=== PATIENT | male | born 1940 | race Caucasian/White ===

== ENCOUNTER 2023-08-13 15:51 | Inpatient (IN) | payer MEDICARE, BC ==
--- NOTE | 2023-08-13 16:40 | ED ---
Abdominal Pain HPI - General Source: patient, family, RN notes reviewed Mode of arrival: wheelchair Limitations: no limitations <Agueda Carson - Last Filed: 08/13/23 16:39> - History of Present Illness MD Complaint: abdominal pain -: days(s) Location: diffuse, epigastric, suprapubic Radiation: epigastric, suprapubic Migration to: epigastric, suprapubic Severity: moderate Severity scale (1-10): 5 Quality: sharp Consistency: intermittent Improves With: nothing Worsens With: nothing Associated Symptoms: nausea, diarrhea, constipation Treatments Prior to Arrival: other (0) <Brandon Chavis - Last Filed: 08/21/23 00:39> - General Chief Complaint: Abdominal Pain Stated Complaint: ABD pain Time Seen by Provider: 08/13/23 16:10 - History of Present Illness Initial Comments: Tosin notethis is an 82-year-old male with a history of diverticulitis 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 Family states that patient has been more lethargic and weak over this time. complaints of constipation and bleching. Referred by Dr. Mendoza (Agueda Carson) This is a 82-year-old male to the ER for evaluation known history of diverticulitis coming in with severe abdominal pain today. Patient also had outpatient lab testing showing low hemoglobin and patient presents to the ER for evaluation of low hemoglobin and abdominal pain (Brandon Chavis) - Related Data Home Medications Medication Instructions Recorded Confirmed Acetaminophen [Tylenol Arthritis] 650 mg PO BID 08/13/23 08/13/23 Amoxicillin 2,000 mg PO ONETIME PRN 08/13/23 08/13/23 Aspirin EC [Ecotrin Low Dose] 81 mg PO DAILY 08/13/23 08/13/23 Atorvastatin [Lipitor] 40 mg PO HS 08/13/23 08/13/23 Clopidogrel [Plavix] 75 mg PO DAILY 08/13/23 08/13/23 Cyanocobalamin (Vitamin B-12) 1,000 mcg PO DAILY 08/13/23 08/13/23 [Vitamin B-12] EPINEPHrine (Auto Inject) [Epipen] 0.3 mg IM ONCE PRN 08/13/23 08/13/23 Ferrous Sulfate [Feosol] 325 mg PO DAILY 08/13/23 08/13/23 Finasteride [Proscar] 5 mg PO DAILY 08/13/23 08/13/23 Furosemide [Lasix] 20 mg PO BID@0900,1600 08/13/23 08/13/23 Gabapentin 600 mg PO TID 08/13/23 08/13/23 Metoprolol Succinate (ER) [Toprol 12.5 mg PO BID 08/13/23 08/13/23 Xl] Mv-Min/Folic/K1/Lycopen/Lutein 1 tab PO DAILY 08/13/23 08/13/23 [Centrum Silver Men Tablet] Omega3/Dha/Epa/Fish Oil/Vit D3 1 cap PO DAILY 08/13/23 08/13/23 [Edmond-3 + Vitamin D3 Softgel] Omeprazole 40 mg PO BID 08/13/23 08/13/23 Potassium Chloride ER [K-Dur 20] 20 meq PO DAILY 08/13/23 08/13/23 Tamsulosin HCl [Flomax] 0.4 mg PO DAILY 08/13/23 08/13/23 Previous Rx's Medication Instructions Recorded Apixaban [Eliquis] 5 mg PO BID #60 tab 08/20/23 Allergies Allergy/AdvReac Type Severity Reaction Status Date / Time bee venom protein (honey bee) AdvReac Anaphylaxis Verified 08/13/23 19:12 /Swelling/R lawson Review of Systems ROS Other: All systems not noted in ROS Statement are negative. <Agueda Carson - Last Filed: 08/13/23 16:39> ROS Other: All systems not noted in ROS Statement are negative. <Brandon Chavis - Last Filed: 08/21/23 00:39> ROS Statement: Those systems with pertinent positive or pertinent negative responses have been documented in the HPI. Past Medical History Past Medical History: Cancer, Hyperlipidemia, Hypertension Additional Past Medical History / Comment(s): melatoma, abnormal blood protein d isorder, neuropathy History of Any Multi-Drug Resistant Organisms: None Reported Past Surgical History: Heart Catheterization With Stent Past Psychological History: No Psychological Hx Reported Smoking Status: Former smoker Past Alcohol Use History: None Reported Past Drug Use History: None Reported <Agueda Carson - Last Filed: 08/13/23 16:39> General Exam Limitations: no limitations <Leesa Carsonoe - Last Filed: 08/13/23 16:39> General appearance: alert, in no apparent distress Head exam: Present: atraumatic, normocephalic, normal inspection Eye exam: Present: normal appearance, PERRL, EOMI. Absent: scleral icterus, conjunctival injection, periorbital swelling ENT exam: Present: normal exam, mucous membranes moist Neck exam: Present: normal inspection. Absent: tenderness, meningismus, lymphadenopathy Respiratory exam: Present: normal lung sounds bilaterally. Absent: respiratory distress, wheezes, rales, rhonchi, stridor Cardiovascular Exam: Present: regular rate, normal rhythm, normal heart sounds. Absent: systolic murmur, diastolic murmur, rubs, gallop, clicks GI/Abdominal exam: Present: soft, normal bowel sounds. Absent: distended, tenderness, guarding, rebound, rigid Extremities exam: Present: normal inspection, full ROM, normal capillary refill. Absent: tenderness, pedal edema, joint swelling, calf tenderness Back exam: Present: normal inspection Neurological exam: Present: alert, oriented X3, CN II-XII intact Psychiatric exam: Present: normal affect, normal mood Skin exam: Present: warm, dry, intact, normal color. Absent: rash <Brandon Chavis - Last Filed: 08/21/23 00:39> - General Exam Comments Initial Comments: Visual Physical Exam Vital signs reviewed General: Well-appearing, nontoxic, no acute distress. Head: Normocephalic, atraumatic Eyes: PERRLA, EOMI ENT: Airway patent Chest: Nonlabored breathing Skin: No visual rash, normal skin tone Neuro: Alert and oriented 3 Musculoskeletal: No gross abnormalities (Agueda Carson) Course <Brandon Chavis - Last Filed: 08/21/23 00:39> Vital Signs 08/13/23 08/13/23 08/13/23 16:12 18:27 19:42 Temperature 101.2 F H 100.4 F H Pulse Rate 60 70 75 Respiratory 18 16 16 Rate Blood Pressure 109/57 138/67 121/76 O2 Sat by Pulse 95 97 95 Oximetry 08/13/23 08/13/23 08/13/23 20:27 20:53 21:57 Temperature 99.4 F 98.8 F Pulse Rate 69 66 61 Respiratory 19 15 16 Rate Blood Pressure 125/68 112/53 120/75 O2 Sat by Pulse 97 98 96 Oximetry 08/13/23 22:26 Temperature 97.7 F Pulse Rate 61 Respiratory 19 Rate Blood Pressure 110/64 O2 Sat by Pulse 95 Oximetry - Reevaluation(s) Reevaluation #1: 08/13/23 21:25 Records reviewed (Brandon Chavis) Reevaluation #2: 08/13/23 21:25 Patient's symptoms are unchanged (Brandon Chavis) Reevaluation #3: 08/13/23 21:25 Patient informed of results and questions answered (Brandon Chavis) Reevaluation #4: Was pt. sent in by a medical professional or institution (NICOLE Burgos, CURRICULUM MANAGER, urgent care, hospital, or jail...) When possible be specific @ -no Did you speak to anyone other than the patient for history (EMS, parent, family, police, friend...)? What history was obtained from this source @ -no Did you review nursing and triage notes (agree or disagree)? Why? @ -agree Are old charts reviewed (outside hosp., previous admission, EMS record, old EKG, old radiological studies, urgent care reports/EKG's, jail records)? Report findings @ -yes Differential Diagnosis (chest pain, altered mental status, abdominal pain women, abdominal pain men, vaginal bleeding, weakness, fever, dyspnea, syncope, headache, dizziness, GI bleed, back pain, seizure, CVA, palpatations, mental health, musculoskeletal)? @ -prior EKG interpreted by me (3pts min.). @ -yes X-rays interpreted by me (1pt min.). @ -yes negative for acute disease CT interpreted by me (1pt min.). @ -Yes negative for acute disease U/S interpreted by me (1pt. min.). @ -no What testing was considered but not performed or refused? (CT, X-rays, U/S, labs)? Why? @ -none What meds were considered but not given or refused? Why? @ -none Did you discuss the management of the patient with other professionals (professionals i.e. NICOLE Burgos, CURRICULUM MANAGER, lab, RT, psych nurse, pediatric social worker, boiler attendant, teacher, fire management officer, rn case management)? Give summary @ -no Was smoking cessation discussed for >3mins.? @ -no Was critical care preformed (if so, how long)? @ -no Were there social determinants of health that impacted care today? How? (Homel essness, low income, unemployed, alcoholism, drug addiction, transportation, low edu. Level, literacy, decrease access to med. care, long term, rehab)? @ -none Was there de-escalation of care discussed even if they declined (Discuss DNR or withdrawal of care, Hospice)? DNR status @ -no What co-morbidities impacted this encounter? (DM, HTN, Smoking, COPD, CAD, Cancer, CVA, ARF, Chemo, Hep., AIDS, mental health diagnosis, sleep apnea, morbid obesity)? @ -none Was patient admitted / discharged? Hospital course, mention meds given and route, prescriptions, significant lab abnormalities, going to OR and other pertinent info. @ - 82 male will be admitted for evaluation of anemia, patient has no acute distress here in the ER will be transfusion admitted for also further evaluation of fever Admitted Undiagnosed new problem with uncertain prognosis? @ -no Drug Therapy requiring intensive monitoring for toxicity (Heparin, Nitro, Insulin, Cardizem)? @ -no Were any procedures done? @ -no Diagnosis/symptom? @ -Fever and anemia Acute, or Chronic, or Acute on Chronic? @ -Acute Uncomplicated (without systemic symptoms) or Complicated (systemic symptoms)? @ -Complicated Side effects of treatment? @ -no Exacerbation, Progression, or Severe Exacerbation? @ -exacerbation Poses a threat to life or bodily function? How? (Chest pain, USA, IA, pneumonia, PE, COPD, DKA, ARF, appy, cholecystitis, CVA, Diverticulitis, Homicidal, Suicidal, threat to staff... and all critical care pts) @ -yes with extremes of age (Brandon Chavis) Reevaluation #5: Differential Fever: Pneumonia, viral URI, endocarditis, myocarditis, pericarditis, otitis, sinusitis, peritonsillar Abscess, retropharyngeal Abscess, epiglottitis, peritonitis, appendicitis, Sara cystitis, diverticulitis, hepatitis, colitis, UTI, PID, TOA, pyelonephritis, prostatitis, epididymitis, meningitis, encephalitis, pulmonary embolism, CVA, thyroid storm, pancreatitis, adrenal crisis, cavernous sinus thrombosis, this is not meant to be an all-inclusive list. Differential GI Bleed: Esophageal varices, aortoenteric fistula, Sophie-Resendiz, gastritis, peptic ulcer disease, diverticulosis, inflammatory bowel disease, hemorrhoids, fissure, colitis, malignancy, Meckels diverticulum, this is not meant to be an all- inclusive list. (Brandon Chavis) - Consultations Consultation #1: Talk with Dr. Mcadams who agrees to admit this patient (Brandon Chavis) Medical Decision Making <Agueda Carson - Last Filed: 08/13/23 16:39> - Lab Data Result diagrams: 08/20/23 18:12 08/20/23 09:31 - Radiology Data Radiology results: report reviewed (CT abdomen pelvis is negative for acute disease), image reviewed <Brandon Chavis - Last Filed: 08/21/23 00:39> - Medical Decision Making I completed the quick note portion of this chart signed Agueda Carson PA-C (Agueda Carson) 82 male will be admitted for evaluation of anemia, patient has no acute distress here in the ER will be transfusion admitted for also further evaluation of fever (Brandon Chavis) - Lab Data Lab Results 08/13/23 08/13/23 08/13/23 Range/Units 16:22 17:20 17:20 WBC (3.8-10.6) k/uL RBC (4.30-5.90) m/uL Hgb (13.0-17.5) gm/dL Hct (39.0-53.0) % MCV (80.0-100.0) fL MCH (25.0-35.0) pg MCHC (31.0-37.0) g/dL RDW (11.5-15.5) % Plt Count (150-450) k/uL MPV Neutrophils % % Lymphocytes % % Monocytes % % Eosinophils % % Basophils % % Neutrophils # (1.3-7.7) k/uL Lymphocytes # (1.0-4.8) k/uL Monocytes # (0-1.0) k/uL Eosinophils # (0-0.7) k/uL Basophils # (0-0.2) k/uL Hypochromasia Retic Count 2.6 H (0.5-2.0) % PT (10.0-12.5) sec INR (<1.2) APTT (22.0-30.0) sec Sodium (137-145) mmol/L Potassium (3.5-5.1) mmol/L Chloride (98-107) mmol/L Carbon Dioxide (22-30) mmol/L Anion Gap mmol/L BUN (9-20) mg/dL Creatinine (0.66-1.25) mg/dL Est GFR (CKD-EPI)AfAm (>60 ml/min/1.73 sqM) Est GFR (CKD-EPI)NonAf (>60 ml/min/1.73 sqM) Glucose (74-99) mg/dL Plasma Lactic Acid Umesh (0.7-2.0) mmol/L Calcium (8.4-10.2) mg/dL Magnesium (1.6-2.3) mg/dL Iron 26 L (65-175) UG/DL TIBC 210 L (228-460) UG/DL % Saturation 12.38 L (15.00-50.00) Transferrin 150.0 L (204.0-354.0) mg/dL Ferritin 401.0 H (22.0-322.0) ng/mL Total Bilirubin (0.2-1.3) mg/dL AST (17-59) U/L ALT (4-49) U/L Alkaline Phosphatase (38-126) U/L Lactate Dehydrogenase 307 H (120-246) U/L Total Protein (6.3-8.2) g/dL Albumin (3.5-5.0) g/dL Vitamin B12 892.0 (200.0-944.0) pg/mL Urine Color Urine Appearance (Clear) Urine pH (5.0-8.0) Ur Specific Hurst (1.001-1.035) Urine Protein (Negative) Urine Glucose (UA) (Negative) Urine Ketones (Negative) Urine Blood (Negative) Urine Nitrite (Negative) Urine Bilirubin (Negative) Urine Urobilinogen (<2.0) mg/dL Ur Leukocyte Esterase (Negative) Influenza Type A (PCR) Not Detected (Not Detectd) Influenza Type B (PCR) Not Detected (Not Detectd) RSV (PCR) Not Detected (Not Detectd) SARS-CoV-2 (PCR) Not Detected (Not Detectd) Blood Type Blood Type Recheck Bld Type Recheck Status Antibody Screen Crossmatch Spec Expiration Date 08/13/23 08/13/23 08/13/23 Range/Units 17:32 17:32 17:32 WBC 8.8 (3.8-10.6) k/uL RBC 2.01 L (4.30-5.90) m/uL Hgb 6.2 L* (13.0-17.5) gm/dL Hct 19.1 L* (39.0-53.0) % MCV 94.9 (80.0-100.0) fL MCH 30.6 (25.0-35.0) pg MCHC 32.2 (31.0-37.0) g/dL RDW 14.9 (11.5-15.5) % Plt Count 270 (150-450) k/uL MPV 7.8 Neutrophils % 85 % Lymphocytes % 8 % Monocytes % 4 % Eosinophils % 0 % Basophils % 0 % Neutrophils # 7.4 (1.3-7.7) k/uL Lymphocytes # 0.7 L (1.0-4.8) k/uL Monocytes # 0.4 (0-1.0) k/uL Eosinophils # 0.0 (0-0.7) k/uL Basophils # 0.0 (0-0.2) k/uL Hypochromasia Slight Retic Count (0.5-2.0) % PT (10.0-12.5) sec INR (<1.2) APTT (22.0-30.0) sec Sodium 135 L (137-145) mmol/L Potassium 4.5 (3.5-5.1) mmol/L Chloride 101 (98-107) mmol/L Carbon Dioxide 22 (22-30) mmol/L Anion Gap 12 mmol/L BUN 19 (9-20) mg/dL Creatinine 1.11 (0.66-1.25) mg/dL Est GFR (CKD-EPI)AfAm 70 (>60 ml/min/1.73 sqM) Est GFR (CKD-EPI)NonAf 61 (>60 ml/min/1.73 sqM) Glucose 115 H (74-99) mg/dL Plasma Lactic Acid Umesh 1.7 (0.7-2.0) mmol/L Calcium 8.4 (8.4-10.2) mg/dL Magnesium 2.2 (1.6-2.3) mg/dL Iron (65-175) UG/DL TIBC (228-460) UG/DL % Saturation (15.00-50.00) Transferrin (204.0-354.0) mg/dL Ferritin (22.0-322.0) ng/mL Total Bilirubin 1.0 (0.2-1.3) mg/dL AST 45 (17-59) U/L ALT 28 (4-49) U/L Alkaline Phosphatase 130 H (38-126) U/L Lactate Dehydrogenase (120-246) U/L Total Protein 9.6 H (6.3-8.2) g/dL Albumin 3.6 (3.5-5.0) g/dL Vitamin B12 (200.0-944.0) pg/mL Urine Color Urine Appearance (Clear) Urine pH (5.0-8.0) Ur Specific Hurst (1.001-1.035) Urine Protein (Negative) Urine Glucose (UA) (Negative) Urine Ketones (Negative) Urine Blood (Negative) Urine Nitrite (Negative) Urine Bilirubin (Negative) Urine Urobilinogen (<2.0) mg/dL Ur Leukocyte Esterase (Negative) Influenza Type A (PCR) (Not Detectd) Influenza Type B (PCR) (Not Detectd) RSV (PCR) (Not Detectd) SARS-CoV-2 (PCR) (Not Detectd) Blood Type Blood Type Recheck Bld Type Recheck Status Antibody Screen Crossmatch Spec Expiration Date 08/13/23 08/13/23 08/13/23 Range/Units 18:10 18:47 21:10 WBC (3.8-10.6) k/uL RBC (4.30-5.90) m/uL Hgb (13.0-17.5) gm/dL Hct (39.0-53.0) % MCV (80.0-100.0) fL MCH (25.0-35.0) pg MCHC (31.0-37.0) g/dL RDW (11.5-15.5) % Plt Count (150-450) k/uL MPV Neutrophils % % Lymphocytes % % Monocytes % % Eosinophils % % Basophils % % Neutrophils # (1.3-7.7) k/uL Lymphocytes # (1.0-4.8) k/uL Monocytes # (0-1.0) k/uL Eosinophils # (0-0.7) k/uL Basophils # (0-0.2) k/uL Hypochromasia Retic Count (0.5-2.0) % PT 12.2 (10.0-12.5) sec INR 1.1 (<1.2) APTT 25.8 (22.0-30.0) sec Sodium (137-145) mmol/L Potassium (3.5-5.1) mmol/L Chloride (98-107) mmol/L Carbon Dioxide (22-30) mmol/L Anion Gap mmol/L BUN (9-20) mg/dL Creatinine (0.66-1.25) mg/dL Est GFR (CKD-EPI)AfAm (>60 ml/min/1.73 sqM) Est GFR (CKD-EPI)NonAf (>60 ml/min/1.73 sqM) Glucose (74-99) mg/dL Plasma Lactic Acid Umesh (0.7-2.0) mmol/L Calcium (8.4-10.2) mg/dL Magnesium (1.6-2.3) mg/dL Iron (65-175) UG/DL TIBC (228-460) UG/DL % Saturation (15.00-50.00) Transferrin (204.0-354.0) mg/dL Ferritin (22.0-322.0) ng/mL Total Bilirubin (0.2-1.3) mg/dL AST (17-59) U/L ALT (4-49) U/L Alkaline Phosphatase (38-126) U/L Lactate Dehydrogenase (120-246) U/L Total Protein (6.3-8.2) g/dL Albumin (3.5-5.0) g/dL Vitamin B12 (200.0-944.0) pg/mL Urine Color Light Yellow Urine Appearance Clear (Clear) Urine pH 6.0 (5.0-8.0) Ur Specific Hurst 1.015 (1.001-1.035) Urine Protein Trace H (Negative) Urine Glucose (UA) Negative (Negative) Urine Ketones Negative (Negative) Urine Blood Negative (Negative) Urine Nitrite Negative (Negative) Urine Bilirubin Negative (Negative) Urine Urobilinogen <2.0 (<2.0) mg/dL Ur Leukocyte Esterase Negative (Negative) Influenza Type A (PCR) (Not Detectd) Influenza Type B (PCR) (Not Detectd) RSV (PCR) (Not Detectd) SARS-CoV-2 (PCR) (Not Detectd) Blood Type A Negative Blood Type Recheck A Neg Bld Type Recheck Status No Antibody Screen NEGATIVE Crossmatch See Detail Spec Expiration Date 08/16/20232309 Disposition <Agueda Carson - Last Filed: 08/13/23 16:39> Is patient prescribed a controlled substance at d/c from ED?: No Time of Disposition: 21:20 <Brandon Chavis - Last Filed: 08/21/23 00:39> Clinical Impression: Abdominal pain, Enteritis, Anemia Disposition: ADMITTED IP TO THIS HOSP Condition: Fair
--- NOTE | 2023-08-13 17:17 | XR ---
EXAMINATION TYPE: XR KUB DATE OF EXAM: 08/13/2023 4:50 PM CLINICAL INDICATION:Male, 82 years old with history of abdominal pain; [facility] COMPARISON: None. TECHNIQUE: One radiographic view of the abdomen was obtained. FINDINGS: The bowel gas pattern is nonspecific without dilated loops of small or large bowel. There i s no evidence for organomegaly or pneumoperitoneum. The osseous structures are intact. No abnormal calcifications are present. Fecal material and gas are demonstrated throughout the colon and rectum. Right upper quadrant cholecystectomy clips. Multilevel degeneration changes spine with scoliosis ape x L2-L3. IMPRESSION: Nonspecific bowel gas pattern without radiographic evidence for acute process.
[2023-08-13 17:38] LABS: Basophils % (A) 0 %; Eosinophils % (A) 0 %; Hypochromasia Slight; Lymphocytes # (A) 0.7 k/uL (1.0-4.8); Lymphocytes % (A) 8 %; MCH 30.6 pg (25.0-35.0); MCHC 32.2 g/dL (31.0-37.0); MCV 94.9 fL (80.0-100.0); Mean Platelet Volume 7.8; Monocytes # (A) 0.4 k/uL (0-1.0); Monocytes % (A) 4 %; Neutrophils # (A) 7.4 k/uL (1.3-7.7); Neutrophils % (A) 85 %; Platelet Count 270 k/uL (150-450); RBC 2.01 m/uL (4.30-5.90); RDW 14.9 % (11.5-15.5); WBC 8.8 k/uL (3.8-10.6)
[2023-08-13 17:44] LABS: HGB 6.2 gm/dL (13.0-17.5)
[2023-08-13 17:45] LABS: HCT 19.1 % (39.0-53.0)
[2023-08-13 17:50] LABS: ALT 28 U/L (4-49); AST 45 U/L (17-59); African American GFR (CKD) 70 (>60 ml/min/1.73 sqM); Albumin 3.6 g/dL (3.5-5.0); Alkaline Phosphatase 130 U/L (38-126); Anion Gap 12 mmol/L; Blood Urea Nitrogen 19 mg/dL (9-20); Calcium 8.4 mg/dL (8.4-10.2); Carbon Dioxide 22 mmol/L (22-30); Chloride 101 mmol/L (98-107); Glucose 115 mg/dL (74-99); Magnesium 2.2 mg/dL (1.6-2.3); Non-African American GFR(CKD) 61 (>60 ml/min/1.73 sqM); Potassium 4.5 mmol/L (3.5-5.1); Sodium 135 mmol/L (137-145); Total Protein 9.6 g/dL (6.3-8.2)
[2023-08-13 18:44] LABS: Appearance,Urine Clear (Clear); Bilirubin,Urine Negative (Negative); Blood,Urine Negative (Negative); Color,Urine Light Yellow; Glucose,Urine (UA) Negative (Negative); Ketones,Urine Negative (Negative); Leukocyte Esterase,Urine Negative (Negative); Nitrite,Urine Negative (Negative); Protein,Urine Trace (Negative); Specific Gravity,Urine 1.015 (1.001-1.035); Urobilinogen,Urine <2.0 mg/dL (<2.0)
--- NOTE | 2023-08-13 19:08 | XR ---
EXAMINATION TYPE: XR chest 1V portable DATE OF EXAM: 08/13/2023 6:54 PM CLINICAL INDICATION:Male, 82 years old with history of weak; COMPARISON: None TECHNIQUE: XR chest 1V portable Frontal view of the chest. FINDINGS: Lungs/Pleura: Suspected right basilar atelectasis. There is no evidence of pleural effusion, focal co nsolidation, or pneumothorax. Pulmonary vascularity: Unremarkable. Heart/mediastinum: Cardiomediastinal silhouette is unremarkable. Post aortic valve repair changes. Musculoskeletal: Degenerative changes of the shoulder joints. Other findings: None IMPRESSION: No acute cardiopulmonary disease/process.
[2023-08-13 19:14] LABS: INR 1.1 (<1.2); Partial Thromboplastin Time 25.8 sec (22.0-30.0); Prothrombin Time 12.2 sec (10.0-12.5)
[2023-08-13] MEDS: ACETAMINOPHEN IV (For NPO) 1,000 MG in EMPTY BAG 1 BAG IVPB STA (19:39)
--- NOTE | 2023-08-13 19:52 | CT ---
EXAMINATION TYPE: CT abdomen pelvis w con CT DLP: 1265 mGycm, Automated exposure control for dose reduction was used. DATE OF EXAM: 08/13/2023 7:48 PM COMPARISON: None. CLINICAL INDICATION:Male, 82 years old with history of pain; abdominal pain TECHNIQUE: Axial CT abdomen pelvis w con;Sagittal and coronal reformats were created on a separate w orkstation. Contrast used:100ml mL of Isovue 300 with IV Contrast, (none if empty) Oral contrast used: without Oral Contrast (none if empty) FINDINGS: LOWER CHEST: The heart is mildly enlarged for size with aortic valve repair changes. ABDOMEN LIVER: Unremarkable GALLBLADDER AND BILE DUCTS: Gallbladder surgically absent. PANCREAS: Unremarkable. SPLEEN: Spleen is mildly enlarged measuring up to 14.3 cm. ADRENAL GLANDS: Unremarkable. KIDNEYS AND URETERS: No evidence of hydronephrosis or renal calculus. The ureters are unremarkable. Mild dilation of the right right renal collecting system on left. No obstructing calculus visualized. PELVIS BLADDER: Unremarkable REPRODUCTIVE: Unremarkable. ABDOMEN & PELVIS STOMACH AND BOWEL: No evidence of bowel obstruction. There is a moderate hiatal hernia. Few scattered colonic diverticula. PERITONEUM/RETROPERITONEUM: No evidence of pneumoperitoneum or free fluid. VASCULATURE: No evidence of aortic aneurysm. Left renal cortical cysts. Infrarenal abdominal aortic dilation measuring up to 26 mm. MUSCULOSKELETAL: Moderate to severe multilevel degeneration changes throughout the spine with disc sp rochelle narrowing, osteophyte formation, vacuum disc phenomena, facet joint arthropathy present. 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 LYMPH NODES: No gross evidence for lymphadenopathy. SOFT TISSUE/ABDOMINAL WALL: Unremarkable IMPRESSION: 1. No evidence for acute abdominal process. No evidence for hemorrhage/hematoma. 2. Moderate hiatal hernia. 3. 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 4. Colonic diverticulosis. 5. Mild splenomegaly. 6. Severe degeneration changes throughout the spine
[2023-08-13] MEDS ORDERED: ONDANSETRON 4 MG/2 ML VIAL IVP PRN (21:26)
[2023-08-13] MEDS ORDERED: NALOXONE 0.4 MG/ML 1 ML VIAL IV PRN (21:26)
[2023-08-13] MEDS: IBUPROFEN 800 MG TAB PO STA (22:20)
[2023-08-13] MEDS: ACETAMINOPHEN TAB 500 MG TAB PO STA (22:21)
[2023-08-14] MEDS: PANTOPRAZOLE 40 MG/10 ML VIAL IV SCH (08:20)
[2023-08-14 09:36] LABS: Basophils % (A) 0 %; Eosinophils % (A) 0 %; HCT 31.3 % (39.0-53.0); HGB 9.8 gm/dL (13.0-17.5); Hypochromasia Slight; Lymphocytes # (A) 0.4 k/uL (1.0-4.8); Lymphocytes % (A) 6 %; MCH 29.7 pg (25.0-35.0); MCHC 31.4 g/dL (31.0-37.0); MCV 94.5 fL (80.0-100.0); Mean Platelet Volume 8.1; Monocytes # (A) 0.5 k/uL (0-1.0); Monocytes % (A) 6 %; Neutrophils # (A) 6.8 k/uL (1.3-7.7); Neutrophils % (A) 85 %; Platelet Count 220 k/uL (150-450); Poikilocytosis Slight; RBC 3.31 m/uL (4.30-5.90)
[2023-08-14 09:45] LABS: ALT 26 U/L (4-49); AST 36 U/L (17-59); African American GFR (CKD) 82 (>60 ml/min/1.73 sqM); Albumin 3.1 g/dL (3.5-5.0); Alkaline Phosphatase 117 U/L (38-126); Anion Gap 9 mmol/L; Blood Urea Nitrogen 18 mg/dL (9-20); Calcium 8.7 mg/dL (8.4-10.2); Carbon Dioxide 25 mmol/L (22-30); Chloride 104 mmol/L (98-107); Glucose 114 mg/dL (74-99); Magnesium 2.4 mg/dL (1.6-2.3); Non-African American GFR(CKD) 71 (>60 ml/min/1.73 sqM); Phosphorus 4.5 mg/dL (2.5-4.5); Potassium 4.1 mmol/L (3.5-5.1); Sodium 138 mmol/L (137-145); Total Protein 8.4 g/dL (6.3-8.2)
[2023-08-14 13:07] VITALS: BMI 27.9
--- NOTE | 2023-08-14 13:20 | P.CONS ---
History of Present Illness - Reason for Consult Consult date: 08/14/23 Anemia Requesting physician: Brandon Chavis - Chief Complaint Weakness, right groin pain - History of Present Illness This is a pleasant 82-year-old male who presented to the emergency department yesterday afternoon with complaints of weakness and right groin and hip pain. 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 He follows with Dr. Lorenzo believes he was diagnosed about 13 years ago and had undergone treatment at that time. States he has not needed any recent treatment. He denies any abdominal pain, nausea or vomiting. Denies any diarrhea. States his last colonoscopy was about 4 years ago he believes possibly at [facility]. He denies any previous history of a GI bleed and no previous history that he recalls of anemia needing blood. He does take aspirin and Plavix no other NSAIDs or anticoagulation. He denies any blood in his stool or black stool. Admitting hemoglobin 6.2 he has transfused with 2 units of blood with a repeat hemoglobin today of 9.8. Labs are consistent with normocytic normochromic anemia. Patient was febrile on admission with a max temp of 101.7. Hematology following. Review of Systems REVIEW OF SYSTEMS: CARDIOPULMONARY: No chest pain or shortness of breath. Gastrointestinal: No abdominal pain. No nausea or vomiting. No hematemesis, coffee-ground emesis. No rectal bleeding, or melena. GENITOURINARY: No dysuria or hematuria. MUSCULOSKELETAL: Reports normal range of motion., Patient reports groin hip and flank pain. joint pain. SKIN: No rashes. No jaundice. ENDOCRINE: No chills, fevers. No excessive weight gain or loss. No polydipsia or polyuria. PSYCHIATRIC: Unremarkable. NEUROLOGY: No change in mental status. Denies dizziness, headache. ENT: Vision unremarkable. CONSTITUTIONAL: No recent weight loss. No fever, chills, night sweats. Past Medical History Past Medical History: Cancer, Hyperlipidemia, Hypertension Additional Past Medical History / Comment(s): melatoma, abnormal blood protein disorder, neuropathy History of Any Multi-Drug Resistant Organisms: None Reported Past Surgical History: Appendectomy, Cholecystectomy, Heart Catheterization Additional Past Surgical History / Comment(s): aortic valve placement Past Psychological History: No Psychological Hx Reported Smoking Status: Former smoker Past Alcohol Use History: None Reported Past Drug Use History: None Reported Medications and Allergies Home Medications Medication Instructions Recorded Confirmed Type Acetaminophen [Tylenol Arthritis] 650 mg PO BID 08/13/23 08/13/23 History Amoxicillin 2,000 mg PO ONETIME PRN 08/13/23 08/13/23 History Aspirin EC [Ecotrin Low Dose] 81 mg PO DAILY 08/13/23 08/13/23 History Atorvastatin [Lipitor] 40 mg PO HS 08/13/23 08/13/23 History Clopidogrel [Plavix] 75 mg PO DAILY 08/13/23 08/13/23 History Cyanocobalamin (Vitamin B-12) 1,000 mcg PO DAILY 08/13/23 08/13/23 History [Vitamin B-12] EPINEPHrine (Auto Inject) [Epipen] 0.3 mg IM ONCE PRN 08/13/23 08/13/23 History Ferrous Sulfate [Feosol] 325 mg PO DAILY 08/13/23 08/13/23 History Finasteride [Proscar] 5 mg PO DAILY 08/13/23 08/13/23 History Furosemide [Lasix] 20 mg PO BID@0900,1600 08/13/23 08/13/23 History Gabapentin 600 mg PO TID 08/13/23 08/13/23 History Metoprolol Succinate (ER) [Toprol 12.5 mg PO BID 08/13/23 08/13/23 History Xl] Mv-Min/Folic/K1/Lycopen/Lutein 1 tab PO DAILY 08/13/23 08/13/23 History [Centrum Silver Men Tablet] Omega3/Dha/Epa/Fish Oil/Vit D3 1 cap PO DAILY 08/13/23 08/13/23 History [[place]-3 + Vitamin D3 Softgel] Omeprazole 40 mg PO BID 08/13/23 08/13/23 History Potassium Chloride ER [K-Dur 20] 20 meq PO DAILY 08/13/23 08/13/23 History Tamsulosin HCl [Flomax] 0.4 mg PO DAILY 08/13/23 08/13/23 History Allergies Allergy/AdvReac Type Severity Reaction Status Date / Time bee venom protein (honey bee) AdvReac Anaphylaxis Verified 08/13/23 19:12 /Swelling/R lawson Physical Exam Vitals: Vital Signs Temp Pulse Pulse Resp BP BP Pulse Ox 08/14/23 11:40 97.5 F L 60 20 153/64 98 08/14/23 08:00 97.5 F L 58 L 20 138/72 98 08/14/23 05:47 96.2 F L 43 L 14 128/55 99 08/14/23 03:39 96.4 F L 44 L 16 121/55 97 08/14/23 03:19 96.5 F L 45 L 16 131/58 100 08/14/23 02:53 96.5 F L 47 L 14 134/61 100 08/13/23 23:51 97.7 F 50 L 14 117/55 91 L 08/13/23 23:31 98.2 F 53 L 16 115/62 97 08/13/23 23:16 97.9 F 54 L 16 127/64 97 08/13/23 22:51 97.9 F 57 L 16 126/59 97 08/13/23 22:26 97.7 F 61 19 110/64 95 08/13/23 21:57 61 16 120/75 96 08/13/23 20:53 98.8 F 66 15 112/53 98 08/13/23 20:27 99.4 F 69 19 125/68 97 08/13/23 19:42 75 16 121/76 95 08/13/23 18:27 100.4 F H 70 16 138/67 97 08/13/23 16:12 101.2 F H 60 18 109/57 95 Intake and Output 08/13/23 08/14/23 08/14/23 22:59 06:59 14:59 Intake Total 559 118 Output Total 450 350 Balance 109 -232 Intake: Oral 118 Blood Product 559 Rc Pheresis As-3 Unit 277 [id number] Rc Pheresis As-3 Unit 282 [id number] Output: Urine 450 350 Other: Voiding Method Toilet Weight 93.44 kg 93.44 kg General appearance: The patient is alert, oriented, appears in no acute distress. HET: Head is normocephalic and atraumatic. Conjunctiva pink. Sclera anicteric. Neck: Supple without lymphadenopathy. Trachea midline. Heart: Regular. Lungs: Equal expansion, normal respiratory effort. Abdomen: Soft, nontender, nondistended. Skin: No rashes. No jaundice. Extremities: Normal skin color and turgor. No pedal edema. Neurological: No focal deficits. Alert and oriented x3. Results CBC & Chem 7: 08/14/23 08:22 08/14/23 08:22 Labs: Abnormal Lab Results - Last 24 Hours (Table) 08/13/23 08/13/23 08/13/23 Range/Units 17:32 17:32 18:10 RBC 2.01 L (4.30-5.90) m/uL Hgb 6.2 L* (13.0-17.5) gm/dL Hct 19.1 L* (39.0-53.0) % Lymphocytes # 0.7 L (1.0-4.8) k/uL Sodium 135 L (137-145) mmol/L Glucose 115 H (74-99) mg/dL Magnesium (1.6-2.3) mg/dL Alkaline Phosphatase 130 H (38-126) U/L Total Protein 9.6 H (6.3-8.2) g/dL Albumin (3.5-5.0) g/dL Urine Protein Trace H (Negative) Crossmatch 08/13/23 08/14/23 08/14/23 Range/Units 21:10 08:22 08:22 RBC 3.31 L (4.30-5.90) m/uL Hgb 9.8 L D (13.0-17.5) gm/dL Hct 31.3 L (39.0-53.0) % Lymphocytes # 0.4 L (1.0-4.8) k/uL Sodium (137-145) mmol/L Glucose 114 H (74-99) mg/dL Magnesium 2.4 H (1.6-2.3) mg/dL Alkaline Phosphatase (38-126) U/L Total Protein 8.4 H (6.3-8.2) g/dL Albumin 3.1 L (3.5-5.0) g/dL Urine Protein (Negative) Crossmatch See Detail Comments: CT abdomen and pelvis with contrast reports no evidence for acute abdominal process. No evidence for hemorrhage/hematoma. Moderate hiatal hernia. 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 Colonic diverticulosis. Mild splenomegaly. Severe degenerative changes throughout the spine Chest x-ray reports no acute cardiopulmonary disease/process X-ray KUB reports nonspecific bowel gas pattern without radiographic evidence for acute process. Postsurgical changes of the heart with stent graft noted. Assessment and Plan (1) Normocytic normochromic anemia Narrative/Plan: 82-year-old male presenting for weakness and fever with complaints of right groin and hip pain was noted to be anemic with a hemoglobin of 6.2 on admission.'s labs are consistent with a normocytic normochromic anemia he has a history of blood protein disorder cancer and was diagnosed about 13 years ago and follows with Dr. Lorenzo from oncology. He has not had any recent treatment. He denies any blood in his stool or black stool. Last colonoscopy about 4 years ago. Patient was discussed with oncology nurse practitioner for which they are going to do a workup for his cancer and believe anemia is likely secondary to his blood cancer. No plans on endoscopic evaluation at this time. Hemoglobin stable after 2 units of blood with a repeat hemoglobin of 9.8 today. Iron studies ordered. Will defer anemia management at this time to hematology. Current Visit: Yes Status: Acute Code(s): D64.9 - ANEMIA, UNSPECIFIED SNOMED Code(s): 04388622 Plan: 1. Continue symptomatic and supportive care 2. Daily CBC, transfuse for hemoglobin less than 7 3. Iron studies ordered 4. Protonix 40 mg daily for GI prophylaxis 5. Hold Plavix for now 6. Diet as tolerated 7. No plans on endoscopic evaluation at this time 8. Continue with workup and recommendations from oncology Thank you for this consultation, we will continue to follow. Dr. Cayden Meehan I agree with the dictator's note, documented as a scribe by Elda So.
[2023-08-14 13:32] LABS: Reticulocyte % 2.6 % (0.5-2.0)
[2023-08-14] MEDS: ASPIRIN 81 MG PO SCH (13:39)
[2023-08-14] MEDS: FINASTERIDE 5 MG TAB PO SCH (13:39)
[2023-08-14 15:42] LABS: % Iron Saturation 12.38 (15.00-50.00)
[2023-08-14] MEDS: GABAPENTIN 300 MG CAP PO SCH (16:29)
[2023-08-14] MEDS: ACETAMINOPHEN TAB 325 MG TAB PO SCH (16:29)
[2023-08-14] MEDS: FUROSEMIDE 20 MG TAB PO SCH (16:30)
--- NOTE | 2023-08-14 18:28 | P.HPIM ---
History of Present Illness H&P Date: 08/14/23 Jonathon Mckay, is an 82-year-old male we'll presented to [facility] emergency room with a chief complaint of abdominal pain He was evaluated in the emergency room vital examination on presentation revealed a temperature of 101.2 pulse 60 respiration 18 blood pressure 109/57 pulse ox 95% on room air Laboratory data revealed a white blood count of 8.8 hemoglobin 6.2 platelet cou nt 270 sodium 135 potassium 4.5 chloride 101 CO2 22 BUN 19 creatinine 1.1 iron 26 Testing in the emergency room revealed computed tomography scan of the abdomen revealed no evidence for acute abdominal process moderate hiatal hernia infrarenal abdominal x-ray gentleman measuring 26 mm colonic diverticulosis mild splenomegaly and CVA degenerative changes throughout the spine. chest x-ray revealed no acute cardiopulmonary disease Patient was admitted to medical floor for further evaluation and treatment Past Medical History Past Medical History: Cancer, Hyperlipidemia, Hypertension Additional Past Medical History / Comment(s): melatoma, abnormal blood protein disorder, neuropathy History of Any Multi-Drug Resistant Organisms: None Reported Past Surgical History: Appendectomy, Cholecystectomy, Heart Catheterization Additional Past Surgical History / Comment(s): aortic valve placement Past Psychological History: No Psychological Hx Reported Smoking Status: Former smoker Past Alcohol Use History: None Reported Past Drug Use History: None Reported Medications and Allergies Home Medications Medication Instructions Recorded Confirmed Type Acetaminophen [Tylenol Arthritis] 650 mg PO BID 08/13/23 08/13/23 History Amoxicillin 2,000 mg PO ONETIME PRN 08/13/23 08/13/23 History Aspirin EC [Ecotrin Low Dose] 81 mg PO DAILY 08/13/23 08/13/23 History Atorvastatin [Lipitor] 40 mg PO HS 08/13/23 08/13/23 History Clopidogrel [Plavix] 75 mg PO DAILY 08/13/23 08/13/23 History Cyanocobalamin (Vitamin B-12) 1,000 mcg PO DAILY 08/13/23 08/13/23 History [Vitamin B-12] EPINEPHrine (Auto Inject) [Epipen] 0.3 mg IM ONCE PRN 08/13/23 08/13/23 History Ferrous Sulfate [Feosol] 325 mg PO DAILY 08/13/23 08/13/23 History Finasteride [Proscar] 5 mg PO DAILY 08/13/23 08/13/23 History Furosemide [Lasix] 20 mg PO BID@0900,1600 08/13/23 08/13/23 History Gabapentin 600 mg PO TID 08/13/23 08/13/23 History Metoprolol Succinate (ER) [Toprol 12.5 mg PO BID 08/13/23 08/13/23 History Xl] Mv-Min/Folic/K1/Lycopen/Lutein 1 tab PO DAILY 08/13/23 08/13/23 History [Centrum Silver Men Tablet] Omega3/Dha/Epa/Fish Oil/Vit D3 1 cap PO DAILY 08/13/23 08/13/23 History [[place]-3 + Vitamin D3 Softgel] Omeprazole 40 mg PO BID 08/13/23 08/13/23 History Potassium Chloride ER [K-Dur 20] 20 meq PO DAILY 08/13/23 08/13/23 History Tamsulosin HCl [Flomax] 0.4 mg PO DAILY 08/13/23 08/13/23 History Allergies Allergy/AdvReac Type Severity Reaction Status Date / Time bee venom protein (honey bee) AdvReac Anaphylaxis Verified 08/13/23 19:12 /Swelling/R lawson Physical Exam Vitals: Vital Signs Temp Pulse Pulse Resp BP BP Pulse Ox 08/14/23 16:24 97.9 F 69 20 157/72 97 08/14/23 11:40 97.5 F L 60 20 153/64 98 08/14/23 08:00 97.5 F L 58 L 20 138/72 98 08/14/23 05:47 96.2 F L 43 L 14 128/55 99 08/14/23 03:39 96.4 F L 44 L 16 121/55 97 08/14/23 03:19 96.5 F L 45 L 16 131/58 100 08/14/23 02:53 96.5 F L 47 L 14 134/61 100 08/13/23 23:51 97.7 F 50 L 14 117/55 91 L 08/13/23 23:31 98.2 F 53 L 16 115/62 97 08/13/23 23:16 97.9 F 54 L 16 127/64 97 08/13/23 22:51 97.9 F 57 L 16 126/59 97 08/13/23 22:26 97.7 F 61 19 110/64 95 08/13/23 21:57 61 16 120/75 96 08/13/23 20:53 98.8 F 66 15 112/53 98 08/13/23 20:27 99.4 F 69 19 125/68 97 08/13/23 19:42 75 16 121/76 95 08/13/23 18:27 100.4 F H 70 16 138/67 97 Intake and Output 08/14/23 08/14/23 08/14/23 06:59 14:59 22:59 Intake Total 559 236 180 Output Total 450 350 700 Balance 109 -114 -520 Intake: Oral 236 180 Blood Product 559 Rc Pheresis As-3 Unit 277 [id number] Rc Pheresis As-3 Unit 282 [id number] Output: Urine 450 350 700 Other: Voiding Method Toilet External Catheter # Voids 3 Weight 93.44 kg In general patient is alert and oriented x 3 in no distress HEENT head normocephalic and atraumatic Neck is supple no JVD no goiter no lymphadenopathy no carotid bruit Chest examination is clear to auscultation no crackles no wheezing Cardiac exam reveals regular heart sounds S1 and S2 no gallops no murmurs Abdomen is soft nontender no organomegaly with normal bowel sounds Extremity exam reveals no edema no cyanosis or clubbing Neurological examination reveals no gross focal deficits Results CBC & Chem 7: 08/14/23 08:22 08/14/23 08:22 Labs: Abnormal Lab Results - Last 24 Hours (Table) 08/13/23 08/13/23 08/13/23 Range/Units 17:20 17:20 18:10 RBC (4.30-5.90) m/uL Hgb (13.0-17.5) gm/dL Hct (39.0-53.0) % Lymphocytes # (1.0-4.8) k/uL Retic Count 2.6 H (0.5-2.0) % Glucose (74-99) mg/dL Magnesium (1.6-2.3) mg/dL Iron 26 L (65-175) UG/DL TIBC 210 L (228-460) UG/DL % Saturation 12.38 L (15.00-50.00) Transferrin 150.0 L (204.0-354.0) mg/dL Ferritin 401.0 H (22.0-322.0) ng/mL Lactate Dehydrogenase 307 H (120-246) U/L Total Protein (6.3-8.2) g/dL Albumin (3.5-5.0) g/dL Urine Protein Trace H (Negative) Crossmatch 08/13/23 08/14/23 08/14/23 Range/Units 21:10 08:22 08:22 RBC 3.31 L (4.30-5.90) m/uL Hgb 9.8 L D (13.0-17.5) gm/dL Hct 31.3 L (39.0-53.0) % Lymphocytes # 0.4 L (1.0-4.8) k/uL Retic Count (0.5-2.0) % Glucose 114 H (74-99) mg/dL Magnesium 2.4 H (1.6-2.3) mg/dL Iron (65-175) UG/DL TIBC (228-460) UG/DL % Saturation (15.00-50.00) Transferrin (204.0-354.0) mg/dL Ferritin (22.0-322.0) ng/mL Lactate Dehydrogenase (120-246) U/L Total Protein 8.4 H (6.3-8.2) g/dL Albumin 3.1 L (3.5-5.0) g/dL Urine Protein (Negative) Crossmatch See Detail Thrombosis Risk Factor Assmnt - Choose All That Apply Any of the Below Risk Factors Present?: Yes Each Factor Represents 1 point: Obesity (BMI >25) Other Risk Factors: Yes Each Risk Factor Represents 3 Points: Age 75 years or older Other congenital or acquired thrombophilia - If yes, enter type in comment: No Thrombosis Risk Factor Assessment Total Risk Factor Score: 4 Thrombosis Risk Factor Assessment Level: Moderate Risk Assessment and Plan Plan: febrile illness, cause of fever unclear, no evidence of urinary tract infection, no significant findings on chest x-ray and computed tomography scan of the abdomen, infectious disease consultation requested Severe anemia requiring red blood cell transfusion, GI consultation is requested underlying history of hyperlipidemia Underlying history of hypertension Underlying history of benign prostatic hypertrophy Underlying history of malignant melanoma Previous history of coronary artery disease, with history of angioplasty and stent placement maintained on Plavix At this time patient was seen and examined Home medications reviewed and reordered Plavix is was held Red blood cell transfusion ordered GI consultation and infectious disease consultation requested Will follow closely
[2023-08-14 19:58] LABS: Protein, Total 8.2 g/dL (6.2-8.2)
[2023-08-14] MEDS: METOPROLOL SUCCINATE (ER) 25 MG TAB.ER.24H PO SCH (20:11)
[2023-08-14] MEDS: ATORVASTATIN 40 MG TAB PO SCH (20:11)
[2023-08-14] MEDS: PANTOPRAZOLE 40 MG TABLET PO SCH (20:11)
--- NOTE | 2023-08-14 21:20 | P.CONS ---
History of Present Illness - Reason for Consult Consult date: 08/14/23 Fever Requesting physician: Saul Mcadams - Chief Complaint Weakness not feeling well x few days - History of Present Illness Patient is a 82-year-old male with a past medical history significant for hypertension hyperlipidemia peripheral neuropathy melanoma patient was evaluated the office yesterday complaining of abdominal pain decreased urine output not feeling well patient clinically did not look better did have significant abdominal distention and tenderness for the patient was sent to the ER patient on presentation to [facility] ER did have a temperature of 101.2 F patient was not tachycardic hypotensive or hypoxic and no need for supplemental oxygen did have a hemoglobin of 6.2 white count of 8.8 kidney function was normal electrolytes were normal liver enzymes normal urine has been negative patient did have a chest x-ray no acute cardiopulmonary disease process patient also have a CT of abdominal pelvis did not show any acute intra-a bdominal process moderate hiatal hernia abdominal aortic aneurysm colonic diverticulosis patient did not have any blood culture done despite the patient did have a fever and patient has been placed to the lower hemoglobin of 6 point 2 GI was consulted infectious disease was consulted this evening because of his fever, patient is on my evaluation has been complaining of mostly weakness some abdominal discomfort mild to moderate intensity without radiation denies any nausea no vomiting did have some constipation denies any blood or mucus in the stool no urinary symptoms and no URI symptoms Review of Systems Positive point and negatives has been mentioned in the HPI, complete review of systems was performed and all other systems are negative Past Medical History Past Medical History: Cancer, Hyperlipidemia, Hypertension Additional Past Medical History / Comment(s): melatoma, abnormal blood protein disorder, neuropathy History of Any Multi-Drug Resistant Organisms: None Reported Past Surgical History: Appendectomy, Cholecystectomy, Heart Catheterization Additional Past Surgical History / Comment(s): aortic valve placement Past Psychological History: No Psychological Hx Reported Smoking Status: Former smoker Past Alcohol Use History: None Reported Past Drug Use History: None Reported Medications and Allergies Home Medications Medication Instructions Recorded Confirmed Type Acetaminophen [Tylenol Arthritis] 650 mg PO BID 08/13/23 08/13/23 History Amoxicillin 2,000 mg PO ONETIME PRN 08/13/23 08/13/23 History Atorvastatin [Lipitor] 40 mg PO HS 08/13/23 08/13/23 History Cyanocobalamin (Vitamin B-12) 1,000 mcg PO DAILY 08/13/23 08/13/23 History [Vitamin B-12] EPINEPHrine (Auto Inject) [Epipen] 0.3 mg IM ONCE PRN 08/13/23 08/13/23 History Ferrous Sulfate [Iron (65 MG 325 mg PO DAILY 08/13/23 08/13/23 History Elemental)] Finasteride [Proscar] 5 mg PO DAILY 08/13/23 08/13/23 History Furosemide [Lasix] 20 mg PO BID@0900,1600 08/13/23 08/13/23 History Gabapentin 600 mg PO TID 08/13/23 08/13/23 History Mv-Min/Folic/K1/Lycopen/Lutein 1 tab PO DAILY 08/13/23 08/13/23 History [Centrum Silver Men Tablet] Omega3/Dha/Epa/Fish Oil/Vit D3 1 cap PO DAILY 08/13/23 08/13/23 History [[place]-3 Plus Vitamin D3 Softgl] Omeprazole 40 mg PO BID 08/13/23 08/13/23 History Potassium Chloride ER [K-Dur 20] 20 meq PO DAILY 08/13/23 08/13/23 History Tamsulosin HCl [Flomax] 0.4 mg PO DAILY 08/13/23 08/13/23 History Apixaban [Eliquis] 5 mg PO BID #60 tab 08/20/23 Rx Metoprolol Succinate (ER) [Toprol 12.5 mg PO DAILY 30 Days #30 tab 08/26/23 Rx XL] Allergies Allergy/AdvReac Type Severity Reaction Status Date / Time bee venom protein (honey bee) AdvReac Anaphylaxis Verified 08/13/23 19:12 /Swelling/R lawson Physical Exam Vitals: Vital Signs Temp Pulse Pulse Resp BP BP Pulse Ox 08/14/23 16:24 97.9 F 69 20 157/72 97 08/14/23 11:40 97.5 F L 60 20 153/64 98 08/14/23 08:00 97.5 F L 58 L 20 138/72 98 08/14/23 05:47 96.2 F L 43 L 14 128/55 99 08/14/23 03:39 96.4 F L 44 L 16 121/55 97 08/14/23 03:19 96.5 F L 45 L 16 131/58 100 08/14/23 02:53 96.5 F L 47 L 14 134/61 100 08/13/23 23:51 97.7 F 50 L 14 117/55 91 L 08/13/23 23:31 98.2 F 53 L 16 115/62 97 08/13/23 23:16 97.9 F 54 L 16 127/64 97 08/13/23 22:51 97.9 F 57 L 16 126/59 97 08/13/23 22:26 97.7 F 61 19 110/64 95 08/13/23 21:57 61 16 120/75 96 Intake and Output 08/14/23 08/14/23 08/14/23 06:59 14:59 22:59 Intake Total 559 236 180 Output Total 450 350 700 Balance 109 -114 -520 Intake: Oral 236 180 Blood Product 559 Rc Pheresis As-3 Unit 277 [id number] Rc Pheresis As-3 Unit 282 [id number] Output: Urine 450 350 700 Other: Voiding Method Toilet External Catheter # Voids 3 Weight 93.44 kg GENERAL DESCRIPTION: Elderly male lying in bed, no distress. No tachypnea or accessory muscle of respiration use. HEENT: Shows Pallor , no scleral icterus. Oral mucous membrane is dry. No pharyngeal erythema or thrush NECK: Trachea central, no thyromegaly. LUNGS: Unlabored breathing. Clear to auscultation anteriorly. No wheeze or crackle. HEART: S1, S2, regular rate and rhythm. ABDOMEN: Soft, no tenderness , guarding or rigidity, no organomegaly EXTREMITIES: No edema of feet. SKIN: No rash, no masses palpable. NEUROLOGICAL: The patient is awake, alert, oriented x3, mood and affect normal. Results CBC & Chem 7: 08/26/23 10:31 08/26/23 10:31 Labs: Abnormal Lab Results - Last 24 Hours (Table) 08/13/23 08/13/23 08/13/23 Range/Units 17:20 17:20 21:10 RBC (4.30-5.90) m/uL Hgb (13.0-17.5) gm/dL Hct (39.0-53.0) % Lymphocytes # (1.0-4.8) k/uL Retic Count 2.6 H (0.5-2.0) % Glucose (74-99) mg/dL Magnesium (1.6-2.3) mg/dL Iron 26 L (65-175) UG/DL TIBC 210 L (228-460) UG/DL % Saturation 12.38 L (15.00-50.00) Transferrin 150.0 L (204.0-354.0) mg/dL Ferritin 401.0 H (22.0-322.0) ng/mL Lactate Dehydrogenase 307 H (120-246) U/L Total Protein (6.3-8.2) g/dL Albumin (3.5-5.0) g/dL Crossmatch See Detail 08/14/23 08/14/23 Range/Units 08:22 08:22 RBC 3.31 L (4.30-5.90) m/uL Hgb 9.8 L D (13.0-17.5) gm/dL Hct 31.3 L (39.0-53.0) % Lymphocytes # 0.4 L (1.0-4.8) k/uL Retic Count (0.5-2.0) % Glucose 114 H (74-99) mg/dL Magnesium 2.4 H (1.6-2.3) mg/dL Iron (65-175) UG/DL TIBC (228-460) UG/DL % Saturation (15.00-50.00) Transferrin (204.0-354.0) mg/dL Ferritin (22.0-322.0) ng/mL Lactate Dehydrogenase (120-246) U/L Total Protein 8.4 H (6.3-8.2) g/dL Albumin 3.1 L (3.5-5.0) g/dL Crossmatch Assessment and Plan (1) Fever Current Visit: Yes Status: Acute Code(s): R50.9 - FEVER, UNSPECIFIED S NOMED Code(s): 102737481 Plan: 1patient with a fever in this patient admitted to hospital generalized weakness predominant abdominal symptoms with distention and constipation patient was noted to be anemic CT abdominal pelvis however did not show any acute abdominal process UA has been negative chest x-ray was reported negative white count has been normal with a question of possible viral process 2-we will check influenza RSV and COVID PCR 3-obtain blood cultures CRP and procalcitonin 4-empirically cover with Unasyn while waiting for the workup to be completed We will follow on clinical condition and cultures to further adjust medication if needed Thank you for this consultation we will follow the patient along with you Dictation was produced using [employer] dictation software. please excuse any grammatical, word or spelling errors. Time with Patient: Greater than 30
[2023-08-14] MEDS: AMPICILLIN-SULBACTAM 3 GM in SODIUM CHLORIDE 0.9% 100 ML IVPB SCH (21:31)
[2023-08-15 04:56] LABS: Appearance,Urine Clear (Clear); Bilirubin,Urine Negative (Negative); Blood,Urine Negative (Negative); Color,Urine Colorless; Glucose,Urine (UA) Negative (Negative); Ketones,Urine Negative (Negative); Leukocyte Esterase,Urine Negative (Negative); Nitrite,Urine Negative (Negative); PH, Urine 6.5 (5.0-8.0); Protein,Urine Negative (Negative); Specific Gravity,Urine 1.017 (1.001-1.035); Urobilinogen,Urine <2.0 mg/dL (<2.0)
[2023-08-15] MEDS: CYANOCOBALAMIN 500 MCG TAB PO SCH (08:02)
[2023-08-15] MEDS: TAMSULOSIN 0.4 MG CAP.ER.24H PO SCH (08:02)
[2023-08-15] MEDS: POTASSIUM CHLORIDE ER 20 MEQ TAB.ER PO SCH (08:03)
[2023-08-15] MEDS: FERROUS SULFATE 325 MG TAB PO SCH (08:03)
[2023-08-15] MEDS: MULTIVITAMINS, THERA 1 EACH TAB PO SCH (08:03)
[2023-08-15] MEDS ORDERED: EPA PO SCH (09:00)
[2023-08-15] MEDS ORDERED: OMEGA3 PO SCH (09:00)
[2023-08-15] MEDS ORDERED: VIT D3 PO SCH (09:00)
[2023-08-15] MEDS ORDERED: [UNRECOGNIZED DRUG - OTHER] PO SCH (09:00)
[2023-08-15] MEDS ORDERED: FISH OIL PO SCH (09:00)
[2023-08-15] MEDS ORDERED: DHA PO SCH (09:00)
[2023-08-15 09:08] LABS: Basophils % (A) 0 %; Eosinophils % (A) 0 %; HCT 29.1 % (39.0-53.0); HGB 9.4 gm/dL (13.0-17.5); Hypochromasia Slight; Lymphocytes # (A) 0.5 k/uL (1.0-4.8); Lymphocytes % (A) 8 %; MCHC 32.1 g/dL (31.0-37.0); MCV 93.3 fL (80.0-100.0); Mean Platelet Volume 8.2; Monocytes # (A) 0.9 k/uL (0-1.0); Monocytes % (A) 15 %; Neutrophils # (A) 4.4 k/uL (1.3-7.7); Neutrophils % (A) 75 %; Platelet Count 213 k/uL (150-450); RBC 3.12 m/uL (4.30-5.90); RDW 14.9 % (11.5-15.5); WBC 5.9 k/uL (3.8-10.6)
[2023-08-15 09:34] LABS: ALT 26 U/L (4-49); AST 34 U/L (17-59); African American GFR (CKD) 87 (>60 ml/min/1.73 sqM); Albumin 2.9 g/dL (3.5-5.0); Alkaline Phosphatase 115 U/L (38-126); Anion Gap 8 mmol/L; Blood Urea Nitrogen 17 mg/dL (9-20); Calcium 8.3 mg/dL (8.4-10.2); Carbon Dioxide 22 mmol/L (22-30); Chloride 104 mmol/L (98-107); Glucose 124 mg/dL (74-99); Non-African American GFR(CKD) 75 (>60 ml/min/1.73 sqM); Sodium 134 mmol/L (137-145)
--- NOTE | 2023-08-15 10:02 | P.CONS ---
History of Present Illness - Reason for Consult Consult date: 08/14/23 anemia Requesting physician: Brandon Chavis - Chief Complaint weakness, abd pain - History of Present Illness Mr Mckay is a 82 year old male with a significant history with a history of Waldenstrom's macroglobulinemia and TAVR (08/2022). He is a patient of Dr. Lorenzo. He was initially seen in 10/16. His M protein has slowly increased from around 2 gm/dl to 3, but has been stable at that level for about 2 + yrs. He had not required active Rx and was continued on observation till late 2011. His CBC on 04/02/[address] Mendoza had shown a marked drop in his counts. He thus had a bone marrow at [facility] on 05/07/12 revealing marked progression of his WM. He was started on CVP-Rituxan and had 4 cycles. He was changed to Treanda and Rituxan due to slow response and marked increase in neuropathy symptoms in his hands. He completed 6 cycles of the new regimen, completing that on 01/15/13. He was then started on maintainence Rituxan, completing 8 cycles in 01/26. He has cotinued in observation with stable disease. He had cardiac catheterization in 06/06, showing no significant obstruction, and maintained ejection fraction. TAVR was recommended. 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 The patient was therefore seen in follow-up for this concern in late 07/04. It is felt that given his very stable protein electrophoresis studies, and no evidence of compromise in ejection fraction, it would be reasonable to follow him with observation, assuming that he did have this condition. He underwent TAVR procedure on 08/27/22. He was noted to have a mild drop in his hemoglobin from his baseline, when seen in 10/04. Anemia workup was negative, it was therefore felt that the mild drop was likely due to early marrow hyperproliferation. Observation was continued given the small degree of deficit. Labs drawn in clinic on 05/21/23, showed stable disease, with K/L ratio 2.58, SPEP showing two M-spikes, 0.8 and 0.9, with hgb stable in the 11 range, which has been baseline for patient. Patient presented to the emergency room with complaints of generalized weakness and abdominal pain. He states he began having right-sided hip pain approximately 3 weeks ago and underwent physical therapy and then began to have right lower abdominal and side pain that radiated around to the right lower back, which he thought was related to physical therapy. Also reporting increasing weakness and fatigue during this time. Has had mild shortness of breath and bilateral lower extremity edema. Patient denies nausea vomiting diarrhea. Denies blood in stool and melena. He states his last scopes were done approximately 4 to [address] Meehan. On admission chest x-ray revealed no acute cardiopulmonary processes. Abdominal x-ray revealed nonspecific bowel gas pattern without evidence of acute processes. CT abdomen pelvis with contrast showed no evidence for acute abdominal process. No evidence for hemorrhage/hematoma. Moderate hiatal hernia. 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 Colonic diverticulosis. Mild splenomegaly. And severe degenerative changes throughout the spine. CBC revealed WBC 8.8, hemoglobin 6.2, MCV 94.9, platelets 270,000. 2 units PRBCs given. Repeat hgb today 9.8. Coags WNL. Bilirubin 1.0, ALP 130, AST 45, ALT 28. Creatinine 1.1, GFR 61. Patient was noted to have a fever of 101.2 on admission but has since resolved. Urinalysis not suspicious for UTI. Viral panel negative. Blood cultures pending. ID has been consulted Review of Systems 10 point ROS is negative except as stated in the HPI Past Medical History Past Medical History: Cancer, Hyperlipidemia, Hypertension Additional Past Medical History / Comment(s): melatoma, abnormal blood protein disorder, neuropathy History of Any Multi-Drug Resistant Organisms: None Reported Past Surgical History: Appendectomy, Cholecystectomy, Heart Catheterization Additional Past Surgical History / Comment(s): aortic valve placement Past Psychological History: No Psychological Hx Reported Smoking Status: Former smoker Past Alcohol Use History: None Reported Past Drug Use History: None Reported Medications and Allergies Home Medications Medication Instructions Recorded Confirmed Type Acetaminophen [Tylenol Arthritis] 650 mg PO BID 08/13/23 08/13/23 History Amoxicillin 2,000 mg PO ONETIME PRN 08/13/23 08/13/23 History Aspirin EC [Ecotrin Low Dose] 81 mg PO DAILY 08/13/23 08/13/23 History Atorvastatin [Lipitor] 40 mg PO HS 08/13/23 08/13/23 History Clopidogrel [Plavix] 75 mg PO DAILY 08/13/23 08/13/23 History Cyanocobalamin (Vitamin B-12) 1,000 mcg PO DAILY 08/13/23 08/13/23 History [Vitamin B-12] EPINEPHrine (Auto Inject) [Epipen] 0.3 mg IM ONCE PRN 08/13/23 08/13/23 History Ferrous Sulfate [Feosol] 325 mg PO DAILY 08/13/23 08/13/23 History Finasteride [Proscar] 5 mg PO DAILY 08/13/23 08/13/23 History Furosemide [Lasix] 20 mg PO BID@0900,1600 08/13/23 08/13/23 History Gabapentin 600 mg PO TID 08/13/23 08/13/23 History Metoprolol Succinate (ER) [Toprol 12.5 mg PO BID 08/13/23 08/13/23 History Xl] Mv-Min/Folic/K1/Lycopen/Lutein 1 tab PO DAILY 08/13/23 08/13/23 History [Centrum Silver Men Tablet] Omega3/Dha/Epa/Fish Oil/Vit D3 1 cap PO DAILY 08/13/23 08/13/23 History [Charlotte-3 + Vitamin D3 Softgel] Omeprazole 40 mg PO BID 08/13/23 08/13/23 History Potassium Chloride ER [K-Dur 20] 20 meq PO DAILY 08/13/23 08/13/23 History Tamsulosin HCl [Flomax] 0.4 mg PO DAILY 08/13/23 08/13/23 History Allergies Allergy/AdvReac Type Severity Reaction Status Date / Time bee venom protein (honey bee) AdvReac Anaphylaxis Verified 08/13/23 19:12 /Swelling/R lawson Physical Exam Vitals: Vital Signs Temp Pulse Pulse Resp BP BP Pulse Ox 08/14/23 05:47 96.2 F L 43 L 14 128/55 99 08/14/23 03:39 96.4 F L 44 L 16 121/55 97 08/14/23 03:19 96.5 F L 45 L 16 131/58 100 08/14/23 02:53 96.5 F L 47 L 14 134/61 100 08/13/23 23:51 97.7 F 50 L 14 117/55 91 L 08/13/23 23:31 98.2 F 53 L 16 115/62 97 08/13/23 23:16 97.9 F 54 L 16 127/64 97 08/13/23 22:51 97.9 F 57 L 16 126/59 97 08/13/23 22:26 97.7 F 61 19 110/64 95 08/13/23 21:57 61 16 120/75 96 08/13/23 20:53 98.8 F 66 15 112/53 98 08/13/23 20:27 99.4 F 69 19 125/68 97 08/13/23 19:42 75 16 121/76 95 08/13/23 18:27 100.4 F H 70 16 138/67 97 08/13/23 16:12 101.2 F H 60 18 109/57 95 Intake and Output 08/13/23 08/14/23 08/14/23 22:59 06:59 14:59 Intake Total 559 118 Output Total 450 350 Balance 109 -232 Intake: Oral 118 Blood Product 559 Rc Pheresis As-3 Unit 277 [id number] Rc Pheresis As-3 Unit 282 [id number] Output: Urine 450 350 Other: Voiding Method Toilet Weight 93.44 kg - Constitutional General appearance: average body habitus, no acute distress - EENT Eyes: anicteric sclerae, EOMI ENT: hearing grossly normal - Neck Neck: no lymphadenopathy - Respiratory Respiratory: bilateral: CTA - Cardiovascular Rhythm: regular Abnormal Heart Sounds: systolic murmur leg Peripheral Edema: bilateral: 1+ - Gastrointestinal General gastrointestinal: soft, no tenderness - Integumentary Integumentary: no cyanotic - Musculoskeletal Musculoskeletal: generalized weakness, strength equal bilaterally - Psychiatric Psychiatric: A&O x's 3 Results CBC & Chem 7: 08/15/23 07:58 08/15/23 07:58 Labs: Abnormal Lab Results - Last 24 Hours (Table) 08/13/23 08/13/23 08/13/23 Range/Units 17:32 17:32 18:10 RBC 2.01 L (4.30-5.90) m/uL Hgb 6.2 L* (13.0-17.5) gm/dL Hct 19.1 L* (39.0-53.0) % Lymphocytes # 0.7 L (1.0-4.8) k/uL Sodium 135 L (137-145) mmol/L Glucose 115 H (74-99) mg/dL Alkaline Phosphatase 130 H (38-126) U/L Total Protein 9.6 H (6.3-8.2) g/dL Urine Protein Trace H (Negative) Crossmatch 08/13/23 Range/Units 21:10 RBC (4.30-5.90) m/uL Hgb (13.0-17.5) gm/dL Hct (39.0-53.0) % Lymphocytes # (1.0-4.8) k/uL Sodium (137-145) mmol/L Glucose (74-99) mg/dL Alkaline Phosphatase (38-126) U/L Total Protein (6.3-8.2) g/dL Urine Protein (Negative) Crossmatch See Detail Chest x-ray: report reviewed Abdominal x-ray: report reviewed CT scan - abdomen: report reviewed CT scan - pelvis: report reviewed Assessment and Plan (1) Abdominal pain Current Visit: Yes Status: Acute Priority: High Code(s): R10.9 - UNSPECIFIED ABDOMINAL PAIN SNOMED Code(s): 47764237 (2) Anemia Current Visit: Yes Status: Acute Priority: High Code(s): D64.9 - ANEMIA, UNSPECIFIED SNOMED Code(s): 921858186 (3) Waldenstrom macroglobulinemia Current Visit: Yes Status: Acute Priority: High Code(s): C88.0 - WALDENSTROM MACROGLOBULINEMIA SNOMED Code(s): 920011613 Plan: Abdominal pain, fever, weakness: Presented with complaints of generalized weakness and abdominal pain that radiates to right lower back over the last 2-3 weeks. Patient denies nausea vomiting diarrhea. Denies blood in stool and melena. Patient was noted to have a fever of 101.2 on admission but has since resolved -Chest x-ray revealed no acute cardiopulmonary processes. Abdominal x-ray revealed nonspecific bowel gas pattern without evidence of acute processes. CT abdomen pelvis with contrast showed no evidence for acute abdominal process. No evidence for hemorrhage/hematoma. Moderate hiatal hernia. 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 Colonic diverticulosis. Mild splenomegaly. And severe degenerative changes throughout the spine. -CBC revealed WBC 8.8, hemoglobin 6.2, platelets 270,000. Bilirubin 1.0, ALP 1 30, AST 45, ALT 28. Creatinine 1.1, GFR 61. -Urinalysis not suspicious for UTI. Viral panel negative. Blood cultures pending. -ID and GI has been consulted Waldenstrom's macroglobulinemia, anemia: -Full history in [facility] -Has been in observation with stable disease. Hgb in clinic has been stable in 11 range -CBC revealed WBC 8.8, hemoglobin 6.2, MCV 94.9, platelets 270,000. S/p 2 units PRBCs. Repeat hgb today 9.8. -Bilirubin 1.0, ALP 130, AST 45, ALT 28. Creatinine 1.1, GFR 61, Coags WNL -Iron studies and hemolysis workup ordered. Will also repeat SPEP and K/L LCs -Will r/o other underlying causes for drop in hgb. If these are negative would recommend endoscopic evaluation to r/o GI bleed. Spoke with GI team regarding the same. They will hold on scopes at this time pending workup -Continue to monitor CBC. Please transfuse for hgb less than 7 or if symptomatic Doctor attests: I performed a history and physical examination of this patient, developed impression and plan of care. Discussed with dictator. I agree with dictators note, documented as a scribe.
--- NOTE | 2023-08-15 11:09 | P.PN ---
Subjective Progress Note Date: 08/15/23 Jonathon Mckay, is an 82-year-old male we'll presented to [facility] emergency room with a chief complaint of abdominal pain He was evaluated in the emergency room vital examination on presentation revealed a temperature of 101.2 pulse 60 respiration 18 blood pressure 109/57 pulse ox 95% on room air Laboratory data revealed a white blood count of 8.8 hemoglobin 6.2 platelet count 270 sodium 135 potassium 4.5 chloride 101 CO2 22 BUN 19 creatinine 1.1 iron 26 Testing in the emergency room revealed computed tomography scan of the abdomen revealed no evidence for acute abdominal process moderate hiatal hernia infrarenal abdominal x-ray gentleman measuring 26 mm colonic diverticulosis mild splenomegaly and CVA degenerative changes throughout the spine. chest x-ray revealed no acute cardiopulmonary disease Patient was admitted to medical floor for further evaluation and treatment on 08/15/2023 patient is alert and oriented 3 currently sitting up in chair. Patient was evaluated by GI services continue symptomatic and supportive care at this time no plans for endoscopic evaluation. hemoglobin 9.2. Patient remains on IV Unasyn.current vital signs temp 98.3, heart rate 67, respiratory rate 16, blood pressure 121/62 with pulse ox 95% on room air. Objective - Vital Signs Vital signs: Vital Signs Temp 98.3 F 08/15/23 07:53 Pulse 67 08/15/23 07:53 Resp 16 08/15/23 07:53 BP 121/62 08/15/23 07:53 Pulse Ox 95 08/15/23 07:53 FiO2 Intake & Output 08/14/23 08/15/23 08/15/23 18:59 06:59 18:59 Intake Total 416 540 236 Output Total 1050 1100 600 Balance -634 -560 -364 Weight 93.44 kg Intake: Oral 416 540 236 Output: Urine 1050 1100 600 Other: Voiding Method External Catheter External Catheter # Voids 3 - Exam In general patient is alert and oriented x 3 in no distress HEENT head normocephalic and atraumatic Neck is supple no JVD no goiter no lymphadenopathy no carotid bruit Chest examination is clear to auscultation no crackles no wheezing Cardiac exam reveals regular heart sounds S1 and S2 no gallops no murmurs Abdomen is soft nontender no organomegaly with normal bowel sounds Extremity exam reveals no edema no cyanosis or clubbing Neurological examination reveals no gross focal deficits - Labs CBC & Chem 7: 08/15/23 07:58 08/15/23 07:58 Labs: Abnormal Lab Results - Last 24 Hours (Table) 08/13/23 08/13/23 08/14/23 Range/Units 17:20 17:20 21:43 RBC (4.30-5.90) m/uL Hgb (13.0-17.5) gm/dL Hct (39.0-53.0) % Lymphocytes # (1.0-4.8) k/uL Retic Count 2.6 H (0.5-2.0) % Sodium (137-145) mmol/L Glucose (74-99) mg/dL Calcium (8.4-10.2) mg/dL Iron 26 L (65-175) UG/DL TIBC 210 L (228-460) UG/DL % Saturation 12.38 L (15.00-50.00) Transferrin 150.0 L (204.0-354.0) mg/dL Ferritin 401.0 H (22.0-322.0) ng/mL Lactate Dehydrogenase 307 H (120-246) U/L C-Reactive Protein 5.1 H (<1.0) mg/dL Albumin (3.5-5.0) g/dL Procalcitonin (0.02-0.09) ng/mL 08/14/23 08/15/23 08/15/23 Range/Units 21:43 07:58 07:58 RBC 3.12 L (4.30-5.90) m/uL Hgb 9.4 L (13.0-17.5) gm/dL Hct 29.1 L (39.0-53.0) % Lymphocytes # 0.5 L (1.0-4.8) k/uL Retic Count (0.5-2.0) % Sodium 134 L (137-145) mmol/L Glucose 124 H (74-99) mg/dL Calcium 8.3 L (8.4-10.2) mg/dL Iron (65-175) UG/DL TIBC (228-460) UG/DL % Saturation (15.00-50.00) Transferrin (204.0-354.0) mg/dL Ferritin (22.0-322.0) ng/mL Lactate Dehydrogenase (120-246) U/L C-Reactive Protein (<1.0) mg/dL Albumin 2.9 L (3.5-5.0) g/dL Procalcitonin 0.17 H (0.02-0.09) ng/mL Assessment and Plan Plan: febrile illness, cause of fever unclear, no evidence of urinary tract infection, no significant findings on chest x-ray and computed tomography scan of the abdomen, infectious disease consultation requested Severe anemia requiring red blood cell transfusion, GI consultation is requested underlying history of hyperlipidemia Underlying history of hypertension Underlying history of benign prostatic hypertrophy Underlying history of malignant melanoma Previous history of coronary artery disease, with history of angioplasty and stent placement maintained on Plavix At this time patient was seen and examined Home medications reviewed and reordered Plavix is was held Red blood cell transfusion ordered GI consultation and infectious disease consultation requested oncology service is consulted Will follow closely
--- NOTE | 2023-08-15 13:30 | P.PN ---
Subjective Progress Note Date: 08/15/23 Principal diagnosis: Anemia This is a pleasant 82-year-old male who presented to the emergency department yesterday afternoon with complaints of weakness and right groin and hip pain. 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 He follows with Dr. Lorenzo believes he was diagnosed about 13 years ago and had undergone treatment at that time. States he has not needed any recent treatment. He denies any abdominal pain, nausea or vomiting. Denies any diarrhea. States his last colonoscopy was about 4 years ago he believes possibly at [facility]. He denies any previous history of a GI bleed and no previous history that he recalls of anemia needing blood. He does take aspirin and Plavix no other NSAIDs or anticoagulation. He denies any blood in his stool or black stool. Admitting hemoglobin 6.2 he has transfused with 2 units of blood with a repeat hemoglobin today of 9.8. Labs are consistent with normocytic normochromic anemia. Patient was febrile on admission with a max temp of 101.7. Hematology following. 08/15/2023 Patient seen and examined today as a follow-up. He is sitting up in his bed eating his breakfast. He was without any complaints. He denies any abdominal pain nausea or vomiting. He denies any blood in his stool or black stool. Hematology is following for Waldenstrm's macroglobinemia and ordered iron studies and hemolysis workup. Today's repeat hemoglobin 9.4. Iron 26 ferritin was 401. Vitamin B12 892 folate 13.9 Objective - Vital Signs Vital signs: Vital Signs Temp 98.3 F 08/15/23 07:53 Pulse 54 L 08/15/23 11:27 Resp 16 08/15/23 11:27 BP 119/64 08/15/23 11:27 Pulse Ox 98 08/15/23 11:27 FiO2 Intake & Output 08/14/23 08/15/23 08/15/23 18:59 06:59 18:59 Intake Total 416 540 354 Output Total 1050 1100 600 Balance -634 -560 -246 Weight 93.44 kg Intake: Oral 416 540 354 Output: Urine 1050 1100 600 Other: Voiding Method External Catheter External Catheter External Catheter # Voids 3 - Exam General appearance: The patient is alert, oriented, appears in no acute distress. HET: Head is normocephalic and atraumatic. Conjunctiva pink. Sclera anicteric. Neck: Supple without lymphadenopathy. Abdomen: Soft, nontender, nondistended with bowel sounds. No guarding or rigi dity. Extremities: Normal skin color and turgor. No pedal edema Skin: No rashes, no jaundice Neurological: No focal deficits. Alert and oriented. - Labs CBC & Chem 7: 08/15/23 07:58 08/15/23 07:58 Labs: Abnormal Lab Results - Last 24 Hours (Table) 08/13/23 08/13/23 08/14/23 Range/Units 17:20 17:20 21:43 RBC (4.30-5.90) m/uL Hgb (13.0-17.5) gm/dL Hct (39.0-53.0) % Lymphocytes # (1.0-4.8) k/uL Retic Count 2.6 H (0.5-2.0) % Sodium (137-145) mmol/L Glucose (74-99) mg/dL Calcium (8.4-10.2) mg/dL Iron 26 L (65-175) UG/DL TIBC 210 L (228-460) UG/DL % Saturation 12.38 L (15.00-50.00) Transferrin 150.0 L (204.0-354.0) mg/dL Ferritin 401.0 H (22.0-322.0) ng/mL C-Reactive Protein 5.1 H (<1.0) mg/dL Albumin (3.5-5.0) g/dL Procalcitonin (0.02-0.09) ng/mL 08/14/23 08/15/23 08/15/23 Range/Units 21:43 07:58 07:58 RBC 3.12 L (4.30-5.90) m/uL Hgb 9.4 L (13.0-17.5) gm/dL Hct 29.1 L (39.0-53.0) % Lymphocytes # 0.5 L (1.0-4.8) k/uL Retic Count (0.5-2.0) % Sodium 134 L (137-145) mmol/L Glucose 124 H (74-99) mg/dL Calcium 8.3 L (8.4-10.2) mg/dL Iron (65-175) UG/DL TIBC (228-460) UG/DL % Saturation (15.00-50.00) Transferrin (204.0-354.0) mg/dL Ferritin (22.0-322.0) ng/mL C-Reactive Protein (<1.0) mg/dL Albumin 2.9 L (3.5-5.0) g/dL Procalcitonin 0.17 H (0.02-0.09) ng/mL Assessment and Plan (1) Normocytic normochromic anemia Narrative/Plan: 82-year-old male presenting for weakness and fever with complaints of right groin and hip pain was noted to be anemic with a hemoglobin of 6.2 on admission.'s labs are consistent with a normocytic normochromic anemia he has a history of blood protein disorder cancer and was diagnosed about 13 years ago and follows with Dr. Lorenzo from oncology. He has not had any recent treatment. He denies any blood in his stool or black stool. Last colonoscopy about 4 years ago. Patient was discussed with oncology nurse practitioner for which they are going to do a workup for his cancer and believe anemia is likely secondary to his blood cancer. No plans on endoscopic evaluation at this time. Hemoglobin stable after 2 units of blood with a repeat hemoglobin of 9.8 today. Iron studies ordered. Will defer anemia management at this time to hematology. Current Visit: Yes Status: Acute Code(s): D64.9 - ANEMIA, UNSPECIFIED SNOMED Code(s): 28795192 (2) Waldenstrom macroglobulinemia Current Visit: Yes Status: Acute Priority: High Code(s): C88.0 - WALDENSTROM MACROGLOBULINEMIA SNOMED Code(s): 956999193 Plan: 1. Continue symptomatic and supportive care 2. Daily CBC, transfuse for hemoglobin less than 7 3. Iron studies ordered 4. Protonix 40 mg daily for GI prophylaxis 5. May resume Plavix 6. Diet as tolerated 7. No plans on endoscopic evaluation at this time 8. Continue with workup and recommendations from oncology Thank you for this consultation, we will sign off at this time. Dr. Cayden Meehan I agree with the dictator's note, documented as a scribe by Elda So.
[2023-08-15 15:57] LABS: Free Kappa Lt Chain Qnt, Serum 11.46 mg/dL (0.33-1.94); Free Lambda Lt Chain Qnt, Seru 4.53 mg/dL (0.57-2.63)
--- NOTE | 2023-08-15 20:27 | P.PN ---
Subjective Progress Note Date: 08/15/23 No acute events. Patient reporting he is feeling improved today. No reported episodes of acute bleeding. Hemoglobin stable at 9.4. No nutritional deficiencies noted on anemia workup. Hemolysis workup negative. SPEP and kappa lambda light chains still pending. Objective - Vital Signs Vital signs: Vital Signs Temp 97.8 F 08/15/23 15:20 Pulse 60 08/15/23 15:20 Resp 16 08/15/23 15:20 BP 132/60 08/15/23 15:20 Pulse Ox 93 L 08/15/23 15:20 FiO2 Intake & Output 08/14/23 08/15/23 08/15/23 18:59 06:59 18:59 Intake Total 416 540 354 Output Total 1050 1100 600 Balance -634 -560 -246 Weight 93.44 kg Intake: Oral 416 540 354 Output: Urine 1050 1100 600 Other: Voiding Method External Catheter External Catheter External Catheter # Voids 3 - Constitutional General appearance: Present: average body habitus, no acute distress - EENT Eyes: Present: anicteric sclerae, EOMI ENT: Present: hearing grossly normal - Respiratory Details: breathing is even and unlabored - Cardiovascular Details: skin warm and dry - Gastrointestinal General gastrointestinal: Present: soft. Absent: tenderness - Integumentary Integumentary: Absent: cyanotic - Neurologic Neurologic Comment(s): no focal deficits - Musculoskeletal Musculoskeletal: Present: strength equal bilaterally - Psychiatric Psychiatric: Present: A&O x's 3 - Labs CBC & Chem 7: 08/15/23 07:58 08/15/23 07:58 Labs: Abnormal Lab Results - Last 24 Hours (Table) 08/14/23 08/14/23 08/14/23 Range/Units 13:08 21:43 21:43 RBC (4.30-5.90) m/uL Hgb (13.0-17.5) gm/dL Hct (39.0-53.0) % Lymphocytes # (1.0-4.8) k/uL Sodium (137-145) mmol/L Glucose (74-99) mg/dL Calcium (8.4-10.2) mg/dL C-Reactive Protein 5.1 H (<1.0) mg/dL Albumin (3.5-5.0) g/dL Procalcitonin 0.17 H (0.02-0.09) ng/mL Free [place] LC, Quant 11.46 H (0.33-1.94) mg/dL Free [place] LC, Quant 4.53 H (0.57-2.63) mg/dL 08/15/23 08/15/23 Range/Units 07:58 07:58 RBC 3.12 L (4.30-5.90) m/uL Hgb 9.4 L (13.0-17.5) gm/dL Hct 29.1 L (39.0-53.0) % Lymphocytes # 0.5 L (1.0-4.8) k/uL Sodium 134 L (137-145) mmol/L Glucose 124 H (74-99) mg/dL Calcium 8.3 L (8.4-10.2) mg/dL C-Reactive Protein (<1.0) mg/dL Albumin 2.9 L (3.5-5.0) g/dL Procalcitonin (0.02-0.09) ng/mL Free [place] LC, Quant (0.33-1.94) mg/dL Free [place] LC, Quant (0.57-2.63) mg/dL Assessment and Plan (1) Abdominal pain Current Visit: Yes Status: Acute Priority: High Code(s): R10.9 - UNSPECIFIED ABDOMINAL PAIN SNOMED Code(s): 29397621 (2) Anemia Current Visit: Yes Status: Acute Priority: High Code(s): D64.9 - ANEMIA, UNSPECIFIED SNOMED Code(s): 946558822 (3) Waldenstrom macroglobulinemia Current Visit: Yes Status: Acute Priority: High Code(s): C88.0 - WALDENSTROM MACROGLOBULINEMIA SNOMED Code(s): 868477699 Plan: Abdominal pain, fever, weakness: Presented with complaints of generalized weakness and abdominal pain that radiates to right lower back over the last 2-3 weeks. Patient denies nausea vomiting diarrhea. Denies blood in stool and melena. Patient was noted to have a fever of 101.2 on admission but has since resolved -Chest x-ray revealed no acute cardiopulmonary processes. Abdominal x-ray revealed nonspecific bowel gas pattern without evidence of acute processes. CT abdomen pelvis with contrast showed no evidence for acute abdominal process. No evidence for hemorrhage/hematoma. Moderate hiatal hernia. 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 Colonic diverticulosis. Mild splenomegaly. And severe degenerative changes throughout the spine. -CBC revealed WBC 8.8, hemoglobin 6.2, platelets 270,000. Bilirubin 1.0, ALP 130, AST 45, ALT 28. Creatinine 1.1, GFR 61. -Urinalysis not suspicious for UTI. Viral panel negative. Blood cultures pending. -ID and GI has been consulted. Empiric Unasyn started Waldenstrom's macroglobulinemia, anemia: -Full history in [facility] -Has been in observation with stable disease. Hgb in clinic has been stable in 11 range -On admission CBC revealed WBC 8.8, hemoglobin 6.2, MCV 94.9, platelets 270,000 -Bilirubin 1.0, ALP 130, AST 45, ALT 28. Creatinine 1.1, GFR 61, Coags WNL -S/p 2 units PRBCs. Repeat hgb today stable at 9.4 -Hemolysis workup negative. No nutritional deficiencies noted, iron studies consistent with anemia of inflammation -SPEP and K/L LCs pending -Will r/o other underlying causes for drop in hgb. As stated above hemolysis workup is negative and iron studies are not consistent with PATTI. S/p 2 units PRBCs, hgb has been stable in 9 range, so it does not appear this is r/t GI bleed. Still awaiting remaining workup to see if acute hgb drop is r/t to known Waldenstrom's macroglobulinemia, however, drops in counts are typically more gradual, so this seems less likely the cause. At this time, it appears that anemia is possibly reactive r/t to acute infectious process -Continue to monitor CBC. Please transfuse for hgb less than 7 or if symptomatic Doctor attests: I performed a history and physical examination of this patient, developed impression and plan of care. Discussed with dictator. I agree with dictators note, documented as a scribe.
[2023-08-15 20:41] LABS: Albumin 2.37 g/dL (3.80-4.90); Gamma Globulin 2.29 g/dL (0.70-1.50)
[2023-08-16 07:48] LABS: Basophils % (A) 0 %; Eosinophils % (A) 0 %; HCT 30.6 % (39.0-53.0); HGB 9.8 gm/dL (13.0-17.5); Hypochromasia Slight; Lymphocytes # (A) 0.7 k/uL (1.0-4.8); Lymphocytes % (A) 10 %; MCH 29.8 pg (25.0-35.0); MCHC 32.1 g/dL (31.0-37.0); MCV 92.9 fL (80.0-100.0); Mean Platelet Volume 8.1; Monocytes # (A) 0.4 k/uL (0-1.0); Monocytes % (A) 7 %; Neutrophils % (A) 80 %; Platelet Count 217 k/uL (150-450); RDW 14.8 % (11.5-15.5); WBC 6.3 k/uL (3.8-10.6)
--- NOTE | 2023-08-16 07:50 | P.PN ---
Subjective Progress Note Date: 08/15/23 Principal diagnosis: Reason for follow-up is fever Patient is a 82-year-old male with a past medical history significant for hypertension hyperlipidemia peripheral neuropathy melanoma presented to the hospital for abdominal pain not feeling well decreased urine output patient was noticed to be febrile on presentation to the hospital CT abdominal pelvis did not show any acute abnormality. On today's evaluation that is 08/15/2023, patient did have resolution of his f ever has been afebrile this morning, patient is breathing comfortably and is currently on room air, patient denies having any significant cough no chest pain shortness of breath, patient denies nausea vomiting or diarrhea and no abdominal pain. Patient white count is 5.8, creatinine 0.93 Objective - Vital Signs Vital signs: Vital Signs Temp 98.3 F 08/15/23 07:53 Pulse 54 L 08/15/23 11:27 Resp 16 08/15/23 11:27 BP 119/64 08/15/23 11:27 Pulse Ox 98 08/15/23 11:27 FiO2 Intake & Output 08/14/23 08/15/23 08/15/23 18:59 06:59 18:59 Intake Total 416 540 354 Output Total 1050 1100 600 Balance -634 -560 -246 Weight 93.44 kg Intake: Oral 416 540 354 Output: Urine 1050 1100 600 Other: Voiding Method External Catheter External Catheter External Catheter # Voids 3 - Exam GENERAL DESCRIPTION: An elderly male up in the chair in no distress RESPIRATORY SYSTEM: Unlabored breathing , decreased breath sounds at bases HEART: S1 S2 regular rate and rhythm , ABDOMEN: Soft , no tenderness EXTREMITIES: No edema feet - Labs CBC & Chem 7: 08/16/23 06:56 08/15/23 07:58 Labs: Abnormal Lab Results - Last 24 Hours (Table) 08/13/23 08/13/23 08/14/23 Range/Units 17:20 17:20 21:43 RBC (4.30-5.90) m/uL Hgb (13.0-17.5) gm/dL Hct (39.0-53.0) % Lymphocytes # (1.0-4.8) k/uL Retic Count 2.6 H (0.5-2.0) % Sodium (137-145) mmol/L Glucose (74-99) mg/dL Calcium (8.4-10.2) mg/dL Iron 26 L (65-175) UG/DL TIBC 210 L (228-460) UG/DL % Saturation 12.38 L (15.00-50.00) Transferrin 150.0 L (204.0-354.0) mg/dL Ferritin 401.0 H (22.0-322.0) ng/mL C-Reactive Protein 5.1 H (<1.0) mg/dL Albumin (3.5-5.0) g/dL Procalcitonin (0.02-0.09) ng/mL 08/14/23 08/15/23 08/15/23 Range/Units 21:43 07:58 07:58 RBC 3.12 L (4.30-5.90) m/uL Hgb 9.4 L (13.0-17.5) gm/dL Hct 29.1 L (39.0-53.0) % Lymphocytes # 0.5 L (1.0-4.8) k/uL Retic Count (0.5-2.0) % Sodium 134 L (137-145) mmol/L Glucose 124 H (74-99) mg/dL Calcium 8.3 L (8.4-10.2) mg/dL Iron (65-175) UG/DL TIBC (228-460) UG/DL % Saturation (15.00-50.00) Transferrin (204.0-354.0) mg/dL Ferritin (22.0-322.0) ng/mL C-Reactive Protein (<1.0) mg/dL Albumin 2.9 L (3.5-5.0) g/dL Procalcitonin 0.17 H (0.02-0.09) ng/mL Assessment and Plan (1) Fever Current Visit: Yes Status: Acute Code(s): R50.9 - FEVER, UNSPECIFIED SNOMED Code(s): 817280240 Plan: 1patient with a fever in this patient admitted to hospital generalized weakness predominant abdominal symptoms with distention and constipation patient was noted to be anemic CT abdominal pelvis however did not show any acute abdominal process UA has been negative chest x-ray was reported negative, the patient did have a negative influenza RSV and COVID PCR 2-currently waiting for the blood cultures and inflammatory markers to finalize 3-patient will continue with Unasyn while waiting for the workup to be completed Dictation was produced using [employer] dictation software. please excuse any grammatical, word or spelling errors. Time with Patient: Less than 30
[2023-08-16 08:00] LABS: ALT 32 U/L (4-49); AST 39 U/L (17-59); African American GFR (CKD) 78 (>60 ml/min/1.73 sqM); Alkaline Phosphatase 120 U/L (38-126); Anion Gap 7 mmol/L; Blood Urea Nitrogen 19 mg/dL (9-20); Calcium 8.5 mg/dL (8.4-10.2); Carbon Dioxide 27 mmol/L (22-30); Chloride 102 mmol/L (98-107); Glucose 96 mg/dL (74-99); Non-African American GFR(CKD) 67 (>60 ml/min/1.73 sqM); Potassium 4.1 mmol/L (3.5-5.1); Sodium 136 mmol/L (137-145); Total Bilirubin 0.9 mg/dL (0.2-1.3); Total Protein 8.3 g/dL (6.3-8.2)
--- NOTE | 2023-08-16 11:29 | P.PN ---
Subjective Progress Note Date: 08/16/23 Jonathon Mckay, is an 82-year-old male we'll presented to [facility] emergency room with a chief complaint of abdominal pain He was evaluated in the emergency room vital examination on presentation revealed a temperature of 101.2 pulse 60 respiration 18 blood pressure 109/57 pulse ox 95% on room air Laboratory data revealed a white blood count of 8.8 hemoglobin 6.2 platelet count 270 sodium 135 potassium 4.5 chloride 101 CO2 22 BUN 19 creatinine 1.1 iron 26 Testing in the emergency room revealed computed tomography scan of the abdomen revealed no evidence for acute abdominal process moderate hiatal hernia infrarenal abdominal x-ray gentleman measuring 26 mm colonic diverticulosis mild splenomegaly and CVA degenerative changes throughout the spine. chest x-ray revealed no acute cardiopulmonary disease Patient was admitted to medical floor for further evaluation and treatment on 08/15/2023 patient is alert and oriented 3 currently sitting up in chair. Patient was evaluated by GI services continue symptomatic and supportive care at this time no plans for endoscopic evaluation. hemoglobin 9.2. Patient remains on IV Unasyn.current vital signs temp 98.3, heart rate 67, respiratory rate 16, blood pressure 121/62 with pulse ox 95% on room air. On 08/16/2023 patient was seen and examined on the medical floor he is alert and oriented 3 in no apparent distress he denies any complaints at this time there is no fever or chills no headache or dizziness no chest pain no shortness of breath no cough no nausea or vomiting no abdominal pain no diarrhea and no urinary symptoms. Vital examination reveals a temperature of 98.9 pulse 79 respiration 16 blood pressure 153/65 pulse ox 96% on room air. His white blood count is 6.3 hemoglobin 9.8 platelet count 217 Blood culture are positive for Streptococcus viridans, Patient is maintained on IV Unasyn hematology and infec tious disease are following. Objective - Vital Signs Vital signs: Vital Signs Temp 98.7 F 08/15/23 20:00 Pulse 68 08/16/23 04:00 Resp 16 08/16/23 04:00 BP 159/71 08/16/23 04:00 Pulse Ox 94 L 08/16/23 04:00 FiO2 Intake & Output 08/15/23 08/16/23 08/16/23 18:59 06:59 18:59 Intake Total 472 540 Output Total 1200 1225 400 Balance -621 -307 -556 Intake: Oral 472 540 Output: Urine 1200 1225 400 Other: Voiding Method External Catheter External Catheter - Exam In general patient is alert and oriented x 3 in no distress HEENT head normocephalic and atraumatic Neck is supple no JVD no goiter no lymphadenopathy no carotid bruit Chest examination is clear to auscultation no crackles no wheezing Cardiac exam reveals regular heart sounds S1 and S2 no gallops no murmurs Abdomen is soft nontender no organomegaly with normal bowel sounds Extremity exam reveals no edema no cyanosis or clubbing Neurological examination reveals no gross focal deficits - Labs CBC & Chem 7: 08/16/23 06:56 08/16/23 06:56 Labs: Abnormal Lab Results - Last 24 Hours (Table) 08/14/23 08/15/23 08/15/23 Range/Units 13:08 07:58 07:58 RBC 3.12 L (4.30-5.90) m/uL Hgb 9.4 L (13.0-17.5) gm/dL Hct 29.1 L (39.0-53.0) % Lymphocytes # 0.5 L (1.0-4.8) k/uL Sodium 134 L (137-145) mmol/L Glucose 124 H (74-99) mg/dL Calcium 8.3 L (8.4-10.2) mg/dL Total Protein (6.3-8.2) g/dL Albumin 2.9 L (3.5-5.0) g/dL Albumin (PEP) 2.37 L (3.80-4.90) g/dL [id number]-8-[id number] 0.48 H (0.10-0.40) g/dL Beta Globulins 2.16 H (0.60-1.30) g/dL Gamma Globulins 2.29 H (0.70-1.50) g/dL Free [place] LC, Quant 11.46 H (0.33-1.94) mg/dL Free [place] LC, Quant 4.53 H (0.57-2.63) mg/dL 08/16/23 08/16/23 Range/Units 06:56 06:56 RBC 3.30 L (4.30-5.90) m/uL Hgb 9.8 L (13.0-17.5) gm/dL Hct 30.6 L (39.0-53.0) % Lymphocytes # 0.7 L (1.0-4.8) k/uL Sodium 136 L (137-145) mmol/L Glucose (74-99) mg/dL Calcium (8.4-10.2) mg/dL Total Protein 8.3 H (6.3-8.2) g/dL Albumin 3.0 L (3.5-5.0) g/dL Albumin (PEP) (3.80-4.90) g/dL Xmqxq-7-Szgigmhbf (0.10-0.40) g/dL Beta Globulins (0.60-1.30) g/dL Gamma Globulins (0.70-1.50) g/dL Free [place] LC, Quant (0.33-1.94) mg/dL Free [place] LC, Quant (0.57-2.63) mg/dL Microbiology - Last 24 Hours (Table) 08/14/23 21:43 Blood Culture Gram Stain - Preliminary Blood Blood Culture - Preliminary Molecular ID Assessment and Plan Plan: febrile illness, cause of fever unclear, no evidence of urinary tract infection, no significant findings on chest x-ray and computed tomography scan of the abdo men, infectious disease consultation requested Severe anemia requiring red blood cell transfusion, GI consultation is requested underlying history of hyperlipidemia Underlying history of hypertension Underlying history of benign prostatic hypertrophy Underlying history of malignant melanoma Previous history of coronary artery disease, with history of angioplasty and stent placement maintained on Plavix At this time patient was seen and examined Home medications reviewed and reordered Plavix is was held Red blood cell transfusion ordered GI consultation and infectious disease consultation requested oncology service is consulted Will follow closely
[2023-08-17 07:36] LABS: Basophils % (A) 0 %; Eosinophils % (A) 0 %; HCT 29.3 % (39.0-53.0); HGB 9.3 gm/dL (13.0-17.5); Lymphocytes # (A) 0.6 k/uL (1.0-4.8); Lymphocytes % (A) 9 %; MCHC 31.6 g/dL (31.0-37.0); Mean Platelet Volume 8.9; Monocytes # (A) 0.5 k/uL (0-1.0); Monocytes % (A) 9 %; Neutrophils # (A) 5.1 k/uL (1.3-7.7); Neutrophils % (A) 79 %; Platelet Count 210 k/uL (150-450); RBC 3.18 m/uL (4.30-5.90); RDW 14.9 % (11.5-15.5); WBC 6.4 k/uL (3.8-10.6)
[2023-08-17 07:55] LABS: ALT 51 U/L (4-49); AST 56 U/L (17-59); African American GFR (CKD) 81 (>60 ml/min/1.73 sqM); Albumin 2.8 g/dL (3.5-5.0); Alkaline Phosphatase 128 U/L (38-126); Anion Gap 6 mmol/L; Blood Urea Nitrogen 20 mg/dL (9-20); Calcium 8.5 mg/dL (8.4-10.2); Carbon Dioxide 26 mmol/L (22-30); Chloride 102 mmol/L (98-107); Glucose 103 mg/dL (74-99); Non-African American GFR(CKD) 70 (>60 ml/min/1.73 sqM); Sodium 134 mmol/L (137-145); Total Bilirubin 0.8 mg/dL (0.2-1.3); Total Protein 7.9 g/dL (6.3-8.2)
--- NOTE | 2023-08-17 11:23 | P.PN ---
Subjective Progress Note Date: 08/17/23 Jonathon Mckay, is an 82-year-old male we'll presented to [facility] emergency room with a chief complaint of abdominal pain He was evaluated in the emergency room vital examination on presentation revealed a temperature of 101.2 pulse 60 respiration 18 blood pressure 109/57 pulse ox 95% on room air Laboratory data revealed a white blood count of 8.8 hemoglobin 6.2 platelet count 270 sodium 135 potassium 4.5 chloride 101 CO2 22 BUN 19 creatinine 1.1 iron 26 Testing in the emergency room revealed computed tomography scan of the abdomen revealed no evidence for acute abdominal process moderate hiatal hernia infrarenal abdominal x-ray gentleman measuring 26 mm colonic diverticulosis mild splenomegaly and CVA degenerative changes throughout the spine. chest x-ray revealed no acute cardiopulmonary disease Patient was admitted to medical floor for further evaluation and treatment on 08/15/2023 patient is alert and oriented 3 currently sitting up in chair. Patient was evaluated by GI services continue symptomatic and supportive care at this time no plans for endoscopic evaluation. hemoglobin 9.2. Patient remains on IV Unasyn.current vital signs temp 98.3, heart rate 67, respiratory rate 16, blood pressure 121/62 with pulse ox 95% on room air. On 08/16/2023 patient was seen and examined on the medical floor he is alert and oriented 3 in no apparent distress he denies any complaints at this time there is no fever or chills no headache or dizziness no chest pain no shortness of breath no cough no nausea or vomiting no abdominal pain no diarrhea and no urinary symptoms. Vital examination reveals a temperature of 98.9 pulse 79 respiration 16 blood pressure 153/65 pulse ox 96% on room air. His white blood count is 6.3 hemoglobin 9.8 platelet count 217 Blood culture are positive for Streptococcus viridans, Patient is maintained on IV Unasyn hematology and infec tious disease are following. On 08/17/2023 patient was seen and examined on the medical floor he is alert and oriented and feeling well he denies any complaints at this time there is no fever or chills no headache or dizziness no chest pain no shortness of breath no cough no nausea or vomiting no abdominal pain no diarrhea no urinary symptoms. Patient had positive blood cultures and is maintained on IV Unasyn, infectious disease follow-up Objective - Vital Signs Vital signs: Vital Signs Temp 96.4 F L 08/17/23 07:50 Pulse 70 08/17/23 07:50 Resp 16 08/17/23 07:50 BP 147/67 08/17/23 07:50 Pulse Ox 96 08/17/23 07:50 FiO2 Intake & Output 08/16/23 08/17/23 08/17/23 18:59 06:59 18:59 Intake Total 358 Output Total 1050 1050 450 Balance -1050 -1050 -92 Intake: Oral 358 Output: Urine 1050 1050 450 Other: Voiding Method External Catheter External Catheter External Catheter # Bowel Movements 1 1 - Exam In general patient is alert and oriented x 3 in no distress HEENT head normocephalic and atraumatic Neck is supple no JVD no goiter no lymphadenopathy no carotid bruit Chest examination is clear to auscultation no crackles no wheezing Cardiac exam reveals regular heart sounds S1 and S2 no gallops no murmurs Abdomen is soft nontender no organomegaly with normal bowel sounds Extremity exam reveals no edema no cyanosis or clubbing Neurological examination reveals no gross focal deficits - Labs CBC & Chem 7: 08/17/23 07:14 08/17/23 07:14 Labs: Abnormal Lab Results - Last 24 Hours (Table) 08/17/23 08/17/23 Range/Units 07:14 07:14 RBC 3.18 L (4.30-5.90) m/uL Hgb 9.3 L (13.0-17.5) gm/dL Hct 29.3 L (39.0-53.0) % Lymphocytes # 0.6 L (1.0-4.8) k/uL Sodium 134 L (137-145) mmol/L Glucose 103 H (74-99) mg/dL ALT 51 H (4-49) U/L Alkaline Phosphatase 128 H (38-126) U/L Albumin 2.8 L (3.5-5.0) g/dL Microbiology - Last 24 Hours (Table) 08/14/23 21:43 Blood Culture Gram Stain - Preliminary Blood Blood Culture - Preliminary Streptococcus viridans group Molecular ID Assessment and Plan Plan: febrile illness, cause of fever unclear, no evidence of urinary tract infection, no significant findings on chest x-ray and computed tomography scan of the abdomen, infectious disease consultation requested Severe anemia requiring red blood cell transfusion, GI consultation is requested underlying history of hyperlipidemia Underlying history of hypertension Underlying history of benign prostatic hypertrophy Underlying history of malignant melanoma Previous history of coronary artery disease, with history of angioplasty and stent placement maintained on Plavix At this time patient was seen and examined Home medications reviewed and reordered Plavix is was held Red blood cell transfusion ordered GI consultation and infectious disease consultation requested oncology service is consulted Will follow closely
--- NOTE | 2023-08-17 17:39 | P.PN ---
Subjective Progress Note Date: 08/16/23 Principal diagnosis: Reason for follow-up is fever Patient is a 82-year-old male with a past medical history significant for hypertension hyperlipidemia peripheral neuropathy melanoma presented to the hospital for abdominal pain not feeling well decreased urine output patient was noticed to be febrile on presentation to the hospital CT abdominal pelvis did not show any acute abnormality. On today's evaluation that is 08/16/2023,the patient denies any fever or any c hills, patient is breathing comfortably on room air, the patient denies chest pain shortness of breath and no significant cough, patient denies abdominal pain, no nausea vomiting or diarrhea. Feeling better no new symptoms. The patient white count is 6.3, creatinine is 1.02 Objective - Vital Signs Vital signs: Vital Signs Temp 98.9 F 08/16/23 09:07 Pulse 66 08/16/23 11:21 Resp 16 08/16/23 11:21 BP 103/49 08/16/23 11:21 Pulse Ox 96 08/16/23 11:21 FiO2 Intake & Output 08/15/23 08/16/23 08/16/23 18:59 06:59 18:59 Intake Total 472 540 Output Total 1200 1225 400 Balance -728 -685 -400 Intake: Oral 472 540 Output: Urine 1200 1225 400 Other: Voiding Method External Catheter External Catheter External Catheter - Exam GENERAL DESCRIPTION: An elderly male up in the chair in no distress RESPIRATORY SYSTEM: Unlabored breathing , decreased breath sounds at bases HEART: S1 S2 regular rate and rhythm , ABDOMEN: Soft , no tenderness EXTREMITIES: No edema feet - Labs CBC & Chem 7: 08/17/23 07:14 08/17/23 07:14 Labs: Abnormal Lab Results - Last 24 Hours (Table) 08/14/23 08/16/23 08/16/23 Range/Units 13:08 06:56 06:56 RBC 3.30 L (4.30-5.90) m/uL Hgb 9.8 L (13.0-17.5) gm/dL Hct 30.6 L (39.0-53.0) % Lymphocytes # 0.7 L (1.0-4.8) k/uL Sodium 136 L (137-145) mmol/L Total Protein 8.3 H (6.3-8.2) g/dL Albumin 3.0 L (3.5-5.0) g/dL Albumin (PEP) 2.37 L (3.80-4.90) g/dL Ahjif-5-Jiiwgetgh 0.48 H (0.10-0.40) g/dL Beta Globulins 2.16 H (0.60-1.30) g/dL Gamma Globulins 2.29 H (0.70-1.50) g/dL Free [place] LC, Quant 11.46 H (0.33-1.94) mg/dL Free [place] LC, Quant 4.53 H (0.57-2.63) mg/dL Microbiology - Last 24 Hours (Table) 08/14/23 21:43 Blood Culture Gram Stain - Preliminary Blood Blood Culture - Preliminary Streptococcus viridans group Molecular ID Assessment and Plan (1) Fever Current Visit: Yes Status: Acute Code(s): R50.9 - FEVER, UNSPECIFIED SNOMED Code(s): 099163032 Plan: 1patient with a fever in this patient admitted to hospital generalized weakness predominant abdominal symptoms with distention and constipation patient was noted to be anemic CT abdominal pelvis however did not show any acute abdominal process UA has been negative chest x-ray was reported negative, the patient did have a negative influenza RSV and COVID PCR 2-patient did have a procalcitonin 0.17, CRP is 5.1 ID and sensitivity on the blood cultures pending 3-patient will continue with Unasyn while waiting for the workup to be completed Dictation was produced using [employer] dictation software. please excuse any grammatical, word or spelling errors. Time with Patient: Less than 30
--- NOTE | 2023-08-17 17:40 | P.PN ---
Subjective Progress Note Date: 08/17/23 Principal diagnosis: Reason for follow-up is fever Patient is a 82-year-old male with a past medical history significant for hypertension hyperlipidemia peripheral neuropathy melanoma presented to the hospital for abdominal pain not feeling well decreased urine output patient was noticed to be febrile on presentation to the hospital CT abdominal pelvis did not show any acute abnormality. On today's evaluation that is 08/17/2023,the patient remains to be afebrile, p atient is on room air not requiring supplemental oxygen and denies any shortness of breath no chest pain or cough.Patient denies having any nausea or vomiting, no abdominal pain and manage did have good bowel movement Blood culture #1 pathogen is strep viridans intermediate sensitive to ampicillin ID sensitivity on the second pathogen pending blood culture repeat has been negative so far, patient white count 6.4, creatinine 0.99 Objective - Vital Signs Vital signs: Vital Signs Temp 98.5 F 08/17/23 15:48 Pulse 66 08/17/23 15:48 Resp 16 08/17/23 15:48 BP 130/56 08/17/23 15:48 Pulse Ox 97 08/17/23 15:48 FiO2 Intake & Output 08/16/23 08/17/23 08/17/23 18:59 06:59 18:59 Intake Total 716 Output Total 1050 1050 450 Balance -1050 -1050 266 Intake: Oral 716 Output: Urine 1050 1050 450 Other: Voiding Method External Catheter External Catheter External Catheter # Bowel Movements 1 1 - Exam GENERAL DESCRIPTION: An elderly male up in the chair in no distress RESPIRATORY SYSTEM: Unlabored breathing , decreased breath sounds at bases HEART: S1 S2 regular rate and rhythm , ABDOMEN: Soft , no tenderness EXTREMITIES: No edema feet - Labs CBC & Chem 7: 08/17/23 07:14 08/17/23 07:14 Labs: Abnormal Lab Results - Last 24 Hours (Table) 08/17/23 08/17/23 Range/Units 07:14 07:14 RBC 3.18 L (4.30-5.90) m/uL Hgb 9.3 L (13.0-17.5) gm/dL Hct 29.3 L (39.0-53.0) % Lymphocytes # 0.6 L (1.0-4.8) k/uL Sodium 134 L (137-145) mmol/L Glucose 103 H (74-99) mg/dL ALT 51 H (4-49) U/L Alkaline Phosphatase 128 H (38-126) U/L Albumin 2.8 L (3.5-5.0) g/dL Microbiology - Last 24 Hours (Table) 08/16/23 08:55 Blood Culture - Preliminary Blood 08/14/23 21:43 Blood Culture Gram Stain - Final Blood Blood Culture - Final Streptococcus viridans group Molecular ID Assessment and Plan (1) Fever Current Visit: Yes Status: Acute Code(s): R50.9 - FEVER, UNSPECIFIED SNOMED Code(s): 406080567 (2) Positive blood culture Current Visit: Yes Status: Acute Code(s): R78.81 - BACTEREMIA SNOMED Code(s): 345377684 Plan: 1patient with a fever in this patient admitted to hospital generalized weakness predominant abdominal symptoms with distention and constipation patient was noted to be anemic CT abdominal pelvis however did not show any acute abdominal process UA has been negative chest x-ray was reported negative, the patient did have a negative influenza RSV and COVID PCR 2-patient did have a procalcitonin 0.17, CRP is 5.1 blood culture with 2 different pathogen question of contamination repeat blood cultures currently pending 3-we will discontinue the Unasyn and start the patient Rocephin hopefully transition to oral Ceftin on discharge Dictation was produced using [employer] dictation software. please excuse any grammatical, word or spelling errors. Time with Patient: Less than 30
--- NOTE | 2023-08-18 14:40 | P.PN ---
Subjective Progress Note Date: 08/18/23 No acute events. Patient reporting he is feeling improved. Repeat blood cultures negative Temp 101.5 last night. Continues on IV abx. Hemoglobin stable at 9.3. WBC 6.4, plts 210,000 Objective - Vital Signs Vital signs: Vital Signs Temp 99.9 F H 08/18/23 08:45 Pulse 63 08/18/23 11:35 Resp 18 08/18/23 11:35 BP 105/58 08/18/23 11:35 Pulse Ox 98 08/18/23 11:35 FiO2 Intake & Output 08/17/23 08/18/23 08/18/23 18:59 06:59 18:59 Intake Total 952 540 658 Output Total 1000 400 500 Balance -48 140 158 Intake: Oral 952 540 658 Output: Urine 1000 400 500 Other: Voiding Method External Catheter External Catheter External Catheter # Voids 1 # Bowel Movements 1 - Constitutional General appearance: Present: no acute distress - EENT Eyes: Present: anicteric sclerae, EOMI ENT: Present: hearing grossly normal - Respiratory Details: breathing is even and unlabored - Cardiovascular Details: skin warm and dry - Gastrointestinal General gastrointestinal: Present: soft. Absent: tenderness - Integumentary Integumentary: Absent: cyanotic - Musculoskeletal Musculoskeletal: Present: strength equal bilaterally - Psychiatric Psychiatric: Present: A&O x's 3 - Labs CBC & Chem 7: 08/17/23 07:14 08/17/23 07:14 Labs: Microbiology - Last 24 Hours (Table) 08/16/23 08:55 Blood Culture - Preliminary Blood 08/14/23 21:43 Blood Culture Gram Stain - Final Blood Blood Culture - Final Streptococcus viridans group Molecular ID Assessment and Plan (1) Abdominal pain Current Visit: Yes Status: Acute Priority: High Code(s): R10.9 - UNSPECIFIED ABDOMINAL PAIN SNOMED Code(s): 78280431 (2) Anemia Current Visit: Yes Status: Acute Priority: High Code(s): D64.9 - ANEMIA, UNSPECIFIED SNOMED Code(s): 701837845 (3) Waldenstrom macroglobulinemia Current Visit: Yes Status: Acute Priority: High Code(s): C88.0 - WALDENSTROM MACROGLOBULINEMIA SNOMED Code(s): 697328927 Plan: Abdominal pain, fever, weakness: Presented with complaints of generalized weakness and abdominal pain that radiates to right lower back over the last 2-3 weeks. Patient denies nausea vomiting diarrhea. Denies blood in stool and melena. Patient was noted to have a fever of 101.2 -Chest x-ray revealed no acute cardiopulmonary processes. Abdominal x-ray revealed nonspecific bowel gas pattern without evidence of acute processes. CT abdomen pelvis with contrast showed no evidence for acute abdominal process. No evidence for hemorrhage/hematoma. Moderate hiatal hernia. 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 Colonic diverticulosis. Mild splenomegaly. And severe degenerative changes throughout the spine. -CBC revealed WBC 8.8, hemoglobin 6.2, platelets 270,000. Bilirubin 1.0, ALP 130, AST 45, ALT 28. Creatinine 1.1, GFR 61. -Urinalysis not suspicious for UTI. Viral panel negative -Blood cultures positive for S. viridans. Repeat blood culture negative thus far -ID following. Continues on IV abx. Fever 101.5 noted last night Waldenstrom's macroglobulinemia, anemia: -Full history in consult HPI -Has been following in observation with stable disease. Hgb in clinic has been stable in 11 range -On admission CBC revealed WBC 8.8, hemoglobin 6.2, MCV 94.9, platelets 270,000 -Bilirubin 1.0, ALP 130, AST 45, ALT 28. Creatinine 1.1, GFR 61, Coags WNL -S/p 2 units PRBCs. Hgb stable at 9.3 -Hemolysis workup negative. 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 SPEP showing increase in m-spikes, 1.73, and 1.85, previously at 0.8 and 0.9 -As stated above hemolysis workup is negative and iron studies are not consis tent with PATTI. S/p 2 units PRBCs, hgb has been stable in 9 range, so it does not appear this is r/t GI bleed. K/L ratio stable, unclear if increase in M-spike is r/t to progression in disease vs reactive to bacteremia, although the latter seems to be more likely given clinical picture and workup. Will plan to repeat paraproteinemia workup in outpt setting in the next cpl weeks once pt has acutely recovered. Discussed findings and POC with pt and family and they were agreeable -Continue to monitor CBC. Please transfuse for hgb less than 7 or if symptomatic
--- NOTE | 2023-08-18 17:47 | P.PN ---
Subjective Progress Note Date: 08/18/23 Jonathon Mckay, is an 82-year-old male we'll presented to [facility] emergency room with a chief complaint of abdominal pain He was evaluated in the emergency room vital examination on presentation revealed a temperature of 101.2 pulse 60 respiration 18 blood pressure 109/57 pulse ox 95% on room air Laboratory data revealed a white blood count of 8.8 hemoglobin 6.2 platelet count 270 sodium 135 potassium 4.5 chloride 101 CO2 22 BUN 19 creatinine 1.1 iron 26 Testing in the emergency room revealed computed tomography scan of the abdomen revealed no evidence for acute abdominal process moderate hiatal hernia infrarenal abdominal x-ray gentleman measuring 26 mm colonic diverticulosis mild splenomegaly and CVA degenerative changes throughout the spine. chest x-ray revealed no acute cardiopulmonary disease Patient was admitted to medical floor for further evaluation and treatment on 08/15/2023 patient is alert and oriented 3 currently sitting up in chair. Patient was evaluated by GI services continue symptomatic and supportive care at this time no plans for endoscopic evaluation. hemoglobin 9.2. Patient remains on IV Unasyn.current vital signs temp 98.3, heart rate 67, respiratory rate 16, blood pressure 121/62 with pulse ox 95% on room air. On 08/16/2023 patient was seen and examined on the medical floor he is alert and oriented 3 in no apparent distress he denies any complaints at this time there is no fever or chills no headache or dizziness no chest pain no shortness of breath no cough no nausea or vomiting no abdominal pain no diarrhea and no urinary symptoms. Vital examination reveals a temperature of 98.9 pulse 79 respiration 16 blood pressure 153/65 pulse ox 96% on room air. His white blood count is 6.3 hemoglobin 9.8 platelet count 217 Blood culture are positive for Streptococcus viridans, Patient is maintained on IV Unasyn hematology and infec tious disease are following. On 08/17/2023 patient was seen and examined on the medical floor he is alert and oriented and feeling well he denies any complaints at this time there is no fever or chills no headache or dizziness no chest pain no shortness of breath no cough no nausea or vomiting no abdominal pain no diarrhea no urinary symptoms. Patient had positive blood cultures and is maintained on IV Unasyn, infectious disease follow-up On 08/18/2023 patient was seen and examined on the medical floor he is alert and oriented 3 in no apparent distress, he is still having episodes of low-grade fever, he is complaining of low back pain, otherwise he denies any complaints there is no headache or dizziness no chest pain no shortness of breath no cough no nausea or vomiting no abdominal pain no diarrhea and no urinary symptoms. MRI of the lumbar spine was ordered by infectious disease, will continue to follow closely. Objective - Vital Signs Vital signs: Vital Signs Temp 98.2 F 08/18/23 15:15 Pulse 66 08/18/23 15:15 Resp 17 08/18/23 15:15 BP 125/64 08/18/23 15:15 Pulse Ox 95 08/18/23 15:15 FiO2 Intake & Output 08/17/23 08/18/23 08/18/23 18:59 06:59 18:59 Intake Total 952 540 658 Output Total 1000 400 500 Balance -48 140 158 Intake: Oral 952 540 658 Output: Urine 1000 400 500 Other: Voiding Method External Catheter External Catheter Diaper # Voids 1 # Bowel Movements 1 - Exam In general patient is alert and oriented x 3 in no distress HEENT head normocephalic and atraumatic Neck is supple no JVD no goiter no lymphadenopathy no carotid bruit Chest examination is clear to auscultation no crackles no wheezing Cardiac exam reveals regular heart sounds S1 and S2 no gallops no murmurs Abdomen is soft nontender no organomegaly with normal bowel sounds Extremity exam reveals no edema no cyanosis or clubbing Neurological examination reveals no gross focal deficits - Labs CBC & Chem 7: 08/17/23 07:14 08/17/23 07:14 Labs: Abnormal Lab Results - Last 24 Hours (Table) 08/18/23 08/18/23 Range/Units 13:04 13:04 ESR 37 H (0-20) mm/Hr C-Reactive Protein 4.2 H (<1.0) mg/dL Microbiology - Last 24 Hours (Table) 08/16/23 08:55 Blood Culture - Preliminary Blood Assessment and Plan Plan: febrile illness, cause of fever unclear, no evidence of urinary tract infection, no significant findings on chest x-ray and computed tomography scan of the abdomen, infectious disease consultation requested Severe anemia requiring red blood cell transfusion, GI consultation is requested underlying history of hyperlipidemia Underlying history of hypertension Underlying history of benign prostatic hypertrophy Underlying history of malignant melanoma Previous history of coronary artery disease, with history of angioplasty and stent placement maintained on Plavix At this time patient was seen and examined Home medications reviewed and reordered Plavix is was held Red blood cell transfusion ordered GI consultation and infectious disease consultation requested oncology service is consulted Will follow closely
--- NOTE | 2023-08-18 19:45 | P.PN ---
Subjective Progress Note Date: 08/18/23 Principal diagnosis: Reason for follow-up is fever Patient is a 82-year-old male with a past medical history significant for hypertension hyperlipidemia peripheral neuropathy melanoma presented to the hospital for abdominal pain not feeling well decreased urine output patient was noticed to be febrile on presentation to the hospital CT abdominal pelvis did not show any acute abnormality. On today's evaluation that is 08/18/2023, the patient spiked a fever last even ing of 101.5 F and the patient did have low-grade fever of 99.9 this morning the patient is breathing comfortably on room air denies any chest pain shortness of breath or cough no nausea no vomiting no abdominal pain has been complaining of some pain in the lower back area that seem to have gotten worse since the patient has been in the hospital. No new labs has been obtained today blood culture with Streptococcus viridans intermediate sensitivity to ampicillin Objective - Vital Signs Vital signs: Vital Signs Temp 99.9 F H 08/18/23 08:45 Pulse 80 08/18/23 08:45 Resp 17 08/18/23 08:45 BP 151/57 08/18/23 08:45 Pulse Ox 97 08/18/23 08:45 FiO2 Intake & Output 08/17/23 08/18/23 08/18/23 18:59 06:59 18:59 Intake Total 952 540 540 Output Total 1000 400 Balance -48 140 540 Intake: Oral 952 540 540 Output: Urine 1000 400 Other: Voiding Method External Catheter External Catheter External Catheter # Bowel Movements 1 - Exam GENERAL DESCRIPTION: An elderly male up in the chair in no distress RESPIRATORY SYSTEM: Unlabored breathing , decreased breath sounds at bases HEART: S1 S2 regular rate and rhythm , ABDOMEN: Soft , no tenderness EXTREMITIES: No edema feet - Labs CBC & Chem 7: 08/17/23 07:14 08/17/23 07:14 Labs: Microbiology - Last 24 Hours (Table) 08/16/23 08:55 Blood Culture - Preliminary Blood 08/14/23 21:43 Blood Culture Gram Stain - Final Blood Blood Culture - Final Streptococcus viridans group Molecular ID Assessment and Plan (1) Fever Current Visit: Yes Status: Acute Code(s): R50.9 - FEVER, UNSPECIFIED SNOMED Code(s): 476164857 (2) Positive blood culture Current Visit: Yes Status: Acute Code(s): R78.81 - BACTEREMIA SNOMED Code(s): 235534672 Plan: 1patient with a fever in this patient admitted to hospital generalized weakness predominant abdominal symptoms with distention and constipation patient was noted to be anemic CT abdominal pelvis however did not show any acute abdominal process UA has been negative chest x-ray was reported negative, the patient did have a negative influenza RSV and COVID PCR 2-patient did have a procalcitonin 0.17, CRP is 5.1 blood culture with 2 different pathogen question of contamination repeat blood cultures currently pending 3-patient did have a new fever last night also complaining of more lower back pain with a question of possible discitis/osteomyelitis will obtain MRI of the lumbosacral spine with contrast Case discussed with admitting physician also carole livingston the daughter at the bedside continue with Rocephin Dictation was produced using [employer] dictation software. please excuse any grammatical, word or spelling errors. Time with Patient: Less than 30
[2023-08-19 07:19] LABS: Basophils % (A) 0 %; Eosinophils % (A) 1 %; HCT 31.9 % (39.0-53.0); HGB 10.2 gm/dL (13.0-17.5); Hypochromasia Slight; Lymphocytes # (A) 0.9 k/uL (1.0-4.8); Lymphocytes % (A) 11 %; MCH 29.8 pg (25.0-35.0); MCHC 32.1 g/dL (31.0-37.0); Mean Platelet Volume 8.9; Monocytes # (A) 1.2 k/uL (0-1.0); Monocytes % (A) 15 %; Neutrophils # (A) 5.8 k/uL (1.3-7.7); Neutrophils % (A) 70 %; Platelet Count 217 k/uL (150-450); RBC 3.43 m/uL (4.30-5.90); RDW 14.9 % (11.5-15.5); WBC 8.3 k/uL (3.8-10.6)
[2023-08-19 07:31] LABS: ALT 55 U/L (4-49); AST 49 U/L (17-59); African American GFR (CKD) 72 (>60 ml/min/1.73 sqM); Alkaline Phosphatase 136 U/L (38-126); Anion Gap 4 mmol/L; Blood Urea Nitrogen 24 mg/dL (9-20); Calcium 8.5 mg/dL (8.4-10.2); Carbon Dioxide 28 mmol/L (22-30); Chloride 104 mmol/L (98-107); Glucose 111 mg/dL (74-99); Non-African American GFR(CKD) 62 (>60 ml/min/1.73 sqM); Sodium 136 mmol/L (137-145); Total Bilirubin 0.6 mg/dL (0.2-1.3); Total Protein 8.5 g/dL (6.3-8.2)
--- NOTE | 2023-08-19 09:05 | P.PN ---
Subjective Progress Note Date: 08/19/23 Jonathon Mckay, is an 82-year-old male we'll presented to [facility] emergency room with a chief complaint of abdominal pain He was evaluated in the emergency room vital examination on presentation revealed a temperature of 101.2 pulse 60 respiration 18 blood pressure 109/57 pulse ox 95% on room air Laboratory data revealed a white blood count of 8.8 hemoglobin 6.2 platelet count 270 sodium 135 potassium 4.5 chloride 101 CO2 22 BUN 19 creatinine 1.1 iron 26 Testing in the emergency room revealed computed tomography scan of the abdomen revealed no evidence for acute abdominal process moderate hiatal hernia infrarenal abdominal x-ray gentleman measuring 26 mm colonic diverticulosis mild splenomegaly and CVA degenerative changes throughout the spine. chest x-ray revealed no acute cardiopulmonary disease Patient was admitted to medical floor for further evaluation and treatment on 08/15/2023 patient is alert and oriented 3 currently sitting up in chair. Patient was evaluated by GI services continue symptomatic and supportive care at this time no plans for endoscopic evaluation. hemoglobin 9.2. Patient remains on IV Unasyn.current vital signs temp 98.3, heart rate 67, respiratory rate 16, blood pressure 121/62 with pulse ox 95% on room air. On 08/16/2023 patient was seen and examined on the medical floor he is alert and oriented 3 in no apparent distress he denies any complaints at this time there is no fever or chills no headache or dizziness no chest pain no shortness of breath no cough no nausea or vomiting no abdominal pain no diarrhea and no urinary symptoms. Vital examination reveals a temperature of 98.9 pulse 79 respiration 16 blood pressure 153/65 pulse ox 96% on room air. His white blood count is 6.3 hemoglobin 9.8 platelet count 217 Blood culture are positive for Streptococcus viridans, Patient is maintained on IV Unasyn hematology and infec tious disease are following. On 08/17/2023 patient was seen and examined on the medical floor he is alert and oriented and feeling well he denies any complaints at this time there is no fever or chills no headache or dizziness no chest pain no shortness of breath no cough no nausea or vomiting no abdominal pain no diarrhea no urinary symptoms. Patient had positive blood cultures and is maintained on IV Unasyn, infectious disease follow-up On 08/18/2023 patient was seen and examined on the medical floor he is alert and oriented 3 in no apparent distress, he is still having episodes of low-grade fever, he is complaining of low back pain, otherwise he denies any complaints there is no headache or dizziness no chest pain no shortness of breath no cough no nausea or vomiting no abdominal pain no diarrhea and no urinary symptoms. MRI of the lumbar spine was ordered by infectious disease, will continue to follow closely. on 08/19/2023 patient is alert and oriented 3.patient getting MRI of the spine today. Patient has low-grade temp 100.2 last night. Current vital signs temp 98.6, heart 61, respiratory rate 18, blood pressure 139/72 with pulse ox 96% on room air. Patient denies chest pain or shortness of breath. Patient denies nausea vomiting or diarrhea. Patient denies any urinary burning or frequency.white blood cell 8.3 hemoglobin 10.2.patient's liver enzymes slightly elevated we'll hold scheduled Tylenol. Patient denies chest pain or shortness breath. Patient denies nausea vomiting or diarrhea. Patient denies any urinary burning or frequency Objective - Vital Signs Vital signs: Vital Signs Temp 98.6 F 08/19/23 03:39 Pulse 61 08/19/23 03:39 Resp 18 08/19/23 03:39 BP 139/72 08/19/23 03:39 Pulse Ox 96 08/19/23 03:39 FiO2 Intake & Output 08/18/23 08/19/23 08/19/23 18:59 06:59 18:59 Intake Total 776 416 Output Total 500 Balance 276 416 Intake: Oral 776 416 Output: Urine 500 Other: Voiding Method Diaper Toilet # Voids 1 2 # Bowel Movements 1 - Exam In general patient is alert and oriented x 3 in no distress HEENT head normocephalic and atraumatic Neck is supple no JVD no goiter no lymphadenopathy no carotid bruit Chest examination is clear to auscultation no crackles no wheezing Cardiac exam reveals regular heart sounds S1 and S2 no gallops no murmurs Abdomen is soft nontender no organomegaly with normal bowel sounds Extremity exam reveals no edema no cyanosis or clubbing Neurological examination reveals no gross focal deficits - Labs CBC & Chem 7: 08/19/23 06:57 08/19/23 06:57 Labs: Abnormal Lab Results - Last 24 Hours (Table) 08/18/23 08/18/23 08/19/23 Range/Units 13:04 13:04 06:57 RBC 3.43 L (4.30-5.90) m/uL Hgb 10.2 L (13.0-17.5) gm/dL Hct 31.9 L (39.0-53.0) % Lymphocytes # 0.9 L (1.0-4.8) k/uL Monocytes # 1.2 H (0-1.0) k/uL ESR 37 H (0-20) mm/Hr Sodium (137-145) mmol/L BUN (9-20) mg/dL Glucose (74-99) mg/dL ALT (4-49) U/L Alkaline Phosphatase (38-126) U/L C-Reactive Protein 4.2 H (<1.0) mg/dL Total Protein (6.3-8.2) g/dL Albumin (3.5-5.0) g/dL 08/19/23 Range/Units 06:57 RBC (4.30-5.90) m/uL Hgb (13.0-17.5) gm/dL Hct (39.0-53.0) % Lymphocytes # (1.0-4.8) k/uL Monocytes # (0-1.0) k/uL ESR (0-20) mm/Hr Sodium 136 L (137-145) mmol/L BUN 24 H (9-20) mg/dL Glucose 111 H (74-99) mg/dL ALT 55 H (4-49) U/L Alkaline Phosphatase 136 H (38-126) U/L C-Reactive Protein (<1.0) mg/dL Total Protein 8.5 H (6.3-8.2) g/dL Albumin 3.0 L (3.5-5.0) g/dL Microbiology - Last 24 Hours (Table) 08/16/23 08:55 Blood Culture - Preliminary Blood Assessment and Plan Plan: febrile illness, cause of fever unclear, no evidence of urinary tract infection, no significant findings on chest x-ray and computed tomography scan of the abdomen, infectious disease consultation requested Severe anemia requiring red blood cell transfusion, GI consultation is requested. No further workup inpatient underlying history of hyperlipidemia Underlying history of hypertension Underlying history of benign prostatic hypertrophy Underlying history of malignant melanoma Previous history of coronary artery disease, with history of angioplasty and stent placement maintained on Plavix elevated liver enzymes. Tylenol on hold At this time patient was seen and examined Home medications reviewed and reordered Plavix is was held Red blood cell transfusion ordered MRI of the spine ordered per infectious disease GI consultation and infectious disease consultation requested oncology service is consulted Will follow closely
--- NOTE | 2023-08-19 16:29 | MR ---
EXAMINATION TYPE: MR lumbar spine wo/w con DATE OF EXAM: 08/19/2023 4:09 PM CLINICAL INDICATION:Male, 82 years old with history of back pain and bacteremia ?discitis; PHH, Back pain and bacteremia, evaluate for discitis COMPARISON: 08/13/2023 TECHNIQUE: Multi planar, multi sequence imaging was performed utilizing: T1-weighted, T2-weighted, a nd turbo inversion recovery imaging of the lumbar spine. IV Contrast: 9.5 cc Gadavist. (None if empty) FINDINGS: Alignment: The lumbar vertebral bodies have preserved heights and alignment. Cord: The conus medullaris and the distal spinal cord appear unremarkable with regards to their signa l intensity and morphology. Bones/Discs: Multilevel disc degeneration changes with osteophyte formation, disc space narrowing, Sc hmorl's nodes, and facet joint arthropathy. No abnormal inversion recovery signal to suggest bony taran ma. Reactive bony edema seen at multiple levels. Pseudarthrosis of the spinous processes. Reactive ab normal enhancement around these/processes and facet joints of L3-L4 and L4-L5. T12-L1: No evidence of significant spinal canal stenosis or neural foraminal stenosis. L1-L2: No evidence of significant spinal canal stenosis. Facet joint arthropathy mild bilateral neura l foraminal stenosis. L2-L3: No significant disc pathology with facet joint arthropathy result in mild spinal canal and mod erate mild left neural foraminal stenosis. L3-L4: Disc bulge and facet joint arthropathy result in mild to moderate spinal canal and severe righ t and moderate left bilateral neural foraminal stenosis. L4-L5: Disc bulge and facet joint arthropathy result in mild spinal canal and severe left and moderat e neural foraminal stenosis. L5-S1: No central disc protrusion without significant spinal canal stenosis. This displaces the left forming nerve series 601 image 4. Moderate to severe bilateral neural foraminal stenosis. No significant spinal canal or neural foraminal stenosis in the remainder of the visualized levels. Other findings: None. IMPRESSION: 1. No evidence for osteomyelitis discitis. 2. 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 3. Mild reactive edema at L3-L4 and L4-L5 posterior months including the spinous processes and facet joints. 4. Moderate severe degeneration changes throughout the spine with biconcave deformities throughout t he vertebral bodies. 5. Diffuse red marrow reconversion. 6. L5-S1 disc protrusion which closely approximates the left forming nerve and thecal sac. 7. L4-L5 severe left neural foraminal stenosis. 8. L3-L4 severe right neural foraminal stenosis. 9. No evidence for spinal fracture.
--- NOTE | 2023-08-19 22:09 | P.PN ---
Subjective Progress Note Date: 08/19/23 Principal diagnosis: Reason for follow-up is fever Patient is a 82-year-old male with a past medical history significant for hypertension hyperlipidemia peripheral neuropathy melanoma presented to the hospital for abdominal pain not feeling well decreased urine output patient was noticed to be febrile on presentation to the hospital CT abdominal pelvis did not show any acute abnormality. On today's evaluation that is 08/19/2023, Patient is afebrile today, patient is currently on room air and denies having any shortness of breath, the patient denies any chest pain or cough, the patient denies any nausea vomiting did not have any abdominal pain and did have a formed bowel movement still complaining of pain to the lower back area but no worsening Patient did have a white count of 8.3 creatinine 1.09 ESR is 37 CRP is 4.2 blood cultures with Streptococcus viridans repeat blood culture has been negative Objective - Vital Signs Vital signs: Vital Signs Temp 97.6 F 08/19/23 11:15 Pulse 68 08/19/23 11:15 Resp 17 08/19/23 11:15 BP 92/53 08/19/23 11:15 Pulse Ox 92 L 08/19/23 11:15 FiO2 Intake & Output 08/18/23 08/19/23 08/19/23 18:59 06:59 18:59 Intake Total 776 534 Output Total 500 400 Balance 276 134 Weight 93.44 kg Intake: Oral 776 534 Output: Urine 500 400 Other: Voiding Method Diaper Toilet Toilet Urinal # Voids 1 2 1 # Bowel Movements 1 - Exam GENERAL DESCRIPTION: An elderly male up in the chair in no distress RESPIRATORY SYSTEM: Unlabored breathing , decreased breath sounds at bases HEART: S1 S2 regular rate and rhythm , ABDOMEN: Soft , no tenderness EXTREMITIES: No edema feet - Labs CBC & Chem 7: 08/19/23 06:57 08/19/23 06:57 Labs: Abnormal Lab Results - Last 24 Hours (Table) 08/18/23 08/19/23 08/19/23 Range/Units 13:04 06:57 06:57 RBC 3.43 L (4.30-5.90) m/uL Hgb 10.2 L (13.0-17.5) gm/dL Hct 31.9 L (39.0-53.0) % Lymphocytes # 0.9 L (1.0-4.8) k/uL Monocytes # 1.2 H (0-1.0) k/uL ESR 37 H (0-20) mm/Hr Sodium 136 L (137-145) mmol/L BUN 24 H (9-20) mg/dL Glucose 111 H (74-99) mg/dL ALT 55 H (4-49) U/L Alkaline Phosphatase 136 H (38-126) U/L Total Protein 8.5 H (6.3-8.2) g/dL Albumin 3.0 L (3.5-5.0) g/dL Microbiology - Last 24 Hours (Table) 08/16/23 08:55 Blood Culture - Preliminary Blood Assessment and Plan (1) Fever Current Visit: Yes Status: Acute Code(s): R50.9 - FEVER, UNSPECIFIED SNOMED Code(s): 592642223 (2) Positive blood culture Current Visit: Yes Status: Acute Code(s): R78.81 - BACTEREMIA SNOMED Code(s): 388825373 Plan: 1patient with a fever in this patient admitted to hospital generalized weakness predominant abdominal symptoms with distention and constipation patient was noted to be anemic CT abdominal pelvis however did not show any acute abdominal process UA has been negative chest x-ray was reported negative, the patient did have a negative influenza RSV and COVID PCR 2-patient did have a procalcitonin 0.17, CRP is 5.1 blood culture with 2 different pathogen question of contamination repeat blood cultures currently pending 3-patient did have a fever with initial workup has been negative so far blood culture positive for Streptococcus viridans keeping in mind his back pain MRI has been ordered which is currently pending if MRI is negative we will be ordering a echocardiogram to rule out endovascular source although the patient continued on Rocephin 2 g daily Dictation was produced using [email or web address] dictation software. please excuse any grammatical, word or spelling errors. Time with Patient: Less than 30
[2023-08-20] MEDS ORDERED: HEPARIN SODIUM 1,000 UN/ML (10ML VL) IV PRN (00:35)
[2023-08-20 01:09] LABS: Basophils % (A) 0 %; Eosinophils % (A) 0 %; HCT 30.1 % (39.0-53.0); HGB 9.6 gm/dL (13.0-17.5); Lymphocytes # (A) 0.8 k/uL (1.0-4.8); Lymphocytes % (A) 13 %; MCH 29.6 pg (25.0-35.0); MCHC 31.7 g/dL (31.0-37.0); MCV 93.2 fL (80.0-100.0); Mean Platelet Volume 8.8; Monocytes # (A) 0.5 k/uL (0-1.0); Monocytes % (A) 9 %; Neutrophils # (A) 4.7 k/uL (1.3-7.7); Neutrophils % (A) 75 %; Platelet Count 215 k/uL (150-450); RBC 3.23 m/uL (4.30-5.90); RDW 14.7 % (11.5-15.5); WBC 6.2 k/uL (3.8-10.6)
[2023-08-20] MEDS: HEPARIN SODIUM 1,000 UN/ML (10ML VL) IV ONE (01:23)
[2023-08-20] MEDS: HEPARIN SOD,PORK IN 0.45% NACL 25,000 UNIT in 0.45% NACL 1 250ML.BAG IV SCH (01:33)
[2023-08-20 02:32] LABS: INR 1.2 (<1.2); Partial Thromboplastin Time 27.9 sec (22.0-30.0); Prothrombin Time 12.7 sec (10.0-12.5)
[2023-08-20] MEDS: IBUPROFEN 600 MG TAB PO PRN ×2 (04:41→21:28)
--- NOTE | 2023-08-20 06:33 | P.PN ---
Subjective Progress Note Date: 08/18/23 Jonathon Mckay, is an 82-year-old male we'll presented to [facility] emergency room with a chief complaint of abdominal pain He was evaluated in the emergency room vital examination on presentation revealed a temperature of 101.2 pulse 60 respiration 18 blood pressure 109/57 pulse ox 95% on room air Laboratory data revealed a white blood count of 8.8 hemoglobin 6.2 platelet count 270 sodium 135 potassium 4.5 chloride 101 CO2 22 BUN 19 creatinine 1.1 iron 26 Testing in the emergency room revealed computed tomography scan of the abdomen revealed no evidence for acute abdominal process moderate hiatal hernia infrarenal abdominal x-ray gentleman measuring 26 mm colonic diverticulosis mild splenomegaly and CVA degenerative changes throughout the spine. chest x-ray revealed no acute cardiopulmonary disease Patient was admitted to medical floor for further evaluation and treatment on 08/15/2023 patient is alert and oriented 3 currently sitting up in chair. Patient was evaluated by GI services continue symptomatic and supportive care at this time no plans for endoscopic evaluation. hemoglobin 9.2. Patient remains on IV Unasyn.current vital signs temp 98.3, heart rate 67, respiratory rate 16, blood pressure 121/62 with pulse ox 95% on room air. On 08/16/2023 patient was seen and examined on the medical floor he is alert and oriented 3 in no apparent distress he denies any complaints at this time there is no fever or chills no headache or dizziness no chest pain no shortness of breath no cough no nausea or vomiting no abdominal pain no diarrhea and no urinary symptoms. Vital examination reveals a temperature of 98.9 pulse 79 respiration 16 blood pressure 153/65 pulse ox 96% on room air. His white blood count is 6.3 hemoglobin 9.8 platelet count 217 Blood culture are positive for Streptococcus viridans, Patient is maintained on IV Unasyn hematology and infec tious disease are following. On 08/17/2023 patient was seen and examined on the medical floor he is alert and oriented and feeling well he denies any complaints at this time there is no fever or chills no headache or dizziness no chest pain no shortness of breath no cough no nausea or vomiting no abdominal pain no diarrhea no urinary symptoms. Patient had positive blood cultures and is maintained on IV Unasyn, infectious disease follow-up On 08/18/2023 patient was seen and examined on the medical floor he is alert and oriented 3 in no apparent distress he denies any complaints at this time there is no fever or chills no headache or dizziness no chest pain no shortness of breath no cough no nausea or vomiting no abdominal pain no diarrhea and no urinary symptoms. Blood culture are positive for Streptococcus viridans, Patient is maintained on IV Unasyn hematology and infectious disease are following. Objective - Vital Signs Vital signs: Vital Signs Temp 98.9 F 08/18/23 03:40 Pulse 64 08/18/23 03:40 Resp 16 08/18/23 03:40 BP 144/71 08/18/23 03:40 Pulse Ox 90 L 08/18/23 03:40 FiO2 Intake & Output 08/17/23 08/18/23 08/18/23 18:59 06:59 18:59 Intake Total 952 540 540 Output Total 1000 400 Balance -48 140 540 Intake: Oral 952 540 540 Output: Urine 1000 400 Other: Voiding Method External Catheter External Catheter # Bowel Movements 1 - Exam In general patient is alert and oriented x 3 in no distress HEENT head normocephalic and atraumatic Neck is supple no JVD no goiter no lymphadenopathy no carotid bruit Chest examination is clear to auscultation no crackles no wheezing Cardiac exam reveals regular heart sounds S1 and S2 no gallops no murmurs Abdomen is soft nontender no organomegaly with normal bowel sounds Extremity exam reveals no edema no cyanosis or clubbing Neurological examination reveals no gross focal deficits - Labs CBC & Chem 7: 08/20/23 00:40 08/19/23 06:57 Labs: Microbiology - Last 24 Hours (Table) 08/16/23 08:55 Blood Culture - Preliminary Blood 08/14/23 21:43 Blood Culture Gram Stain - Final Blood Blood Culture - Final Streptococcus viridans group Molecular ID Assessment and Plan Plan: febrile illness, cause of fever unclear, no evidence of urinary tract infection, no significant findings on chest x-ray and computed tomography scan of the abdomen, infectious disease consultation requested Severe anemia requiring red blood cell transfusion, GI consultation is requested underlying history of hyperlipidemia Underlying history of hypertension Underlying history of benign prostatic hypertrophy Underlying history of malignant melanoma Previous history of coronary artery disease, with history of angioplasty and stent placement maintained on Plavix At this time patient was seen and examined Home medications reviewed and reordered Plavix is was held Red blood cell transfusion ordered GI consultation and infectious disease consultation requested oncology service is consulted Will follow closely
[2023-08-20 11:18] LABS: Basophils % (A) 0 %; Eosinophils % (A) 0 %; HCT 31.6 % (39.0-53.0); HGB 9.5 gm/dL (13.0-17.5); Hypochromasia Moderate; Lymphocytes # (A) 0.8 k/uL (1.0-4.8); Lymphocytes % (A) 10 %; MCH 28.7 pg (25.0-35.0); MCHC 30.2 g/dL (31.0-37.0); MCV 95.2 fL (80.0-100.0); Mean Platelet Volume 8.3; Monocytes # (A) 0.3 k/uL (0-1.0); Monocytes % (A) 4 %; Neutrophils # (A) 6.1 k/uL (1.3-7.7); Neutrophils % (A) 83 %; Platelet Count 224 k/uL (150-450); RBC 3.32 m/uL (4.30-5.90); RDW 14.7 % (11.5-15.5); WBC 7.4 k/uL (3.8-10.6)
--- NOTE | 2023-08-20 11:20 | P.PN ---
Subjective Progress Note Date: 08/20/23 Jonathon Mckay, is an 82-year-old male we'll presented to [facility] emergency room with a chief complaint of abdominal pain He was evaluated in the emergency room vital examination on presentation revealed a temperature of 101.2 pulse 60 respiration 18 blood pressure 109/57 pulse ox 95% on room air Laboratory data revealed a white blood count of 8.8 hemoglobin 6.2 platelet count 270 sodium 135 potassium 4.5 chloride 101 CO2 22 BUN 19 creatinine 1.1 iron 26 Testing in the emergency room revealed computed tomography scan of the abdomen revealed no evidence for acute abdominal process moderate hiatal hernia infrarenal abdominal x-ray gentleman measuring 26 mm colonic diverticulosis mild splenomegaly and CVA degenerative changes throughout the spine. chest x-ray revealed no acute cardiopulmonary disease Patient was admitted to medical floor for further evaluation and treatment on 08/15/2023 patient is alert and oriented 3 currently sitting up in chair. Patient was evaluated by GI services continue symptomatic and supportive care at this time no plans for endoscopic evaluation. hemoglobin 9.2. Patient remains on IV Unasyn.current vital signs temp 98.3, heart rate 67, respiratory rate 16, blood pressure 121/62 with pulse ox 95% on room air. On 08/16/2023 patient was seen and examined on the medical floor he is alert and oriented 3 in no apparent distress he denies any complaints at this time there is no fever or chills no headache or dizziness no chest pain no shortness of breath no cough no nausea or vomiting no abdominal pain no diarrhea and no urinary symptoms. Vital examination reveals a temperature of 98.9 pulse 79 respiration 16 blood pressure 153/65 pulse ox 96% on room air. His white blood count is 6.3 hemoglobin 9.8 platelet count 217 Blood culture are positive for Streptococcus viridans, Patient is maintained on IV Unasyn hematology and infec tious disease are following. On 08/17/2023 patient was seen and examined on the medical floor he is alert and oriented and feeling well he denies any complaints at this time there is no fever or chills no headache or dizziness no chest pain no shortness of breath no cough no nausea or vomiting no abdominal pain no diarrhea no urinary symptoms. Patient had positive blood cultures and is maintained on IV Unasyn, infectious disease follow-up On 08/18/2023 patient was seen and examined on the medical floor he is alert and oriented 3 in no apparent distress he denies any complaints at this time there is no fever or chills no headache or dizziness no chest pain no shortness of breath no cough no nausea or vomiting no abdominal pain no diarrhea and no urinary symptoms. Blood culture are positive for Streptococcus viridans, Patient is maintained on IV Unasyn hematology and infectious disease are following. on 08/19/2023 patient is alert and oriented 3.patient getting MRI of the spine today. Patient has low-grade temp 100.2 last night. Current vital signs temp 98.6, heart 61, respiratory rate 18, blood pressure 139/72 with pulse ox 96% on room air. Patient denies chest pain or shortness of breath. Patient denies nausea vomiting or diarrhea. Patient denies any urinary burning or frequency.white blood cell 8.3 hemoglobin 10.2.patient's liver enzymes slightly elevated we'll hold scheduled Tylenol. Patient denies chest pain or shortness breath. Patient denies nausea vomiting or diarrhea. Patient denies any urinary burning or frequency On 08/19/2022 for patient's alert and oriented 3. Patient went into A. fib last night. Patient was started on heparin drip and cardiology services have been consulted. 2-D echo has also been ordered. Patient began having elevated temp at night. Denies any acute complaints.Mildly elevated liver enzymes will order liver ultrasound. Infectious disease cardiology and hematology services are following. Current vital signs temp 97.5, heart rate 82, respiratory rate 16, blood pressure 113/50 Objective - Vital Signs Vital signs: Vital Signs Temp 98.6 F 08/20/23 06:08 Pulse 75 08/20/23 04:00 Resp 17 08/20/23 04:00 BP 116/59 08/20/23 04:00 Pulse Ox 96 08/20/23 04:00 FiO2 Intake & Output 08/19/23 08/19/23 08/20/23 06:59 18:59 06:59 Intake Total 894 Output Total 400 300 Balance 494 -300 Weight 93.44 kg Intake: Oral 894 Output: Urine 400 300 Other: Voiding Method Toilet Toilet Urinal # Voids 2 1 1 # Bowel Movements 1 - Exam In general patient is alert and oriented x 3 in no distress HEENT head normocephalic and atraumatic Neck is supple no JVD no goiter no lymphadenopathy no carotid bruit Chest examination is clear to auscultation no crackles no wheezing Cardiac exam reveals regular heart sounds S1 and S2 no gallops no murmurs Abdomen is soft nontender no organomegaly with normal bowel sounds Extremity exam reveals no edema no cyanosis or clubbing Neurological examination reveals no gross focal deficits - Labs CBC & Chem 7: 08/20/23 00:40 08/19/23 06:57 Labs: Abnormal Lab Results - Last 24 Hours (Table) 08/19/23 08/19/23 08/20/23 Range/Units 06:57 06:57 00:40 RBC 3.43 L 3.23 L (4.30-5.90) m/uL Hgb 10.2 L 9.6 L (13.0-17.5) gm/dL Hct 31.9 L 30.1 L (39.0-53.0) % Lymphocytes # 0.9 L 0.8 L (1.0-4.8) k/uL Monocytes # 1.2 H (0-1.0) k/uL PT (10.0-12.5) sec INR (<1.2) Sodium 136 L (137-145) mmol/L BUN 24 H (9-20) mg/dL Glucose 111 H (74-99) mg/dL ALT 55 H (4-49) U/L Alkaline Phosphatase 136 H (38-126) U/L Total Protein 8.5 H (6.3-8.2) g/dL Albumin 3.0 L (3.5-5.0) g/dL 08/20/23 Range/Units 00:40 RBC (4.30-5.90) m/uL Hgb (13.0-17.5) gm/dL Hct (39.0-53.0) % Lymphocytes # (1.0-4.8) k/uL Monocytes # (0-1.0) k/uL PT 12.7 H (10.0-12.5) sec INR 1.2 H (<1.2) Sodium (137-145) mmol/L BUN (9-20) mg/dL Glucose (74-99) mg/dL ALT (4-49) U/L Alkaline Phosphatase (38-126) U/L Total Protein (6.3-8.2) g/dL Albumin (3.5-5.0) g/dL Microbiology - Last 24 Hours (Table) 08/18/23 13:04 Blood Culture - Preliminary Blood 08/16/23 08:55 Blood Culture - Preliminary Blood Assessment and Plan Plan: febrile illness, cause of fever unclear, no evidence of urinary tract infection, no significant findings on chest x-ray and computed tomography scan of the abdomen, infectious disease consultation requested Severe anemia requiring red blood cell transfusion, GI consultation is requested underlying history of hyperlipidemia Underlying history of hypertension Underlying history of benign prostatic hypertrophy Underlying history of malignant melanoma Previous history of coronary artery disease, with history of angioplasty and stent placement maintained on Plavix 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 Patient started on heparin drip cardiology service is consulted elevated liver enzymes Positive blood culture. Infectious disease is following. Patient remains on Rocephin At this time patient was seen and examined Infectious disease, hematology and cardiology services consulted 2-D echo ordered Liver ultrasound ordered Will follow closely
[2023-08-20 12:03] LABS: Blood Urea Nitrogen 25 mg/dL (9-20)
[2023-08-20 12:10] LABS: ALT 53 U/L (4-49); AST 48 U/L (17-59); African American GFR (CKD) 70 (>60 ml/min/1.73 sqM); Albumin 2.9 g/dL (3.5-5.0); Alkaline Phosphatase 133 U/L (38-126); Anion Gap 7 mmol/L; Calcium 8.2 mg/dL (8.4-10.2); Carbon Dioxide 25 mmol/L (22-30); Chloride 104 mmol/L (98-107); Glucose 160 mg/dL (74-99); Non-African American GFR(CKD) 60 (>60 ml/min/1.73 sqM); Potassium 3.6 mmol/L (3.5-5.1); Sodium 136 mmol/L (137-145); Total Bilirubin 0.6 mg/dL (0.2-1.3); Total Protein 8.4 g/dL (6.3-8.2)
--- NOTE | 2023-08-20 14:10 | P.CRDCN ---
History of Present Illness Consult date: 08/20/23 Consult reason: atrial flutter (New onset) History of present illness: History of present illness: This is an 82-year-old male patient of Dr. 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 Patient presented to the emergency center on 08/12 for weakness, right groin and right hip pain. We have been asked to evaluate the patient for new onset of atrial flutter. Patient has been seen by multiple consultants including oncology, GI, infectious disease. Blood culture was positive for Streptococcus viridans and workup in process for source. Patient also treated for severe anemia requiring blood transfusion of 2 units of P RBCs. No endoscopy was done on this hospitalization but patient was seen by GI. Plavix has been on hold. This morning, consult was placed for new onset of atrial flutter and patient was started on a heparin drip. Heart rates have been controlled in the 70s and 80s, blood pressure 114/69. EKG atrial fibrillation WBC 7.4, hemoglobin 9.5. Sodium 136, potassium 3.6, BUN 25 creatinine 1.12. ALT 53, alkaline phosphatase 133. Home cardiac medications: Aspirin 81 mg daily, Lipitor 40 mg at bedtime, Plavix 75 mg daily, ferrous sulfate 325 mg daily, Lasix 20 mg twice daily, Toprol-XL 12.5 mg twice daily, potassium chloride 20 mill equivalents daily. Echocardiogram performed at Dr. Baca's office on 06/23/2023 reveals EF of 65%, mild to moderate MR, moderate AR, normal functioning aortic valve. Review Of Systems: At the time of my exam: CONSTITUTIONAL: Denies fever or chills. Generalized weakness HEENT: Denies blurred vision, vision changes, or eye pain. Denies hemoptysis CARDIOVASCULAR: Denies chest pain. Denies orthopnea. Denies PND. Denies palpitations RESPIRATORY: Denies shortness of breath. GASTROINTESTINAL: Denies abdominal pain. Denies nausea or vomiting. HEMATOLOGIC: Denies bleeding disorders. GENITOURINARY: Denies any blood in urine. SKIN: Denies pruitis. Denies rash. Physical examination: Gen: This is an 82-year-old male in no acute distress VS: reviewed HEENT: Head is atraumatic, normocephalic. Pupils equal, round. Sclerae is anicteric. NECK: Supple. No JVD. LUNGS: Clear to auscultation. No wheezes or rhonchi. No intercostal retracti ons. HEART: Irregular rate and rhythm. No murmur. ABDOMEN: Soft No tenderness. EXTREMITIES: No pedal edema. No calf tenderness. NEUROLOGICAL: Patient is awake, alert and oriented x3. Assessment: New onset paroxysmal atrial fibrillation, rate controlled Strep bacteremia Acute anemia Waldenstrm's macroglobulinemia under the care of oncology Hyperlipidemia Hypertension Status post TAVR Plan: Continue current cardiac medications Patient is currently on heparin drip which will be stopped Discontinue aspirin and Plavix permanently and start patient on Eliquis Obtain 2-D echocardiogram and Doppler study to assess cardiac structure and function, report is pending Further recommendations to follow based upon clinical course Thank you kindly for this consultation. Nurse practitioner note has been reviewed, I agree with documented findings and plan of care. Patient was seen and examined. Past Medical History Past Medical History: Cancer, Hyperlipidemia, Hypertension Additional Past Medical History / Comment(s): melatoma, abnormal blood protein disorder, neuropathy History of Any Multi-Drug Resistant Organisms: None Reported Past Surgical History: Appendectomy, Cholecystectomy, Heart Catheterization Additional Past Surgical History / Comment(s): aortic valve placement Past Psychological History: No Psychological Hx Reported Smoking Status: Former smoker Past Alcohol Use History: None Reported Past Drug Use History: None Reported Medications and Allergies Home Medications Medication Instructions Recorded Confirmed Type Acetaminophen [Tylenol Arthritis] 650 mg PO BID 08/13/23 08/13/23 History Amoxicillin 2,000 mg PO ONETIME PRN 08/13/23 08/13/23 History Aspirin EC [Ecotrin Low Dose] 81 mg PO DAILY 08/13/23 08/13/23 History Atorvastatin [Lipitor] 40 mg PO HS 08/13/23 08/13/23 History Clopidogrel [Plavix] 75 mg PO DAILY 08/13/23 08/13/23 History Cyanocobalamin (Vitamin B-12) 1,000 mcg PO DAILY 08/13/23 08/13/23 History [Vitamin B-12] EPINEPHrine (Auto Inject) [Epipen] 0.3 mg IM ONCE PRN 08/13/23 08/13/23 History Ferrous Sulfate [Feosol] 325 mg PO DAILY 08/13/23 08/13/23 History Finasteride [Proscar] 5 mg PO DAILY 08/13/23 08/13/23 History Furosemide [Lasix] 20 mg PO BID@0900,1600 08/13/23 08/13/23 History Gabapentin 600 mg PO TID 08/13/23 08/13/23 History Metoprolol Succinate (ER) [Toprol 12.5 mg PO BID 08/13/23 08/13/23 History Xl] Mv-Min/Folic/K1/Lycopen/Lutein 1 tab PO DAILY 08/13/23 08/13/23 History [Centrum Silver Men Tablet] Omega3/Dha/Epa/Fish Oil/Vit D3 1 cap PO DAILY 08/13/23 08/13/23 History [[place]-3 + Vitamin D3 Softgel] Omeprazole 40 mg PO BID 08/13/23 08/13/23 History Potassium Chloride ER [K-Dur 20] 20 meq PO DAILY 08/13/23 08/13/23 History Tamsulosin HCl [Flomax] 0.4 mg PO DAILY 08/13/23 08/13/23 History Allergies Allergy/AdvReac Type Severity Reaction Status Date / Time bee venom protein (honey bee) AdvReac Anaphylaxis Verified 08/13/23 19:12 /Swelling/R lawson Physical Exam Vitals: Vital Signs Temp Pulse Resp BP Pulse Ox 08/20/23 11:45 79 16 114/69 97 08/20/23 08:40 82 16 08/20/23 08:38 97.5 F L 82 16 113/50 98 08/20/23 06:08 98.6 F 08/20/23 04:00 102 F H 75 17 116/59 96 08/20/23 00:00 100.1 F H 97 17 127/58 94 L 08/19/23 20:00 101.3 F H 83 18 135/61 95 08/19/23 16:00 98.3 F 72 17 142/67 95 08/19/23 14:00 68 17 Intake and Output 08/19/23 08/20/23 08/20/23 22:59 06:59 14:59 Intake Total 360 240 Output Total 300 450 Balance 60 -210 Intake: Oral 360 240 Output: Urine 300 450 Other: Voiding Method Toilet Urinal # Voids 1 Results 08/20/23 09:31 08/20/23 09:31 Cardiac Enzymes 08/20/23 Range/Units 09:31 AST 48 (17-59) U/L Coagulation 08/20/23 08/20/23 Range/Units 00:40 09:31 PT 12.7 H (10.0-12.5) sec APTT 27.9 43.7 H (22.0-30.0) sec CBC 08/20/23 08/20/23 Range/Units 00:40 09:31 WBC 6.2 7.4 (3.8-10.6) k/uL RBC 3.23 L 3.32 L (4.30-5.90) m/uL Hgb 9.6 L 9.5 L (13.0-17.5) gm/dL Hct 30.1 L 31.6 L (39.0-53.0) % Plt Count 215 224 (150-450) k/uL Comprehensive Metabolic Panel 08/20/23 Range/Units 09:31 Sodium 136 L (137-145) mmol/L Potassium 3.6 (3.5-5.1) mmol/L Chloride 104 (98-107) mmol/L Carbon Dioxide 25 (22-30) mmol/L BUN 25 H (9-20) mg/dL Creatinine 1.12 (0.66-1.25) mg/dL Glucose 160 H (74-99) mg/dL Calcium 8.2 L (8.4-10.2) mg/dL AST 48 (17-59) U/L ALT 53 H (4-49) U/L Alkaline Phosphatase 133 H (38-126) U/L Total Protein 8.4 H (6.3-8.2) g/dL Albumin 2.9 L (3.5-5.0) g/dL Current Medications Generic Name Dose Route Start Last Admin Trade Name Freq PRN Reason Stop Dose Admin Aspirin 81 mg 08/14/23 13:15 08/20/23 09:00 Aspirin 81 Mg PO 81 mg DAILY KELLEY Administration Atorvastatin Calcium 40 mg 08/14/23 21:00 08/19/23 20:07 Atorvastatin 40 Mg Tab PO 40 mg HS KELLEY Administration Cyanocobalamin 1,000 mcg 08/15/23 09:00 08/20/23 09:01 Cyanocobalamin 500 Mcg Tab PO 1,000 mcg DAILY KELLEY Administration Ferrous Sulfate 325 mg 08/15/23 09:00 08/20/23 09:01 Ferrous Sulfate 325 Mg Tab PO 325 mg DAILY KELLEY Administration Finasteride 5 mg 08/14/23 13:15 08/20/23 09:01 Finasteride 5 Mg Tab PO 5 mg DAILY KELLEY Administration Furosemide 20 mg 08/14/23 16:00 08/20/23 09:01 Furosemide 20 Mg Tab PO 20 mg BID@0900,1600 KELLEY Administration Gabapentin 600 mg 08/14/23 16:00 08/20/23 09:01 Gabapentin 300 Mg Cap PO 600 mg TID KELLEY Administration Heparin Sodium (Porcine) 0 unit 08/20/23 00:35 Heparin Sodium 1,000 Un/Ml (10ml Vl) IV PER PROTOCOL PRN Low PTT Protocol Ceftriaxone Sodium 2 gm/ 50 mls @ 100 mls/hr 08/17/23 18:00 08/19/23 17:59 Sodium Chloride IVPB 100 mls/hr Q24H KELLEY Administration Protocol Heparin Sodium/Sodium Chloride 250 mls @ 11.213 mls/hr 08/20/23 00:45 05/12/05 01:33 25,000 unit/ Sodium Chloride IV 12 units/kg/hr .[id number] KELLEY 11.213 mls/hr Administration Protocol 12 UNITS/KG/HR Ibuprofen 600 mg 08/20/23 04:31 08/20/23 04:41 Ibuprofen 600 Mg Tab PO 600 mg Q6HR PRN Administration Pain Metoprolol Succinate 12.5 mg 08/14/23 21:00 08/20/23 09:01 Metoprolol Succinate (Er) 25 Mg Tab.Er.24h PO 12.5 mg BID KELLEY Administration Multivitamins 1 each 08/15/23 09:00 08/20/23 09:01 Multivitamins, Thera 1 Each Tab PO 1 each DAILY KELLEY Administration Naloxone HCl 0.2 mg 08/13/23 21:26 Naloxone 0.4 Mg/Ml 1 Ml Vial IV Q2M PRN Opioid Reversal Ondansetron HCl 4 mg 08/13/23 21:26 Ondansetron 4 Mg/2 Ml Vial IVP Q8HR PRN Nausea And Vomiting Pantoprazole Sodium 40 mg 08/14/23 21:00 08/20/23 09:01 Pantoprazole 40 Mg Tablet PO 40 mg BID KELLEY Administration Potassium Chloride 20 meq 08/15/23 09:00 08/20/23 09:01 Potassium Chloride Er 20 Meq Tab.Er PO 20 meq DAILY KELLEY Administration Tamsulosin HCl 0.4 mg 08/15/23 09:00 08/20/23 09:01 Tamsulosin 0.4 Mg Cap.Er.24h PO 0.4 mg DAILY KELLEY Administration Intake and Output 08/19/23 08/20/23 08/20/23 22:59 06:59 14:59 Intake Total 360 240 Output Total 300 450 Balance 60 -210 Intake: Oral 360 240 Output: Urine 300 450 Other: Voiding Method Toilet Urinal # Voids 1 08/20/23 09:31 08/20/23 09:31
--- NOTE | 2023-08-20 16:10 | US ---
EXAMINATION TYPE: US abdomen limited DATE OF EXAM: 08/20/2023 COMPARISON: 08/13/2023. CLINICAL INDICATION: Male, 82 years old with history of elevated liver enzymes; abn labs, no symptoms , cholecystectomy TECHNIQUE: Multiple sonographic images of the right upper quadrant are obtained. FINDINGS: EXAM MEASUREMENTS: Liver Length: 17.4 cm Gallbladder Wall: Surgically absent cm CBD: 0.6 cm Right Kidney: 12.6 x 5.6 x 5.6 cm METER READER NOTES: bowel gas severely limits exam Pancreas: portions seen appear wnl Liver: subcostal view gassed out, difficult to get intercostal images, limited assessment Gallbladder: Surgically absent Evidence for sonographic Knapp's sign: No CBD: wnl Right Kidney: wnl IMPRESSION: No evidence for acute process.
[2023-08-20 18:52] LABS: Basophils % (A) 0 %; Eosinophils % (A) 0 %; HCT 32.8 % (39.0-53.0); HGB 10.1 gm/dL (13.0-17.5); Hypochromasia Slight; Lymphocytes # (A) 0.8 k/uL (1.0-4.8); Lymphocytes % (A) 7 %; MCH 28.9 pg (25.0-35.0); MCHC 30.7 g/dL (31.0-37.0); MCV 94.1 fL (80.0-100.0); Mean Platelet Volume 8.2; Monocytes # (A) 0.6 k/uL (0-1.0); Monocytes % (A) 5 %; Neutrophils # (A) 9.7 k/uL (1.3-7.7); Neutrophils % (A) 85 %; Platelet Count 219 k/uL (150-450); RBC 3.48 m/uL (4.30-5.90); RDW 14.6 % (11.5-15.5); WBC 11.4 k/uL (3.8-10.6)
--- NOTE | 2023-08-20 19:31 | CA ---
Transthoracic Echo Report Name: Jonathon Mckay Age: 82 Gender: M : 1940 Exam Date: 08/20/2023 10:54 Exam Location: [facility] Ht (in): 72 Wt (lb): 206 Ordering Physician: Germán Mendoza MD Attending/Referring Phys: Truck Loader And Unloader Sri Dean RDCS Procedure CPT: Indications: Fever, bacteremia Cardiac Hx: 1 year post TAVR. 29mm Med[employer] Evolut Technical Quality: Good Contrast 1: Total Dose (mL): Contrast 2: Total Dose (mL): MEASUREMENTS (Male / Female) Normal Values 2D ECHO LV Diastolic Diameter PLAX 3.9 cm 4.2 - 5.9 / 3.9 - 5.3 cm LV Systolic Diameter PLAX 3.1 cm IVS Diastolic Thickness 1.7 cm 0.6 - 1.0 / 0.6 - 0.9 cm LVPW Diastolic Thickness 1.7 cm 0.6 - 1.0 / 0.6 - 0.9 cm LV Relative Wall Thickness 0.9 RV Internal Dim ED PLAX 2.5 cm LVOT Diameter 1.9 cm LA Systolic Diameter LX 4.2 cm 3.0 - 4.0 / 2.7 - 3.8 cm LV Diastolic Volume MOD BP 80.5 cm??? 67 - 155 / 56 - 104 cm??? LV Systolic Volume MOD BP 31.0 cm??? 22 - 58 / 19 - 49 cm??? LV Ejection Fraction MOD BP 61.5 % >= 55 % LV Cardiac Index MOD BP 1465.6 cm???/min???m??? LV Diastolic Volume MOD 4C 78.7 cm??? LV Systolic Volume MOD 4C 27.2 cm??? LV Ejection Fraction MOD 4C 65.4 % LV Cardiac Index MOD 4C 1523.8 cm???/min???m??? LV Diastolic Length 4C 9.0 cm LV Systolic Length 4C 8.0 cm LV Diastolic Volume MOD 2C 74.1 cm??? LV Systolic Volume MOD 2C 29.9 cm??? LV Ejection Fraction MOD 2C 59.6 % LV Cardiac Index MOD 2C 1308.2 cm???/min???m??? LV Diastolic Length 2C 7.9 cm LV Systolic Length 2C 6.5 cm M-MODE Aortic Root Diameter MM 3.1 cm LA Systolic Diameter MM 4.9 cm LA Ao Ratio MM 1.6 DOPPLER AI Peak Velocity 396.4 cm/s AI Peak Gradient 62.8 mmHg AI Pressure Half Time 616.7 ms LVOT Peak Velocity 135.1 cm/s LVOT Peak Gradient 7.3 mmHg LVOT Velocity Time Integral 35.2 cm LVOT Stroke Volume 102.0 cm??? LVOT Stroke Volume Index 47.3 ml/m??? LVOT Cardiac Index 3020.1 cm???/min???m??? MV E' Velocity 7.2 cm/s TR Peak Velocity 249.7 cm/s TR Peak Gradient 24.9 mmHg FINDINGS Left Ventricle Left ventricular ejection fraction is estimated at 65-70%. Moderately increased septal wall thickness. Normal left ventricular wall motion. Normal left ventricular wall motion. Right Ventricle Normal right ventricular size and function.right ventricular systolic pressure within normal limits. Right Atrium Mild right atrial dilatation. Left Atrium Mildly increased left atrial diameter. Mild left atrial dilatation. Mitral Valve Structurally normal mitral valve. [id number] mitral regurgitation. Aortic Valve 29mm TAVR. Bioprosthetic aortic valve with peak gradient 27mmHg, mean gradient 17mmHg. Moderate-Severe prosthetic aortic valve regurgitation. Periprosthetic regurgitation of the aortic valve. Tricuspid Valve Structurally normal tricuspid valve. Mild tricuspid regurgitation. Pulmonic Valve Structurally normal pulmonic valve. Trace pulmonic regurgitation. No pulmonic stenosis. Pericardium No pericardial or pleural effusion. Aorta Normal size aortic root and proximal ascending aorta. CONCLUSIONS Normal LV systolic function Transcatheter aortic valve with a mean gradient of 17 mmHg and moderate to severe regurgitation Previewed by: Dr. Des Miller MD (Electronically Signed) Final Date: 20 Aug 2023 19:30
[2023-08-20] MEDS: APIXABAN 5 MG TAB PO SCH (20:24)
[2023-08-21 10:34] LABS: Basophils % (A) 0 %; Eosinophils % (A) 0 %; HCT 32.4 % (39.0-53.0); HGB 9.8 gm/dL (13.0-17.5); Hypochromasia Marked; Lymphocytes # (A) 0.8 k/uL (1.0-4.8); Lymphocytes % (A) 9 %; MCH 28.9 pg (25.0-35.0); MCHC 30.3 g/dL (31.0-37.0); MCV 95.6 fL (80.0-100.0); Monocytes # (A) 0.5 k/uL (0-1.0); Monocytes % (A) 6 %; Neutrophils # (A) 7.4 k/uL (1.3-7.7); Neutrophils % (A) 83 %; Platelet Count 229 k/uL (150-450); RBC 3.39 m/uL (4.30-5.90); RDW 14.8 % (11.5-15.5); WBC 8.9 k/uL (3.8-10.6)
[2023-08-21 10:53] LABS: ALT 55 U/L (4-49); AST 47 U/L (17-59); African American GFR (CKD) 74 (>60 ml/min/1.73 sqM); Alkaline Phosphatase 128 U/L (38-126); Anion Gap 7 mmol/L; Blood Urea Nitrogen 30 mg/dL (9-20); Calcium 8.4 mg/dL (8.4-10.2); Carbon Dioxide 25 mmol/L (22-30); Chloride 104 mmol/L (98-107); Glucose 124 mg/dL (74-99); Non-African American GFR(CKD) 64 (>60 ml/min/1.73 sqM); Potassium 3.5 mmol/L (3.5-5.1); Sodium 136 mmol/L (137-145); Total Bilirubin 0.6 mg/dL (0.2-1.3); Total Protein 8.4 g/dL (6.3-8.2)
[2023-08-21] MEDS ORDERED: VANCOMYCIN IV PER PHARMACY 1 EACH MISC MISCELLANE PRN (13:03)
--- NOTE | 2023-08-21 13:32 | P.PN ---
Subjective Progress Note Date: 08/21/23 Consult reason: atrial flutter (New onset) History of present illness: This is an 82-year-old male patient of Dr. 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 Patient presented to the emergency center on 08/12 for weakness, right groin and right hip pain. We have been asked to evaluate the patient for new onset of atrial flutter. Patient has been seen by multiple consultants including oncology, GI, infectious disease. Blood culture was positive for Streptococcus viridans and workup in process for source. Patient also treated for severe anemia requiring blood transfusion of 2 units of P RBCs. No endoscopy was done on this hospitalization but patient was seen by GI. Plavix has been on hold. This morning, consult was placed for new onset of atrial flutter and patient was started on a heparin drip. Heart rates have been controlled in the 70s and 80s, blood pressure 114/69. EKG atrial fibrillation WBC 7.4, hemoglobin 9.5. Sodium 136, potassium 3.6, BUN 25 creatinine 1.12. ALT 53, alkaline phosphatase 133. Home cardiac medications: Aspirin 81 mg daily, Lipitor 40 mg at bedtime, Plavix 75 mg daily, ferrous sulfate 325 mg daily, Lasix 20 mg twice daily, Toprol-XL 12.5 mg twice daily, potassium chloride 20 mill equivalents daily. Echocardiogram performed at Dr. Baca's office on 06/23/2023 reveals EF of 65%, mild to moderate MR, moderate AR, normal functioning aortic valve. 08/20 Patient is seen today in follow-up. 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 Normal LV systolic function. Transcatheter aortic valve with mean gradient of 17 mmHg and moderate to severe regurgitation. Patient continues to spike fevers up to 103. Blood pressure 128/47, heart rate is 80, pulse ox 93% on room air. Pulse ox 93% on room air. Repeat blood work reveals WBC 8.9, hemoglobin 9.8. Creatinine 1.07. Discussed case with Dr. Mendoza and he will check for DVTs, and if this is negative, patient will require SONG. Physical examination: Gen: This is an 82-year-old male in no acute distress VS: reviewed HEENT: Head is atraumatic, normocephalic. Pupils equal, round. Sclerae is anicteric. LUNGS: Clear to auscultation. No wheezes or rhonchi. No intercostal retractions. HEART: Irregular rate and rhythm. No murmur. EXTREMITIES: No pedal edema. No calf tenderness. NEUROLOGICAL: Patient is awake, alert and oriented x3. Assessment: New onset paroxysmal atrial fibrillation, rate controlled Strep bacteremia, unknown source Acute anemia Waldenstrm's macroglobulinemia under the care of oncology Hyperlipidemia Hypertension Status post TAVR Plan: Continue current cardiac medications Continue patient on Eliquis If Dr. Swartzed request SONG, the patient will be scheduled for Friday Further recommendations to follow based upon clinical course Nurse practitioner note has been reviewed, I agree with documented findings and plan of care. Patient was seen and examined. Objective - Vital Signs Vital signs: Vital Signs Temp 97.4 F L 08/21/23 07:56 Pulse 79 08/21/23 08:00 Resp 16 08/21/23 08:00 BP 120/64 08/21/23 07:56 Pulse Ox 96 08/21/23 07:56 FiO2 Intake & Output 08/20/23 08/21/23 08/21/23 18:59 06:59 18:59 Intake Total 601.1 0 360 Output Total 450 800 Balance 151.1 -800 360 Intake: Intake, IV Titration 121.1 Amount Heparin Sod,Pork in 0.45% 121.1 NaCl 25,000 unit In 0.45 % NaCl 1 250ml.bag @ 12 UNITS/KG/HR 11.213 mls/hr IV .[id number] [facility] Rx#: [id number] Oral 480 0 360 Output: Urine 450 800 Other: Voiding Method Toilet Toilet Urinal Urinal # Voids 2 1 # Bowel Movements 0 - Labs CBC & Chem 7: 08/21/23 07:59 08/21/23 07:59 Labs: Abnormal Lab Results - Last 24 Hours (Table) 08/20/23 08/20/23 08/20/23 Range/Units 09:31 09:31 18:12 WBC 11.4 H (3.8-10.6) k/uL RBC 3.48 L (4.30-5.90) m/uL Hgb 10.1 L (13.0-17.5) gm/dL Hct 32.8 L (39.0-53.0) % MCHC 30.7 L (31.0-37.0) g/dL Neutrophils # 9.7 H (1.3-7.7) k/uL Lymphocytes # 0.8 L (1.0-4.8) k/uL APTT 43.7 H (22.0-30.0) sec Sodium 136 L (137-145) mmol/L BUN 25 H (9-20) mg/dL Glucose 160 H (74-99) mg/dL Calcium 8.2 L (8.4-10.2) mg/dL ALT 53 H (4-49) U/L Alkaline Phosphatase 133 H (38-126) U/L Total Protein 8.4 H (6.3-8.2) g/dL Albumin 2.9 L (3.5-5.0) g/dL 08/21/23 08/21/23 Range/Units 07:59 07:59 WBC (3.8-10.6) k/uL RBC 3.39 L (4.30-5.90) m/uL Hgb 9.8 L (13.0-17.5) gm/dL Hct 32.4 L (39.0-53.0) % MCHC 30.3 L (31.0-37.0) g/dL Neutrophils # (1.3-7.7) k/uL Lymphocytes # 0.8 L (1.0-4.8) k/uL APTT (22.0-30.0) sec Sodium 136 L (137-145) mmol/L BUN 30 H (9-20) mg/dL Glucose 124 H (74-99) mg/dL Calcium (8.4-10.2) mg/dL ALT 55 H (4-49) U/L Alkaline Phosphatase 128 H (38-126) U/L Total Protein 8.4 H (6.3-8.2) g/dL Albumin 3.0 L (3.5-5.0) g/dL Microbiology - Last 24 Hours (Table) 08/18/23 13:04 Blood Culture - Preliminary Blood
--- NOTE | 2023-08-21 15:12 | CDI ---
Documentation Clarification Form Date: 08/21/2023 02:59:09 PM From: Kaylen Hong RN CCDS Phone: [phone] Admit Date: 08/13/2023 09:28:00 PM Patient Name: Jonathon Mckay Visit Number: [id number] Discharge Date: ATTENTION: The Clinical Documentation Specialists (CDI) and [facility] Coding Staff appreciate your assistance in clarifying documentation. Please respond to the clarification below the line at the bottom and electronically sign. The CDI & [facility] Coding staff will review the response and follow-up if needed. Please note: Queries are made part of the Legal Health Record. If you have any questions, please contact the author of this message via ITS. Dr. Saul Mcadams A Right Buttock stage 2 pressure ulcer is documented by Nursing 08/13 in pressure injury. Based on this information and the findings below, is there an additional diagnosis that is clinically appropriate for this patient? History/Risk Factors: 82 year old male presents to the Ed with abdominal pain with a temperature of 101.2. Medical History: HLD, HTN, BPH, Malignant melanoma and CAD. 08/13 H&P Clinical Indicators: Location: Right Buttock Wound description: Serous drainage scant Treatment: Foam with border, Absorbant Underpad, Check under pad hourly and Reposition Q2H Is there an additional diagnosis that is clinically appropriate for this patient? [ xxxxx ] Right Buttock Pressure Ulcer Stage 2 [ ] Other condition, please specify [ ] Unable to determine Clinical Definitions: Stage 1 Pressure Ulcer: intact skin, non-blanching redness of local area Stage 2 Pressure Ulcer: Partial thickness, loss of dermis, pink wound bed Stage 3 Pressure Ulcer: Full thickness tissue loss Stage 4 Pressure Ulcer: Full thickness tissue loss with exposed bone, tendon, or muscle. Unstageable pressure ulcer: Full thickness tissue loss in which the base of the ulcer is covered by slough (yellow, chong, harvey, green or brown) and/or eschar (chong, brown or black) in the wound bed. (Template Last Revised: June 2020) MTDD
[2023-08-21] MEDS: VANCOMYCIN 1,500 MG in SODIUM CHLORIDE 0.9% 500 ML 500 ML IVPB SCH (15:19)
--- NOTE | 2023-08-21 15:27 | P.PN ---
Subjective Progress Note Date: 08/20/23 Principal diagnosis: Reason for follow-up is fever Patient is a 82-year-old male with a past medical history significant for hypertension hyperlipidemia peripheral neuropathy melanoma presented to the hospital for abdominal pain not feeling well decreased urine output patient was noticed to be febrile on presentation to the hospital CT abdominal pelvis did not show any acute abnormality. On today's evaluation that is 08/20/2023, patient did spike a fever of 102 F at 4 AM is afebrile since then patient is breathing comfortably on room air denies any chest pain shortness of breath or cough denies any worsening back pain no nausea no vomiting and did have bowel movement no urinary symptoms Patient white count is slightly up to 11.4 creatinine is 1.12 Objective - Vital Signs Vital signs: Vital Signs Temp 97.5 F L 08/20/23 08:38 Pulse 79 08/20/23 11:45 Resp 16 08/20/23 11:45 BP 114/69 08/20/23 11:45 Pulse Ox 97 08/20/23 11:45 FiO2 Intake & Output 08/19/23 08/20/23 08/20/23 18:59 06:59 18:59 Intake Total 894 361.1 Output Total 400 300 450 Balance 494 -300 -88.9 Weight 93.44 kg Intake: Intake, IV Titration 121.1 Amount Heparin Sod,Pork in 0.45% 121.1 NaCl 25,000 unit In 0.45 % NaCl 1 250ml.bag @ 12 UNITS/KG/HR 11.213 mls/hr IV .[id number] [facility] Rx#: [id number] Oral 894 240 Output: Urine 400 300 450 Other: Voiding Method Toilet Toilet Urinal Urinal # Voids 1 1 # Bowel Movements 1 - Exam GENERAL DESCRIPTION: An elderly male up in the chair in no distress RESPIRATORY SYSTEM: Unlabored breathing , decreased breath sounds at bases HEART: S1 S2 regular rate and rhythm , ABDOMEN: Soft , no tenderness EXTREMITIES: No edema feet - Labs CBC & Chem 7: 08/21/23 07:59 08/21/23 07:59 Labs: Abnormal Lab Results - Last 24 Hours (Table) 08/20/23 08/20/23 08/20/23 Range/Units 00:40 00:40 09:31 RBC 3.23 L (4.30-5.90) m/uL Hgb 9.6 L (13.0-17.5) gm/dL Hct 30.1 L (39.0-53.0) % MCHC (31.0-37.0) g/dL Lymphocytes # 0.8 L (1.0-4.8) k/uL PT 12.7 H (10.0-12.5) sec INR 1.2 H (<1.2) APTT (22.0-30.0) sec Sodium 136 L (137-145) mmol/L BUN 25 H (9-20) mg/dL Glucose 160 H (74-99) mg/dL Calcium 8.2 L (8.4-10.2) mg/dL ALT 53 H (4-49) U/L Alkaline Phosphatase 133 H (38-126) U/L Total Protein 8.4 H (6.3-8.2) g/dL Albumin 2.9 L (3.5-5.0) g/dL 08/20/23 08/20/23 Range/Units 09:31 09:31 RBC 3.32 L (4.30-5.90) m/uL Hgb 9.5 L (13.0-17.5) gm/dL Hct 31.6 L (39.0-53.0) % MCHC 30.2 L (31.0-37.0) g/dL Lymphocytes # 0.8 L (1.0-4.8) k/uL PT (10.0-12.5) sec INR (<1.2) APTT 43.7 H (22.0-30.0) sec Sodium (137-145) mmol/L BUN (9-20) mg/dL Glucose (74-99) mg/dL Calcium (8.4-10.2) mg/dL ALT (4-49) U/L Alkaline Phosphatase (38-126) U/L Total Protein (6.3-8.2) g/dL Albumin (3.5-5.0) g/dL Microbiology - Last 24 Hours (Table) 08/18/23 13:04 Blood Culture - Preliminary Blood 08/16/23 08:55 Blood Culture - Preliminary Blood Assessment and Plan (1) Fever Current Visit: Yes Status: Acute Code(s): R50.9 - FEVER, UNSPECIFIED SNOMED Code(s): 962333251 (2) Positive blood culture Current Visit: Yes Status: Acute Code(s): R78.81 - BACTEREMIA SNOMED Code(s): 255781504 Plan: 1patient with a fever in this patient admitted to hospital generalized weakness predominant abdominal symptoms with distention and constipation patient was noted to be anemic CT abdominal pelvis however did not show any acute abdominal process UA has been negative chest x-ray was reported negative, the patient did have a negative influenza RSV and COVID PCR 2-patient did have a procalcitonin 0.17, CRP is 5.1 blood culture with 2 different pathogen question of contamination repeat blood cultures currently pending 3-patient did have a fever with initial workup has been negative so far blood culture positive for Streptococcus viridans patient MRI of the back did not show any suspicious for discitis or osteomyelitis echocardiogram has been ordered report pending cardiology is consulted because of A-fib, I will continue patient on Rocephin , daughter at the bedside multiple questions were answered Dictation was produced using [email or web address] dictation software. please excuse any grammatical, word or spelling errors.
--- NOTE | 2023-08-21 15:28 | P.PN ---
Subjective Progress Note Date: 08/21/23 Principal diagnosis: Reason for follow-up is fever Patient is a 82-year-old male with a past medical history significant for hypertension hyperlipidemia peripheral neuropathy melanoma presented to the hospital for abdominal pain not feeling well decreased urine output patient was noticed to be febrile on presentation to the hospital CT abdominal pelvis did not show any acute abnormality. On today's evaluation that is 08/21/2023,the patient did have a fever of 103 F last evening however the patient is afebrile since then patient is breathing comfortably on room air denies any headache no chest pain shortness of breath or cough no nausea vomiting no abdominal pain did have a small bowel movement no urinary symptoms patient white count is down to 8.9,Creatinine 1.07 Objective - Vital Signs Vital signs: Vital Signs Temp 97.4 F L 08/21/23 07:56 Pulse 79 08/21/23 08:00 Resp 16 08/21/23 08:00 BP 120/64 08/21/23 07:56 Pulse Ox 96 08/21/23 07:56 FiO2 Intake & Output 08/20/23 08/21/23 08/21/23 18:59 06:59 18:59 Intake Total 601.1 0 360 Output Total 450 800 Balance 151.1 -800 360 Intake: Intake, IV Titration 121.1 Amount Heparin Sod,Pork in 0.45% 121.1 NaCl 25,000 unit In 0.45 % NaCl 1 250ml.bag @ 12 UNITS/KG/HR 11.213 mls/hr IV .[id number] [facility] Rx#: [id number] Oral 480 0 360 Output: Urine 450 800 Other: Voiding Method Toilet Toilet Urinal Urinal # Voids 2 1 # Bowel Movements 0 - Exam GENERAL DESCRIPTION: An elderly male up in the chair in no distress RESPIRATORY SYSTEM: Unlabored breathing , decreased breath sounds at bases HEART: S1 S2 regular rate and rhythm , ABDOMEN: Soft , no tenderness EXTREMITIES: No edema feet - Labs CBC & Chem 7: 08/21/23 07:59 08/21/23 07:59 Labs: Abnormal Lab Results - Last 24 Hours (Table) 08/20/23 08/21/23 08/21/23 Range/Units 18:12 07:59 07:59 WBC 11.4 H (3.8-10.6) k/uL RBC 3.48 L 3.39 L (4.30-5.90) m/uL Hgb 10.1 L 9.8 L (13.0-17.5) gm/dL Hct 32.8 L 32.4 L (39.0-53.0) % MCHC 30.7 L 30.3 L (31.0-37.0) g/dL Neutrophils # 9.7 H (1.3-7.7) k/uL Lymphocytes # 0.8 L 0.8 L (1.0-4.8) k/uL Sodium 136 L (137-145) mmol/L BUN 30 H (9-20) mg/dL Glucose 124 H (74-99) mg/dL ALT 55 H (4-49) U/L Alkaline Phosphatase 128 H (38-126) U/L Total Protein 8.4 H (6.3-8.2) g/dL Albumin 3.0 L (3.5-5.0) g/dL Microbiology - Last 24 Hours (Table) 08/18/23 13:04 Blood Culture - Preliminary Blood Assessment and Plan (1) Fever Current Visit: Yes Status: Acute Code(s): R50.9 - FEVER, UNSPECIFIED SNOMED Code(s): 833847400 (2) Positive blood culture Current Visit: Yes Status: Acute Code(s): R78.81 - BACTEREMIA SNOMED Code(s): 322252987 Plan: 1patient with a fever in this patient admitted to hospital generalized weakness predominant abdominal symptoms with distention and constipation patient was noted to be anemic CT abdominal pelvis however did not show any acute abdominal process UA has been negative chest x-ray was reported negative, the patient did have a negative influenza RSV and COVID PCR 2-patient did have a procalcitonin 0.17, CRP is 5.1 blood culture with 2 different pathogen question of contamination repeat blood cultures currently pending 3-patient did have a fever with initial workup has been negative so far blood culture positive for Streptococcus viridans patient MRI of the back did not show any suspicious for discitis or osteomyelitis echocardiogram with evidence of any vegetation lower extremity Doppler has been ordered negative he will need a SONG continue with Rocephin discussed with the cardiology W[employer] TECHNICIAN as well as microsoft windows engineer on the floor Dictation was produced using [employer] dictation software. please excuse any grammatical, word or spelling errors. Time with Patient: Less than 30
--- NOTE | 2023-08-21 16:05 | US ---
EXAMINATION TYPE: US venous doppler duplex LE BI DATE OF EXAM: 08/21/2023 2:17 PM COMPARISON: NONE CLINICAL INDICATION: Male, 82 years old with history of swelling; No redness. Patient states having chronic leg swelling. Was on IV heparin. SIDE PERFORMED: Bilateral TECHNIQUE: The lower extremity deep venous system is examined utilizing real time linear array sonog mark with graded compression, doppler sonography and color-flow sonography. VESSELS IMAGED: Common Femoral Vein Deep Femoral Vein Greater Saphenous Vein * Femoral Vein Popliteal Vein Small Saphenous Vein * Proximal Calf Veins (* superficial vessels) Right Leg: Negative for DVT Left Leg: Negative for DVT IMPRESSION: No evidence for DVT within the bilateral lower extremities imaged from the groin to the upper calves.
--- NOTE | 2023-08-21 17:26 | P.PN ---
Subjective Progress Note Date: 08/21/23 Jonathon Mckay, is an 82-year-old male we'll presented to [facility] emergency room with a chief complaint of abdominal pain He was evaluated in the emergency room vital examination on presentation revealed a temperature of 101.2 pulse 60 respiration 18 blood pressure 109/57 pulse ox 95% on room air Laboratory data revealed a white blood count of 8.8 hemoglobin 6.2 platelet count 270 sodium 135 potassium 4.5 chloride 101 CO2 22 BUN 19 creatinine 1.1 iron 26 Testing in the emergency room revealed computed tomography scan of the abdomen revealed no evidence for acute abdominal process moderate hiatal hernia infrarenal abdominal x-ray gentleman measuring 26 mm colonic diverticulosis mild splenomegaly and CVA degenerative changes throughout the spine. chest x-ray revealed no acute cardiopulmonary disease Patient was admitted to medical floor for further evaluation and treatment on 08/15/2023 patient is alert and oriented 3 currently sitting up in chair. Patient was evaluated by GI services continue symptomatic and supportive care at this time no plans for endoscopic evaluation. hemoglobin 9.2. Patient remains on IV Unasyn.current vital signs temp 98.3, heart rate 67, respiratory rate 16, blood pressure 121/62 with pulse ox 95% on room air. On 08/16/2023 patient was seen and examined on the medical floor he is alert and oriented 3 in no apparent distress he denies any complaints at this time there is no fever or chills no headache or dizziness no chest pain no shortness of breath no cough no nausea or vomiting no abdominal pain no diarrhea and no urinary symptoms. Vital examination reveals a temperature of 98.9 pulse 79 respiration 16 blood pressure 153/65 pulse ox 96% on room air. His white blood count is 6.3 hemoglobin 9.8 platelet count 217 Blood culture are positive for Streptococcus viridans, Patient is maintained on IV Unasyn hematology and infec tious disease are following. On 08/17/2023 patient was seen and examined on the medical floor he is alert and oriented and feeling well he denies any complaints at this time there is no fever or chills no headache or dizziness no chest pain no shortness of breath no cough no nausea or vomiting no abdominal pain no diarrhea no urinary symptoms. Patient had positive blood cultures and is maintained on IV Unasyn, infectious disease follow-up On 08/18/2023 patient was seen and examined on the medical floor he is alert and oriented 3 in no apparent distress he denies any complaints at this time there is no fever or chills no headache or dizziness no chest pain no shortness of breath no cough no nausea or vomiting no abdominal pain no diarrhea and no urinary symptoms. Blood culture are positive for Streptococcus viridans, Patient is maintained on IV Unasyn hematology and infectious disease are following. on 08/19/2023 patient is alert and oriented 3.patient getting MRI of the spine today. Patient has low-grade temp 100.2 last night. Current vital signs temp 98.6, heart 61, respiratory rate 18, blood pressure 139/72 with pulse ox 96% on room air. Patient denies chest pain or shortness of breath. Patient denies nausea vomiting or diarrhea. Patient denies any urinary burning or frequency.white blood cell 8.3 hemoglobin 10.2.patient's liver enzymes slightly elevated we'll hold scheduled Tylenol. Patient denies chest pain or shortness breath. Patient denies nausea vomiting or diarrhea. Patient denies any urinary burning or frequency On 08/19/2022 for patient's alert and oriented 3. Patient went into A. fib last night. Patient was started on heparin drip and cardiology services have been consulted. 2-D echo has also been ordered. Patient began having elevated temp at night. Denies any acute complaints.Mildly elevated liver enzymes will order liver ultrasound. Infectious disease cardiology and hematology services are following. Current vital signs temp 97.5, heart rate 82, respiratory rate 16, blood pressure 113/50 on 08/21/2023 patient was seen and examined on the medical he is alert and oriented 3 in no apparent distress, temperature is well-controlled today with the use of ibuprofen, T-max yesterday was 103 there is no headache or dizziness no chest pain no shortness of breath no cough no nausea or vomiting no abdominal pain no diarrhea and no urinary symptoms, cause of patient's recurrent episodes of fever is not clear, he remains on IV Rocephin, case was discussed in details with Dr. Mendoza infectious disease, plan is to request SONG at this time. Objective - Vital Signs Vital signs: Vital Signs Temp 97.4 F L 08/21/23 04:00 Pulse 72 08/21/23 04:00 Resp 16 08/21/23 04:00 BP 117/71 08/21/23 04:00 Pulse Ox 94 L 08/21/23 04:00 FiO2 Intake & Output 08/20/23 08/20/23 08/21/23 06:59 18:59 06:59 Intake Total 601.1 0 Output Total 300 450 800 Balance -300 151.1 -800 Intake: Intake, IV Titration 121.1 Amount Heparin Sod,Pork in 0.45% 121.1 NaCl 25,000 unit In 0.45 % NaCl 1 250ml.bag @ 12 UNITS/KG/HR 11.213 mls/hr IV .[id number] [facility] Rx#: [id number] Oral 480 0 Output: Urine 300 450 800 Other: Voiding Method Toilet Urinal # Voids 1 2 - Exam In general patient is alert and oriented x 3 in no distress HEENT head normocephalic and atraumatic Neck is supple no JVD no goiter no lymphadenopathy no carotid bruit Chest examination is clear to auscultation no crackles no wheezing Cardiac exam reveals regular heart sounds S1 and S2 no gallops no murmurs Abdomen is soft nontender no organomegaly with normal bowel sounds Extremity exam reveals no edema no cyanosis or clubbing Neurological examination reveals no gross focal deficits - Labs CBC & Chem 7: 08/21/23 07:59 08/21/23 07:59 Labs: Abnormal Lab Results - Last 24 Hours (Table) 08/20/23 08/20/23 08/20/23 Range/Units 09:31 09:31 09:31 WBC (3.8-10.6) k/uL RBC 3.32 L (4.30-5.90) m/uL Hgb 9.5 L (13.0-17.5) gm/dL Hct 31.6 L (39.0-53.0) % MCHC 30.2 L (31.0-37.0) g/dL Neutrophils # (1.3-7.7) k/uL Lymphocytes # 0.8 L (1.0-4.8) k/uL APTT 43.7 H (22.0-30.0) sec Sodium 136 L (137-145) mmol/L BUN 25 H (9-20) mg/dL Glucose 160 H (74-99) mg/dL Calcium 8.2 L (8.4-10.2) mg/dL ALT 53 H (4-49) U/L Alkaline Phosphatase 133 H (38-126) U/L Total Protein 8.4 H (6.3-8.2) g/dL Albumin 2.9 L (3.5-5.0) g/dL 08/20/23 Range/Units 18:12 WBC 11.4 H (3.8-10.6) k/uL RBC 3.48 L (4.30-5.90) m/uL Hgb 10.1 L (13.0-17.5) gm/dL Hct 32.8 L (39.0-53.0) % MCHC 30.7 L (31.0-37.0) g/dL Neutrophils # 9.7 H (1.3-7.7) k/uL Lymphocytes # 0.8 L (1.0-4.8) k/uL APTT (22.0-30.0) sec Sodium (137-145) mmol/L BUN (9-20) mg/dL Glucose (74-99) mg/dL Calcium (8.4-10.2) mg/dL ALT (4-49) U/L Alkaline Phosphatase (38-126) U/L Total Protein (6.3-8.2) g/dL Albumin (3.5-5.0) g/dL Microbiology - Last 24 Hours (Table) 08/18/23 13:04 Blood Culture - Preliminary Blood Assessment and Plan Plan: febrile illness, cause of fever unclear, no evidence of urinary tract infection, no significant findings on chest x-ray and computed tomography scan of the abdomen, infectious disease consultation requested Severe anemia requiring red blood cell transfusion, GI consultation is requested underlying history of hyperlipidemia Underlying history of hypertension Underlying history of benign prostatic hypertrophy Underlying history of malignant melanoma Previous history of coronary artery disease, with history of angioplasty and stent placement maintained on Plavix 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 Patient started on heparin drip cardiology service is consulted elevated liver enzymes Positive blood culture. Infectious disease is following. Patient remains on Rocephin At this time patient was seen and examined Infectious disease, hematology and cardiology services consulted 2-D echo ordered Liver ultrasound ordered Will follow closely
[2023-08-22 10:31] LABS: African American GFR (CKD) 82 (>60 ml/min/1.73 sqM); Anion Gap 4 mmol/L; Blood Urea Nitrogen 24 mg/dL (9-20); Calcium 8.4 mg/dL (8.4-10.2); Carbon Dioxide 28 mmol/L (22-30); Chloride 108 mmol/L (98-107); Glucose 103 mg/dL (74-99); Non-African American GFR(CKD) 71 (>60 ml/min/1.73 sqM); Potassium 3.8 mmol/L (3.5-5.1); Sodium 140 mmol/L (137-145)
--- NOTE | 2023-08-22 10:31 | P.PN ---
Subjective Progress Note Date: 08/22/23 Jonathon Mckay, is an 82-year-old male we'll presented to [facility] emergency room with a chief complaint of abdominal pain He was evaluated in the emergency room vital examination on presentation revealed a temperature of 101.2 pulse 60 respiration 18 blood pressure 109/57 pulse ox 95% on room air Laboratory data revealed a white blood count of 8.8 hemoglobin 6.2 platelet count 270 sodium 135 potassium 4.5 chloride 101 CO2 22 BUN 19 creatinine 1.1 iron 26 Testing in the emergency room revealed computed tomography scan of the abdomen revealed no evidence for acute abdominal process moderate hiatal hernia infrarenal abdominal x-ray gentleman measuring 26 mm colonic diverticulosis mild splenomegaly and CVA degenerative changes throughout the spine. chest x-ray revealed no acute cardiopulmonary disease Patient was admitted to medical floor for further evaluation and treatment on 08/15/2023 patient is alert and oriented 3 currently sitting up in chair. Patient was evaluated by GI services continue symptomatic and supportive care at this time no plans for endoscopic evaluation. hemoglobin 9.2. Patient remains on IV Unasyn.current vital signs temp 98.3, heart rate 67, respiratory rate 16, blood pressure 121/62 with pulse ox 95% on room air. On 08/16/2023 patient was seen and examined on the medical floor he is alert and oriented 3 in no apparent distress he denies any complaints at this time there is no fever or chills no headache or dizziness no chest pain no shortness of breath no cough no nausea or vomiting no abdominal pain no diarrhea and no urinary symptoms. Vital examination reveals a temperature of 98.9 pulse 79 respiration 16 blood pressure 153/65 pulse ox 96% on room air. His white blood count is 6.3 hemoglobin 9.8 platelet count 217 Blood culture are positive for Streptococcus viridans, Patient is maintained on IV Unasyn hematology and infec tious disease are following. On 08/17/2023 patient was seen and examined on the medical floor he is alert and oriented and feeling well he denies any complaints at this time there is no fever or chills no headache or dizziness no chest pain no shortness of breath no cough no nausea or vomiting no abdominal pain no diarrhea no urinary symptoms. Patient had positive blood cultures and is maintained on IV Unasyn, infectious disease follow-up On 08/18/2023 patient was seen and examined on the medical floor he is alert and oriented 3 in no apparent distress he denies any complaints at this time there is no fever or chills no headache or dizziness no chest pain no shortness of breath no cough no nausea or vomiting no abdominal pain no diarrhea and no urinary symptoms. Blood culture are positive for Streptococcus viridans, Patient is maintained on IV Unasyn hematology and infectious disease are following. on 08/19/2023 patient is alert and oriented 3.patient getting MRI of the spine today. Patient has low-grade temp 100.2 last night. Current vital signs temp 98.6, heart 61, respiratory rate 18, blood pressure 139/72 with pulse ox 96% on room air. Patient denies chest pain or shortness of breath. Patient denies nausea vomiting or diarrhea. Patient denies any urinary burning or frequency.white blood cell 8.3 hemoglobin 10.2.patient's liver enzymes slightly elevated we'll hold scheduled Tylenol. Patient denies chest pain or shortness breath. Patient denies nausea vomiting or diarrhea. Patient denies any urinary burning or frequency On 08/19/2022 for patient's alert and oriented 3. Patient went into A. fib last night. Patient was started on heparin drip and cardiology services have been consulted. 2-D echo has also been ordered. Patient began having elevated temp at night. Denies any acute complaints.Mildly elevated liver enzymes will order liver ultrasound. Infectious disease cardiology and hematology services are following. Current vital signs temp 97.5, heart rate 82, respiratory rate 16, blood pressure 113/50 on 08/21/2023 patient was seen and examined on the medical he is alert and oriented 3 in no apparent distress, temperature is well-controlled today with the use of ibuprofen, T-max yesterday was 103 there is no headache or dizziness no chest pain no shortness of breath no cough no nausea or vomiting no abdominal pain no diarrhea and no urinary symptoms, cause of patient's recurrent episodes of fever is not clear, he remains on IV Rocephin, case was discussed in details with Dr. Mendoza infectious disease, plan is to request SONG at this time. on 08/22/2023 patient's alert and oriented 3. plans for SONG today.patient had temperature of 100.4 at 8:00 last night remains on IV antibiotics. Patient denies any chest pain or shortness of breath. Patient denies nausea vomiting or diarrhea. Patient denies any urinary burning or frequency Objective - Vital Signs Vital signs: Vital Signs Temp 98.1 F 08/22/23 00:00 Pulse 56 L 08/22/23 04:00 Resp 16 08/22/23 04:00 BP 131/71 08/22/23 04:00 Pulse Ox 90 L 08/22/23 04:00 FiO2 Intake & Output 08/21/23 08/22/23 08/22/23 18:59 06:59 18:59 Intake Total 580 540 Output Total 400 700 Balance 180 -160 Intake: Oral 580 540 Output: Urine 400 700 Other: Voiding Method Toilet Toilet Urinal Urinal # Voids 1 # Bowel Movements 0 - Exam In general patient is alert and oriented x 3 in no distress HEENT head normocephalic and atraumatic Neck is supple no JVD no goiter no lymphadenopathy no carotid bruit Chest examination is clear to auscultation no crackles no wheezing Cardiac exam reveals regular heart sounds S1 and S2 no gallops no murmurs Abdomen is soft nontender no organomegaly with normal bowel sounds Extremity exam reveals no edema no cyanosis or clubbing Neurological examination reveals no gross focal deficits - Labs CBC & Chem 7: 08/21/23 07:59 08/21/23 07:59 Labs: Abnormal Lab Results - Last 24 Hours (Table) 08/21/23 08/21/23 Range/Units 07:59 07:59 RBC 3.39 L (4.30-5.90) m/uL Hgb 9.8 L (13.0-17.5) gm/dL Hct 32.4 L (39.0-53.0) % MCHC 30.3 L (31.0-37.0) g/dL Lymphocytes # 0.8 L (1.0-4.8) k/uL Sodium 136 L (137-145) mmol/L BUN 30 H (9-20) mg/dL Glucose 124 H (74-99) mg/dL ALT 55 H (4-49) U/L Alkaline Phosphatase 128 H (38-126) U/L Total Protein 8.4 H (6.3-8.2) g/dL Albumin 3.0 L (3.5-5.0) g/dL Microbiology - Last 24 Hours (Table) 08/18/23 13:04 Blood Culture - Preliminary Blood 08/16/23 08:55 Blood Culture - Final Blood Assessment and Plan Plan: febrile illness, cause of fever unclear, no evidence of urinary tract infection, no significant findings on chest x-ray and computed tomography scan of the abdomen, infectious disease consultation requested Severe anemia requiring red blood cell transfusion, GI consultation is requested underlying history of hyperlipidemia Underlying history of hypertension Underlying history of benign prostatic hypertrophy Underlying history of malignant melanoma Previous history of coronary artery disease, with history of angioplasty and stent placement maintained on Plavix 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 Patient started on heparin drip cardiology service is consulted elevated liver enzymes Positive blood culture. Infectious disease is following. Patient remains on Rocephin At this time patient was seen and examined Infectious disease, hematology and cardiology services consulted 2-D echo ordered Liver ultrasound ordered SONG has been ordered per cardiology and infectious disease Will follow closely
--- NOTE | 2023-08-22 12:46 | P.PN ---
Subjective Progress Note Date: 08/22/23 Consult reason: atrial flutter (New onset) History of present illness: This is an 82-year-old male patient of Dr. 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 Patient presented to the emergency center on 08/12 for weakness, right groin and right hip pain. We have been asked to evaluate the patient for new onset of atrial flutter. Patient has been seen by multiple consultants including oncology, GI, infectious disease. Blood culture was positive for Streptococcus viridans and workup in process for source. Patient also treated for severe anemia requiring blood transfusion of 2 units of P RBCs. No endoscopy was done on this hospitalization but patient was seen by GI. Plavix has been on hold. This morning, consult was placed for new onset of atrial flutter and patient was started on a heparin drip. Heart rates have been controlled in the 70s and 80s, blood pressure 114/69. EKG atrial fibrillation WBC 7.4, hemoglobin 9.5. Sodium 136, potassium 3.6, BUN 25 creatinine 1.12. ALT 53, alkaline phosphatase 133. Home cardiac medications: Aspirin 81 mg daily, Lipitor 40 mg at bedtime, Plavix 75 mg daily, ferrous sulfate 325 mg daily, Lasix 20 mg twice daily, Toprol-XL 12.5 mg twice daily, potassium chloride 20 mill equivalents daily. Echocardiogram performed at Dr. Baca's office on 06/23/2023 reveals EF of 65%, mild to moderate MR, moderate AR, normal functioning aortic valve. 08/20 Patient is seen today in follow-up. Echocardiogram is much same as previously done at his [employer] office. Normal LV systolic function. Transcatheter aortic valve with mean gradient of 17 mmHg and moderate to severe regurgitation. Patient continues to spike fevers up to 103. Blood pressure 128/47, heart rate is 80, pulse ox 93% on room air. Pulse ox 93% on room air. Repeat blood work reveals WBC 8.9, hemoglobin 9.8. Creatinine 1.07. Discussed case with Dr. Mendoza and he will check for DVTs, and if this is negative, patient will require SONG. 08/21 Patient is seen today in follow-up. Dr. Mendoza had recommended an ultrasound duplex of the lower extremity which was negative for DVT. We will schedule patient for SONG later today with Dr. Hahn. Patient has been kept NPO. Blood pressure 111/53, heart rate 83, pulse ox 97% on room air. Repeat blood work reveals BUN 24 creatinine 0.98. Patient remains in atrial fibrillation rate controlled. Physical examination: Gen: This is an 82-year-old male in no acute distress VS: reviewed HEENT: Head is atraumatic, normocephalic. Pupils equal, round. Sclerae is anicteric. LUNGS: Clear to auscultation. No wheezes or rhonchi. No intercostal retractions. HEART: Irregular rate and rhythm. No murmur. EXTREMITIES: No pedal edema. No calf tenderness. NEUROLOGICAL: Patient is awake, alert and oriented x3. Assessment: New onset paroxysmal atrial fibrillation, rate controlled Strep bacteremia, unknown source Acute anemia Waldenstrm's macroglobulinemia under the care of oncology Hyperlipidemia Hypertension Status post TAVR Plan: Continue current cardiac medications Continue patient on Eliquis Patient will be scheduled for SONG today with Dr. Hahn Further recommendations to follow based upon clinical course Nurse practitioner note has been reviewed, I agree with documented findings and plan of care. Patient was seen and examined. Objective - Vital Signs Vital signs: Vital Signs Temp 98.1 F 08/22/23 00:00 Pulse 56 L 08/22/23 04:00 Resp 16 08/22/23 04:00 BP 131/71 08/22/23 04:00 Pulse Ox 90 L 08/22/23 04:00 FiO2 Intake & Output 08/21/23 08/22/23 08/22/23 18:59 06:59 18:59 Intake Total 580 540 Output Total 400 700 Balance 180 -160 Intake: Oral 580 540 Output: Urine 400 700 Other: Voiding Method Toilet Toilet Urinal Urinal # Voids 1 1 # Bowel Movements 0 1 - Labs CBC & Chem 7: 08/21/23 07:59 08/22/23 09:40 Labs: Abnormal Lab Results - Last 24 Hours (Table) 08/22/23 Range/Units 09:40 Chloride 108 H (98-107) mmol/L BUN 24 H (9-20) mg/dL Glucose 103 H (74-99) mg/dL Microbiology - Last 24 Hours (Table) 08/18/23 13:04 Blood Culture - Preliminary Blood 08/16/23 08:55 Blood Culture - Final Blood
[2023-08-22] MEDS: MIDAZOLAM 2 MG/2 ML VIAL IVP ONE (13:13)
[2023-08-22] MEDS: fentaNYL (PF) 50 MCG/ML 2 ML AMP IVP ONE (13:13)
[2023-08-22] MEDS: BENZOCAINE SPRAY 1 CAN TOPICAL ONE (13:13)
[2023-08-22] MEDS: SODIUM CHLORIDE 0.9% 1,000 ML IV ONE (13:20)
[2023-08-22] MEDS: fentaNYL (PF) 50 MCG/ML 2 ML AMP ONE (14:04)
--- NOTE | 2023-08-22 16:10 | P.PN ---
Subjective Progress Note Date: 08/22/23 Principal diagnosis: Reason for follow-up is fever Patient is a 82-year-old male with a past medical history significant for hypertension hyperlipidemia peripheral neuropathy melanoma presented to the hospital for abdominal pain not feeling well decreased urine output patient was noticed to be febrile on presentation to the hospital CT abdominal pelvis did not show any acute abnormality. On today's evaluation that is 08/22/2023,the patient did have improvement in his fever pattern and did have a low-grade fever 100.4 last night the patient is afebrile this morning patient is breathing comfortably on room air and denies having any chest pain shortness of breath or cough no abdominal pain no vomiting or diarrhea patient is currently waiting for SONG. Patient did have a creatinine 0.98 blood culture repeat has been negative Objective - Vital Signs Vital signs: Vital Signs Temp 97.1 F L 08/22/23 08:00 Pulse 83 08/22/23 08:00 Resp 16 08/22/23 08:00 BP 111/53 08/22/23 08:00 Pulse Ox 97 08/22/23 08:00 FiO2 Intake & Output 08/21/23 08/22/23 08/22/23 18:59 06:59 18:59 Intake Total 580 540 500 Output Total 400 700 450 Balance 180 -160 50 Intake: Intake, IV Titration 500 Amount Vancomycin 1,500 mg In 500 Sodium Chloride 0.9% 500 ml 500 ml @ 167 mls/hr IVPB Q16H [facility] Rx#: [id number] Oral 580 540 Output: Urine 400 700 450 Other: Voiding Method Toilet Toilet Toilet Urinal Urinal Urinal # Voids 1 1 # Bowel Movements 0 1 - Exam GENERAL DESCRIPTION: An elderly male up in the chair in no distress RESPIRATORY SYSTEM: Unlabored breathing , decreased breath sounds at bases HEART: S1 S2 regular rate and rhythm , ABDOMEN: Soft , no tenderness EXTREMITIES: No edema feet - Labs CBC & Chem 7: 08/21/23 07:59 08/22/23 09:40 Labs: Abnormal Lab Results - Last 24 Hours (Table) 08/22/23 Range/Units 09:40 Chloride 108 H (98-107) mmol/L BUN 24 H (9-20) mg/dL Glucose 103 H (74-99) mg/dL Microbiology - Last 24 Hours (Table) 08/18/23 13:04 Blood Culture - Preliminary Blood 08/16/23 08:55 Blood Culture - Final Blood Assessment and Plan (1) Fever Current Visit: Yes Status: Acute Code(s): R50.9 - FEVER, UNSPECIFIED SNOMED Code(s): 198302991 (2) Positive blood culture Current Visit: Yes Status: Acute Code(s): R78.81 - BACTEREMIA SNOMED Code(s): 471954051 Plan: 1patient with a fever in this patient admitted to hospital generalized weakness predominant abdominal symptoms with distention and constipation patient was noted to be anemic CT abdominal pelvis however did not show any acute abdominal process UA has been negative chest x-ray was reported negative, the patient did have a negative influenza RSV and COVID PCR 2-patient did have a procalcitonin 0.17, CRP is 5.1 blood culture with 2 differe nt pathogen question of contamination repeat blood cultures currently pending 3-patient did have a fever with initial workup has been negative so far blood culture positive for Streptococcus viridans patient MRI of the back did not show any suspicious for discitis or osteomyelitis echocardiogram with evidence of any vegetation bilateral leg Doppler has been negative as well, discussed with cardiology SONG has been scheduled await completion 4-continue with vancomycin and Rocephin Dictation was produced using [employer] dictation software. please excuse any grammatical, word or spelling errors. Time with Patient: Less than 30
--- NOTE | 2023-08-22 21:53 | P.TEE ---
Description of Procedure(s): Procedure performed: Transesophageal Echocardiogram with color flow doppler, pulsed wave doppler and continuous wave doppler, moderate conscious sedation Moderate conscious sedation: Moderate conscious sedation was supplied with direct supervision of myself using Versed and Fentanyl. Complications: none Indications: Bacteremia PROCEDURE: After the risks, benefits and alternatives of the above mentioned procedure was explained in detail with the patient, informed consent was obtained. Patient was brought to the lab in a fasting state. Patient was given IV Versed and Fentanyl for sedation. The throat was sprayed with Hurricane to anesthetize the throat. A lubricated Omni probe was then introduced into the esophagus and stomach and multiple views were obtained. 2D echo with color flow doppler, pulsed wave doppler and continuous wave doppler was utilized. Agitated saline bubbles were injected to assess for any intra-atrial shunt. The probe was then removed. Patient tolerated the procedure well. Patient was transferred to the post procedure area in stable and satisfactory condition. FINDINGS: 1. There is a bioprosthetic Medtronic Evolute valve with normal positioning. There is moderate to severe paravalvular aortic regurgitation at the 12-4 O'clock position. There is a 0.6 x 0.4cm echodenisty along the ventricular side of the right coronary cusp bioprosthetic leaflet consistent with a vegetation. There is no significant valvular regurgitation. 2. The mitral valve appears be normal with [id number] mitral regurgitation. 3. Tricuspid valve is normal with mild tricuspid regurgitation. 4. The interatrial septum is intact. No evidence of PFO. 5. Left atrial appendage is free of clot. Patient noted to be in atrial fibrillation throughout 6. Left ventricular Ejection fraction 55-60%
[2023-08-23 07:30] LABS: Basophils % (A) 0 %; Eosinophils % (A) 0 %; HCT 29.7 % (39.0-53.0); HGB 9.1 gm/dL (13.0-17.5); Hypochromasia Moderate; Lymphocytes # (A) 0.9 k/uL (1.0-4.8); Lymphocytes % (A) 9 %; MCH 29.2 pg (25.0-35.0); MCHC 30.6 g/dL (31.0-37.0); MCV 95.6 fL (80.0-100.0); Mean Platelet Volume 8.4; Monocytes # (A) 0.9 k/uL (0-1.0); Monocytes % (A) 10 %; Neutrophils % (A) 78 %; Platelet Count 230 k/uL (150-450); RBC 3.11 m/uL (4.30-5.90); RDW 14.9 % (11.5-15.5)
[2023-08-23 07:44] LABS: ALT 59 U/L (4-49); AST 52 U/L (17-59); African American GFR (CKD) 84 (>60 ml/min/1.73 sqM); Albumin 2.8 g/dL (3.5-5.0); Alkaline Phosphatase 130 U/L (38-126); Anion Gap 4 mmol/L; Blood Urea Nitrogen 24 mg/dL (9-20); Calcium 8.4 mg/dL (8.4-10.2); Carbon Dioxide 27 mmol/L (22-30); Chloride 107 mmol/L (98-107); Glucose 106 mg/dL (74-99); Non-African American GFR(CKD) 73 (>60 ml/min/1.73 sqM); Potassium 3.5 mmol/L (3.5-5.1); Sodium 138 mmol/L (137-145); Total Bilirubin 0.5 mg/dL (0.2-1.3); Total Protein 7.8 g/dL (6.3-8.2)
--- NOTE | 2023-08-23 11:17 | P.PN ---
Subjective Progress Note Date: 08/22/23 Patient reporting he is feeling improved. Repeat blood cultures negative. Intermittent fever persisting. Continues on IV abx. Scheduled for SONG today. Hemoglobin stable at 9.8. WBC 8.9, plts 229,000 Objective - Vital Signs Vital signs: Vital Signs Temp 98.8 F 08/22/23 12:00 Pulse 76 08/22/23 13:30 Resp 16 08/22/23 13:30 BP 100/54 08/22/23 13:30 Pulse Ox 97 08/22/23 13:30 FiO2 Intake & Output 08/21/23 08/22/23 08/22/23 18:59 06:59 18:59 Intake Total 580 540 700 Output Total 400 700 700 Balance 180 -160 0 Intake: IV 200 Intake, IV Titration 500 Amount Vancomycin 1,500 mg In 500 Sodium Chloride 0.9% 500 ml 500 ml @ 167 mls/hr IVPB Q16H [facility] Rx#: [id number] Oral 580 540 Output: Urine 400 700 700 Other: Voiding Method Toilet Toilet Toilet Urinal Urinal Urinal # Voids 1 1 # Bowel Movements 0 1 - Constitutional General appearance: Present: average body habitus, no acute distress - EENT Eyes: Present: anicteric sclerae, EOMI ENT: Present: hearing grossly normal - Respiratory Respiratory: bilateral: CTA - Cardiovascular Rhythm: irregularly irregular - Gastrointestinal General gastrointestinal: Present: soft. Absent: tenderness - Integumentary Integumentary: Absent: cyanotic - Musculoskeletal Musculoskeletal: Present: strength equal bilaterally - Psychiatric Psychiatric: Present: A&O x's 3 - Labs CBC & Chem 7: 08/23/23 07:08 08/23/23 07:08 Labs: Abnormal Lab Results - Last 24 Hours (Table) 08/22/23 Range/Units 09:40 Chloride 108 H (98-107) mmol/L BUN 24 H (9-20) mg/dL Glucose 103 H (74-99) mg/dL Microbiology - Last 24 Hours (Table) 08/18/23 13:04 Blood Culture - Preliminary Blood 08/16/23 08:55 Blood Culture - Final Blood Assessment and Plan (1) Abdominal pain Current Visit: Yes Status: Acute Priority: High Code(s): R10.9 - UNSPECIFIED ABDOMINAL PAIN SNOMED Code(s): 11781452 (2) Anemia Current Visit: Yes Status: Acute Priority: High Code(s): D64.9 - ANEMIA, UNSPECIFIED SNOMED Code(s): 799781929 (3) Waldenstrom macroglobulinemia Current Visit: Yes Status: Acute Priority: High Code(s): C88.0 - WALDENSTROM MACROGLOBULINEMIA SNOMED Code(s): 719220860 Plan: Abdominal pain, fever, weakness: Presented with complaints of generalized weakness and abdominal pain that radiates to right lower back over the last 2-3 weeks. Patient denies nausea vomiting diarrhea. Denies blood in stool and melena. Patient was noted to have a fever of 101.2 -Chest x-ray revealed no acute cardiopulmonary processes. Abdominal x-ray revealed nonspecific bowel gas pattern without evidence of acute processes. CT abdomen pelvis with contrast showed no evidence for acute abdominal process. No evidence for hemorrhage/hematoma. Moderate hiatal hernia. 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 Colonic diverticulosis. Mild splenomegaly. And severe degenerative changes throughout the spine. -CBC revealed WBC 8.8, hemoglobin 6.2, platelets 270,000. Bilirubin 1.0, ALP 130, AST 45, ALT 28. Creatinine 1.1, GFR 61. -Urinalysis not suspicious for UTI. Viral panel negative -Blood cultures positive for S. viridans. Repeat blood culture negative thus far -ID following. Continues on IV abx. Intermittent fever persisting -SONG scheduled today to r/o vegetation Waldenstrom's macroglobulinemia, anemia: -Full history in consult HPI -Has been following in observation with stable disease. Hgb in clinic has been stable in 11 range -On admission CBC revealed WBC 8.8, hemoglobin 6.2, MCV 94.9, platelets 270,000 -Bilirubin 1.0, ALP 130, AST 45, ALT 28. Creatinine 1.1, GFR 61, Coags WNL -S/p 2 units PRBCs since admit. Hgb stable, 9.8 today -Hemolysis workup negative. 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 SPEP showing increase in m- spikes, 1.73, and 1.85, previously at 0.8 and 0.9 -As stated above hemolysis workup is negative and iron studies are not consistent with PATTI. S/p 2 units PRBCs, hgb has been stable in 9 range, so it does not appear this is r/t GI bleed. K/L ratio stable, unclear if increase in M-spike is r/t to progression in disease vs reactive to bacteremia, although the latter seems to be more likely given clinical picture and workup. Will plan to repeat paraproteinemia workup in outpt setting once pt has acutely recovered. -Immunoglobulins ordered. If IgG low, will add IVIG -Continue to monitor CBC. Please transfuse for hgb less than 7 or if symptomatic Doctor attests: I performed a history and physical examination of this patient, developed impression and plan of care. Discussed with dictator. I agree with dictators note, documented as a scribe.
--- NOTE | 2023-08-23 13:43 | P.PN ---
Subjective Progress Note Date: 08/23/23 Principal diagnosis: Reason for follow-up is fever Patient is a 82-year-old male with a past medical history significant for hypertension hyperlipidemia peripheral neuropathy melanoma presented to the hospital for abdominal pain not feeling well decreased urine output patient was noticed to be febrile on presentation to the hospital CT abdominal pelvis did not show any acute abnormality. Patient did have a SONG with evidence of small vegetation on the bioprosthetic valve no mention of any abscess On today's evaluation that is 08/23/2023, the patient did spike a fever last night of 101.7 F the patient is afebrile this morning patient is breathing comfortably on room air denies any chest pain shortness of breath or cough has been complaining of mostly lower back pain because of the uncomfortable bed did have a bowel movement no urinary symptoms. Patient did have a white count of 9.0 creatinine 0.96 blood culture repeat has been negative Objective - Vital Signs Vital signs: Vital Signs Temp 97.4 F L 08/23/23 09:11 Pulse 79 08/23/23 09:11 Resp 16 08/23/23 09:11 BP 142/63 08/23/23 09:11 Pulse Ox 98 08/23/23 09:11 FiO2 Intake & Output 08/22/23 08/23/23 08/23/23 18:59 06:59 18:59 Intake Total 810 40 480 Output Total 700 Balance 110 40 480 Intake: IV 200 Intake, IV Titration 500 Amount Vancomycin 1,500 mg In 500 Sodium Chloride 0.9% 500 ml 500 ml @ 167 mls/hr IVPB Q16H [facility] Rx#: [id number] Oral 110 40 480 Output: Urine 700 Other: Voiding Method Toilet Toilet Toilet Urinal Urinal Urinal # Voids 1 1 # Bowel Movements 1 - Exam GENERAL DESCRIPTION: An elderly male up in the chair in no distress RESPIRATORY SYSTEM: Unlabored breathing , decreased breath sounds at bases HEART: S1 S2 regular rate and rhythm , ABDOMEN: Soft , no tenderness EXTREMITIES: No edema feet - Labs CBC & Chem 7: 08/23/23 07:08 08/23/23 07:08 Labs: Abnormal Lab Results - Last 24 Hours (Table) 08/22/23 08/22/23 08/23/23 Range/Units 09:40 09:40 07:08 RBC 3.11 L (4.30-5.90) m/uL Hgb 9.1 L (13.0-17.5) gm/dL Hct 29.7 L (39.0-53.0) % MCHC 30.6 L (31.0-37.0) g/dL Lymphocytes # 0.9 L (1.0-4.8) k/uL Chloride 108 H (98-107) mmol/L BUN 24 H (9-20) mg/dL Glucose 103 H (74-99) mg/dL ALT (4-49) U/L Alkaline Phosphatase (38-126) U/L Albumin (3.5-5.0) g/dL IgG 1895.0 H (700.0-1600.0) mg/dL IgM 3418.0 H (40.0-280.0) mg/dL 08/23/23 Range/Units 07:08 RBC (4.30-5.90) m/uL Hgb (13.0-17.5) gm/dL Hct (39.0-53.0) % MCHC (31.0-37.0) g/dL Lymphocytes # (1.0-4.8) k/uL Chloride (98-107) mmol/L BUN 24 H (9-20) mg/dL Glucose 106 H (74-99) mg/dL ALT 59 H (4-49) U/L Alkaline Phosphatase 130 H (38-126) U/L Albumin 2.8 L (3.5-5.0) g/dL IgG (700.0-1600.0) mg/dL IgM (40.0-280.0) mg/dL Assessment and Plan (1) Fever Current Visit: Yes Status: Acute Code(s): R50.9 - FEVER, UNSPECIFIED SNOMED Code(s): 313675278 (2) Positive blood culture Current Visit: Yes Status: Acute Code(s): R78.81 - BACTEREMIA SNOMED Code(s): 340539452 (3) Endocarditis Current Visit: Yes Status: Acute Code(s): I38 - ENDOCARDITIS, VALVE UNSPECIFIED SNOMED Code(s): 66880410 Plan: 1patient with a fever in this patient admitted to hospital generalized weakness predominant abdominal symptoms with distention and constipation patient was noted to be anemic CT abdominal pelvis however did not show any acute abdominal process UA has been negative chest x-ray was reported negative, the patient did have a negative influenza RSV and COVID PCR 2-patient did have a procalcitonin 0.17, CRP is 5.1 blood culture with 2 different pathogen question of contamination repeat blood cultures currently pending 3-patient did have a fever with initial workup has been negative so far blood culture positive for Streptococcus viridans patient MRI of the back did not show any suspicious for discitis or osteomyelitis echocardiogram with evidence of any vegetation bilateral leg Doppler has been negative as well, patient did have a SONG completed with evidence of vegetation on the bioprosthetic valve no mention of any abscess 4-I will adjust his antibiotic therapy to Rocephin 2 g daily and gentamicin pharmacy to dose daily discussions with the micro lab to get the sensitivity and asked them to fax it to the floor Dictation was produced using [employer] dictation software. please excuse any grammatical, word or spelling errors. Time with Patient: Greater than 30
--- NOTE | 2023-08-23 14:20 | P.PN ---
Subjective Progress Note Date: 08/23/23 Jonathon Mckay, is an 82-year-old male we'll presented to [facility] emergency room with a chief complaint of abdominal pain He was evaluated in the emergency room vital examination on presentation revealed a temperature of 101.2 pulse 60 respiration 18 blood pressure 109/57 pulse ox 95% on room air Laboratory data revealed a white blood count of 8.8 hemoglobin 6.2 platelet count 270 sodium 135 potassium 4.5 chloride 101 CO2 22 BUN 19 creatinine 1.1 iron 26 Testing in the emergency room revealed computed tomography scan of the abdomen revealed no evidence for acute abdominal process moderate hiatal hernia infrarenal abdominal x-ray gentleman measuring 26 mm colonic diverticulosis mild splenomegaly and CVA degenerative changes throughout the spine. chest x-ray revealed no acute cardiopulmonary disease Patient was admitted to medical floor for further evaluation and treatment on 08/15/2023 patient is alert and oriented 3 currently sitting up in chair. Patient was evaluated by GI services continue symptomatic and supportive care at this time no plans for endoscopic evaluation. hemoglobin 9.2. Patient remains on IV Unasyn.current vital signs temp 98.3, heart rate 67, respiratory rate 16, blood pressure 121/62 with pulse ox 95% on room air. On 08/16/2023 patient was seen and examined on the medical floor he is alert and oriented 3 in no apparent distress he denies any complaints at this time there is no fever or chills no headache or dizziness no chest pain no shortness of breath no cough no nausea or vomiting no abdominal pain no diarrhea and no urinary symptoms. Vital examination reveals a temperature of 98.9 pulse 79 respiration 16 blood pressure 153/65 pulse ox 96% on room air. His white blood count is 6.3 hemoglobin 9.8 platelet count 217 Blood culture are positive for Streptococcus viridans, Patient is maintained on IV Unasyn hematology and infec tious disease are following. On 08/17/2023 patient was seen and examined on the medical floor he is alert and oriented and feeling well he denies any complaints at this time there is no fever or chills no headache or dizziness no chest pain no shortness of breath no cough no nausea or vomiting no abdominal pain no diarrhea no urinary symptoms. Patient had positive blood cultures and is maintained on IV Unasyn, infectious disease follow-up On 08/18/2023 patient was seen and examined on the medical floor he is alert and oriented 3 in no apparent distress he denies any complaints at this time there is no fever or chills no headache or dizziness no chest pain no shortness of breath no cough no nausea or vomiting no abdominal pain no diarrhea and no urinary symptoms. Blood culture are positive for Streptococcus viridans, Patient is maintained on IV Unasyn hematology and infectious disease are following. on 08/19/2023 patient is alert and oriented 3.patient getting MRI of the spine today. Patient has low-grade temp 100.2 last night. Current vital signs temp 98.6, heart 61, respiratory rate 18, blood pressure 139/72 with pulse ox 96% on room air. Patient denies chest pain or shortness of breath. Patient denies nausea vomiting or diarrhea. Patient denies any urinary burning or frequency.white blood cell 8.3 hemoglobin 10.2.patient's liver enzymes slightly elevated we'll hold scheduled Tylenol. Patient denies chest pain or shortness breath. Patient denies nausea vomiting or diarrhea. Patient denies any urinary burning or frequency On 08/19/2022 for patient's alert and oriented 3. Patient went into A. fib last night. Patient was started on heparin drip and cardiology services have been consulted. 2-D echo has also been ordered. Patient began having elevated temp at night. Denies any acute complaints.Mildly elevated liver enzymes will order liver ultrasound. Infectious disease cardiology and hematology services are following. Current vital signs temp 97.5, heart rate 82, respiratory rate 16, blood pressure 113/50 on 08/21/2023 patient was seen and examined on the medical he is alert and oriented 3 in no apparent distress, temperature is well-controlled today with the use of ibuprofen, T-max yesterday was 103 there is no headache or dizziness no chest pain no shortness of breath no cough no nausea or vomiting no abdominal pain no diarrhea and no urinary symptoms, cause of patient's recurrent episodes of fever is not clear, he remains on IV Rocephin, case was discussed in details with Dr. Mendoza infectious disease, plan is to request SONG at this time. on 08/22/2023 patient's alert and oriented 3. plans for SONG today.patient had temperature of 100.4 at 8:00 last night remains on IV antibiotics. Patient denies any chest pain or shortness of breath. Patient denies nausea vomiting or diarrhea. Patient denies any urinary burning or frequency on 08/23/2023 patient was seen and examined on the medical he is alert and oriented 3 in no apparent distress, temperature is well-controlled today with the use of ibuprofen, T-max yesterday was 101.7 there is no headache or dizziness no chest pain no shortness of breath no cough no nausea or vomiting no abdominal pain no diarrhea and no urinary symptoms, cause of patient's recurrent episodes of fever is not clear, he remains on IV Rocephin, case was discussed in details with Dr. Mendoza infectious disease, SONG was done yesterday revealed evidence of aortic valve vegetation, at this time we are waiting for PICC line placement, and recommendation from infectious disease for antibiotic at the time of discharge. Objective - Vital Signs Vital signs: Vital Signs Temp 97.4 F L 08/23/23 09:11 Pulse 79 08/23/23 09:11 Resp 16 08/23/23 09:11 BP 142/63 08/23/23 09:11 Pulse Ox 98 08/23/23 09:11 FiO2 Intake & Output 08/22/23 08/23/23 08/23/23 18:59 06:59 18:59 Intake Total 810 40 480 Output Total 700 Balance 110 40 480 Intake: IV 200 Intake, IV Titration 500 Amount Vancomycin 1,500 mg In 500 Sodium Chloride 0.9% 500 ml 500 ml @ 167 mls/hr IVPB Q16H [facility] Rx#: [id number] Oral 110 40 480 Output: Urine 700 Other: Voiding Method Toilet Toilet Toilet Urinal Urinal Urinal # Voids 1 1 # Bowel Movements 1 - Exam In general patient is alert and oriented x 3 in no distress HEENT head normocephalic and atraumatic Neck is supple no JVD no goiter no lymphadenopathy no carotid bruit Chest examination is clear to auscultation no crackles no wheezing Cardiac exam reveals regular heart sounds S1 and S2 no gallops no murmurs Abdomen is soft nontender no organomegaly with normal bowel sounds Extremity exam reveals no edema no cyanosis or clubbing Neurological examination reveals no gross focal deficits - Labs CBC & Chem 7: 08/23/23 07:08 08/23/23 07:08 Labs: Abnormal Lab Results - Last 24 Hours (Table) 08/22/23 08/22/23 08/23/23 Range/Units 09:40 09:40 07:08 RBC 3.11 L (4.30-5.90) m/uL Hgb 9.1 L (13.0-17.5) gm/dL Hct 29.7 L (39.0-53.0) % MCHC 30.6 L (31.0-37.0) g/dL Lymphocytes # 0.9 L (1.0-4.8) k/uL Chloride 108 H (98-107) mmol/L BUN 24 H (9-20) mg/dL Glucose 103 H (74-99) mg/dL ALT (4-49) U/L Alkaline Phosphatase (38-126) U/L Albumin (3.5-5.0) g/dL IgG 1895.0 H (700.0-1600.0) mg/dL IgM 3418.0 H (40.0-280.0) mg/dL 08/23/23 Range/Units 07:08 RBC (4.30-5.90) m/uL Hgb (13.0-17.5) gm/dL Hct (39.0-53.0) % MCHC (31.0-37.0) g/dL Lymphocytes # (1.0-4.8) k/uL Chloride (98-107) mmol/L BUN 24 H (9-20) mg/dL Glucose 106 H (74-99) mg/dL ALT 59 H (4-49) U/L Alkaline Phosphatase 130 H (38-126) U/L Albumin 2.8 L (3.5-5.0) g/dL IgG (700.0-1600.0) mg/dL IgM (40.0-280.0) mg/dL Assessment and Plan Plan: febrile illness, cause of fever unclear, no evidence of urinary tract infection, no significant findings on chest x-ray and computed tomography scan of the a bdomen, infectious disease consultation requested Severe anemia requiring red blood cell transfusion, GI consultation is requested underlying history of hyperlipidemia Underlying history of hypertension Underlying history of benign prostatic hypertrophy Underlying history of malignant melanoma Previous history of coronary artery disease, with history of angioplasty and stent placement maintained on Plavix 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 Patient started on heparin drip cardiology service is consulted elevated liver enzymes Positive blood culture. Infectious disease is following. Patient remains on Rocephin At this time patient was seen and examined Infectious disease, hematology and cardiology services consulted 2-D echo ordered Liver ultrasound ordered SONG has been ordered per cardiology and infectious disease Will follow closely
--- NOTE | 2023-08-23 14:30 | P.PN ---
Subjective Progress Note Date: 08/23/23 Consult reason: atrial flutter (New onset) History of present illness: This is an 82-year-old male patient of Dr. 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 Patient presented to the emergency center on 08/12 for weakness, right groin and right hip pain. We have been asked to evaluate the patient for new onset of atrial flutter. Patient has been seen by multiple consultants including oncology, GI, infectious disease. Blood culture was positive for Streptococcus viridans and workup in process for source. Patient also treated for severe anemia requiring blood transfusion of 2 units of P RBCs. No endoscopy was done on this hospitalization but patient was seen by GI. Plavix has been on hold. This morning, consult was placed for new onset of atrial flutter and patient was started on a heparin drip. Heart rates have been controlled in the 70s and 80s, blood pressure 114/69. EKG atrial fibrillation WBC 7.4, hemoglobin 9.5. Sodium 136, potassium 3.6, BUN 25 creatinine 1.12. ALT 53, alkaline phosphatase 133. Home cardiac medications: Aspirin 81 mg daily, Lipitor 40 mg at bedtime, Plavix 75 mg daily, ferrous sulfate 325 mg daily, Lasix 20 mg twice daily, Toprol-XL 12.5 mg twice daily, potassium chloride 20 mill equivalents daily. Echocardiogram performed at Dr. Baca's office on 06/23/2023 reveals EF of 65%, mild to moderate MR, moderate AR, normal functioning aortic valve. 08/20 Patient is seen today in follow-up. 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 Normal LV systolic function. Transcatheter aortic valve with mean gradient of 17 mmHg and moderate to severe regurgitation. Patient continues to spike fevers up to 103. Blood pressure 128/47, heart rate is 80, pulse ox 93% on room air. Pulse ox 93% on room air. Repeat blood work reveals WBC 8.9, hemoglobin 9.8. Creatinine 1.07. Discussed case with Dr. Mendoza and he will check for DVTs, and if this is negative, patient will require SONG. 08/21 Patient is seen today in follow-up. Dr. Mendoza had recommended an ultrasound duplex of the lower extremity which was negative for DVT. We will schedule patient for SONG later today with Dr. Hahn. Patient has been kept NPO. Blood pressure 111/53, heart rate 83, pulse ox 97% on room air. Repeat blood work reveals BUN 24 creatinine 0.98. Patient remains in atrial fibrillation rate controlled. 08/22 Yesterday, patient underwent SONG which revealed a bioprosthetic Medtronic Evolate valve with normal positioning. 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 0.6 x 0.4 cm echodensity along the ventricular side of the right coronary cusp by prosthetic leaflet consistent with vegetation. No significant valvular regurgitation. Mitral valve appears to be normal with mild to moderate mitral regurgitation. Tricuspid valve is normal with mild tricuspid regurgitation. No PFO. Left appendage is free of clot. Patient was in atrial fibrillation throughout procedure. EF 55 to 60%. Results were discussed with Dr. Mendoza. Patient has been continued on treatment for bacteremia of unclear source. Patient denies having any chest pain or chest pressure. There was concern from nursing staff the patient had a complete heart block around 4 AM but patient went into atrial flutter with slow ventricular response with a 3-1 conduction with heart rate 49 bpm by EKG. Blood pressure 114/48, heart rate 68, pulse ox 99% on room air. Hemoglobin 9.1. WBC 9. Sodium 138, potassium 3.5, BUN 24 creatinine 0.96. ALT 59, alkaline phosphatase 130. Physical examination: Gen: This is an 82-year-old male in no acute distress VS: reviewed HEENT: Head is atraumatic, normocephalic. Pupils equal, round. Sclerae is anicteric. LUNGS: Clear to auscultation. No wheezes or rhonchi. No intercostal retractions. HEART: Irregular rate and rhythm. No murmur. EXTREMITIES: No pedal edema. No calf tenderness. NEUROLOGICAL: Patient is awake, alert and oriented x3. Assessment: New onset paroxysmal atrial fibrillation, rate controlled Strep bacteremia, unknown source Acute anemia Waldenstrm's macroglobulinemia under the care of oncology Hyperlipidemia Hypertension Status post TAVR Upon review of telemetry no complete heart block noted, atrial flutter with slow ventricular rates Plan: Continue current cardiac medications Continue patient on Eliquis Further recommendations to follow based upon clinical course Nurse practitioner note has been reviewed, I agree with documented findings and plan of care. Patient was seen and examined. Objective - Vital Signs Vital signs: Vital Signs Temp 97.4 F L 08/23/23 09:11 Pulse 79 08/23/23 09:11 Resp 16 08/23/23 09:11 BP 142/63 08/23/23 09:11 Pulse Ox 98 08/23/23 09:11 FiO2 Intake & Output 08/22/23 08/23/23 08/23/23 18:59 06:59 18:59 Intake Total 810 40 480 Output Total 700 Balance 110 40 480 Intake: IV 200 Intake, IV Titration 500 Amount Vancomycin 1,500 mg In 500 Sodium Chloride 0.9% 500 ml 500 ml @ 167 mls/hr IVPB Q16H [facility] Rx#: [id number] Oral 110 40 480 Output: Urine 700 Other: Voiding Method Toilet Toilet Toilet Urinal Urinal Urinal # Voids 1 1 # Bowel Movements 1 - Labs CBC & Chem 7: 08/23/23 07:08 08/23/23 07:08 Labs: Abnormal Lab Results - Last 24 Hours (Table) 08/22/23 08/22/23 08/23/23 Range/Units 09:40 09:40 07:08 RBC 3.11 L (4.30-5.90) m/uL Hgb 9.1 L (13.0-17.5) gm/dL Hct 29.7 L (39.0-53.0) % MCHC 30.6 L (31.0-37.0) g/dL Lymphocytes # 0.9 L (1.0-4.8) k/uL Chloride 108 H (98-107) mmol/L BUN 24 H (9-20) mg/dL Glucose 103 H (74-99) mg/dL ALT (4-49) U/L Alkaline Phosphatase (38-126) U/L Albumin (3.5-5.0) g/dL IgG 1895.0 H (700.0-1600.0) mg/dL IgM 3418.0 H (40.0-280.0) mg/dL 08/23/23 Range/Units 07:08 RBC (4.30-5.90) m/uL Hgb (13.0-17.5) gm/dL Hct (39.0-53.0) % MCHC (31.0-37.0) g/dL Lymphocytes # (1.0-4.8) k/uL Chloride (98-107) mmol/L BUN 24 H (9-20) mg/dL Glucose 106 H (74-99) mg/dL ALT 59 H (4-49) U/L Alkaline Phosphatase 130 H (38-126) U/L Albumin 2.8 L (3.5-5.0) g/dL IgG (700.0-1600.0) mg/dL IgM (40.0-280.0) mg/dL
[2023-08-23] MEDS: GENTAMICIN PER PHARMACY MISCELLANE SCH (16:19)
[2023-08-23] MEDS: GENTAMICIN 100 MG in SODIUM CHLORIDE 0.9% 100 ML IVPB SCH (17:18)
[2023-08-24] MEDS ORDERED: VANCOMYCIN TROUGH DUE 1 EACH MISC MISCELLANE ONE (05:00)
[2023-08-24] MEDS: GENTAMICIN 80 MG in SODIUM CHLORIDE 0.9% 100 ML IVPB SCH (06:09)
--- NOTE | 2023-08-24 09:20 | P.PN ---
Subjective Progress Note Date: 08/24/23 Jonathon Mckay, is an 82-year-old male we'll presented to [facility] emergency room with a chief complaint of abdominal pain He was evaluated in the emergency room vital examination on presentation revealed a temperature of 101.2 pulse 60 respiration 18 blood pressure 109/57 pulse ox 95% on room air Laboratory data revealed a white blood count of 8.8 hemoglobin 6.2 platelet count 270 sodium 135 potassium 4.5 chloride 101 CO2 22 BUN 19 creatinine 1.1 iron 26 Testing in the emergency room revealed computed tomography scan of the abdomen revealed no evidence for acute abdominal process moderate hiatal hernia infrarenal abdominal x-ray gentleman measuring 26 mm colonic diverticulosis mild splenomegaly and CVA degenerative changes throughout the spine. chest x-ray revealed no acute cardiopulmonary disease Patient was admitted to medical floor for further evaluation and treatment on 08/15/2023 patient is alert and oriented 3 currently sitting up in chair. Patient was evaluated by GI services continue symptomatic and supportive care at this time no plans for endoscopic evaluation. hemoglobin 9.2. Patient remains on IV Unasyn.current vital signs temp 98.3, heart rate 67, respiratory rate 16, blood pressure 121/62 with pulse ox 95% on room air. On 08/16/2023 patient was seen and examined on the medical floor he is alert and oriented 3 in no apparent distress he denies any complaints at this time there is no fever or chills no headache or dizziness no chest pain no shortness of breath no cough no nausea or vomiting no abdominal pain no diarrhea and no urinary symptoms. Vital examination reveals a temperature of 98.9 pulse 79 respiration 16 blood pressure 153/65 pulse ox 96% on room air. His white blood count is 6.3 hemoglobin 9.8 platelet count 217 Blood culture are positive for Streptococcus viridans, Patient is maintained on IV Unasyn hematology and infec tious disease are following. On 08/17/2023 patient was seen and examined on the medical floor he is alert and oriented and feeling well he denies any complaints at this time there is no fever or chills no headache or dizziness no chest pain no shortness of breath no cough no nausea or vomiting no abdominal pain no diarrhea no urinary symptoms. Patient had positive blood cultures and is maintained on IV Unasyn, infectious disease follow-up On 08/18/2023 patient was seen and examined on the medical floor he is alert and oriented 3 in no apparent distress he denies any complaints at this time there is no fever or chills no headache or dizziness no chest pain no shortness of breath no cough no nausea or vomiting no abdominal pain no diarrhea and no urinary symptoms. Blood culture are positive for Streptococcus viridans, Patient is maintained on IV Unasyn hematology and infectious disease are following. on 08/19/2023 patient is alert and oriented 3.patient getting MRI of the spine today. Patient has low-grade temp 100.2 last night. Current vital signs temp 98.6, heart 61, respiratory rate 18, blood pressure 139/72 with pulse ox 96% on room air. Patient denies chest pain or shortness of breath. Patient denies nausea vomiting or diarrhea. Patient denies any urinary burning or frequency.white blood cell 8.3 hemoglobin 10.2.patient's liver enzymes slightly elevated we'll hold scheduled Tylenol. Patient denies chest pain or shortness breath. Patient denies nausea vomiting or diarrhea. Patient denies any urinary burning or frequency On 08/19/2022 for patient's alert and oriented 3. Patient went into A. fib last night. Patient was started on heparin drip and cardiology services have been consulted. 2-D echo has also been ordered. Patient began having elevated temp at night. Denies any acute complaints.Mildly elevated liver enzymes will order liver ultrasound. Infectious disease cardiology and hematology services are following. Current vital signs temp 97.5, heart rate 82, respiratory rate 16, blood pressure 113/50 on 08/21/2023 patient was seen and examined on the medical he is alert and oriented 3 in no apparent distress, temperature is well-controlled today with the use of ibuprofen, T-max yesterday was 103 there is no headache or dizziness no chest pain no shortness of breath no cough no nausea or vomiting no abdominal pain no diarrhea and no urinary symptoms, cause of patient's recurrent episodes of fever is not clear, he remains on IV Rocephin, case was discussed in details with Dr. Mendoza infectious disease, plan is to request SONG at this time. on 08/22/2023 patient's alert and oriented 3. plans for SONG today.patient had temperature of 100.4 at 8:00 last night remains on IV antibiotics. Patient denies any chest pain or shortness of breath. Patient denies nausea vomiting or diarrhea. Patient denies any urinary burning or frequency on 08/23/2023 patient was seen and examined on the medical he is alert and oriented 3 in no apparent distress, temperature is well-controlled today with the use of ibuprofen, T-max yesterday was 101.7 there is no headache or dizziness no chest pain no shortness of breath no cough no nausea or vomiting no abdominal pain no diarrhea and no urinary symptoms, cause of patient's recurrent episodes of fever is not clear, he remains on IV Rocephin, case was discussed in details with Dr. Mendoza infectious disease, SONG was done yesterday revealed evidence of aortic valve vegetation, at this time we are waiting for PICC line placement, and recommendation from infectious disease for antibiotic at the time of discharge. On 08/24/2023 patient is alert and oriented x 3. Patient has been started on gentamicin per ID patient had no further episodes of fever last night. Awaiting further recommendations from infectious disease. Patient denies chest pain or shortness of breath. Patient denies nausea vomiting or diarrhea. Patient denies any urinary burning or frequency. Patient has been transitioned to p.o. Eliquis per cardiology Objective - Vital Signs Vital signs: Vital Signs Temp 98 F 08/24/23 03:44 Pulse 70 08/24/23 03:44 Resp 16 08/24/23 03:44 BP 113/55 08/24/23 03:44 Pulse Ox 96 08/24/23 03:44 FiO2 Intake & Output 08/23/23 08/24/23 08/24/23 18:59 06:59 18:59 Intake Total 1200 0 Output Total 600 300 Balance 600 -300 Intake: IV 240 .9@10 240 Intake, IV Titration 200 Amount Gentamicin 100 mg In 100 Sodium Chloride 0.9% 100 ml @ 102.5 mls/hr IVPB Q12H [facility] Rx#:[id number] ceFAZolin 2 gm In Sodium 50 Chloride 0.9% 50 ml @ 100 mls/hr IVPB Q8HR [facility] Rx# :[id number] cefTRIAXone 2 gm In 50 Sodium Chloride 0.9% 50 ml @ 100 mls/hr IVPB Q24HR [facility] Rx#:[id number] Oral 760 0 Output: Urine 600 300 Other: Voiding Method Toilet Toilet Urinal Urinal # Voids 2 # Bowel Movements 0 - Exam In general patient is alert and oriented x 3 in no distress HEENT head normocephalic and atraumatic Neck is supple no JVD no goiter no lymphadenopathy no carotid bruit Chest examination is clear to auscultation no crackles no wheezing Cardiac exam reveals regular heart sounds S1 and S2 no gallops no murmurs Abdomen is soft nontender no organomegaly with normal bowel sounds Extremity exam reveals no edema no cyanosis or clubbing Neurological examination reveals no gross focal deficits - Labs CBC & Chem 7: 08/23/23 07:08 08/23/23 07:08 Labs: Microbiology - Last 24 Hours (Table) 08/23/23 00:20 Blood Culture - Preliminary Blood 08/18/23 13:04 Blood Culture - Final Blood 08/14/23 21:43 Blood Culture Gram Stain - Final Blood Blood Culture - Final Streptococcus viridans group Molecular ID Assessment and Plan Plan: febrile illness, cause of fever unclear, no evidence of urinary tract infection, no significant findings on chest x-ray and computed tomography scan of the abdomen, infectious disease consultation requested Severe anemia requiring red blood cell transfusion, GI consultation is requested underlying history of hyperlipidemia Underlying history of hypertension Underlying history of benign prostatic hypertrophy Underlying history of malignant melanoma Previous history of coronary artery disease, with history of angioplasty and stent placement maintained on Plavix 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 Patient started on heparin drip cardiology service is consulted elevated liver enzymes Positive blood culture. Infectious disease is following. Patient remains on Rocephin At this time patient was seen and examined Infectious disease, hematology and cardiology services consulted SONG has been ordered per cardiology and infectious disease Will follow closely
[2023-08-24 09:35] LABS: ALT 62 U/L (4-49); AST 61 U/L (17-59); African American GFR (CKD) 86 (>60 ml/min/1.73 sqM); Albumin 2.6 g/dL (3.5-5.0); Alkaline Phosphatase 133 U/L (38-126); Anion Gap 4 mmol/L; Blood Urea Nitrogen 21 mg/dL (9-20); Calcium 8.1 mg/dL (8.4-10.2); Carbon Dioxide 26 mmol/L (22-30); Chloride 108 mmol/L (98-107); Glucose 119 mg/dL (74-99); Non-African American GFR(CKD) 75 (>60 ml/min/1.73 sqM); Potassium 3.4 mmol/L (3.5-5.1); Sodium 138 mmol/L (137-145); Total Bilirubin 0.4 mg/dL (0.2-1.3); Total Protein 7.4 g/dL (6.3-8.2)
[2023-08-24 09:43] LABS: Basophils % (A) 0 %; Eosinophils # (A) 0.1 k/uL (0-0.7); Eosinophils % (A) 1 %; HCT 26.7 % (39.0-53.0); HGB 8.3 gm/dL (13.0-17.5); Hypochromasia Moderate; Lymphocytes # (A) 0.5 k/uL (1.0-4.8); Lymphocytes % (A) 7 %; MCH 29.4 pg (25.0-35.0); MCHC 31.2 g/dL (31.0-37.0); MCV 94.3 fL (80.0-100.0); Mean Platelet Volume 8.7; Monocytes # (A) 0.8 k/uL (0-1.0); Monocytes % (A) 10 %; Neutrophils # (A) 5.8 k/uL (1.3-7.7); Neutrophils % (A) 80 %; Platelet Count 197 k/uL (150-450); RBC 2.83 m/uL (4.30-5.90); WBC 7.3 k/uL (3.8-10.6)
--- NOTE | 2023-08-24 10:39 | P.PN ---
Subjective Progress Note Date: 08/24/23 Consult reason: atrial flutter (New onset) History of present illness: This is an 82-year-old male patient of Dr. 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 Patient presented to the emergency center on 08/12 for weakness, right groin and right hip pain. We have been asked to evaluate the patient for new onset of atrial flutter. Patient has been seen by multiple consultants including oncology, GI, infectious disease. Blood culture was positive for Streptococcus viridans and workup in process for source. Patient also treated for severe anemia requiring blood transfusion of 2 units of P RBCs. No endoscopy was done on this hospitalization but patient was seen by GI. Plavix has been on hold. This morning, consult was placed for new onset of atrial flutter and patient was started on a heparin drip. Heart rates have been controlled in the 70s and 80s, blood pressure 114/69. EKG atrial fibrillation WBC 7.4, hemoglobin 9.5. Sodium 136, potassium 3.6, BUN 25 creatinine 1.12. ALT 53, alkaline phosphatase 133. Home cardiac medications: Aspirin 81 mg daily, Lipitor 40 mg at bedtime, Plavix 75 mg daily, ferrous sulfate 325 mg daily, Lasix 20 mg twice daily, Toprol-XL 12.5 mg twice daily, potassium chloride 20 mill equivalents daily. Echocardiogram performed at Dr. Baca's office on 06/23/2023 reveals EF of 65%, mild to moderate MR, moderate AR, normal functioning aortic valve. 08/20 Patient is seen today in follow-up. 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 Normal LV systolic function. Transcatheter aortic valve with mean gradient of 17 mmHg and moderate to severe regurgitation. Patient continues to spike fevers up to 103. Blood pressure 128/47, heart rate is 80, pulse ox 93% on room air. Pulse ox 93% on room air. Repeat blood work reveals WBC 8.9, hemoglobin 9.8. Creatinine 1.07. Discussed case with Dr. Mendoza and he will check for DVTs, and if this is negative, patient will require SONG. 08/21 Patient is seen today in follow-up. Dr. Mendoza had recommended an ultrasound duplex of the lower extremity which was negative for DVT. We will schedule patient for SONG later today with Dr. Hahn. Patient has been kept NPO. Blood pressure 111/53, heart rate 83, pulse ox 97% on room air. Repeat blood work reveals BUN 24 creatinine 0.98. Patient remains in atrial fibrillation rate controlled. 08/22 Yesterday, patient underwent SONG which revealed a bioprosthetic Medtronic Evolate valve with normal positioning. 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 0.6 x 0.4 cm echodensity along the ventricular side of the right coronary cusp by prosthetic leaflet consistent with vegetation. No significant valvular regurgitation. Mitral valve appears to be normal with mild to moderate mitral regurgitation. Tricuspid valve is normal with mild tricuspid regurgitation. No PFO. Left appendage is free of clot. Patient was in atrial fibrillation throughout procedure. EF 55 to 60%. Results were discussed with Dr. Mendoza. Patient has been continued on treatment for bacteremia of unclear source. Patient denies having any chest pain or chest pressure. There was concern from nursing staff the patient had a complete heart block around 4 AM but it seems to be more of a sinoatrial block running in the 40s and 50s. Blood pressure 114/48, heart rate 68, pulse ox 99% on room air. Hemoglobin 9.1. WBC 9. Sodium 138, potassium 3.5, BUN 24 creatinine 0.96. ALT 59, alkaline phosphatase 130. 5/12 Patient denies any new concerns today. Heart rate has been running in the 60s and 70s, blood pressure 125/60. Pulse ox 97% on room air. Repeat blood work reveals hemoglobin of 8.3. Potassium 3.4, BUN 21 creatinine 0.94. Patient is continued on Rocephin, gentamicin per Dr. Mendoza. Physical examination: Gen: This is an 82-year-old male in no acute distress VS: reviewed HEENT: Head is atraumatic, normocephalic. Pupils equal, round. Sclerae is anicteric. LUNGS: Clear to auscultation. No wheezes or rhonchi. No intercostal retractions. HEART: Irregular rate and rhythm. No murmur. EXTREMITIES: No pedal edema. No calf tenderness. NEUROLOGICAL: Patient is awake, alert and oriented x3. 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 Mendoza Patient will need follow-up with Dr. Baca as an outpatient. Further recommendations to follow based upon clinical course Nurse practitioner note has been reviewed, I agree with documented findings and plan of care. Patient was seen and examined. Objective - Vital Signs Vital signs: Vital Signs Temp 98 F 08/24/23 03:44 Pulse 70 08/24/23 03:44 Resp 16 08/24/23 03:44 BP 113/55 08/24/23 03:44 Pulse Ox 96 08/24/23 03:44 FiO2 Intake & Output 08/23/23 08/24/23 08/24/23 18:59 06:59 18:59 Intake Total 1200 0 Output Total 600 300 Balance 600 -300 Intake: IV 240 .9@10 240 Intake, IV Titration 200 Amount Gentamicin 100 mg In 100 Sodium Chloride 0.9% 100 ml @ 102.5 mls/hr IVPB Q12H [facility] Rx#:[id number] ceFAZolin 2 gm In Sodium 50 Chloride 0.9% 50 ml @ 100 mls/hr IVPB Q8HR [facility] Rx# :[id number] cefTRIAXone 2 gm In 50 Sodium Chloride 0.9% 50 ml @ 100 mls/hr IVPB Q24HR [facility] Rx#:[id number] Oral 760 0 Output: Urine 600 300 Other: Voiding Method Toilet Toilet Urinal Urinal # Voids 2 # Bowel Movements 0 - Labs CBC & Chem 7: 08/24/23 08:36 08/24/23 08:36 Labs: Microbiology - Last 24 Hours (Table) 08/23/23 00:20 Blood Culture - Preliminary Blood 08/18/23 13:04 Blood Culture - Final Blood 08/14/23 21:43 Blood Culture Gram Stain - Final Blood Blood Culture - Final Streptococcus viridans group Molecular ID
[2023-08-24] MEDS: POTASSIUM CHLORIDE ER 20 MEQ TAB.ER PO STA (10:44)
[2023-08-25] MEDS: GENTAMICIN TROUGH DUE 1 EACH MISC MISCELLANE ONE ×2 (06:08→17:44)
[2023-08-25 08:42] LABS: Basophils % (A) 0 %; Eosinophils % (A) 0 %; HCT 29.3 % (39.0-53.0); HGB 8.9 gm/dL (13.0-17.5); Hypochromasia Slight; Lymphocytes # (A) 0.6 k/uL (1.0-4.8); Lymphocytes % (A) 9 %; MCH 28.7 pg (25.0-35.0); MCHC 30.5 g/dL (31.0-37.0); Mean Platelet Volume 8.1; Monocytes # (A) 0.4 k/uL (0-1.0); Monocytes % (A) 6 %; Neutrophils # (A) 5.9 k/uL (1.3-7.7); Neutrophils % (A) 83 %; Platelet Count 225 k/uL (150-450); RBC 3.11 m/uL (4.30-5.90); WBC 7.1 k/uL (3.8-10.6)
[2023-08-25 09:14] LABS: ALT 65 U/L (4-49); AST 58 U/L (17-59); African American GFR (CKD) 88 (>60 ml/min/1.73 sqM); Albumin 2.9 g/dL (3.5-5.0); Alkaline Phosphatase 149 U/L (38-126); Anion Gap 4 mmol/L; Blood Urea Nitrogen 19 mg/dL (9-20); Calcium 8.5 mg/dL (8.4-10.2); Carbon Dioxide 26 mmol/L (22-30); Chloride 106 mmol/L (98-107); Glucose 130 mg/dL (74-99); Non-African American GFR(CKD) 76 (>60 ml/min/1.73 sqM); Sodium 136 mmol/L (137-145); Total Bilirubin 0.6 mg/dL (0.2-1.3); Total Protein 8.3 g/dL (6.3-8.2)
[2023-08-25] MEDS: GENTAMICIN PEAK DUE 1 EACH MISC MISCELLANE ONE ×2 (11:32→20:38)
[2023-08-25] MEDS: METOPROLOL SUCCINATE (ER) 25 MG TAB.ER.24H PO SCH (11:36)
--- NOTE | 2023-08-25 12:44 | P.PN ---
Subjective HISTORY OF PRESENT ILLNESS: This is an 82-year-old male patient of Dr. 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 Patient presented to the emergency center on 08/12 for weakness, right groin and right hip pain. We have been asked to evaluate the patient for new onset of atrial flutter. Patient has been seen by multiple consultants including oncology, GI, infectious disease. Blood culture was positive for Streptococcus viridans and workup in process for source. Patient also treated for severe anemia requiring blood transfusion of 2 units of P RBCs. No endoscopy was done on this hospitalization but patient was seen by GI. Plavix has been on hold. This morning, consult was placed for new onset of atrial flutter and patient was started on a heparin drip. Heart rates have been controlled in the 70s and 80s, blood pressure 114/69. EKG atrial fibrillation WBC 7.4, hemoglobin 9.5. Sodium 136, potassium 3.6, BUN 25 creatinine 1.12. ALT 53, alkaline phosphatase 133. Home cardiac medications: Aspirin 81 mg daily, Lipitor 40 mg at bedtime, Plavix 75 mg daily, ferrous sulfate 325 mg daily, Lasix 20 mg twice daily, Toprol-XL 12.5 mg twice daily, potassium chloride 20 mill equivalents daily. Echocardiogram performed at Dr. Baca's office on 06/23/2023 reveals EF of 65%, mild to moderate MR, moderate AR, normal functioning aortic valve. 08/20 Patient is seen today in follow-up. 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 Normal LV systolic function. Transcatheter aortic valve with mean gradient of 17 mmHg and moderate to severe regurgitation. Patient continues to spike fevers up to 103. Blood pressure 128/47, heart rate is 80, pulse ox 93% on room air. Pulse ox 93% on room air. Repeat blood work reveals WBC 8.9, hemoglobin 9.8. Creatinine 1.07. Discussed case with Dr. Mendoza and he will check for DVTs, and if this is negative, patient will require SONG. 08/21 Patient is seen today in follow-up. Dr. Mendoza had recommended an ultrasound duplex of the lower extremity which was negative for DVT. We will schedule pa aziza for SONG later today with Dr. Hahn. Patient has been kept NPO. Blood pressure 111/53, heart rate 83, pulse ox 97% on room air. Repeat blood work reveals BUN 24 creatinine 0.98. Patient remains in atrial fibrillation rate controlled. 08/22 Yesterday, patient underwent SONG which revealed a bioprosthetic Medtronic Evolate valve with normal positioning. 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 0.6 x 0.4 cm echodensity along the ventricular side of the right coronary cusp by prosthetic leaflet consistent with vegetation. No significant valvular regurgitation. Mitral valve appears to be normal with mild to moderate mitral regurgitation. Tricuspid valve is normal with mild tricuspid regurgitation. No PFO. Left appendage is free of clot. Patient was in atrial fibrillation throughout procedure. EF 55 to 60%. Results were discussed with Dr. Mendoza. Patient has been continued on treatment for bacteremia of unclear source. Patient denies having any chest pain or chest pressure. There was concern from nursing staff the patient had a complete heart block around 4 AM but it seems to be more of a sinoatrial block running in the 40s and 50s. Blood pressure 114/48, heart rate 68, pulse ox 99% on room air. Hemoglobin 9.1. WBC 9. Sodium 138, potassium 3.5, BUN 24 creatinine 0.96. ALT 59, alkaline phosphatase 130. 5/12 Patient denies any new concerns today. Heart rate has been running in the 60s and 70s, blood pressure 125/60. Pulse ox 97% on room air. Repeat blood work reveals hemoglobin of 8.3. Potassium 3.4, BUN 21 creatinine 0.94. Patient is continued on Rocephin, gentamicin per Dr. Mendoza. 08/25/2023 Patient examined this morning at the bedside. Patient denies chest pain or pressure. He denies shortness of breath. Patient states he is supposed to have a PICC line placed for outpatient antibiotics. Telemetry reveals sinus mechanism with heart rate in the 70s80s. No significant bradycardia has been noted. PHYSICAL EXAM: VITAL SIGNS: Reviewed. GENERAL: Well-developed in no acute distress. NECK: Supple. No JVD or thyromegaly LUNGS: Respirations even and unlabored. Lungs essentially clear to auscultation bilaterally. HEART: Regular rate and rhythm. S1 and S2 heard. Systolic murmur noted EXTREMITIES: Normal range of motion. No clubbing or cyanosis. Peripheral pulses intact. 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 Baca Nurse practitioner note has been reviewed by physician. Signing provider agrees with the documented findings, assessment, and plan of care documented by PROCESS ENG as a scribe. Objective - Vital Signs Vital signs: Vital Signs Temp 97.5 F L 08/25/23 08:00 Pulse 74 08/25/23 11:56 Resp 16 08/25/23 11:56 BP 117/60 08/25/23 11:56 Pulse Ox 96 08/25/23 11:56 FiO2 Intake & Output 08/24/23 08/25/23 08/25/23 18:59 06:59 18:59 Intake Total 1110 240 594 Output Total 1025 350 300 Balance 85 -110 294 Intake: IV 120 .9@10 120 Intake, IV Titration 150 Amount Gentamicin 80 mg In 100 Sodium Chloride 0.9% 100 ml @ 102 mls/hr IVPB Q12H [facility] Rx#:[id number] cefTRIAXone 2 gm In 50 Sodium Chloride 0.9% 50 ml @ 100 mls/hr IVPB Q24HR [facility] Rx#:[id number] Oral 840 240 594 Output: Urine 1025 350 300 Other: Voiding Method Toilet Toilet Toilet Urinal Urinal Urinal # Voids 1 1 # Bowel Movements 1 1 - Labs CBC & Chem 7: 08/25/23 07:58 08/25/23 07:58 Labs: Abnormal Lab Results - Last 24 Hours (Table) 08/25/23 08/25/23 Range/Units 07:58 07:58 RBC 3.11 L (4.30-5.90) m/uL Hgb 8.9 L (13.0-17.5) gm/dL Hct 29.3 L (39.0-53.0) % MCHC 30.5 L (31.0-37.0) g/dL Lymphocytes # 0.6 L (1.0-4.8) k/uL Sodium 136 L (137-145) mmol/L Glucose 130 H (74-99) mg/dL ALT 65 H (4-49) U/L Alkaline Phosphatase 149 H (38-126) U/L Total Protein 8.3 H (6.3-8.2) g/dL Albumin 2.9 L (3.5-5.0) g/dL Microbiology - Last 24 Hours (Table) 08/23/23 00:20 Blood Culture - Preliminary Blood
--- NOTE | 2023-08-25 12:59 | P.PN ---
Subjective Progress Note Date: 08/24/23 Principal diagnosis: Reason for follow-up is fever Patient is a 82-year-old male with a past medical history significant for hypertension hyperlipidemia peripheral neuropathy melanoma presented to the hospital for abdominal pain not feeling well decreased urine output patient was noticed to be febrile on presentation to the hospital CT abdominal pelvis did not show any acute abnormality. Patient did have a SONG with evidence of small vegetation on the bioprosthetic valve no mention of any abscess On today's evaluation that is 08/24/2023, Patient did have resolution of his fever and is afebrile this morning no fever was recorded last night patient is currently on room air and denies having any shortness of breath, the patient denies any chest pain or cough, the patient denies any nausea vomiting did not have any abdominal pain and no diarrhea still complaining of some lower back pain Patient did have white count 7.3, creatinine 0.94 Objective - Vital Signs Vital signs: Vital Signs Temp 98.1 F L 08/24/23 10:16 Pulse 77 08/24/23 10:16 Resp 16 08/24/23 10:16 BP 125/60 08/24/23 10:16 Pulse Ox 97 08/24/23 10:16 FiO2 - Exam GENERAL DESCRIPTION: An elderly male up in the chair in no distress RESPIRATORY SYSTEM: Unlabored breathing , decreased breath sounds at bases HEART: S1 S2 regular rate and rhythm , ABDOMEN: Soft , no tenderness EXTREMITIES: No edema feet Exam completed with the help of [employer] - Labs CBC & Chem 7: 08/25/23 07:58 08/25/23 07:58 Labs: Abnormal Lab Results - Last 24 Hours (Table) 08/25/23 08/25/23 Range/Units 07:58 07:58 RBC 3.11 L (4.30-5.90) m/uL Hgb 8.9 L (13.0-17.5) gm/dL Hct 29.3 L (39.0-53.0) % MCHC 30.5 L (31.0-37.0) g/dL Lymphocytes # 0.6 L (1.0-4.8) k/uL Sodium 136 L (137-145) mmol/L Glucose 130 H (74-99) mg/dL ALT 65 H (4-49) U/L Alkaline Phosphatase 149 H (38-126) U/L Total Protein 8.3 H (6.3-8.2) g/dL Albumin 2.9 L (3.5-5.0) g/dL Microbiology - Last 24 Hours (Table) 08/23/23 00:20 Blood Culture - Preliminary Blood Assessment and Plan (1) Fever Current Visit: Yes Status: Acute Code(s): R50.9 - FEVER, UNSPECIFIED SNOMED Code(s): 100719701 (2) Positive blood culture Current Visit: Yes Status: Acute Code(s): R78.81 - BACTEREMIA SNOMED Code(s): 783521166 (3) Endocarditis Current Visit: Yes Status: Acute Code(s): I38 - ENDOCARDITIS, VALVE UN SPECIFIED SNOMED Code(s): 21985734 Plan: 1patient with a fever in this patient admitted to hospital generalized weakness predominant abdominal symptoms with distention and constipation patient was noted to be anemic CT abdominal pelvis however did not show any acute abdominal process UA has been negative chest x-ray was reported negative, the patient did have a negative influenza RSV and COVID PCR 2-patient did have a procalcitonin 0.17, CRP is 5.1 blood culture with 2 different pathogen question of contamination repeat blood cultures currently pending 3-patient did have a fever with initial workup has been negative so far blood culture positive for Streptococcus viridans patient MRI of the back did not show any suspicious for discitis or osteomyelitis, 2D echocardiogram with no evidence of any vegetation bilateral leg Doppler has been negative as well, patient did have a SONG completed with evidence of vegetation on the bioprosthetic valve no mention of any abscess 4-patient did have resolution of his fever and we will continue patient on Rocephin 2 g daily and gentamicin pharmacy to dose PICC line has been ordered for tomorrow morning for outpatient IV antibiotics Dictation was produced using [email or web address] dictation software. please excuse any grammatical, word or spelling errors. Time with Patient: Less than 30
--- NOTE | 2023-08-25 13:00 | P.PN ---
Subjective Progress Note Date: 08/25/23 Principal diagnosis: Reason for follow-up is fever Patient is a 82-year-old male with a past medical history significant for hypertension hyperlipidemia peripheral neuropathy melanoma presented to the hospital for abdominal pain not feeling well decreased urine output patient was noticed to be febrile on presentation to the hospital CT abdominal pelvis did not show any acute abnormality. Patient did have a SONG with evidence of small vegetation on the bioprosthetic valve no mention of any abscess On today's evaluation that is 08/25/2023, patient has been afebrile, patient is breathing comfortably and is currently on room air, patient denies having any significant cough no chest pain shortness of breath, patient denies nausea vomiting or diarrhea and no abdominal pain mostly complaining of uncomfortable right and back pain and wants to get out of here his PICC line was canceled by vascular surgery today Patient did have white count of 7.1, creatinine 0.92 gentamicin peak and trough was 1.0 Objective - Vital Signs Vital signs: Vital Signs Temp 97.5 F L 08/25/23 08:00 Pulse 80 08/25/23 08:00 Resp 18 08/25/23 08:00 BP 129/68 08/25/23 08:00 Pulse Ox 97 08/25/23 08:00 FiO2 Intake & Output 08/24/23 08/25/23 08/25/23 18:59 06:59 18:59 Intake Total 1110 240 594 Output Total 1025 350 300 Balance 85 -110 294 Intake: IV 120 .9@10 120 Intake, IV Titration 150 Amount Gentamicin 80 mg In 100 Sodium Chloride 0.9% 100 ml @ 102 mls/hr IVPB Q12H [facility] Rx#:[id number] cefTRIAXone 2 gm In 50 Sodium Chloride 0.9% 50 ml @ 100 mls/hr IVPB Q24HR [facility] Rx#:[id number] Oral 840 240 594 Output: Urine 1025 350 300 Other: Voiding Method Toilet Toilet Toilet Urinal Urinal Urinal # Voids 1 1 # Bowel Movements 1 1 - Exam GENERAL DESCRIPTION: An elderly male up in the chair in no distress RESPIRATORY SYSTEM: Unlabored breathing , decreased breath sounds at bases HEART: S1 S2 regular rate and rhythm , ABDOMEN: Soft , no tenderness EXTREMITIES: No edema feet - Labs CBC & Chem 7: 08/25/23 07:58 08/25/23 07:58 Labs: Abnormal Lab Results - Last 24 Hours (Table) 08/25/23 08/25/23 Range/Units 07:58 07:58 RBC 3.11 L (4.30-5.90) m/uL Hgb 8.9 L (13.0-17.5) gm/dL Hct 29.3 L (39.0-53.0) % MCHC 30.5 L (31.0-37.0) g/dL Lymphocytes # 0.6 L (1.0-4.8) k/uL Sodium 136 L (137-145) mmol/L Glucose 130 H (74-99) mg/dL ALT 65 H (4-49) U/L Alkaline Phosphatase 149 H (38-126) U/L Total Protein 8.3 H (6.3-8.2) g/dL Albumin 2.9 L (3.5-5.0) g/dL Microbiology - Last 24 Hours (Table) 08/23/23 00:20 Blood Culture - Preliminary Blood Assessment and Plan (1) Fever Current Visit: Yes Status: Acute Code(s): R50.9 - FEVER, UNSPECIFIED SNOMED Code(s): 013332279 (2) Positive blood culture Current Visit: Yes Status: Acute Code(s): R78.81 - BACTEREMIA SNOMED Code(s): 921409184 (3) Endocarditis Current Visit: Yes Status: Acute Code(s): I38 - ENDOCARDITIS, VALVE UNSPECIFIED SNOMED Code(s): 63759399 Plan: 1patient with a fever in this patient admitted to hospital generalized weakness predominant abdominal symptoms with distention and constipation patient was noted to be anemic CT abdominal pelvis however did not show any acute abdominal process UA has been negative chest x-ray was reported negative, the patient did have a negative influenza RSV and COVID PCR 2-patient did have a procalcitonin 0.17, CRP is 5.1 blood culture with 2 different pathogen question of contamination repeat blood cultures currently pending 3-patient did have a fever with initial workup has been negative so far blood culture positive for Streptococcus viridans patient MRI of the back did not show any suspicious for discitis or osteomyelitis, 2D echocardiogram with no evidence of any vegetation bilateral leg Doppler has been negative as well, patient did have a SONG completed with evidence of vegetation on the bioprosthetic valve no m ention of any abscess 4-patient did have resolution of his fever and blood culture repeat has been n egative 5-we will continue patient on Rocephin 2 g daily and gentamicin pharmacy to dose prescription has been provided to the case hardener is currently waiting for PICC line which has been rescheduled for tomorrow morning per vascular surgery Dictation was produced using [employer] dictation software. please excuse any grammatical, word or spelling errors. Time with Patient: Less than 30
--- NOTE | 2023-08-25 13:37 | CDI ---
Documentation Clarification Form Date: 08/25/2023 01:02:01 PM From: Kaylen Hong RN CCDS Phone: [phone] Admit Date: 08/13/2023 09:28:00 PM Patient Name: Jonathon Mckay Visit Number: [id number] Discharge Date: ATTENTION: The Clinical Documentation Specialists (CDI) and [facility] Coding Staff appreciate your assistance in clarifying documentation. Please respond to the clarification below the line at the bottom and electronically sign. The CDI & [facility] Coding staff will review the response and follow-up if needed. Please note: Queries are made part of the Legal Health Record. If you have any questions, please contact the author of this message via ITS. Dr. Saul Mcadams The patients principal diagnosis the diagnosis that was chiefly responsible for the admission - has not been clearly identified and clarification is requested. The patient presented with Strep Bacteremia. History/Risk factors: 82-year old male presents to the ED with abdominal pain with a temperature of 101.2 Medical History: HLD, HTN, BPH, Malignant, Melanoma and CAD. 08/13, H&P. Clinical Indicators: VSS, 08/12: B/P 109/57; HR 60; Temp 101.2 F oral; RR 18; SpO2 95%ra BMI 27.9kg Lab finding 08/12: Wbc 8.8; Hgb 6.2; Blood culture: Streptococcus [facility] Molecular ID SONG, 08/21: There is a bioprosthetic [employer] Evolute valve with normal positioning. There is moderate to severe paravalvular aortic regurgitation at the 12-4 O'clock position.There is a 0.6 x 0.4cm echodenisty along the ventricular side of the right coronary cusp bioprosthetic leaflet consistent with a vegetation. ID note, 08/23: -patient did have a fever with initial workup has been negative so far blood culture positive for Streptococcus viridans patient MRI of the back did not show any suspicious for discitis or osteomyelitis, 2D echocardiogram with no evidence of any vegetation bilateral leg Doppler has been negative as well, patient did have a SONG completed with evidence of vegetation on the bioprosthetic valve no mention of any abscess Treatment:08/22 Ceftriaxone 2gm IVPB Q24H; 08/23 Gentamicin Sulfate 80mg ivpb Q12H; 08/13 08/16 Ampicillin 3gm IVPB Q6H; 08/22 Cefazolin 2gm IVPB x 1; 08/16 08/21 Ceftriaxone 2gm IVPB Q24H. In your professional opinion, can you please clarify which diagnosis, after study, was the reason chiefly responsible for the admission? 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
--- NOTE | 2023-08-25 15:27 | P.PN ---
Subjective Progress Note Date: 08/25/23 Jonathon Mckay, is an 82-year-old male we'll presented to [facility] emergency room with a chief complaint of abdominal pain He was evaluated in the emergency room vital examination on presentation revealed a temperature of 101.2 pulse 60 respiration 18 blood pressure 109/57 pulse ox 95% on room air Laboratory data revealed a white blood count of 8.8 hemoglobin 6.2 platelet count 270 sodium 135 potassium 4.5 chloride 101 CO2 22 BUN 19 creatinine 1.1 iron 26 Testing in the emergency room revealed computed tomography scan of the abdomen revealed no evidence for acute abdominal process moderate hiatal hernia infrarenal abdominal x-ray gentleman measuring 26 mm colonic diverticulosis mild splenomegaly and CVA degenerative changes throughout the spine. chest x-ray revealed no acute cardiopulmonary disease Patient was admitted to medical floor for further evaluation and treatment on 08/15/2023 patient is alert and oriented 3 currently sitting up in chair. Patient was evaluated by GI services continue symptomatic and supportive care at this time no plans for endoscopic evaluation. hemoglobin 9.2. Patient remains on IV Unasyn.current vital signs temp 98.3, heart rate 67, respiratory rate 16, blood pressure 121/62 with pulse ox 95% on room air. On 08/16/2023 patient was seen and examined on the medical floor he is alert and oriented 3 in no apparent distress he denies any complaints at this time there is no fever or chills no headache or dizziness no chest pain no shortness of breath no cough no nausea or vomiting no abdominal pain no diarrhea and no urinary symptoms. Vital examination reveals a temperature of 98.9 pulse 79 respiration 16 blood pressure 153/65 pulse ox 96% on room air. His white blood count is 6.3 hemoglobin 9.8 platelet count 217 Blood culture are positive for Streptococcus viridans, Patient is maintained on IV Unasyn hematology and infec tious disease are following. On 08/17/2023 patient was seen and examined on the medical floor he is alert and oriented and feeling well he denies any complaints at this time there is no fever or chills no headache or dizziness no chest pain no shortness of breath no cough no nausea or vomiting no abdominal pain no diarrhea no urinary symptoms. Patient had positive blood cultures and is maintained on IV Unasyn, infectious disease follow-up On 08/18/2023 patient was seen and examined on the medical floor he is alert and oriented 3 in no apparent distress he denies any complaints at this time there is no fever or chills no headache or dizziness no chest pain no shortness of breath no cough no nausea or vomiting no abdominal pain no diarrhea and no urinary symptoms. Blood culture are positive for Streptococcus viridans, Patient is maintained on IV Unasyn hematology and infectious disease are following. on 08/19/2023 patient is alert and oriented 3.patient getting MRI of the spine today. Patient has low-grade temp 100.2 last night. Current vital signs temp 98.6, heart 61, respiratory rate 18, blood pressure 139/72 with pulse ox 96% on room air. Patient denies chest pain or shortness of breath. Patient denies nausea vomiting or diarrhea. Patient denies any urinary burning or frequency.white blood cell 8.3 hemoglobin 10.2.patient's liver enzymes slightly elevated we'll hold scheduled Tylenol. Patient denies chest pain or shortness breath. Patient denies nausea vomiting or diarrhea. Patient denies any urinary burning or frequency On 08/19/2022 for patient's alert and oriented 3. Patient went into A. fib last night. Patient was started on heparin drip and cardiology services have been consulted. 2-D echo has also been ordered. Patient began having elevated temp at night. Denies any acute complaints.Mildly elevated liver enzymes will order liver ultrasound. Infectious disease cardiology and hematology services are following. Current vital signs temp 97.5, heart rate 82, respiratory rate 16, blood pressure 113/50 on 08/21/2023 patient was seen and examined on the medical he is alert and oriented 3 in no apparent distress, temperature is well-controlled today with the use of ibuprofen, T-max yesterday was 103 there is no headache or dizziness no chest pain no shortness of breath no cough no nausea or vomiting no abdominal pain no diarrhea and no urinary symptoms, cause of patient's recurrent episodes of fever is not clear, he remains on IV Rocephin, case was discussed in details with Dr. Mendoza infectious disease, plan is to request SONG at this time. on 08/22/2023 patient's alert and oriented 3. plans for SONG today.patient had temperature of 100.4 at 8:00 last night remains on IV antibiotics. Patient denies any chest pain or shortness of breath. Patient denies nausea vomiting or diarrhea. Patient denies any urinary burning or frequency on 08/23/2023 patient was seen and examined on the medical he is alert and oriented 3 in no apparent distress, temperature is well-controlled today with the use of ibuprofen, T-max yesterday was 101.7 there is no headache or dizziness no chest pain no shortness of breath no cough no nausea or vomiting no abdominal pain no diarrhea and no urinary symptoms, cause of patient's recurrent episodes of fever is not clear, he remains on IV Rocephin, case was discussed in details with Dr. Mendoza infectious disease, SONG was done yesterday revealed evidence of aortic valve vegetation, at this time we are waiting for PICC line placement, and recommendation from infectious disease for antibiotic at the time of discharge. On 08/24/2023 patient is alert and oriented x 3. Patient has been started on gentamicin per ID patient had no further episodes of fever last night. Awaiting further recommendations from infectious disease. Patient denies chest pain or shortness of breath. Patient denies nausea vomiting or diarrhea. Patient denies any urinary burning or frequency. Patient has been transitioned to p.o. Eliquis per cardiology on 08/25/2023, patient was seen and examined on the medical floor, he is alert and oriented 3 in no apparent distress, he denies any complaints at this time, there is no fever or chills no headache or dizziness no chest pain, no shortness of breath no cough no nausea or vomiting no abdominal pain no diarrhea and no urinary symptoms, at this time we are awaiting PICC line placement, and infectious disease recommendation for antibiotic at the time of discharge, possible discharge later today. Objective - Vital Signs Vital signs: Vital Signs Temp 98.1 F 08/25/23 04:00 Pulse 70 08/25/23 04:00 Resp 18 08/25/23 04:00 BP 134/76 08/25/23 04:00 Pulse Ox 95 08/25/23 04:00 FiO2 Intake & Output 08/24/23 08/25/23 08/25/23 18:59 06:59 18:59 Intake Total 1110 240 354 Output Total 1025 350 300 Balance 85 -110 54 Intake: IV 120 .9@10 120 Intake, IV Titration 150 Amount Gentamicin 80 mg In 100 Sodium Chloride 0.9% 100 ml @ 102 mls/hr IVPB Q12H [facility] Rx#:[id number] cefTRIAXone 2 gm In 50 Sodium Chloride 0.9% 50 ml @ 100 mls/hr IVPB Q24HR [facility] Rx#:[id number] Oral 840 240 354 Output: Urine 1025 350 300 Other: Voiding Method Toilet Toilet Urinal Urinal # Voids 1 # Bowel Movements 1 - Exam In general patient is alert and oriented x 3 in no distress HEENT head normocephalic and atraumatic Neck is supple no JVD no goiter no lymphadenopathy no carotid bruit Chest examination is clear to auscultation no crackles no wheezing Cardiac exam reveals regular heart sounds S1 and S2 no gallops no murmurs Abdomen is soft nontender no organomegaly with normal bowel sounds Extremity exam reveals no edema no cyanosis or clubbing Neurological examination reveals no gross focal deficits - Labs CBC & Chem 7: 08/25/23 07:58 08/24/23 08:36 Labs: Abnormal Lab Results - Last 24 Hours (Table) 08/24/23 08/24/23 Range/Units 08:36 08:36 RBC 2.83 L (4.30-5.90) m/uL Hgb 8.3 L (13.0-17.5) gm/dL Hct 26.7 L (39.0-53.0) % Lymphocytes # 0.5 L (1.0-4.8) k/uL Potassium 3.4 L (3.5-5.1) mmol/L Chloride 108 H (98-107) mmol/L BUN 21 H (9-20) mg/dL Glucose 119 H (74-99) mg/dL Calcium 8.1 L (8.4-10.2) mg/dL AST 61 H (17-59) U/L ALT 62 H (4-49) U/L Alkaline Phosphatase 133 H (38-126) U/L Albumin 2.6 L (3.5-5.0) g/dL Microbiology - Last 24 Hours (Table) 08/23/23 00:20 Blood Culture - Preliminary Blood Assessment and Plan Plan: febrile illness, cause of fever unclear, no evidence of urinary tract infection, no significant findings on chest x-ray and computed tomography scan of the abdomen, infectious disease consultation requested Severe anemia requiring red blood cell transfusion, GI consultation is requested underlying history of hyperlipidemia Underlying history of hypertension Underlying history of benign prostatic hypertrophy Underlying history of malignant melanoma Previous history of coronary artery disease, with history of angioplasty and stent placement maintained on Plavix 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 Patient started on heparin drip cardiology service is consulted elevated liver enzymes Positive blood culture. Infectious disease is following. Patient remains on Rocephin At this time patient was seen and examined Infectious disease, hematology and cardiology services consulted SONG has been ordered per cardiology and infectious disease Will follow closely
--- NOTE | 2023-08-26 09:17 | P.DS ---
Providers Date of admission: 08/13/23 21:28 Expected date of discharge: 08/26/23 Attending physician: Saul Mcadams Consults: 08/13/23 21:26 Consult Physician Routine Consulting Provider: Merlyn Duque Consult Reason/Comments: anemia Do you want consulting provider notified?: Yes 08/14/23 18:28 Consult Physician Routine Consulting Provider: Germán Mendoza Consult Reason/Comments: febrile illness Do you want consulting provider notified?: Yes 08/20/23 00:33 Consult Physician Routine Consulting Provider: Parish Hahn Consult Reason/Comments: new onset a flutter Do you want consulting provider notified?: Already Contacted 08/24/23 11:19 Consult Physician Routine Consulting Provider: Elzbieta Selby Consult Reason/Comments: PICC line insertion 08/25/2023-FRIDAY Do you want consulting provider notified?: Yes Primary care physician: Germán Mendoza Hospital Course: discharge diagnosis febrile illness, endocarditis Severe anemia requiring red blood cell transfusion, GI consultation is requested underlying history of hyperlipidemia Underlying history of hypertension Underlying history of benign prostatic hypertrophy Underlying history of malignant melanoma Previous history of coronary artery disease, with history of angioplasty and stent placement maintained on Plavix 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 Hospital course Jonathon Mckay, is an 82-year-old male we'll presented to [facility] emergency room with a chief complaint of abdominal pain He was evaluated in the emergency room vital examination on presentation revea led a temperature of 101.2 pulse 60 respiration 18 blood pressure 109/57 pulse ox 95% on room air Laboratory data revealed a white blood count of 8.8 hemoglobin 6.2 platelet count 270 sodium 135 potassium 4.5 chloride 101 CO2 22 BUN 19 creatinine 1.1 iron 26 Testing in the emergency room revealed computed tomography scan of the abdomen revealed no evidence for acute abdominal process moderate hiatal hernia infrarenal abdominal x-ray gentleman measuring 26 mm colonic diverticulosis mild splenomegaly and CVA degenerative changes throughout the spine. chest x-ray revealed no acute cardiopulmonary disease Patient was admitted to medical floor for further evaluation and treatment on 08/15/2023 patient is alert and oriented 3 currently sitting up in chair. Patient was evaluated by GI services continue symptomatic and supportive care at this time no plans for endoscopic evaluation. hemoglobin 9.2. Patient remains on IV Unasyn.current vital signs temp 98.3, heart rate 67, respiratory rate 16, blood pressure 121/62 with pulse ox 95% on room air. On 08/16/2023 patient was seen and examined on the medical floor he is alert and oriented 3 in no apparent distress he denies any complaints at this time there is no fever or chills no headache or dizziness no chest pain no shortness of breath no cough no nausea or vomiting no abdominal pain no diarrhea and no urinary symptoms. Vital examination reveals a temperature of 98.9 pulse 79 respiration 16 blood pressure 153/65 pulse ox 96% on room air. His white blood count is 6.3 hemoglobin 9.8 platelet count 217 Blood culture are positive for Streptococcus viridans, Patient is maintained on IV Unasyn hematology and infectious disease are following. On 08/17/2023 patient was seen and examined on the medical floor he is alert and oriented and feeling well he denies any complaints at this time there is no fever or chills no headache or dizziness no chest pain no shortness of breath no cough no nausea or vomiting no abdominal pain no diarrhea no urinary symptoms. Patient had positive blood cultures and is maintained on IV Unasyn, infectious disease follow-up On 08/18/2023 patient was seen and examined on the medical floor he is alert and oriented 3 in no apparent distress he denies any complaints at this time there is no fever or chills no headache or dizziness no chest pain no shortness of breath no cough no nausea or vomiting no abdominal pain no diarrhea and no urinary symptoms. Blood culture are positive for Streptococcus viridans, Patient is maintained on IV Unasyn hematology and infectious disease are following. on 08/19/2023 patient is alert and oriented 3.patient getting MRI of the spine today. Patient has low-grade temp 100.2 last night. Current vital signs temp 98.6, heart 61, respiratory rate 18, blood pressure 139/72 with pulse ox 96% on room air. Patient denies chest pain or shortness of breath. Patient denies nausea vomiting or diarrhea. Patient denies any urinary burning or frequency.white blood cell 8.3 hemoglobin 10.2.patient's liver enzymes slightly elevated we'll hold scheduled Tylenol. Patient denies chest pain or shortness breath. Patient denies nausea vomiting or diarrhea. Patient denies any urinary burning or frequency On 08/19/2022 for patient's alert and oriented 3. Patient went into A. fib last night. Patient was started on heparin drip and cardiology services have been consulted. 2-D echo has also been ordered. Patient began having elevated temp at night. Denies any acute complaints.Mildly elevated liver enzymes will order liver ultrasound. Infectious disease cardiology and hematology services are following. Current vital signs temp 97.5, heart rate 82, respiratory rate 16, blood pressure 113/50 on 08/21/2023 patient was seen and examined on the medical he is alert and oriented 3 in no apparent distress, temperature is well-controlled today with the use of ibuprofen, T-max yesterday was 103 there is no headache or dizziness no chest pain no shortness of breath no cough no nausea or vomiting no abdominal pain no diarrhea and no urinary symptoms, cause of patient's recurrent episodes of fever is not clear, he remains on IV Rocephin, case was discussed in details with Dr. Mendoza infectious disease, plan is to request SONG at this time. on 08/22/2023 patient's alert and oriented 3. plans for SONG today.patient had temperature of 100.4 at 8:00 last night remains on IV antibiotics. Patient denies any chest pain or shortness of breath. Patient denies nausea vomiting or diarrhea. Patient denies any urinary burning or frequency on 08/23/2023 patient was seen and examined on the medical he is alert and oriented 3 in no apparent distress, temperature is well-controlled today with the use of ibuprofen, T-max yesterday was 101.7 there is no headache or dizziness no chest pain no shortness of breath no cough no nausea or vomiting no abdominal pain no diarrhea and no urinary symptoms, cause of patient's recurrent episodes of fever is not clear, he remains on IV Rocephin, case was discussed in details with Dr. Mendoza infectious marisa, SONG was done yesterday revealed evidence of aortic valve vegetation, at this time we are waiting for PICC line placement, and recommendation from infectious disease for antibiotic at the time of discharge. On 08/24/2023 patient is alert and oriented x 3. Patient has been started on gentamicin per ID patient had no further episodes of fever last night. Awaiting further recommendations from infectious disease. Patient denies chest pain or shortness of breath. Patient denies nausea vomiting or diarrhea. Patient denies any urinary burning or frequency. Patient has been transitioned to p.o. Eliquis per cardiology on 08/25/2023, patient was seen and examined on the medical floor, he is alert and oriented 3 in no apparent distress, he denies any complaints at this time, there is no fever or chills no headache or dizziness no chest pain, no shortness of breath no cough no nausea or vomiting no abdominal pain no diarrhea and no urinary symptoms, at this time we are awaiting PICC line placement, and infectious disease recommendation for antibiotic at the time of discharge, possible discharge later today. on 08/26/2023 patient is alert and oriented 3 according to records case management has arranged all home antibiotic prescription sent per infectious disease patient will be DC'd on gentamicin patient to receive PICC line today prior to discharge. Patient denies chest pain or shortness of breath. Patient denies nausea vomiting or diarrhea. Patient denies any urinary burning or frequency. Patient has had no further episodes of fever Patient Condition at Discharge: Stable Plan - Discharge Summary New Discharge Prescriptions: New Apixaban [Eliquis] 5 mg PO BID #60 tab Metoprolol Succinate (ER) [Toprol XL] 12.5 mg PO DAILY 30 Days #30 tab Continue EPINEPHrine (Auto Inject) [Epipen] 0.3 mg IM ONCE PRN PRN Reason: Anaphylaxis Omega3/Dha/Epa/Fish Oil/Vit D3 [[place]-3 Plus Vitamin D3 Softgl] 1 cap PO DAILY Acetaminophen [Tylenol Arthritis] 650 mg PO BID Potassium Chloride ER [K-Dur 20] 20 meq PO DAILY Ferrous Sulfate [Iron (65 MG Elemental)] 325 mg PO DAILY Cyanocobalamin (Vitamin B-12) [Vitamin B-12] 1,000 mcg PO DAILY Tamsulosin HCl [Flomax] 0.4 mg PO DAILY Gabapentin 600 mg PO TID Mv-Min/Folic/K1/Lycopen/Lutein [Centrum Silver Men Tablet] 1 tab PO DAILY Furosemide [Lasix] 20 mg PO BID@0900,1600 Finasteride [Proscar] 5 mg PO DAILY Atorvastatin [Lipitor] 40 mg PO HS Omeprazole 40 mg PO BID Discontinued Metoprolol Succinate (ER) [Toprol Xl] 12.5 mg PO BID Clopidogrel [Plavix] 75 mg PO DAILY Aspirin EC [Ecotrin Low Dose] 81 mg PO DAILY No Action Amoxicillin 2,000 mg PO ONETIME PRN PRN Reason: prior to dental appointment Discharge Medication List Acetaminophen [Tylenol Arthritis] 650 mg PO BID 08/13/23 [History] Amoxicillin 2,000 mg PO ONETIME PRN 08/13/23 [History] Atorvastatin [Lipitor] 40 mg PO HS 08/13/23 [History] Cyanocobalamin (Vitamin B-12) [Vitamin B-12] 1,000 mcg PO DAILY 08/13/23 [History] EPINEPHrine (Auto Inject) [Epipen] 0.3 mg IM ONCE PRN 08/13/23 [History] Ferrous Sulfate [Iron (65 MG Elemental)] 325 mg PO DAILY 08/13/23 [History] Finasteride [Proscar] 5 mg PO DAILY 08/13/23 [History] Furosemide [Lasix] 20 mg PO BID@0900,1600 08/13/23 [History] Gabapentin 600 mg PO TID 08/13/23 [History] Mv-Min/Folic/K1/Lycopen/Lutein [Centrum Silver Men Tablet] 1 tab PO DAILY 08/13/23 [History] Omega3/Dha/Epa/Fish Oil/Vit D3 [[place]-3 Plus Vitamin D3 Softgl] 1 cap PO DAILY 08/13/23 [History] Omeprazole 40 mg PO BID 08/13/23 [History] Potassium Chloride ER [K-Dur 20] 20 meq PO DAILY 08/13/23 [History] Tamsulosin HCl [Flomax] 0.4 mg PO DAILY 08/13/23 [History] Apixaban [Eliquis] 5 mg PO BID #60 tab 08/20/23 [Rx] Metoprolol Succinate (ER) [Toprol XL] 12.5 mg PO DAILY 30 Days #30 tab 08/26/23 [Rx] Follow up Appointment(s)/Referral(s): Pravin Martins, [REFERRING] - Germán Mendoza MD [Primary Care Provider] - 1-2 days [facility] Visiting Nurse, [NON-STAFF] - 1 Week Patient Instructions/Handouts: Abdominal Pain (ED)
[2023-08-26] MEDS: LIDOCAINE 1% INJ 10MG/ML (20 ML MDV) SQ ONE (09:51)
--- NOTE | 2023-08-26 10:00 | P.OP ---
Date of Procedure: 08/26/23 Description of Procedure: Preoperative Diagnosis: Need for long-term IV antibiotic access. Postoperative Diagnosis: Same. Procedure(s) Performed: Ultrasound-guided cannulation left basilic vein. Insertion of peripherally inserted central catheter under fluoroscopic guidance. Anesthesia: local 1% lidocaine eve Surgeon: Bal Estimated Blood Loss (ml): 5 IV fluids (ml): 0 Urine output (ml): 0 Pathology: none sent Condition: stable Disposition: no change Indications for Procedure: Patient requires long-term IV antibiotics as an outpatient patient is offered a PICC line to allow for intravenous administration of antibiotics. Description of Procedure: Patient was brought to the special procedure suite. The left upper extremity sterilely prepped and draped in usual manner. Ultrasound was utilized to identify the basilic vein which was normally compressible free of visible thrombus. Permenant image was stored. 1% Xylocaine was utilized for local anesthesia tissues overlying the vein. Through this anesthetized area and with the aid of ultrasound a micropuncture needle was utilized to cannulate the vein. Once cannulated, Softip guidewire was advanced into the vein. The needle was withdrawn and a micropuncture sheath and dilator advanced over the guidewire. The guidewire was withdrawn and exchanged for the PICC guidewire and measured 45 cm to the cavoatrial junction. The catheter was cut to size and advanced into the cavoatrial junction without resistance. The sheath was peeled away. Blood was easily withdrawn through the catheter and the catheter was then flushed with heparinized saline solution and secured to the skin. Patient tolerated procedure well and was returned to their room in satisfactory and stable condition.
[2023-08-26 11:09] LABS: Basophils % (A) 0 %; Eosinophils % (A) 0 %; HCT 30.9 % (39.0-53.0); HGB 9.1 gm/dL (13.0-17.5); Hypochromasia Marked; Lymphocytes # (A) 0.6 k/uL (1.0-4.8); Lymphocytes % (A) 10 %; MCH 28.7 pg (25.0-35.0); MCHC 29.6 g/dL (31.0-37.0); MCV 97.1 fL (80.0-100.0); Mean Platelet Volume 7.9; Monocytes # (A) 0.4 k/uL (0-1.0); Monocytes % (A) 7 %; Neutrophils % (A) 80 %; Platelet Count 232 k/uL (150-450); RBC 3.18 m/uL (4.30-5.90); WBC 6.2 k/uL (3.8-10.6)
[2023-08-26 11:38] LABS: ALT 72 U/L (4-49); AST 56 U/L (17-59); African American GFR (CKD) 85 (>60 ml/min/1.73 sqM); Alkaline Phosphatase 148 U/L (38-126); Anion Gap 4 mmol/L; Blood Urea Nitrogen 21 mg/dL (9-20); Calcium 8.6 mg/dL (8.4-10.2); Carbon Dioxide 29 mmol/L (22-30); Chloride 103 mmol/L (98-107); Glucose 99 mg/dL (74-99); Non-African American GFR(CKD) 74 (>60 ml/min/1.73 sqM); Potassium 4.1 mmol/L (3.5-5.1); Sodium 136 mmol/L (137-145); Total Bilirubin 0.4 mg/dL (0.2-1.3); Total Protein 8.5 g/dL (6.3-8.2)
--- NOTE | 2023-08-26 11:52 | P.PN ---
Subjective HISTORY OF PRESENT ILLNESS: This is an 82-year-old male patient of Dr. 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 Patient presented to the emergency center on 08/12 for weakness, right groin and right hip pain. We have been asked to evaluate the patient for new onset of atrial flutter. Patient has been seen by multiple consultants including oncology, GI, infectious disease. Blood culture was positive for Streptococcus viridans and workup in process for source. Patient also treated for severe anemia requiring blood transfusion of 2 units of P RBCs. No endoscopy was done on this hospitalization but patient was seen by GI. Plavix has been on hold. This morning, consult was placed for new onset of atrial flutter and patient was started on a heparin drip. Heart rates have been controlled in the 70s and 80s, blood pressure 114/69. EKG atrial fibrillation WBC 7.4, hemoglobin 9.5. Sodium 136, potassium 3.6, BUN 25 creatinine 1.12. ALT 53, alkaline phosphatase 133. Home cardiac medications: Aspirin 81 mg daily, Lipitor 40 mg at bedtime, Plavix 75 mg daily, ferrous sulfate 325 mg daily, Lasix 20 mg twice daily, Toprol-XL 12.5 mg twice daily, potassium chloride 20 mill equivalents daily. Echocardiogram performed at Dr. Baca's office on 06/23/2023 reveals EF of 65%, mild to moderate MR, moderate AR, normal functioning aortic valve. 08/20 Patient is seen today in follow-up. Echocardiogram is much same as previously done at his ruby rails developer office. Normal LV systolic function. Transcatheter aortic valve with mean gradient of 17 mmHg and moderate to severe regurgitation. Patient continues to spike fevers up to 103. Blood pressure 128/47, heart rate is 80, pulse ox 93% on room air. Pulse ox 93% on room air. Repeat blood work reveals WBC 8.9, hemoglobin 9.8. Creatinine 1.07. Discussed case with Dr. Mendoza and he will check for DVTs, and if this is negative, patient will require SONG. 08/21 Patient is seen today in follow-up. Dr. Mendoza had recommended an ultrasound duplex of the lower extremity which was negative for DVT. We will schedule pa aziza for SONG later today with Dr. Hahn. Patient has been kept NPO. Blood pressure 111/53, heart rate 83, pulse ox 97% on room air. Repeat blood work reveals BUN 24 creatinine 0.98. Patient remains in atrial fibrillation rate controlled. 08/22 Yesterday, patient underwent SONG which revealed a bioprosthetic Medtronic Evolate valve with normal positioning. 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 0.6 x 0.4 cm echodensity along the ventricular side of the right coronary cusp by prosthetic leaflet consistent with vegetation. No significant valvular regurgitation. Mitral valve appears to be normal with mild to moderate mitral regurgitation. Tricuspid valve is normal with mild tricuspid regurgitation. No PFO. Left appendage is free of clot. Patient was in atrial fibrillation throughout procedure. EF 55 to 60%. Results were discussed with Dr. Mendoza. Patient has been continued on treatment for bacteremia of unclear source. Patient denies having any chest pain or chest pressure. There was concern from nursing staff the patient had a complete heart block around 4 AM but it seems to be more of a sinoatrial block running in the 40s and 50s. Blood pressure 114/48, heart rate 68, pulse ox 99% on room air. Hemoglobin 9.1. WBC 9. Sodium 138, potassium 3.5, BUN 24 creatinine 0.96. ALT 59, alkaline phosphatase 130. 5/12 Patient denies any new concerns today. Heart rate has been running in the 60s and 70s, blood pressure 125/60. Pulse ox 97% on room air. Repeat blood work reveals hemoglobin of 8.3. Potassium 3.4, BUN 21 creatinine 0.94. Patient is continued on Rocephin, gentamicin per Dr. Mendoza. 08/25/2023 Patient examined this morning at the bedside. Patient denies chest pain or pressure. He denies shortness of breath. Patient states he is supposed to have a PICC line placed for outpatient antibiotics. Telemetry reveals sinus mechanism with heart rate in the 70s80s. No significant bradycardia has been noted. 08/26/2023 Patient examined this morning at the bedside. Patient denies chest pain or pressure. He denies shortness of breath. Vital signs are stable. Patient received his PICC line and he is planning for discharge home this afternoon. PHYSICAL EXAM: VITAL SIGNS: Reviewed. GENERAL: Well-developed in no acute distress. NECK: Supple. No JVD or thyromegaly LUNGS: Respirations even and unlabored. Lungs essentially clear to auscultation bilaterally. HEART: Regular rate and rhythm. S1 and S2 heard. Systolic murmur noted EXTREMITIES: Normal range of motion. No clubbing or cyanosis. Peripheral pulses intact. 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 Baca Nurse practitioner note has been reviewed by physician. Signing provider agrees with the documented findings, assessment, and plan of care documented by [employer] as a scribe. Objective - Vital Signs Vital signs: Vital Signs Temp 97.5 F L 08/26/23 08:00 Pulse 66 08/26/23 08:00 Resp 18 08/26/23 08:00 BP 140/66 08/26/23 08:00 Pulse Ox 96 08/26/23 08:00 FiO2 Intake & Output 08/25/23 08/26/23 08/26/23 18:59 06:59 18:59 Intake Total 834 640 420 Output Total 600 550 400 Balance 234 90 20 Intake: Intake, IV Titration 100 Amount Gentamicin 80 mg In 100 Sodium Chloride 0.9% 100 ml @ 102 mls/hr IVPB Q12H [facility] Rx#:[id number] Oral [id number] Output: Urine 600 550 400 Other: Voiding Method Toilet Toilet Toilet Urinal Urinal Urinal # Voids 1 1 # Bowel Movements 1 - Labs CBC & Chem 7: 08/26/23 10:31 08/26/23 10:31 Labs: Abnormal Lab Results - Last 24 Hours (Table) 08/26/23 08/26/23 Range/Units 10:31 10:31 RBC 3.18 L (4.30-5.90) m/uL Hgb 9.1 L (13.0-17.5) gm/dL Hct 30.9 L (39.0-53.0) % MCHC 29.6 L (31.0-37.0) g/dL Lymphocytes # 0.6 L (1.0-4.8) k/uL Sodium 136 L (137-145) mmol/L BUN 21 H (9-20) mg/dL ALT 72 H (4-49) U/L Alkaline Phosphatase 148 H (38-126) U/L Total Protein 8.5 H (6.3-8.2) g/dL Albumin 3.0 L (3.5-5.0) g/dL Microbiology - Last 24 Hours (Table) 08/23/23 00:20 Blood Culture - Preliminary Blood
[2023-08-26 12:11] VITALS: RESP 16
--- NOTE | 2023-08-26 15:04 | P.PN ---
Subjective Progress Note Date: 08/26/23 Principal diagnosis: Reason for follow-up is fever Patient is a 82-year-old male with a past medical history significant for hypertension hyperlipidemia peripheral neuropathy melanoma presented to the hospital for abdominal pain not feeling well decreased urine output patient was noticed to be febrile on presentation to the hospital CT abdominal pelvis did not show any acute abnormality. Patient did have a SONG with evidence of small vegetation on the bioprosthetic valve no mention of any abscess On today's evaluation that is 08/26/2023,the patient denies any fever or any chills, patient is breathing comfortably on room air, the patient denies chest pain shortness of breath and no significant cough, patient denies abdominal pain, no nausea vomiting or diarrhea. Patient did get a PICC line this morning. The patient white count is 6.2 creatinine 0.95 blood culture repeat has been negative Objective - Vital Signs Vital signs: Vital Signs Temp 97.5 F L 08/26/23 08:00 Pulse 68 08/26/23 12:00 Resp 16 08/26/23 12:00 BP 127/73 08/26/23 12:00 Pulse Ox 96 08/26/23 12:00 FiO2 Intake & Output 08/25/23 08/26/23 08/26/23 18:59 06:59 18:59 Intake Total 834 640 420 Output Total 600 550 700 Balance 234 90 -280 Intake: Intake, IV Titration 100 Amount Gentamicin 80 mg In 100 Sodium Chloride 0.9% 100 ml @ 102 mls/hr IVPB Q12H [facility] Rx#:[id number] Oral 834 540 420 Output: Urine 600 550 700 Other: Voiding Method Toilet Toilet Toilet Urinal Urinal Urinal # Voids 1 1 1 # Bowel Movements 1 - Exam GENERAL DESCRIPTION: An elderly male up in the chair in no distress RESPIRATORY SYSTEM: Unlabored breathing , decreased breath sounds at bases HEART: S1 S2 regular rate and rhythm , ABDOMEN: Soft , no tenderness EXTREMITIES: No edema feet - Labs CBC & Chem 7: 08/26/23 10:31 08/26/23 10:31 Labs: Abnormal Lab Results - Last 24 Hours (Table) 08/26/23 08/26/23 Range/Units 10:31 10:31 RBC 3.18 L (4.30-5.90) m/uL Hgb 9.1 L (13.0-17.5) gm/dL Hct 30.9 L (39.0-53.0) % MCHC 29.6 L (31.0-37.0) g/dL Lymphocytes # 0.6 L (1.0-4.8) k/uL Sodium 136 L (137-145) mmol/L BUN 21 H (9-20) mg/dL ALT 72 H (4-49) U/L Alkaline Phosphatase 148 H (38-126) U/L Total Protein 8.5 H (6.3-8.2) g/dL Albumin 3.0 L (3.5-5.0) g/dL Microbiology - Last 24 Hours (Table) 08/23/23 00:20 Blood Culture - Preliminary Blood Assessment and Plan (1) Fever Current Visit: Yes Status: Acute Code(s): R50.9 - FEVER, UNSPECIFIED SNOMED Code(s): 067521451 (2) Positive blood culture Current Visit: Yes Status: Acute Code(s): R78.81 - BACTEREMIA SNOMED Code(s): 589271453 (3) Endocarditis Current Visit: Yes Status: Acute Code(s): I38 - ENDOCARDITIS, VALVE UNSPECIFIED SNOMED Code(s): 32701122 Plan: 1patient with a fever in this patient admitted to hospital generalized weakness predominant abdominal symptoms with distention and constipation patient was noted to be anemic CT abdominal pelvis however did not show any acute abdominal process UA has been negative chest x-ray was reported negative, the patient did have a negative influenza RSV and COVID PCR 2-patient did have a procalcitonin 0.17, CRP is 5.1 blood culture with 2 different pathogen question of contamination repeat blood cultures currently pending 3-patient did have a fever with initial workup has been negative so far blood culture positive for Streptococcus viridans patient MRI of the back did not show any suspicious for discitis or osteomyelitis, 2D echocardiogram with no evidence of any vegetation bilateral leg Doppler has been negative as well, patient did have a SONG completed with evidence of vegetation on the bioprosthetic valve no mention of any abscess 4-patient did have resolution of his fever and blood culture repeat has been negative, the patient did get a PICC line completed on 08/26/2023 5-plan is for Rocephin 2 g daily x 6-week and gentamicin pharmacy to dose x 2 weeks on discharge and close outpatient follow-up Dictation was produced using c-crowd dictation software. please excuse any grammatical, word or spelling errors. Time with Patient: Less than 30
--- NOTE | 2023-08-26 15:31 | IR ---
EXAMINATION TYPE: IR cvc insert >=5 years Intraoperative/procedural fluoroscopic services were provid ed. CLINICAL INDICATION:Male, 82 years old with history of SINGLE LUMEN PICC FOR ABX; fluoro time 1.1 / D AP 2.8312; , [facility] Fluoro time 1.1 min, 2.831 DAP Please see the operative/procedural note for further details.
[2023-08-26 16:40] VITALS: BP 132/73; PULSE 81; TEMP 97.9
== END 2023-08-26 17:45 | disposition home health service (06) | DRG 289 ==
LOC: EC 15:51 → 3SCARD 21:28 → 3NCARDOBS 08-19 03:47 → 3SCARD 08-19 03:51
PROVIDERS: ADMIT Internal Medicine; ATTEND Internal Medicine
PROC: 30233N1 Transfusion of Nonautologous Red Blood Cells into Peripheral Vein, Percutaneous Approach (ICD-10-PCS; 2023-08-13)
PROC: B246ZZ4 Ultrasonography of Right and Left Heart, Transesophageal (ICD-10-PCS; principal; 2023-08-22 14:30)
PROC: 02HV33Z Insertion of Infusion Device into Superior Vena Cava, Percutaneous Approach (ICD-10-PCS; 2023-08-26)
DX: I33.0 Acute and subacute infective endocarditis (principal); E85.4 Organ-limited amyloidosis; I43 Cardiomyopathy in diseases classified elsewhere; I48.92 Unspecified atrial flutter; I44.2 Atrioventricular block, complete; C88.0 Waldenstrom macroglobulinemia; I48.0 Paroxysmal atrial fibrillation; G62.9 Polyneuropathy, unspecified; B95.4 Other streptococcus as the cause of diseases classified elsewhere; I77.811 Abdominal aortic ectasia; D64.9 Anemia, unspecified; I10 Essential (primary) hypertension; Z95.2 Presence of prosthetic heart valve; I08.0 Rheumatic disorders of both mitral and aortic valves; K59.00 Constipation, unspecified; E78.5 Hyperlipidemia, unspecified; I25.10 Atherosclerotic heart disease of native coronary artery without angina pectoris; K44.9 Diaphragmatic hernia without obstruction or gangrene; K57.30 Diverticulosis of large intestine without perforation or abscess without bleeding; N40.0 Benign prostatic hyperplasia without lower urinary tract symptoms; M25.551 Pain in right hip; M54.50 Low back pain, unspecified; R16.1 Splenomegaly, not elsewhere classified; Z79.82 Long term (current) use of aspirin; Z79.02 Long term (current) use of antithrombotics/antiplatelets; Z79.899 Other long term (current) drug therapy; Z95.5 Presence of coronary angioplasty implant and graft; Z87.891 Personal history of nicotine dependence; Z85.820 Personal history of malignant melanoma of skin
CPT/HCPCS: 36415; 36573; 71045; 72158; 74018; 74177; 76705; 80048; 80053; 80170; 81003; 82607; 82728; 82746; 82784; 83010; 83540; 83550; 83605; 83615; 83735; 83883; 84100; 84145; 84165; 85025; 85045; 85610; 85652; 85730; 86140; 86850; 86900; 86901; 86920; 87040; 87077; 87186; 87636; 93306; 93312; 93320; 93325; 93970; 96365; 99285

== ENCOUNTER 2023-09-16 16:51 | Inpatient (IN) | payer MEDICARE, BC ==
--- NOTE | 2023-09-16 17:42 | ED ---
General Adult HPI - General Source: patient, family, RN notes reviewed Mode of arrival: wheelchair Limitations: no limitations <Agueda Carson - Last Filed: 09/16/23 17:40> <Jose Roberts - Last Filed: 09/17/23 00:46> - General Chief complaint: Recheck/Abnormal Lab/Rx Stated complaint: Abd Labs-sent by Dr Mendoza Time Seen by Provider: 09/16/23 17:11 - History of Present Illness Initial comments: Tosin bynum is an 83-year-old male presents emergency department chief complaint of abnormal labs. States that patient follows with Dr. Mendoza where his kidney function is tested weekly and family was informed that he has an increase in his serum creatinine and BUN as compared to last week. Patient currently has a PICC line in place and is receiving Rocephin due to a infection found of a TAVR valve placed in 2022. Currently patient is endorsing mild abdominal pain. (Agueda Carson) 83-year-old male with past medical history significant for TAVR presenting to the ED with complaint of abnormal labs. Patient recently discharged from this facility on 08/25 on treatment after finding vegetation of the aortic valve. Discharged home on gentamicin and Rocephin. Gentamicin was completed on 09/02. His still receiving 2 g of Rocephin through his PICC line. Had outpatient labs drawn today which showed abnormal kidney function and was advised to present to the ED for further evaluation. At this time patient has no current complaints. Denies chest pain. Denies fever or chills. No other complaints at this time. (Jose Roberts) - Related Data Home Medications Medication Instructions Recorded Confirmed Acetaminophen [Tylenol Arthritis] 650 mg PO BID 08/13/23 08/13/23 Amoxicillin 2,000 mg PO ONETIME PRN 08/13/23 08/13/23 Atorvastatin [Lipitor] 40 mg PO HS 08/13/23 08/13/23 Cyanocobalamin (Vitamin B-12) 1,000 mcg PO DAILY 08/13/23 08/13/23 [Vitamin B-12] EPINEPHrine (Auto Inject) [Epipen] 0.3 mg IM ONCE PRN 08/13/23 08/13/23 Ferrous Sulfate [Iron (65 MG 325 mg PO DAILY 08/13/23 08/13/23 Elemental)] Finasteride [Proscar] 5 mg PO DAILY 08/13/23 08/13/23 Furosemide [Lasix] 20 mg PO BID@0900,1600 08/13/23 08/13/23 Gabapentin 600 mg PO TID 08/13/23 08/13/23 Mv-Min/Folic/K1/Lycopen/Lutein 1 tab PO DAILY 08/13/23 08/13/23 [Centrum Silver Men Tablet] Omega3/Dha/Epa/Fish Oil/Vit D3 1 cap PO DAILY 08/13/23 08/13/23 [[place]-3 Plus Vitamin D3 Softgl] Omeprazole 40 mg PO BID 08/13/23 08/13/23 Potassium Chloride ER [K-Dur 20] 20 meq PO DAILY 08/13/23 08/13/23 Tamsulosin HCl [Flomax] 0.4 mg PO DAILY 08/13/23 08/13/23 Previous Rx's Medication Instructions Recorded Apixaban [Eliquis] 5 mg PO BID #60 tab 08/20/23 Metoprolol Succinate (ER) [Toprol 12.5 mg PO DAILY 30 Days #30 tab 08/26/23 XL] Allergies Allergy/AdvReac Type Severity Reaction Status Date / Time bee venom protein (honey bee) AdvReac Anaphylaxis Verified 09/16/23 17:15 /Swelling/R lawson Review of Systems ROS Other: All systems not noted in ROS Statement are negative. <Agueda Carson - Last Filed: 09/16/23 17:40> ROS Other: All systems not noted in ROS Statement are negative. <Jose Roberts - Last Filed: 09/17/23 00:46> ROS Statement: Those systems with pertinent positive or pertinent negative responses have been documented in the HPI. Past Medical History Past Medical History: Cancer, Hyperlipidemia, Hypertension Additional Past Medical History / Comment(s): melatoma, abnormal blood protein disorder, neuropathy History of Any Multi-Drug Resistant Organisms: None Reported Past Surgical History: Appendectomy, Cholecystectomy, Heart Catheterization Additional Past Surgical History / Comment(s): aortic valve placement Past Psychological History: No Psychological Hx Reported Smoking Status: Former smoker Past Alcohol Use History: None Reported Past Drug Use History: None Reported <Agueda Carson - Last Filed: 09/16/23 17:40> General Exam Limitations: no limitations <Agueda Carson - Last Filed: 09/16/23 17:40> General appearance: alert, in no apparent distress Eye exam: Present: normal appearance Neck exam: Present: normal inspection Respiratory exam: Present: normal lung sounds bilaterally Cardiovascular Exam: Present: regular rate, other (Murmur) GI/Abdominal exam: Present: soft, normal bowel sounds. Absent: distended, tenderness, guarding, rebound, rigid Extremities exam: Present: normal inspection Back exam: Present: normal inspection Neurological exam: Present: alert, oriented X3 Skin exam: Present: warm, rash <Jose Roberts - Last Filed: 09/17/23 00:46> - General Exam Comments Initial Comments: Visual Physical Exam Vital signs reviewed General: Well-appearing, nontoxic, no acute distress. Head: Normocephalic, atraumatic Eyes: PERRLA, EOMI ENT: Airway patent Chest: Nonlabored breathing Skin: No visual rash, normal skin tone Neuro: Alert and oriented 3 Musculoskeletal: No gross abnormalities (Agueda Carson) Course Vital Signs 09/16/23 09/16/23 09/16/23 17:12 20:33 23:38 Temperature 98 F Pulse Rate 71 66 72 Respiratory 18 18 18 Rate Blood Pressure 108/59 127/70 135/66 O2 Sat by Pulse 97 98 98 Oximetry Medical Decision Making <Agueda Casron - Last Filed: 09/16/23 17:40> - Lab Data Result diagrams: 09/16/23 20:33 09/16/23 20:33 <Jose Roberts - Last Filed: 09/17/23 00:46> - Medical Decision Making I completed the quick note portion of this chart signed Agueda Carson PA-C (Agueda Carson) Was pt. sent in by a medical professional or institution (NICOLE Burgos, STITCH BONDING MACHINE TENDER, urgent care, hospital, or residential...) When possible be specific @ -No Did you speak to anyone other than the patient for history (EMS, parent, family, police, friend...)? What history was obtained from this source @ -Spoke to with the patient's daughter who provided majority of history along with prior chart review. Did you review nursing and triage notes (agree or disagree)? Why? @ -I reviewed and agree with nursing and triage notes Were old charts reviewed (outside hosp., previous admission, EMS record, old EKG, old radiological studies, urgent care reports/EKG's, residential records)? Report findings @ -Prior chart reviewed. For further details please see HPI. Differential Diagnosis (chest pain, altered mental status, abdominal pain women, abdominal pain men, vaginal bleeding, weakness, fever, dyspnea, syncope, headache, dizziness, GI bleed, back pain, seizure, CVA, palpatations, mental health, musculoskeletal)? @ -Differential Chest Pain: Stable Angina, Unstable Angina, STEMI, NSTEMI Aortic Dissection, Pneumothorax, Musculoskeletal, Esophageal Spasm GERD, Cholecystitis, Pancreatitis, Zoster, this is not meant to be an all-inclusive list. EKG interpreted by me (3pts min.). @ -None X-rays interpreted by me (1pt min.). @ -None done CT interpreted by me (1pt min.). @ -None done U/S interpreted by me (1pt. min.). @ -None done What testing was considered but not performed or refused? (CT, X-rays, U/S, labs)? Why? @ -None What meds were considered but not given or refused? Why? @ -None Did you discuss the management of the patient with other professionals (professionals i.e. , PA, STITCH BONDING MACHINE TENDER, lab, RT, psych nurse, social media marketing manager, credit and collections analyst, teacher, hospital chief financial officer, nurse outreach case manager)? Give summary @ -No Was smoking cessation discussed for >3mins.? @ -No Was critical care preformed (if so, how long)? @ -No Were there social determinants of health that impacted care today? How? (Homele ssness, low income, unemployed, alcoholism, drug addiction, transportation, low edu. Level, literacy, decrease access to med. care, mcc, rehab)? @ -No Was there de-escalation of care discussed even if they declined (Discuss DNR or withdrawal of care, Hospice)? DNR status @ -No What co-morbidities impacted this encounter? (DM, HTN, Smoking, COPD, CAD, Cancer, CVA, ARF, Chemo, Hep., AIDS, mental health diagnosis, sleep apnea, morbid obesity)? @ -Hx TAVR, A-fib Was patient admitted / discharged? Hospital course, mention meds given and route, prescriptions, significant lab abnormalities, going to OR and other pertinent info. @ -Admission 83-year-old male recently discharged from this facility for treatment of aortic valve vegetation previously on gentamicin which was finished on 09/02 currently on Rocephin 2 g daily presenting to the ED with complaints of abnormal labs. W as noted to have abnormal kidney function. Laboratory studies here reviewed. Labs significant for an elevated BUN and creatinine at 41 and 2.34 respectively. Patient will be admitted for gentle IV hydration with consult to infectious disease regarding continued antibiotic use. Renal function. Undiagnosed new problem with uncertain prognosis? @ -No Drug Therapy requiring intensive monitoring for toxicity (Heparin, Nitro, Insulin, Cardizem)? @ -No Were any procedures done? @ -No Diagnosis/symptom? @ -Acute kidney injury Acute, or Chronic, or Acute on Chronic? @ -Acute Uncomplicated (without systemic symptoms) or Complicated (systemic symptoms)? @ -Uncomplicated Side effects of treatment? @ -No Exacerbation, Progression, or Severe Exacerbation? @ -No Poses a threat to life or bodily function? How? (Chest pain, [place], [place], pneumonia, PE, COPD, DKA, ARF, appy, cholecystitis, CVA, Diverticulitis, Homicidal, Suicidal, threat to staff... and all critical care pts) @ -Unlikely at this time (Jose Roberts) - Lab Data Lab Results 09/16/23 09/16/23 09/16/23 Range/Units 20:33 20:33 20:33 WBC 8.6 (3.8-10.6) k/uL RBC 2.80 L (4.30-5.90) m/uL Hgb 8.2 L (13.0-17.5) gm/dL Hct 26.5 L (39.0-53.0) % MCV 94.6 (80.0-100.0) fL MCH 29.3 (25.0-35.0) pg MCHC 30.9 L (31.0-37.0) g/dL RDW 17.5 H (11.5-15.5) % Plt Count 220 (150-450) k/uL MPV 8.5 Neutrophils % 83 % Lymphocytes % 10 % Monocytes % 4 % Eosinophils % 1 % Basophils % 0 % Neutrophils # 7.1 (1.3-7.7) k/uL Lymphocytes # 0.9 L (1.0-4.8) k/uL Monocytes # 0.3 (0-1.0) k/uL Eosinophils # 0.1 (0-0.7) k/uL Basophils # 0.0 (0-0.2) k/uL Anisocytosis Slight Macrocytosis Slight Sodium 136 L (137-145) mmol/L Potassium 4.4 (3.5-5.1) mmol/L Chloride 105 (98-107) mmol/L Carbon Dioxide 24 (22-30) mmol/L Anion Gap 7 mmol/L BUN 41 H (9-20) mg/dL Creatinine 2.34 H (0.66-1.25) mg/dL Est GFR (CKD-EPI)AfAm 28 (>60 ml/min/1.73 sqM) Est GFR (CKD-EPI)NonAf 24 (>60 ml/min/1.73 sqM) Glucose 112 H (74-99) mg/dL Plasma Lactic Acid Umesh 0.8 (0.7-2.0) mmol/L Calcium 9.2 (8.4-10.2) mg/dL Total Bilirubin 0.6 (0.2-1.3) mg/dL AST 23 (17-59) U/L ALT 15 (4-49) U/L Alkaline Phosphatase 122 (38-126) U/L Total Protein 8.6 H (6.3-8.2) g/dL Albumin 3.6 (3.5-5.0) g/dL Disposition <Agueda Carson - Last Filed: 09/16/23 17:40> Time of Disposition: 21:00 <Jose Roberts - Last Filed: 09/17/23 00:46> Clinical Impression: MARV (acute kidney injury) Disposition: ADMITTED IP TO THIS HOSP Referrals: Germán Mendoza MD [Primary Care Provider] - 1-2 days
[2023-09-16 20:45] LABS: Anisocytosis Slight; Basophils % (A) 0 %; Eosinophils # (A) 0.1 k/uL (0-0.7); Eosinophils % (A) 1 %; HCT 26.5 % (39.0-53.0); HGB 8.2 gm/dL (13.0-17.5); Lymphocytes # (A) 0.9 k/uL (1.0-4.8); Lymphocytes % (A) 10 %; MCH 29.3 pg (25.0-35.0); MCHC 30.9 g/dL (31.0-37.0); MCV 94.6 fL (80.0-100.0); Macrocytosis Slight; Mean Platelet Volume 8.5; Monocytes # (A) 0.3 k/uL (0-1.0); Monocytes % (A) 4 %; Neutrophils # (A) 7.1 k/uL (1.3-7.7); Neutrophils % (A) 83 %; Platelet Count 220 k/uL (150-450); RDW 17.5 % (11.5-15.5); WBC 8.6 k/uL (3.8-10.6)
[2023-09-16 20:52] LABS: ALT 15 U/L (4-49); AST 23 U/L (17-59); African American GFR (CKD) 28 (>60 ml/min/1.73 sqM); Albumin 3.6 g/dL (3.5-5.0); Alkaline Phosphatase 122 U/L (38-126); Anion Gap 7 mmol/L; Blood Urea Nitrogen 41 mg/dL (9-20); Calcium 9.2 mg/dL (8.4-10.2); Carbon Dioxide 24 mmol/L (22-30); Chloride 105 mmol/L (98-107); Glucose 112 mg/dL (74-99); Non-African American GFR(CKD) 24 (>60 ml/min/1.73 sqM); Potassium 4.4 mmol/L (3.5-5.1); Sodium 136 mmol/L (137-145); Total Bilirubin 0.6 mg/dL (0.2-1.3); Total Protein 8.6 g/dL (6.3-8.2)
[2023-09-17] MEDS ORDERED: NALOXONE 0.4 MG/ML 1 ML VIAL IV PRN (00:27)
[2023-09-17] MEDS: SODIUM CHLORIDE 0.9% 1,000 ML IV SCH (00:45)
[2023-09-17] MEDS: POTASSIUM CHLORIDE ER 20 MEQ TAB.ER PO SCH (09:47)
[2023-09-17] MEDS: APIXABAN 2.5 MG TABLET PO SCH (09:47)
[2023-09-17] MEDS: METOPROLOL SUCCINATE (ER) 25 MG TAB.ER.24H PO SCH (09:47)
[2023-09-17] MEDS: GABAPENTIN 300 MG CAP PO SCH (09:47)
[2023-09-17] MEDS: TAMSULOSIN 0.4 MG CAP.ER.24H PO SCH (09:48)
[2023-09-17] MEDS: ACETAMINOPHEN TAB 325 MG TAB PO SCH (09:48)
--- NOTE | 2023-09-17 10:37 | P.NPCON ---
History of Present Illness - Reason for Consult acute renal failure - History of Present Illness Reason for consultation: Acute kidney injury History of present illness: Patient is 83-year-old male seen in renal consultation for acute kidney injury. Patient's creatinine in August 2023 was near 0.9. Creatinine this admission dated September 16, 2023 was up to 2.34. Patient was sent to the hospital by infectious disease due to acute kidney injury. 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 Patient has been receiving IV antibiotics outpatient. It is noted the patient was on gentamicin and Rocephin. He is currently receiving IV fluids. Patient denies history of diabetes. I do see Lasix as well as potassium supplementation on his home medication list. I do not see any NSAIDs. Also no VANESSA inhibitors or ARB noted. Patient states he has been voiding. Hemodynamically stable. Vital signs are stable. General: No acute distress. HEENT: Head exam is unremarkable. LUNGS: No audible rhonchi or wheezes. HEART: Rate and Rhythm are regular. ABDOMEN: Nontender. EXTREMITITES: No edema. Past Medical History Past Medical History: Cancer, Hyperlipidemia, Hypertension Additional Past Medical History / Comment(s): melatoma, abnormal blood protein disorder, neuropathy History of Any Multi-Drug Resistant Organisms: None Reported Past Surgical History: Appendectomy, Cholecystectomy, Heart Catheterization Additional Past Surgical History / Comment(s): aortic valve placement Past Psychological History: No Psychological Hx Reported Smoking Status: Former smoker Past Alcohol Use History: None Reported Past Drug Use History: None Reported Medications and Allergies Home Medications Medication Instructions Recorded Confirmed Type Acetaminophen [Tylenol Arthritis] 650 mg PO BID 08/13/23 08/13/23 History Amoxicillin 2,000 mg PO ONETIME PRN 08/13/23 08/13/23 History Atorvastatin [Lipitor] 40 mg PO HS 08/13/23 08/13/23 History Cyanocobalamin (Vitamin B-12) 1,000 mcg PO DAILY 08/13/23 08/13/23 History [Vitamin B-12] EPINEPHrine (Auto Inject) [Epipen] 0.3 mg IM ONCE PRN 08/13/23 08/13/23 History Ferrous Sulfate [Iron (65 MG 325 mg PO DAILY 08/13/23 08/13/23 History Elemental)] Finasteride [Proscar] 5 mg PO DAILY 08/13/23 08/13/23 History Furosemide [Lasix] 20 mg PO BID@0900,1600 08/13/23 08/13/23 History Gabapentin 600 mg PO TID 08/13/23 08/13/23 History Mv-Min/Folic/K1/Lycopen/Lutein 1 tab PO DAILY 08/13/23 08/13/23 History [Centrum Silver Men Tablet] Omega3/Dha/Epa/Fish Oil/Vit D3 1 cap PO DAILY 08/13/23 08/13/23 History [[place]-3 Plus Vitamin D3 Softgl] Omeprazole 40 mg PO BID 08/13/23 08/13/23 History Potassium Chloride ER [K-Dur 20] 20 meq PO DAILY 08/13/23 08/13/23 History Tamsulosin HCl [Flomax] 0.4 mg PO DAILY 08/13/23 08/13/23 History Apixaban [Eliquis] 5 mg PO BID #60 tab 08/20/23 Rx Metoprolol Succinate (ER) [Toprol 12.5 mg PO DAILY 30 Days #30 tab 08/26/23 Rx XL] Allergies Allergy/AdvReac Type Severity Reaction Status Date / Time bee venom protein (honey bee) AdvReac Anaphylaxis Verified 09/16/23 17:15 /Swelling/R lawson Physical Exam Vitals: Vital Signs Temp Pulse Pulse Resp BP BP Pulse Ox 09/17/23 07:00 98.3 F 70 16 157/70 95 09/17/23 04:00 20 09/17/23 01:43 97.8 F 66 19 126/65 98 09/17/23 01:10 98.0 F 54 L 18 133/72 97 09/16/23 23:38 72 18 135/66 98 09/16/23 20:33 66 18 127/70 98 09/16/23 17:12 98 F 71 18 108/59 97 Intake and Output 09/16/23 09/17/23 09/17/23 22:59 06:59 14:59 Intake Total 730 Output Total 500 0 Balance -500 730 Intake: Intake, IV Titration 250 Amount Sodium Chloride 0.9% 1, 250 000 ml @ 50 mls/hr IV . Q20H [facility] Rx#:[id number] Oral 480 Output: Urine 500 0 Other: Voiding Method Urinal Weight 90.718 kg 90.718 kg Results - Lab Results Most recent lab results Calcium 9.2 mg/dL (8.4-10.2) 09/16/23 20:33 09/16/23 20:33 09/16/23 20:33 Assessment and Plan Plan: Assessment: 1. Acute kidney injury secondary to septic ATN versus gentamicin toxicity. Mat enciso is currently not on gentamicin. Baseline creatinine near 1 from August 2023. Creatinine 2.34 this admission. Rule out urinary retention. 2. 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 3. Benign hypertension. Stable. 4. Mild to moderate mitral regurgitation. Preserved EF. Plan: Increase rate of normal saline to 75 cc an hour. Check UA. Check renal ultrasound. Check bladder scan to rule out urinary retention. Stop potassium supplementation. Check gentamicin level. Check urine eosinophils. Avoid nephrotoxins. Continue to monitor renal function and urine output. Thank you for the consultation. I will continue to follow the patient with you during his hospital stay.
--- NOTE | 2023-09-17 11:23 | P.HPIM ---
History of Present Illness H&P Date: 09/17/23 This is a 83-year-old male patient who presented to The ER with concerns of elevated kidney enzymes. Patient follows with Dr. Mendoza where he is being treated for infectious endocarditis with IV Rocephin. Additional medical history includes hyperlipidemia, hypertension, aortic valve replacement and cholecystectomy.Labwork feeling a creatinine of 2.34 bun 41 white blood cell 8.2. At this time patient will be admitted patient started on IV fluid nephrology and Infectious disease consultanted. Patient continued on IV Rocephin through PICC line. At this time patient denies chest pain or shortness of breath. Patient denies nausea vomiting or diarrhea. Patient denies any urinary burning or frequency. Review of Systems please refer to HPI otherwise unremarkable Past Medical History Past Medical History: Cancer, Hyperlipidemia, Hypertension Additional Past Medical History / Comment(s): melatoma, abnormal blood protein disorder, neuropathy History of Any Multi-Drug Resistant Organisms: None Reported Past Surgical History: Appendectomy, Cholecystectomy, Heart Catheterization Additional Past Surgical History / Comment(s): aortic valve placement Past Psychological History: No Psychological Hx Reported Smoking Status: Former smoker Past Alcohol Use History: None Reported Past Drug Use History: None Reported Medications and Allergies Home Medications Medication Instructions Recorded Confirmed Type Acetaminophen [Tylenol Arthritis] 650 mg PO BID 08/13/23 08/13/23 History Amoxicillin 2,000 mg PO ONETIME PRN 08/13/23 08/13/23 History Atorvastatin [Lipitor] 40 mg PO HS 08/13/23 08/13/23 History Cyanocobalamin (Vitamin B-12) 1,000 mcg PO DAILY 08/13/23 08/13/23 History [Vitamin B-12] EPINEPHrine (Auto Inject) [Epipen] 0.3 mg IM ONCE PRN 08/13/23 08/13/23 History Ferrous Sulfate [Iron (65 MG 325 mg PO DAILY 08/13/23 08/13/23 History Elemental)] Finasteride [Proscar] 5 mg PO DAILY 08/13/23 08/13/23 History Furosemide [Lasix] 20 mg PO BID@0900,1600 08/13/23 08/13/23 History Gabapentin 600 mg PO TID 08/13/23 08/13/23 History Mv-Min/Folic/K1/Lycopen/Lutein 1 tab PO DAILY 08/13/23 08/13/23 History [Centrum Silver Men Tablet] Omega3/Dha/Epa/Fish Oil/Vit D3 1 cap PO DAILY 08/13/23 08/13/23 History [[place]-3 Plus Vitamin D3 Softgl] Omeprazole 40 mg PO BID 08/13/23 08/13/23 History Potassium Chloride ER [K-Dur 20] 20 meq PO DAILY 08/13/23 08/13/23 History Tamsulosin HCl [Flomax] 0.4 mg PO DAILY 08/13/23 08/13/23 History Apixaban [Eliquis] 5 mg PO BID #60 tab 08/20/23 Rx Metoprolol Succinate (ER) [Toprol 12.5 mg PO DAILY 30 Days #30 tab 08/26/23 Rx XL] Allergies Allergy/AdvReac Type Severity Reaction Status Date / Time bee venom protein (honey bee) AdvReac Anaphylaxis Verified 09/16/23 17:15 /Swelling/R lawson Physical Exam Vitals: Vital Signs Temp Pulse Pulse Resp BP BP Pulse Ox 09/17/23 07:00 98.3 F 70 16 157/70 95 09/17/23 04:00 20 09/17/23 01:43 97.8 F 66 19 126/65 98 09/17/23 01:10 98.0 F 54 L 18 133/72 97 09/16/23 23:38 72 18 135/66 98 09/16/23 20:33 66 18 127/70 98 09/16/23 17:12 98 F 71 18 108/59 97 Intake and Output 09/16/23 09/17/23 09/17/23 22:59 06:59 14:59 Intake Total 730 Output Total 500 0 Balance -500 730 Intake: Intake, IV Titration 250 Amount Sodium Chloride 0.9% 1, 250 000 ml @ 50 mls/hr IV . Q20H [facility] Rx#:[id number] Oral 480 Output: Urine 500 0 Other: Voiding Method Urinal Weight 90.718 kg 90.718 kg Head normocephalic Neck supple Lungs clear to auscultation bilaterally no wheezing or crackles Heart regular rate and rhythm S1-S2, no rub or gallop Abdomen is soft nontender nondistended positive bowel sounds no hepatosplenomegaly Extremities no edema Neuro alert and orientated to 3 Results CBC & Chem 7: 09/16/23 20:33 09/16/23 20:33 Labs: Abnormal Lab Results - Last 24 Hours (Table) 09/16/23 09/16/23 Range/Units 20:33 20:33 RBC 2.80 L (4.30-5.90) m/uL Hgb 8.2 L (13.0-17.5) gm/dL Hct 26.5 L (39.0-53.0) % MCHC 30.9 L (31.0-37.0) g/dL RDW 17.5 H (11.5-15.5) % Lymphocytes # 0.9 L (1.0-4.8) k/uL Sodium 136 L (137-145) mmol/L BUN 41 H (9-20) mg/dL Creatinine 2.34 H (0.66-1.25) mg/dL Glucose 112 H (74-99) mg/dL Total Protein 8.6 H (6.3-8.2) g/dL Thrombosis Risk Factor Assmnt - Choose All That Apply Any of the Below Risk Factors Present?: Yes Each Factor Represents 1 point: Swollen legs (current) Other Risk Factors: Yes Each Risk Factor Represents 3 Points: Age 75 years or older Other congenital or acquired thrombophilia - If yes, enter type in comment: No Thrombosis Risk Factor Assessment Total Risk Factor Score: 4 Thrombosis Risk Factor Assessment Level: Moderate Risk Assessment and Plan Assessment: 1. Acute kidney injury 2. Recent diagnosis of infectious endocarditis patient was discharged on IV antibiotic Rocephin 3. History of atrial flutter 4. History of TAVR in August 2022 5. History of coronary artery disease with history of angioplasty and stent pl acement 6. History of BPH 7. History of essential hypertension 8. History of hyperlipidemia DVT prophylaxis eliquis. GI prophylaxis Protonix Nephrology infectious disease service is consulted Patient maintained on IV Rocephin Ultrasound of bladder renal and kidneys ordered Patient maintained on IV fluid Repeat labs ordered Time with Patient: Greater than 30 (Greater than 60% of the total time spent in counseling and coordination of care)
--- NOTE | 2023-09-17 13:44 | US ---
EXAMINATION TYPE: US kidneys/renal and bladder DATE OF EXAM: 09/17/2023 COMPARISON: CT: 08/13/23 CLINICAL INDICATION: Male, 83 years old with history of colleen; colleen EXAM MEASUREMENTS: Right Kidney: 12.1 x 5.8 x 5.6 cm Left Kidney: 12.7 x 5.6 x 5.4 cm Right Kidney: No hydronephrosis or masses seen Left Kidney: 2 cystic areas seen. Largest is medially measuring 4.6 x 4.0 x 6.1cm Bladder: wnl Bilateral Jets seen: Only left jet seen. There is no evidence for hydronephrosis at this point in time. No nephrolithiasis is seen. No karen s are identified. The urinary bladder is anechoic. Bilateral ureteral jets are seen. IMPRESSION: 1. No evidence for obstructive uropathy. 2. Cortical medullary differentiation is maintained. 3. Left renal simple cysts.
[2023-09-17] MEDS: ACETAMINOPHEN TAB 325 MG TAB PO PRN (14:25)
[2023-09-17] MEDS: FUROSEMIDE 20 MG TAB PO SCH (14:31)
[2023-09-17 14:39] LABS: Anisocytosis Slight; Basophils % (A) 0 %; Eosinophils % (A) 1 %; HCT 25.3 % (39.0-53.0); HGB 7.8 gm/dL (13.0-17.5); Hypochromasia Slight; Lymphocytes # (A) 0.6 k/uL (1.0-4.8); Lymphocytes % (A) 10 %; MCH 29.4 pg (25.0-35.0); MCHC 30.9 g/dL (31.0-37.0); MCV 94.9 fL (80.0-100.0); Macrocytosis Slight; Monocytes # (A) 0.4 k/uL (0-1.0); Monocytes % (A) 7 %; Neutrophils # (A) 5.2 k/uL (1.3-7.7); Neutrophils % (A) 80 %; Platelet Count 193 k/uL (150-450); RBC 2.66 m/uL (4.30-5.90); RDW 17.6 % (11.5-15.5); WBC 6.5 k/uL (3.8-10.6)
[2023-09-17 15:07] LABS: ALT 14 U/L (4-49); AST 23 U/L (17-59); African American GFR (CKD) 30 (>60 ml/min/1.73 sqM); Albumin 3.1 g/dL (3.5-5.0); Alkaline Phosphatase 112 U/L (38-126); Anion Gap 7 mmol/L; Blood Urea Nitrogen 34 mg/dL (9-20); Calcium 9.2 mg/dL (8.4-10.2); Carbon Dioxide 23 mmol/L (22-30); Chloride 107 mmol/L (98-107); Glucose 103 mg/dL (74-99); Non-African American GFR(CKD) 26 (>60 ml/min/1.73 sqM); Potassium 4.4 mmol/L (3.5-5.1); Sodium 137 mmol/L (137-145); Total Bilirubin 0.4 mg/dL (0.2-1.3); Total Protein 7.5 g/dL (6.3-8.2)
[2023-09-17 15:12] LABS: Gentamicin,Random <0.6 ug/mL
[2023-09-17 17:40] LABS: Appearance,Urine Clear (Clear); Bacteria,Urine Rare /hpf; Bilirubin,Urine Negative (Negative); Blood,Urine Small (Negative); Color,Urine Colorless; Glucose,Urine (UA) Negative (Negative); Ketones,Urine Negative (Negative); Leukocyte Esterase,Urine Negative (Negative); Nitrite,Urine Negative (Negative); PH, Urine 5.5 (5.0-8.0); Protein,Urine Trace (Negative); RBC,Urine <1 /hpf (0-5); Specific Gravity,Urine 1.011 (1.001-1.035); Urobilinogen,Urine <2.0 mg/dL (<2.0); WBC,Urine 1 /hpf (0-5)
[2023-09-17] MEDS: PANTOPRAZOLE 40 MG TABLET PO SCH (17:42)
[2023-09-17] MEDS: ATORVASTATIN 40 MG TAB PO SCH (21:12)
--- NOTE | 2023-09-17 22:30 | P.CONS ---
History of Present Illness - Reason for Consult Consult date: 09/17/23 - History of Present Illness Patient is 83-year-old male with a past medical history significant for hypertension hyperlipidemia melanoma recent admission to the hospital with a fever workup did shows evidence of aortic valve endocarditis, patient blood culture positive for Streptococcus viridans patient was advised a 6-week course of Rocephin 2 g daily and a 2-week course of gentamicin for synergy, which the patient completed more than a week ago patient did have weekly monitoring of his blood work and he was noticed to have his creatinine up to 2.36 for the patient was called to come back to the hospital per discussion with the daughter on the phone yesterday patient seem to be slightly more sleepy and weak over the last few days patient however denies having any fever or any chills denies any headac he or URI symptoms no chest pain shortness of breath or cough no nausea vomiting abdominal pain or diarrhea no difficulty urination on presentation to the hospital the patient was afebrile and no fever have been ordered subsequently patient was not tachycardic hypotensive or hypoxic patient did have a white count of 8.6 creatinine of 2.34 urine has been negative, gentamicin random of less than 0.6 patient has been admitted to the hospital infectious was consulted for management of antibiotic before Endocarditis Past Medical History Past Medical History: Cancer, Hyperlipidemia, Hypertension Additional Past Medical History / Comment(s): melatoma, abnormal blood protein disorder, neuropathy History of Any Multi-Drug Resistant Organisms: None Reported Past Surgical History: Appendectomy, Cholecystectomy, Heart Catheterization Additional Past Surgical History / Comment(s): aortic valve placement Past Psychological History: No Psychological Hx Reported Smoking Status: Former smoker Past Alcohol Use History: None Reported Past Drug Use History: None Reported Medications and Allergies Home Medications Medication Instructions Recorded Confirmed Type Acetaminophen [Tylenol Arthritis] 650 mg PO BID 08/13/23 09/17/23 History Amoxicillin 2,000 mg PO ONETIME PRN 08/13/23 09/17/23 History Atorvastatin [Lipitor] 40 mg PO HS 08/13/23 09/17/23 History Cyanocobalamin (Vitamin B-12) 1,000 mcg PO DAILY 08/13/23 09/17/23 History [Vitamin B-12] EPINEPHrine (Auto Inject) [Epipen] 0.3 mg IM ONCE PRN 08/13/23 09/17/23 History Ferrous Sulfate [Iron (65 MG 325 mg PO DAILY 08/13/23 09/17/23 History Elemental)] Finasteride [Proscar] 5 mg PO DAILY 08/13/23 09/17/23 History Furosemide [Lasix] 20 mg PO BID@0900,1600 08/13/23 09/17/23 History Gabapentin 600 mg PO TID 08/13/23 09/17/23 History Mv-Min/Folic/K1/Lycopen/Lutein 1 tab PO DAILY 08/13/23 09/17/23 History [Centrum Silver Men Tablet] Omega3/Dha/Epa/Fish Oil/Vit D3 1 cap PO DAILY 08/13/23 09/17/23 History [Allred-3 Plus Vitamin D3 Softgl] Omeprazole 40 mg PO BID 08/13/23 09/17/23 History Potassium Chloride ER [K-Dur 20] 20 meq PO DAILY 08/13/23 09/17/23 History Tamsulosin HCl [Flomax] 0.4 mg PO DAILY 08/13/23 09/17/23 History Apixaban [Eliquis] 5 mg PO BID #60 tab 08/20/23 09/17/23 Rx Metoprolol Succinate (ER) [Toprol 12.5 mg PO DAILY 30 Days #30 tab 08/26/23 09/17/23 Rx XL] Cholestyramine (with Sugar) 4 gm PO BID PRN 09/17/23 09/17/23 History [Cholestyramine Packet] cefTRIAXone [Rocephin] 2 gm IVPB Q24H 09/17/23 09/17/23 History Allergies Allergy/AdvReac Type Severity Reaction Status Date / Time bee venom protein (honey bee) AdvReac Anaphylaxis Verified 09/17/23 12:37 /Swelling/R lawson Physical Exam Vitals: Vital Signs Temp Pulse Pulse Resp BP BP Pulse Ox 09/17/23 07:00 98.3 F 70 16 157/70 95 09/17/23 04:00 20 09/17/23 01:43 97.8 F 66 19 126/65 98 09/17/23 01:10 98.0 F 54 L 18 133/72 97 09/16/23 23:38 72 18 135/66 98 09/16/23 20:33 66 18 127/70 98 09/16/23 17:12 98 F 71 18 108/59 97 Intake and Output 09/16/23 09/17/23 09/17/23 22:59 06:59 14:59 Intake Total 730 Output Total 500 0 Balance -500 730 Intake: Intake, IV Titration 250 Amount Sodium Chloride 0.9% 1, 250 000 ml @ 50 mls/hr IV . Q20H KELLEY Rx#:[id number] Oral 480 Output: Urine 500 0 Other: Voiding Method Urinal Weight 90.718 kg 90.718 kg Results CBC & Chem 7: 09/17/23 13:59 09/17/23 13:59 Labs: Abnormal Lab Results - Last 24 Hours (Table) 09/16/23 09/16/23 Range/Units 20:33 20:33 RBC 2.80 L (4.30-5.90) m/uL Hgb 8.2 L (13.0-17.5) gm/dL Hct 26.5 L (39.0-53.0) % MCHC 30.9 L (31.0-37.0) g/dL RDW 17.5 H (11.5-15.5) % Lymphocytes # 0.9 L (1.0-4.8) k/uL Sodium 136 L (137-145) mmol/L BUN 41 H (9-20) mg/dL Creatinine 2.34 H (0.66-1.25) mg/dL Glucose 112 H (74-99) mg/dL Total Protein 8.6 H (6.3-8.2) g/dL Assessment and Plan Plan: 1patient with recent diagnosis of bioprosthetic aortic valve endocarditis blood culture positive for strep viridans and the patient is on Rocephin x 6 weeks and already completed a 2-week course of gentamicin patient not developing nephrotoxicity required admission to the hospital for the patient has been evaluated by nephrology did have some improvement in the creatinine today compared to yesterday and patient making good urine 2-I have started the patient on Rocephin 2 g daily to finish a 6-week course of therapy for his endocarditis Daughter at the bedside multiple question concern answered We will follow on clinical condition and cultures to further adjust medication if needed Thank you for this consultation we will follow the patient along with you Dictation was produced using [employer] software. please excuse any grammatical, word or spelling errors. Time with Patient: Greater than 30
[2023-09-18 07:08] LABS: ALT 14 U/L (4-49); AST 26 U/L (17-59); African American GFR (CKD) 32 (>60 ml/min/1.73 sqM); Albumin 3.2 g/dL (3.5-5.0); Alkaline Phosphatase 123 U/L (38-126); Anion Gap 5 mmol/L; Blood Urea Nitrogen 29 mg/dL (9-20); Carbon Dioxide 26 mmol/L (22-30); Chloride 107 mmol/L (98-107); Glucose 97 mg/dL (74-99); Magnesium 1.8 mg/dL (1.6-2.3); Non-African American GFR(CKD) 27 (>60 ml/min/1.73 sqM); Potassium 4.1 mmol/L (3.5-5.1); Sodium 138 mmol/L (137-145); Total Bilirubin 0.6 mg/dL (0.2-1.3); Total Protein 7.7 g/dL (6.3-8.2)
[2023-09-18] MEDS ORDERED: PANTOPRAZOLE 40 MG TABLET PO SCH (07:30)
[2023-09-18] MEDS ORDERED: DHA PO SCH (09:00)
[2023-09-18] MEDS ORDERED: EPA PO SCH (09:00)
[2023-09-18] MEDS ORDERED: FISH OIL PO SCH (09:00)
[2023-09-18] MEDS ORDERED: [UNRECOGNIZED DRUG - OTHER] PO SCH (09:00)
[2023-09-18] MEDS ORDERED: VIT D3 PO SCH (09:00)
[2023-09-18] MEDS ORDERED: OMEGA3 PO SCH (09:00)
[2023-09-18] MEDS: MULTIVITAMINS, THERA 1 EACH TAB PO SCH (10:21)
[2023-09-18] MEDS: FINASTERIDE 5 MG TAB PO SCH (10:21)
[2023-09-18] MEDS: FERROUS SULFATE 325 MG TAB PO SCH (10:22)
[2023-09-18] MEDS: CYANOCOBALAMIN 500 MCG TAB PO SCH (10:22)
--- NOTE | 2023-09-18 10:35 | P.PN ---
Subjective Patient is seen in follow-up for acute kidney injury. Renal function fairly stable. Nonoliguric. Receiving IV fluids. Oral intake fair. Hemodynamically stable. Vital signs are stable. General: No acute distress. HEENT: Head exam is unremarkable. LUNGS: No audible rhonchi or wheezes. HEART: Rate and Rhythm are regular. ABDOMEN: Nontender. EXTREMITITES: No edema. Objective - Vital Signs Vital signs: Vital Signs Temp 98.7 F 09/18/23 07:00 Pulse 66 09/18/23 07:00 Resp 16 09/18/23 07:00 BP 140/64 09/18/23 07:00 Pulse Ox 98 09/18/23 07:00 FiO2 Intake & Output 09/17/23 09/18/23 09/18/23 18:59 06:59 18:59 Intake Total 780 300 Output Total 629 900 Balance 151 -600 Intake: Oral 780 300 Output: Urine 450 900 Post Void Residual 179 Other: Voiding Method Incontinent Incontinent External Catheter External Catheter # Voids 2 - Labs CBC & Chem 7: 09/17/23 13:59 09/18/23 06:12 Labs: Abnormal Lab Results - Last 24 Hours (Table) 09/17/23 09/17/23 09/17/23 Range/Units 13:59 13:59 17:17 RBC 2.66 L (4.30-5.90) m/uL Hgb 7.8 L (13.0-17.5) gm/dL Hct 25.3 L (39.0-53.0) % MCHC 30.9 L (31.0-37.0) g/dL RDW 17.6 H (11.5-15.5) % Lymphocytes # 0.6 L (1.0-4.8) k/uL BUN 34 H (9-20) mg/dL Creatinine 2.22 H (0.66-1.25) mg/dL Glucose 103 H (74-99) mg/dL Albumin 3.1 L (3.5-5.0) g/dL Urine Protein Trace H (Negative) Urine Blood Small H (Negative) Urine Bacteria Rare H (None) /hpf 09/18/23 Range/Units 06:12 RBC (4.30-5.90) m/uL Hgb (13.0-17.5) gm/dL Hct (39.0-53.0) % MCHC (31.0-37.0) g/dL RDW (11.5-15.5) % Lymphocytes # (1.0-4.8) k/uL BUN 29 H (9-20) mg/dL Creatinine 2.13 H (0.66-1.25) mg/dL Glucose (74-99) mg/dL Albumin 3.2 L (3.5-5.0) g/dL Urine Protein (Negative) Urine Blood (Negative) Urine Bacteria (None) /hpf Assessment and Plan Plan: Assessment: 1. Acute kidney injury secondary to septic ATN versus gentamicin toxicity. Also concern for acute interstitial nephritis from antibiotic use with urine eosinophils 2% - no white cells or red cells noted on UA. Patient is currently not on gentamicin. Gentamicin level noted to be less than 0.6. Baseline creatinine near 1 from August 2023. Creatinine 2.34 this admission - 2.13 today. No hydronephrosis noted on kidney ultrasound. UA fairly benign. 2. 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 3. Benign hypertension. Stable. 4. Mild to moderate mitral regurgitation. Preserved EF. 5. Anemia. 6. Coronary artery disease with stent placement in past. Plan: Maintain IV fluids. Stop Lasix. Check iron studies. Change Protonix to Pepcid. Avoid nephrotoxins. Continue to monitor renal function and urine output.
[2023-09-18] MEDS ORDERED: FAMOTIDINE 20 MG TAB PO SCH (10:45)
--- NOTE | 2023-09-18 12:21 | P.CRDCN ---
History of Present Illness History of present illness: HISTORY OF PRESENT ILLNESS: This is a 83-year-old male with a past medical history significant for hyperlipidemia, hypertension, diverticulitis, status post TAVR, Waldenstrm's macroglobulinemia under the care of Dr. Hackett, and former nicotine dependence. Patient follows with Dr. Baca. We have been asked to see the patient in consultation for heart block. Patient examined at the bedside. Patient was recently admitted to the hospital and diagnosed with endocarditis. He was discharged home on IV antibiotics. Patient was sent in to the hospital by Dr. Mendoza for acute kidney injury. Patient examined this morning at the bedside. Patient currently denies chest pain or pressure. He denies shortness of breath. EKG reviewed by Dr. Meehan revealing sinus mechanism with nonconducted p wave. Current telemetry reveals sinus mechanism. Review from telemetry during hospitalization does reveal episodes of AV disassociation. Patient is currently on metoprolol 12.5 mg DIAGNOSTICS: - Laboratory data: WBC 6.5. Hemoglobin 7.8. Platelet count 193. Sodium 138. Potassium 4.1. BUN 29. Creatinine 2.13. Magnesium 1.8. - Current home cardiac medications include Eliquis 5 mg twice a day, Lipitor 40 mg at night, Lasix 20 mg twice a day, metoprolol succinate 12.5 mg daily. 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 Hahn on August 13, 2023 revealing bioprosthetic Medtronic Evolute valve with normal positioning. There is moderate to severe p erivalvular aortic regurgitation at the 124 o'clock position. There is 0.6 x 0.4 cm echodensity along the ventricular side of the right coronary cusp bioprosthetic leaflet consistent with vegetation. No significant valvular regurgitation. Mild to moderate mitral regurgitation. Mild tricuspid re gurgitation. No evidence of PFO. Left atrial appendage is free of clot. REVIEW OF SYSTEMS: At the time of my exam: CONSTITUTIONAL: Denies fever or chills. HEENT: Denies blurred vision, vision changes, or eye pain. Denies hemoptysis CARDIOVASCULAR: Denies chest pain. Denies orthopnea. Denies PND. Denies palpitations RESPIRATORY: Denies shortness of breath. GASTROINTESTINAL: Denies abdominal pain. Denies nausea or vomiting. HEMATOLOGIC: Denies bleeding disorders. GENITOURINARY: Denies any blood in urine. SKIN: Denies pruitis. Denies rash. PHYSICAL EXAM: VITAL SIGNS: Reviewed. GENERAL: Well-developed in no acute distress. HEENT: Head is normocephalic. Pupils are equal, round. Sclerae anicteric. Mucous membranes of the mouth are moist. Neck supple. No JVD or thyromegaly LUNGS: Respirations even and unlabored. Lungs essentially clear to auscultation bilaterally. HEART: Regular rate and rhythm. S1 and S2 heard. ABDOMEN: Soft. Nondistended. Nontender. EXTREMITIES: Normal range of motion. No clubbing or cyanosis. Peripheral pulses intact. No lower extremity edema NEUROLOGIC: Awake and alert. 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 Lorenzo Former nicotine dependence PLAN: Obtain 2D echo to assess cardiac structure and function and reassess area of vegetation and aortic valve Discontinue metoprolol Obtain blood cultures Continue telemetry monitoring If patient continues to have episodes of AV disassociation despite metoprolol being discontinued, patient may require pacemaker implantation. However this is not ideal at this time as the patient has had recent endocarditis and is receiving antibiotic therapy. Patient to be transferred to [facility] for closer monitoring Further recommendations pending patient course Nurse practitioner note has been reviewed by physician. Signing provider agrees with the documented findings, assessment, and plan of care documented by TAPING SUPERVISOR as a scribe. Past Medical History Past Medical History: Cancer, Hyperlipidemia, Hypertension Additional Past Medical History / Comment(s): melatoma, abnormal blood protein disorder, neuropathy History of Any Multi-Drug Resistant Organisms: None Reported Past Surgical History: Appendectomy, Cholecystectomy, Heart Catheterization Additional Past Surgical History / Comment(s): aortic valve placement Past Psychological History: No Psychological Hx Reported Smoking Status: Former smoker Past Alcohol Use History: None Reported Past Drug Use History: None Reported Medications and Allergies Home Medications Medication Instructions Recorded Confirmed Type Acetaminophen [Tylenol Arthritis] 650 mg PO BID 08/13/23 09/17/23 History Amoxicillin 2,000 mg PO ONETIME PRN 08/13/23 09/17/23 History Atorvastatin [Lipitor] 40 mg PO HS 08/13/23 09/17/23 History Cyanocobalamin (Vitamin B-12) 1,000 mcg PO DAILY 08/13/23 09/17/23 History [Vitamin B-12] EPINEPHrine (Auto Inject) [Epipen] 0.3 mg IM ONCE PRN 08/13/23 09/17/23 History Ferrous Sulfate [Iron (65 MG 325 mg PO DAILY 08/13/23 09/17/23 History Elemental)] Finasteride [Proscar] 5 mg PO DAILY 08/13/23 09/17/23 History Furosemide [Lasix] 20 mg PO BID@0900,1600 08/13/23 09/17/23 History Gabapentin 600 mg PO TID 08/13/23 09/17/23 History Mv-Min/Folic/K1/Lycopen/Lutein 1 tab PO DAILY 08/13/23 09/17/23 History [Centrum Silver Men Tablet] Omega3/Dha/Epa/Fish Oil/Vit D3 1 cap PO DAILY 08/13/23 09/17/23 History [Deford-3 Plus Vitamin D3 Softgl] Omeprazole 40 mg PO BID 08/13/23 09/17/23 History Potassium Chloride ER [K-Dur 20] 20 meq PO DAILY 08/13/23 09/17/23 History Tamsulosin HCl [Flomax] 0.4 mg PO DAILY 08/13/23 09/17/23 History Apixaban [Eliquis] 5 mg PO BID #60 tab 08/20/23 09/17/23 Rx Metoprolol Succinate (ER) [Toprol 12.5 mg PO DAILY 30 Days #30 tab 08/26/23 09/17/23 Rx XL] Cholestyramine (with Sugar) 4 gm PO BID PRN 09/17/23 09/17/23 History [Cholestyramine Packet] cefTRIAXone [Rocephin] 2 gm IVPB Q24H 09/17/23 09/17/23 History Allergies Allergy/AdvReac Type Severity Reaction Status Date / Time bee venom protein (honey bee) AdvReac Anaphylaxis Verified 09/17/23 12:37 /Swelling/R lawson Physical Exam Vitals: Vital Signs Temp Pulse Resp BP Pulse Ox 09/18/23 07:00 98.7 F 66 16 140/64 98 09/18/23 01:54 97.6 F 63 20 120/64 94 L 09/17/23 20:00 98.6 F 66 20 133/52 99 09/17/23 15:00 98.2 F 65 18 118/65 99 Intake and Output 09/17/23 09/18/23 09/18/23 22:59 06:59 14:59 Intake Total 240 300 Output Total 450 900 Balance -210 -600 Intake: Oral 240 300 Output: Urine 450 900 Other: Voiding Method Incontinent Incontinent External Catheter External Catheter # Voids 2 Results 09/17/23 13:59 09/18/23 06:12 Cardiac Enzymes 09/17/23 09/18/23 Range/Units 13:59 06:12 AST 23 26 (17-59) U/L CBC 09/17/23 Range/Units 13:59 WBC 6.5 (3.8-10.6) k/uL RBC 2.66 L (4.30-5.90) m/uL Hgb 7.8 L (13.0-17.5) gm/dL Hct 25.3 L (39.0-53.0) % Plt Count 193 (150-450) k/uL Comprehensive Metabolic Panel 09/17/23 09/18/23 Range/Units 13:59 06:12 Sodium 137 138 (137-145) mmol/L Potassium 4.4 4.1 (3.5-5.1) mmol/L Chloride 107 107 (98-107) mmol/L Carbon Dioxide 23 26 (22-30) mmol/L BUN 34 H 29 H (9-20) mg/dL Creatinine 2.22 H 2.13 H (0.66-1.25) mg/dL Glucose 103 H 97 (74-99) mg/dL Calcium 9.2 9.0 (8.4-10.2) mg/dL AST 23 26 (17-59) U/L ALT 14 14 (4-49) U/L Alkaline Phosphatase 112 123 (38-126) U/L Total Protein 7.5 7.7 (6.3-8.2) g/dL Albumin 3.1 L 3.2 L (3.5-5.0) g/dL Current Medications Generic Name Dose Route Start Last Admin Trade Name Freq PRN Reason Stop Dose Admin Acetaminophen 650 mg 09/17/23 00:27 09/17/23 14:25 Acetaminophen Tab 325 Mg Tab PO 650 mg Q6HR PRN Administration Mild Pain or Fever > 100.5 Acetaminophen 650 mg 09/17/23 09:00 09/17/23 21:12 Acetaminophen Tab 325 Mg Tab PO 650 mg BID KELLEY Administration Apixaban 2.5 mg 09/17/23 09:00 09/17/23 21:12 Apixaban 2.5 Mg Tablet PO 2.5 mg BID KELLEY Administration Protocol Atorvastatin Calcium 40 mg 09/17/23 21:00 09/17/23 21:12 Atorvastatin 40 Mg Tab PO 40 mg HS KELLEY Administration Cyanocobalamin 1,000 mcg 09/18/23 09:00 Cyanocobalamin 500 Mcg Tab PO DAILY KELLEY Epinephrine HCl 0.3 mg 09/17/23 12:52 Epinephrine 1 Mg/Ml 1 Ml Vial IM ONCE PRN Anaphylaxis Ferrous Sulfate 325 mg 09/18/23 09:00 Ferrous Sulfate 325 Mg Tab PO DAILY KELLEY Finasteride 5 mg 09/18/23 09:00 Finasteride 5 Mg Tab PO DAILY KELLEY Furosemide 20 mg 09/17/23 16:00 09/17/23 14:31 Furosemide 20 Mg Tab PO 20 mg BID@0900,1600 KELLEY Administration Gabapentin 600 mg 09/17/23 09:00 09/17/23 21:13 Gabapentin 300 Mg Cap PO 600 mg TID KELLEY Administration Sodium Chloride 1,000 mls @ 75 mls/hr 09/17/23 00:30 09/18/23 06:37 Saline 0.9% IV 75 mls/hr .[id number] KELLEY Administration Ceftriaxone Sodium 2 gm/ 50 mls @ 100 mls/hr 09/17/23 09:00 09/17/23 09:52 Sodium Chloride IVPB 100 mls/hr Q24HR KELLEY Administration Protocol Metoprolol Succinate 12.5 mg 09/17/23 09:00 09/17/23 09:47 Metoprolol Succinate (Er) 25 Mg Tab.Er.24h PO 12.5 mg DAILY KELLEY Administration Multivitamins 1 each 09/18/23 09:00 Multivitamins, Thera 1 Each Tab PO DAILY KELLEY Naloxone HCl 0.2 mg 09/17/23 00:27 Naloxone 0.4 Mg/Ml 1 Ml Vial IV Q2M PRN Opioid Reversal Pantoprazole Sodium 40 mg 09/17/23 17:30 09/18/23 06:38 Pantoprazole 40 Mg Tablet PO 40 mg AC-BID KELLEY Administration Tamsulosin HCl 0.4 mg 09/17/23 09:00 09/17/23 09:48 Tamsulosin 0.4 Mg Cap.Er.24h PO 0.4 mg DAILY KELLEY Administration Intake and Output 09/17/23 09/18/23 09/18/23 22:59 06:59 14:59 Intake Total 240 300 Output Total 450 900 Balance -210 -600 Intake: Oral 240 300 Output: Urine 450 900 Other: Voiding Method Incontinent Incontinent External Catheter External Catheter # Voids 2 09/17/23 13:59 09/18/23 06:12
[2023-09-18] MEDS: FAMOTIDINE 20 MG TAB PO SCH (13:10)
--- NOTE | 2023-09-18 16:28 | P.PN ---
Subjective Progress Note Date: 09/18/23 Principal diagnosis: Reason for follow-up is recent aortic valve endocarditis on antibiotics Patient is 83-year-old male with a past medical history significant for hypertension hyperlipidemia melanoma recent admission to the hospital with a fever workup did shows evidence of aortic valve endocarditis, patient blood culture positive for Streptococcus viridans patient was advised a 6-week course of Rocephin 2 g daily and a 2-week course of gentamicin for synergy, which the patient completed more than a week ago, patient now presenting to the hospital with worsening kidney function. On today's evaluation that is 09/18/2023, Patient is afebrile patient is currently on room air and denies having any shortness of breath, the patient denies any chest pain or cough, the patient denies any nausea vomiting did not have any abdominal pain and no diarrhea, patient mention feeling better. Patient creatinine is down to 2.13 Objective - Vital Signs Vital signs: Vital Signs Temp 98.7 F 09/18/23 07:00 Pulse 66 09/18/23 07:00 Resp 16 09/18/23 07:00 BP 140/64 09/18/23 07:00 Pulse Ox 98 09/18/23 07:00 FiO2 Intake & Output 09/17/23 09/18/23 09/18/23 18:59 06:59 18:59 Intake Total 780 300 Output Total 629 900 Balance 151 -600 Intake: Oral 780 300 Output: Urine 450 900 Post Void Residual 179 Other: Voiding Method Incontinent Incontinent External Catheter External Catheter # Voids 2 - Exam GENERAL DESCRIPTION: An elderly male lying in bed in no distress RESPIRATORY SYSTEM: Unlabored breathing , decreased breath sounds at bases HEART: S1 S2 regular rate and rhythm , ABDOMEN: Soft , no tenderness EXTREMITIES: No edema feet - Labs CBC & Chem 7: 09/17/23 13:59 09/18/23 06:12 Labs: Abnormal Lab Results - Last 24 Hours (Table) 09/17/23 09/17/23 09/17/23 Range/Units 13:59 13:59 17:17 RBC 2.66 L (4.30-5.90) m/uL Hgb 7.8 L (13.0-17.5) gm/dL Hct 25.3 L (39.0-53.0) % MCHC 30.9 L (31.0-37.0) g/dL RDW 17.6 H (11.5-15.5) % Lymphocytes # 0.6 L (1.0-4.8) k/uL BUN 34 H (9-20) mg/dL Creatinine 2.22 H (0.66-1.25) mg/dL Glucose 103 H (74-99) mg/dL Albumin 3.1 L (3.5-5.0) g/dL Urine Protein Trace H (Negative) Urine Blood Small H (Negative) Urine Bacteria Rare H (None) /hpf 09/18/23 Range/Units 06:12 RBC (4.30-5.90) m/uL Hgb (13.0-17.5) gm/dL Hct (39.0-53.0) % MCHC (31.0-37.0) g/dL RDW (11.5-15.5) % Lymphocytes # (1.0-4.8) k/uL BUN 29 H (9-20) mg/dL Creatinine 2.13 H (0.66-1.25) mg/dL Glucose (74-99) mg/dL Albumin 3.2 L (3.5-5.0) g/dL Urine Protein (Negative) Urine Blood (Negative) Urine Bacteria (None) /hpf Assessment and Plan (1) Endocarditis Current Visit: No Status: Acute Code(s): I38 - ENDOCARDITIS, VALVE UNSPECIFIED SNOMED Code(s): 94674100 (2) Positive blood culture Current Visit: No Status: Acute Code(s): R78.81 - BACTEREMIA SNOMED Code(s): 268241328 Plan: 1patient with recent diagnosis of bioprosthetic aortic valve endocarditis blood culture positive for strep viridans and the patient is on Rocephin x 6 weeks and already completed a 2-week course of gentamicin patient not developing nephrotoxicity required admission to the hospital for the patient has been evaluated by nephrology did have some improvement in the creatinine today compared to yesterday and patient making good urine 2-patient to continue with Rocephin 2 g daily to finish a 6-week course of therapy for his endocarditis and monitor clinical course closely Dictation was produced using [employer] software. please excuse any grammatical, word or spelling errors. Time with Patient: Less than 30
--- NOTE | 2023-09-18 17:40 | P.PN ---
Subjective Progress Note Date: 09/18/23 This is a 83-year-old male patient who presented to The ER with concerns of elevated kidney enzymes. Patient follows with Dr. Mendoza where he is being treated for infectious endocarditis with IV Rocephin. Additional medical history includes hyperlipidemia, hypertension, aortic valve replacement and chol ecystectomy.Labwork feeling a creatinine of 2.34 bun 41 white blood cell 8.2. At this time patient will be admitted patient started on IV fluid nephrology and Infectious disease consultanted. Patient continued on IV Rocephin through PICC line. At this time patient denies chest pain or shortness of breath. Patient denies nausea vomiting or diarrhea. Patient denies any urinary burning or frequency. On 09/18/2023 patient was seen and examined on the medical floor he is alert and oriented x 3 in no apparent distress, he is complaining of generalized weakness otherwise he denies any complaints there is no fever or chills no headache or dizziness no chest pain no shortness of breath no cough no nausea or vomiting no abdominal pain no diarrhea and no urinary symptoms. Kidney function is impr oving gradually patient remains on IV fluid normal saline at 75 cc an hour, infectious disease and nephrology are following Objective - Vital Signs Vital signs: Vital Signs Temp 98.7 F 09/18/23 07:00 Pulse 66 09/18/23 07:00 Resp 16 09/18/23 07:00 BP 140/64 09/18/23 07:00 Pulse Ox 98 09/18/23 07:00 FiO2 Intake & Output 09/17/23 09/18/23 09/18/23 18:59 06:59 18:59 Intake Total 780 300 Output Total 629 900 Balance 151 -600 Intake: Oral 780 300 Output: Urine 450 900 Post Void Residual 179 Other: Voiding Method Incontinent Incontinent External Catheter External Catheter # Voids 2 - Exam Head normocephalic Neck supple Lungs clear to auscultation bilaterally no wheezing or crackles Heart regular rate and rhythm S1-S2, no rub or gallop Abdomen is soft nontender nondistended positive bowel sounds no he patosplenomegaly Extremities no edema Neuro alert and orientated to 3 - Labs CBC & Chem 7: 09/17/23 13:59 09/18/23 06:12 Labs: Abnormal Lab Results - Last 24 Hours (Table) 09/17/23 09/17/23 09/17/23 Range/Units 13:59 13:59 17:17 RBC 2.66 L (4.30-5.90) m/uL Hgb 7.8 L (13.0-17.5) gm/dL Hct 25.3 L (39.0-53.0) % MCHC 30.9 L (31.0-37.0) g/dL RDW 17.6 H (11.5-15.5) % Lymphocytes # 0.6 L (1.0-4.8) k/uL BUN 34 H (9-20) mg/dL Creatinine 2.22 H (0.66-1.25) mg/dL Glucose 103 H (74-99) mg/dL Albumin 3.1 L (3.5-5.0) g/dL Urine Protein Trace H (Negative) Urine Blood Small H (Negative) Urine Bacteria Rare H (None) /hpf 09/18/23 Range/Units 06:12 RBC (4.30-5.90) m/uL Hgb (13.0-17.5) gm/dL Hct (39.0-53.0) % MCHC (31.0-37.0) g/dL RDW (11.5-15.5) % Lymphocytes # (1.0-4.8) k/uL BUN 29 H (9-20) mg/dL Creatinine 2.13 H (0.66-1.25) mg/dL Glucose (74-99) mg/dL Albumin 3.2 L (3.5-5.0) g/dL Urine Protein (Negative) Urine Blood (Negative) Urine Bacteria (None) /hpf Assessment and Plan Assessment: 1. Acute kidney injury 2. Recent diagnosis of infectious endocarditis patient was discharged on IV antibiotic Rocephin 3. History of atrial flutter 4. History of TAVR in August 2022 5. History of coronary artery disease with history of angioplasty and stent placement 6. History of BPH 7. History of essential hypertension 8. History of hyperlipidemia DVT prophylaxis eliquis. GI prophylaxis Protonix Nephrology infectious disease service is consulted Patient maintained on IV Rocephin Ultrasound of bladder renal and kidneys ordered Patient maintained on IV fluid Repeat labs ordered
--- NOTE | 2023-09-19 11:05 | CT ---
EXAMINATION TYPE: CT brain wo con CT DLP: 1126 mGycm, Automated exposure control for dose reduction was used. DATE OF EXAM: 09/19/2023 10:51 AM COMPARISON: . CLINICAL INDICATION:Male, 83 years old with history of mental status change, r/o septic embolization, history of endocarditis, TECHNIQUE: Brain: Axial CT images of the brain were obtained with coronal and sagittal reformats created and rev iewed. Contrast used: None. Oral contrast used: None. FINDINGS: Brain: Extra-axial spaces: No abnormal extra-axial fluid collections. Ventricular system: Within normal limits Cerebral parenchyma: No acute intraparenchymal hemorrhage or mass effect. The harvey-white junction is well differentiated. Scattered hypoattenuating areas are seen within the white matter. Asymmetric h ypodensity in the left frontal lobe potentially represent acute ischemia. Cerebellum: Unremarkable. Mass effect: No evidence of midline shift. Intracranial vasculature: unremarkable Soft tissues: Normal. Calvarium/osseous structures: No depressed skull fracture. Paranasal sinuses and mastoid air cells: Mild scattered paranasal sinus disease. Visualized orbits: Orbital contents are intact. IMPRESSION: Asymmetric hypodensity in left frontal position represents acute ischemia. Opposing this conclusion is the scattered hypoattenuating areas might, likely licensing representative of chronic microangiopathy. MRI can differentiate between acute ischemia and chronic microangiopathy
--- NOTE | 2023-09-19 11:16 | P.PN ---
Subjective Patient is seen in follow-up for acute kidney injury. Renal function fairly stable as of yesterday. Nonoliguric. Receiving IV fluids. Oral intake fair. Hemodynamically stable. Vital signs are stable. General: No acute distress. HEENT: Head exam is unremarkable. LUNGS: No audible rhonchi or wheezes. HEART: Rate and Rhythm are regular. ABDOMEN: Nontender. EXTREMITITES: No edema. Objective - Vital Signs Vital signs: Vital Signs Temp 98.5 F 09/19/23 08:05 Pulse 76 09/19/23 08:05 Resp 16 09/19/23 08:05 BP 113/63 09/19/23 08:05 Pulse Ox 97 09/19/23 08:05 FiO2 Intake & Output 09/18/23 09/19/23 09/19/23 18:59 06:59 18:59 Intake Total 118 118 Output Total 1850 Balance 118 -1850 118 Intake: Oral 118 118 Output: Urine 1850 Other: Voiding Method Incontinent Incontinent Incontinent External Catheter External Catheter External Catheter # Bowel Movements 1 - Labs CBC & Chem 7: 09/17/23 13:59 09/18/23 06:12 Assessment and Plan Plan: Assessment: 1. Acute kidney injury secondary to septic ATN versus gentamicin toxicity. Also concern for acute interstitial nephritis from antibiotic use with urine eosinophils 2% - no white cells or red cells noted on UA. Patient is currently not on gentamicin. Gentamicin level noted to be less than 0.6. Baseline creatinine near 1 from August 2023. Creatinine 2.34 this admission - 2.13 today. No hydronephrosis noted on kidney ultrasound. UA fairly benign. 2. 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 3. Benign hypertension. Stable. 4. Mild to moderate mitral regurgitation. Preserved EF. 5. Anemia. 6. Coronary artery disease with stent placement in past. Plan: Maintain IV fluids. Continue to hold Lasix. F/u iron studies. Changed Protonix to Pepcid. Avoid nephrotoxins. Continue to monitor renal function and urine output. Repeat BMP and magnesium level 2 to 3 days postdischarge. Follow-up outpatient in 1 week.
[2023-09-19 11:26] VITALS: PULSE 75
[2023-09-19 12:06] LABS: ALT 14 U/L (4-49); AST 23 U/L (17-59); African American GFR (CKD) 31 (>60 ml/min/1.73 sqM); Alkaline Phosphatase 131 U/L (38-126); Anion Gap 5 mmol/L; Blood Urea Nitrogen 26 mg/dL (9-20); Calcium 8.5 mg/dL (8.4-10.2); Carbon Dioxide 26 mmol/L (22-30); Chloride 106 mmol/L (98-107); Glucose 110 mg/dL (74-99); Magnesium 1.7 mg/dL (1.6-2.3); Non-African American GFR(CKD) 27 (>60 ml/min/1.73 sqM); Potassium 3.9 mmol/L (3.5-5.1); Sodium 137 mmol/L (137-145); Total Bilirubin 0.4 mg/dL (0.2-1.3); Total Protein 7.5 g/dL (6.3-8.2)
[2023-09-19 12:34] LABS: Anisocytosis Slight; Basophils % (A) 0 %; Eosinophils % (A) 1 %; HCT 25.4 % (39.0-53.0); HGB 7.9 gm/dL (13.0-17.5); Lymphocytes # (A) 0.7 k/uL (1.0-4.8); Lymphocytes % (A) 9 %; MCH 29.7 pg (25.0-35.0); MCV 95.8 fL (80.0-100.0); Macrocytosis Slight; Monocytes # (A) 0.4 k/uL (0-1.0); Monocytes % (A) 6 %; Neutrophils # (A) 6.5 k/uL (1.3-7.7); Neutrophils % (A) 83 %; Platelet Count 219 k/uL (150-450); RBC 2.65 m/uL (4.30-5.90); WBC 7.8 k/uL (3.8-10.6)
--- NOTE | 2023-09-19 13:01 | P.PN ---
Subjective Progress Note Date: 09/19/23 This is a 83-year-old male patient who presented to The ER with concerns of elevated kidney enzymes. Patient follows with Dr. Mendoza where he is being treated for infectious endocarditis with IV Rocephin. Additional medical history includes hyperlipidemia, hypertension, aortic valve replacement and chol ecystectomy.Labwork feeling a creatinine of 2.34 bun 41 white blood cell 8.2. At this time patient will be admitted patient started on IV fluid nephrology and Infectious disease consultanted. Patient continued on IV Rocephin through PICC line. At this time patient denies chest pain or shortness of breath. Patient denies nausea vomiting or diarrhea. Patient denies any urinary burning or frequency. On 09/18/2023 patient was seen and examined on the medical floor he is alert and oriented x 3 in no apparent distress, he is complaining of generalized weakness otherwise he denies any complaints there is no fever or chills no headache or dizziness no chest pain no shortness of breath no cough no nausea or vomiting no abdominal pain no diarrhea and no urinary symptoms. Kidney function is impr oving gradually patient remains on IV fluid normal saline at 75 cc an hour, infectious disease and nephrology are following. On 09/19/2023 patient was seen and examined on the telemetry floor he is alert and oriented x 3 in no apparent distress he is having episodes of confusion, per family at bedside, otherwise they deny any complaints, yesterday he had a temperature of 100.2 this morning temperature is 98.5 pulse 76 respirations 16 blood pressure 113/63 pulse ox 97% on room air white blood count is 7.8 hemoglobin 7.9 platelet count 119 BUN 26 creatinine 2.17, CT scan was ordered due to episode of confusion and was positive for possible acute ischemia in the frontal lobe, neurology consultation was requested, will follow closely Objective - Vital Signs Vital signs: Vital Signs Temp 98.5 F 09/19/23 08:05 Pulse 76 09/19/23 08:05 Resp 16 09/19/23 08:05 BP 113/63 09/19/23 08:05 Pulse Ox 97 09/19/23 08:05 FiO2 Intake & Output 09/18/23 09/19/23 09/19/23 18:59 06:59 18:59 Intake Total 118 118 Output Total 1850 Balance 118 -1850 118 Intake: Oral 118 118 Output: Urine 1850 Other: Voiding Method Incontinent Incontinent Incontinent External Catheter External Catheter External Catheter - Exam Head normocephalic Neck supple Lungs clear to auscultation bilaterally no wheezing or crackles Heart regular rate and rhythm S1-S2, no rub or gallop Abdomen is soft nontender nondistended positive bowel sounds no hepa tosplenomegaly Extremities no edema Neuro alert and orientated to 3 - Labs CBC & Chem 7: 09/19/23 11:27 09/19/23 11:27 Assessment and Plan Assessment: 1. Acute kidney injury 2. Recent diagnosis of infectious endocarditis patient was discharged on IV antibiotic Rocephin 3. History of atrial flutter 4. History of TAVR in August 2022 5. History of coronary artery disease with history of angioplasty and stent placement 6. History of BPH 7. History of essential hypertension 8. History of hyperlipidemia DVT prophylaxis eliquis. GI prophylaxis Protonix Nephrology infectious disease service is consulted Patient maintained on IV Rocephin Ultrasound of bladder renal and kidneys ordered Patient maintained on IV fluid Repeat labs ordered
[2023-09-19 15:33] LABS: Rouleaux Present
--- NOTE | 2023-09-19 17:14 | P.PN ---
Subjective Progress Note Date: 09/19/23 HISTORY OF PRESENT ILLNESS: This is a 83-year-old male with a past medical history significant for hype rlipidemia, hypertension, diverticulitis, status post TAVR, Waldenstrm's macroglobulinemia under the care of Dr. Lorenzo, and former nicotine dependence. Patient follows with Dr. Baca. We have been asked to see the patient in consultation for heart block. Patient examined at the bedside. Patient was recently admitted to the hospital and diagnosed with endocarditis. He was discharged home on IV antibiotics. Patient was sent in to the hospital by Dr. Mendoza for acute kidney injury. Patient examined this morning at the bedside. Patient currently denies chest pain or pressure. He denies shortness of breath. EKG reviewed by Dr. Meehan revealing sinus mechanism with nonconducted p wave. Current telemetry reveals sinus mechanism. Review from telemetry during hospitalization does reveal episodes of AV disassociation. Patient is currently on metoprolol 12.5 mg DIAGNOSTICS: - Laboratory data: WBC 6.5. Hemoglobin 7.8. Platelet count 193. Sodium 138. Potassium 4.1. BUN 29. Creatinine 2.13. Magnesium 1.8. - Current home cardiac medications include Eliquis 5 mg twice a day, Lipitor 40 mg at night, Lasix 20 mg twice a day, metoprolol succinate 12.5 mg daily. 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 Hahn on August 13, 2023 revealing bioprosthetic Medtronic Evolute valve with normal positioning. There is moderate to severe perivalvular aortic regurgitation at the 124 o'clock position. There is 0.6 x 0.4 cm echodensity along the ventricular side of the right coronary cusp bioprosthetic leaflet consistent with vegetation. No significant valvular regurgitation. Mild to moderate mitral regurgitation. Mild tricuspid regurgitation. No evidence of PFO. Left atrial appendage is free of clot. 09/18 Patient has had no significant pauses or bradycardia overnight. Family is concerned about his mental status which has been off since he was diagnosed with endocarditis. He has been maintained on IV antibiotics and followed by infectious disease. Blood pressure 137/72, heart rate 75, pulse ox 90% on room air, temperature 100.2. Repeat blood work reveals WBC of 7.8, hemoglobin 7.9. BUN 26 and creatinine 2.17. Discussed with the family that patient is not a good candidate for pacemaker implantation due to the ongoing treatment for endocarditis. If needed a temporary pacemaker may be utilized. CAT scan of the brain was ordered which revealed hypodensity in the left frontal position represents acute ischemia. Scattered hypoattenuation areas likely represent chronic microangiopathic. We have added a consult for neurology. PHYSICAL EXAM: VITAL SIGNS: Reviewed. GENERAL: Well-developed in no acute distress. HEENT: Head is normocephalic. Pupils are equal, round. Sclerae anicteric. Mucous membranes of the mouth are moist. Neck supple. No JVD or thyromegaly LUNGS: Respirations even and unlabored. Lungs essentially clear to auscultation bilaterally. HEART: Regular rate and rhythm. S1 and S2 heard. ABDOMEN: Soft. Nondistended. Nontender. EXTREMITIES: Normal range of motion. No clubbing or cyanosis. Peripheral pulse s intact. No lower extremity edema NEUROLOGIC: Awake and alert. ASSESSMENT: Possible acute ischemic stroke Acute kidney injury Intermittent episodes of high-grade AV block with AV disassociation History of TAVR Recent diagnosis of infective endocarditis, on IV antibiotics Paroxysmal atrial fibrillation Hypertension Hyperlipidemia History of diverticulitis Waldenstrm's macroglobulinemia under the care of Dr. Lorenzo Former nicotine dependence PLAN: Obtain 2D echo to assess cardiac structure and function and reassess area of vegetation and aortic valve Obtain blood cultures Continue telemetry monitoring If patient continues to have episodes of AV disassociation despite metoprolol being discontinued, patient may require pacemaker implantation. However this is not ideal at this time as the patient has had recent endocarditis and is receiving antibiotic therapy. May consider temporary pacemaker if needed or external pacemaker. Consult neurology regarding acute ischemia on CAT scan of the brain Further recommendations pending patient course Nurse practitioner note has been reviewed by physician. Signing provider agrees with the documented findings, assessment, and plan of care documented by GUEST RELATIONS EXECUTIVE as a scribe. Objective - Vital Signs Vital signs: Vital Signs Temp 98.5 F 09/19/23 08:05 Pulse 76 09/19/23 08:05 Resp 16 09/19/23 08:05 BP 113/63 09/19/23 08:05 Pulse Ox 97 09/19/23 08:05 FiO2 Intake & Output 09/18/23 09/19/23 09/19/23 18:59 06:59 18:59 Intake Total 118 Output Total 1850 Balance 118 -1850 Intake: Oral 118 Output: Urine 1850 Other: Voiding Method Incontinent Incontinent External Catheter External Catheter - Labs CBC & Chem 7: 09/19/23 11:27 09/19/23 11:27
--- NOTE | 2023-09-19 17:31 | CA ---
Transthoracic Echo Report Name: Jonathon Mckay Age: 83 Gender: M : 1940 Exam Date: 09/19/2023 09:08 Exam Location: [facility] Ht (in): 72 Wt (lb): 200 Ordering Physician: Princess Sheth Attending/Referring Phys: [id number], Meryl Vmware Architect Sri Dean, KISHOR Procedure CPT: Indications: LV function, recent endocarditis Cardiac Hx: TAVR Technical Quality: Fair Contrast 1: Total Dose (mL): Contrast 2: Total Dose (mL): MEASUREMENTS (Male / Female) Normal Values 2D ECHO LV Diastolic Diameter PLAX 5.8 cm 4.2 - 5.9 / 3.9 - 5.3 cm LV Systolic Diameter PLAX 2.7 cm IVS Diastolic Thickness 1.3 cm 0.6 - 1.0 / 0.6 - 0.9 cm LVPW Diastolic Thickness 1.4 cm 0.6 - 1.0 / 0.6 - 0.9 cm LV Relative Wall Thickness 0.5 RV Internal Dim ED PLAX 2.9 cm LA Systolic Diameter LX 5.9 cm 3.0 - 4.0 / 2.7 - 3.8 cm LV Diastolic Volume MOD BP 57.9 cm??? 67 - 155 / 56 - 104 cm??? LV Systolic Volume MOD BP 18.6 cm??? 22 - 58 / 19 - 49 cm??? LV Ejection Fraction MOD BP 67.9 % >= 55 % LV Cardiac Index MOD BP 1219.5 cm???/min???m??? LV Diastolic Volume MOD 4C 60.3 cm??? LV Systolic Volume MOD 4C 20.0 cm??? LV Ejection Fraction MOD 4C 66.8 % LV Cardiac Index MOD 4C 1250.7 cm???/min???m??? LV Diastolic Length 4C 7.7 cm LV Systolic Length 4C 6.2 cm LV Diastolic Volume MOD 2C 55.8 cm??? LV Systolic Volume MOD 2C 17.7 cm??? LV Ejection Fraction MOD 2C 68.3 % LV Cardiac Index MOD 2C 1181.2 cm???/min???m??? LV Diastolic Length 2C 7.5 cm LV Systolic Length 2C 6.6 cm M-MODE Aortic Root Diameter MM 3.0 cm LA Systolic Diameter MM 5.1 cm LA Ao Ratio MM 1.7 DOPPLER AV Peak Velocity 383.6 cm/s AV Peak Gradient 58.9 mmHg AV Mean Velocity 292.5 cm/s AV Mean Gradient 37.2 mmHg AV Velocity Time Integral 83.0 cm AI Peak Velocity 299.9 cm/s AI Peak Gradient 36.0 mmHg AI Pressure Half Time 665.4 ms LVOT Peak Velocity 134.3 cm/s LVOT Peak Gradient 7.2 mmHg LVOT Velocity Time Integral 36.9 cm TR Peak Velocity 275.3 cm/s TR Peak Gradient 30.3 mmHg FINDINGS Left Ventricle Left ventricular ejection fraction is estimated at 60-65%. Mildly increased septal wall thickness. No obvious regional wall motion abnormalities. Left ventricular cavity size normal. Right Ventricle Right Atrium Left Atrium Severely increased left atrial diameter. Mitral Valve Structurally normal mitral valve. Mild mitral regurgitation. No evidence of vegetation on the mitral valve. Aortic Valve 29 mm Medtronic Evolut TAVR. Bioprosthetic aortic valve with a peak velocity of 3.8m/s, peak gradient 59mmHg, mean gradient 37mmHg . Aortic valve not well visualized. Periprosthetic regurgitation of the aortic valve. Tricuspid Valve Structurally normal tricuspid valve. Mild tricuspid regurgitation. No evidence of tricuspid valve vegetation. Pulmonic Valve Structurally normal pulmonic valve. No evidence of pulmonic valve vegetation. Pericardium No pericardial or pleural effusion. Aorta Normal size aortic root and proximal ascending aorta. CONCLUSIONS Normal LV function Bioprosthetic valve in aortic position with a peak gradient of 59 mm and a mean gradient of 37 mm with mild septal prostate valve regurgitation Previewed by: Dr. Adan Meehan MD (Electronically Signed) Final Date: 19 September 2023 17:30
--- NOTE | 2023-09-19 18:06 | P.CNNES ---
History of Present Illness Consult date: 09/19/23 Requesting physician: Cynthia Harris Reason for Consult: brain CT changes History of Present Illness: This is an 83-year-old gentleman with history of TAVR in 2022 who was found to have vegetation about a month ago and has been receiving antibiotic who presented emergency department for abnormal labs according to the ED note. So the history is obtained from the patient's son and daughter was at bedside. According to his family members, patient had a TAVR but about a month ago he was found to have vegetation in his heart and had a transesophageal echocardiogram which showed that and he was placed on antibiotic. Patient was over the aortic valve. The patient has been getting antibiotic through PICC line and he is been getting Rocephin and gentamicin. Per the family members they stated the patient has been having fluctuation of mentation in the last 1 month. And they given example that the end of August he was doing well for his birthday then the next day he was currently sleepy and lethargic and seems confused. Today the son felt he was weak over the right hand and had a difficulty picking up things then later he had no difficulty with his right hand and the nurse agreed with that. Per family members patient does not have any history of stroke in the past. No history of seizure. Patient has recent history of atrial flutter in the last few months and he is on Eliquis. It seems the Eliquis was held because of the abnormal CT changes by the cardiology team. According to the nurse it seems the primary wanted patient to have SONG but cardiology declined since he they did not feel it will international exchange coordinator, therefore the patient will be transferred to [facility] for escalation of care. Some of the workup during this hospital visit consisted of: Patient had a fever as high as 100.2 during this hospital visit and it was 2 days after hospital presentation Hemoglobin most recent 7.9 Sodium, calcium magnesium are within normal limits AST ALT is within normal limits TSH is 3.680 Creatinine is 2.17. He had CT of the head today is reported as asymmetric hypodensity in the left frontal represent acute ischemia. Opposing this conclusion is the scattered hypoattenuation area might likely represent of chronic microangiopathy appear The echo was reported as normal left ventricular function. Bioprosthetic valve in aortic position with peak gradient 59 and mean gradient 37 with mild septal prostate valve regurgitation. Review of Systems The positive and negative as per HPI. Past Medical History Past Medical History: Cancer, Hyperlipidemia, Hypertension Additional Past Medical History / Comment(s): melatoma, abnormal blood protein disorder, neuropathy History of Any Multi-Drug Resistant Organisms: None Reported Past Surgical History: Appendectomy, Cholecystectomy, Heart Catheterization Additional Past Surgical History / Comment(s): aortic valve placement Past Psychological History: No Psychological Hx Reported Smoking Status: Former smoker Past Alcohol Use History: None Reported Past Drug Use History: None Reported Medications and Allergies Home Medications Medication Instructions Recorded Confirmed Type Acetaminophen [Tylenol Arthritis] 650 mg PO BID 08/13/23 09/17/23 History Amoxicillin 2,000 mg PO ONETIME PRN 08/13/23 09/17/23 History Atorvastatin [Lipitor] 40 mg PO HS 08/13/23 09/17/23 History Cyanocobalamin (Vitamin B-12) 1,000 mcg PO DAILY 08/13/23 09/17/23 History [Vitamin B-12] EPINEPHrine (Auto Inject) [Epipen] 0.3 mg IM ONCE PRN 08/13/23 09/17/23 History Ferrous Sulfate [Iron (65 MG 325 mg PO DAILY 08/13/23 09/17/23 History Elemental)] Finasteride [Proscar] 5 mg PO DAILY 08/13/23 09/17/23 History Furosemide [Lasix] 20 mg PO BID@0900,1600 08/13/23 09/17/23 History Gabapentin 600 mg PO TID 08/13/23 09/17/23 History Mv-Min/Folic/K1/Lycopen/Lutein 1 tab PO DAILY 08/13/23 09/17/23 History [Centrum Silver Men Tablet] Omega3/Dha/Epa/Fish Oil/Vit D3 1 cap PO DAILY 08/13/23 09/17/23 History [[place]-3 Plus Vitamin D3 Softgl] Omeprazole 40 mg PO BID 08/13/23 09/17/23 History Potassium Chloride ER [K-Dur 20] 20 meq PO DAILY 08/13/23 09/17/23 History Tamsulosin HCl [Flomax] 0.4 mg PO DAILY 08/13/23 09/17/23 History Apixaban [Eliquis] 5 mg PO BID #60 tab 08/20/23 09/17/23 Rx Metoprolol Succinate (ER) [Toprol 12.5 mg PO DAILY 30 Days #30 tab 08/26/23 09/17/23 Rx XL] Cholestyramine (with Sugar) 4 gm PO BID PRN 09/17/23 09/17/23 History [Cholestyramine Packet] cefTRIAXone [Rocephin] 2 gm IVPB Q24H 09/17/23 09/17/23 History Allergies Allergy/AdvReac Type Severity Reaction Status Date / Time bee venom protein (honey bee) AdvReac Anaphylaxis Verified 09/17/23 12:37 /Swelling/R lawson Physical Examination - Vital Signs Vital Signs: Vital Signs Temp Pulse Resp BP Pulse Ox 09/19/23 16:17 100.2 F H 75 17 137/72 98 09/19/23 11:26 98.5 F 75 17 119/59 97 09/19/23 08:05 98.5 F 76 16 113/63 97 09/19/23 03:34 98.2 F 71 18 107/63 95 09/18/23 20:00 100.2 F H 98 18 150/71 98 Intake and Output 09/19/23 09/19/23 09/19/23 06:59 14:59 22:59 Intake Total 118 Output Total 400 Balance -400 118 Intake: Oral 118 Output: Urine 400 Other: Voiding Method Incontinent Incontinent External Catheter External Catheter # Bowel Movements 1 General: Sitting up in a chair and does not appear in acute distress. Neuro: Limited The patient is drowsy and is intermittently drowsy during this examination. Is oriented to self. He is able to name his son's and 's name but mistakenly rather naming his daughter called her [id number] on two occasions. He is following simple commands. No aphasia from limited language. Pupils are 2mm and reactive to light. Visual gibson are full to confrontation. No facial weakness. Tongue is midline and moves side to side without difficulty. No dysarthria. Motor: Strength is limited because of cooperation. Lifting uppers and wiggling toes symmetrically. Results - Laboratory Findings CBC and BMP: 09/19/23 11:27 09/19/23 11:27 Abnormal Lab Findings: Abnormal Labs 09/16/23 09/16/23 09/17/23 20:33 20:33 13:59 RBC 2.80 L 2.66 L Hgb 8.2 L 7.8 L Hct 26.5 L 25.3 L MCHC 30.9 L 30.9 L RDW 17.5 H 17.6 H Lymphocytes # 0.9 L 0.6 L Sodium 136 L BUN 41 H Creatinine 2.34 H Glucose 112 H Alkaline Phosphatase Total Protein 8.6 H Albumin Urine Protein Urine Blood Urine Bacteria 09/17/23 09/17/23 09/18/23 13:59 17:17 06:12 RBC Hgb Hct MCHC RDW Lymphocytes # Sodium BUN 34 H 29 H Creatinine 2.22 H 2.13 H Glucose 103 H Alkaline Phosphatase Total Protein Albumin 3.1 L 3.2 L Urine Protein Trace H Urine Blood Small H Urine Bacteria Rare H 09/19/23 09/19/23 11:27 11:27 RBC 2.65 L Hgb 7.9 L Hct 25.4 L MCHC RDW 18.0 H Lymphocytes # 0.7 L Sodium BUN 26 H Creatinine 2.17 H Glucose 110 H Alkaline Phosphatase 131 H Total Protein Albumin 3.0 L Urine Protein Urine Blood Urine Bacteria Assessment and Plan Assessment: This is an 83-year-old gentleman who had TAVR in August 2022 and was found to have infectious endocarditis about a month ago and was discharged on IV antibiotic has been having fluctuation mentation and that today was felt that he had right arm weakness on multiple occasion then resolved. CT of the head is reported as acute stroke over the left frontal. I personally reviewed the CT head and I fe lt he had hypodensity over bilateral frontal concern for bilateral frontal stroke seems acute to subacute. He has acute kidney injury. Acute to subacute stroke. No IV thrombolytics since the patient is outside the window as well as is on Eliquis and risk outweigh benefit Encephalopathy due to stroke as well as metabolic encephalopathy. Cannot rule out also component of confusion in past one month due to medication side effects (Rocephin) Acute kidney injury Acute on chronic anemia Recent infectious endocarditis about a month ago and the patient was discharged on IV antibiotic through the PICC line. History of TAVR in August 2022 Of atrial fibrillation recently and is on Eliquis 2.5 mg daily was held today by cardiology because of abnormal CT History of coronary artery disease with history of angioplasty and stent placement Essential hypertension Hyperlipidemia Plan: According to the nurse the cardiology held the Eliquis because of abnormal CT because of concern of a bleed. I started the patient on aspirin 81 mg. Patient is on Lipitor 40 mg nightly I ordered MRI of the brain, MRA of the head and carotid duplex, lipid panel. Ordered routine EEG. Continue neurochecks Cardiac monitoring PT OT consulted If possible recommend going down on gabapentin from 600 mg 3 times daily to 300 mg 3 times daily since the patient has acute kidney injury confusion and once his kidney function is improved then can go back to 600 mg 3 times daily. Cardiology is consulted. Per the nurse, ID is recommending repeat a transesophageal echocardiogram to the nurse but cardiology team feels it will not international exchange coordinator. Therefore patient is pending to be transferred for escalation of care. ID is on board Nephrology is on board Will defer the rest of the medical management the primary and other specialist. DVT prophylaxis with SCDs and once anemia is stable recommend either subcu heparin or Lovenox unless the patient is restarted on oral anticoagulation As stated above the patient is pending to be transferred for escalation of care for his cardiac care. The plan discussed with the patient's family members who are at bedside as well his nurse Thank you the consultation Dr. Hyde will resume neurology service tomorrow AM Time with Patient: Greater than 30
[2023-09-19 18:26] LABS: % Iron Saturation 10.36 (15.00-50.00)
--- NOTE | 2023-09-19 19:20 | US ---
EXAMINATION TYPE: US carotid duplex BILAT DATE OF EXAM: 09/19/2023 COMPARISON: NONE CLINICAL INDICATION: Male, 83 years old with history of stroke; Patient not able to give history; No relevant signs, symptoms, or history per patients daughter TECHNIQUE: Carotid duplex ultrasound examination. Indirect Doppler criteria was utilized. FINDINGS: EXAM MEASUREMENTS: RIGHT: Peak Systolic Velocity (PSV) cm/sec ----- Right CCA: 96 ----- Right ICA: 102 ----- Right ECA: 143 ICA/CCA ratio: 1.1 RIGHT: End Diastole cm/sec ----- Right CCA: 9 ----- Right ICA: 15 ----- Right ECA: 12 LEFT: Peak Systolic Velocity (PSV) cm/sec ----- Left CCA: 86 ----- Left ICA: 124 ----- Left ECA: 130 ICA/CCA ratio: 1.4 LEFT: End Diastole cm/sec ----- Left CCA: 11 ----- Left ICA: 17 ----- Left ECA: 12 VERTEBRALS (direction of flow): Right Vertebral: Antegrade Left Vertebral: Antegrade Rhythm: Arrhythmia DESOLDERER NOTES: Plaque right CCA bulb into ICA and Left CCA bulb into ICA with intimal thickening. Elevated velocities within bilateral ECAs IMPRESSION: Less than 50% stenosis of the carotid bifurcations. Criteria for Assigning % of Stenosis / Diameter reduction (Estimation based on the indirect measurements of the internal carotid artery velocities (ICA PSV). 1. Normal (no stenosis)=ICA PSV < 125 cm/s: ratio < 2.0: ICA EDV<40 cm/s. 2. Less than 50% stenosis=ICA PSV < 125 cm/s: ratio < 2.0: ICA EDV<40 cm/s. 3. 50 to 69% stenosis=ICA PSV of 125 to 230 cm/s: ration 2.0 ? 4.0: ICA EDV 40-100 cm/s. 4. Greater than 70% stenosis to near occlusion= ICA PSV > 230 cm/s: ratio > 4.0: ICA EDV > 100 cm/s. 5. Near occlusion= ICA PSV velocities may be low or undetectable: variable ratio and ICA EDV. 6. Total occlusion=unable to detect flow.
[2023-09-19 20:04] VITALS: BP 144/47; RESP 16; TEMP 98.2
--- NOTE | 2023-09-19 20:38 | P.PN ---
Subjective Progress Note Date: 09/19/23 Principal diagnosis: Reason for follow-up is recent aortic valve endocarditis on antibiotics Patient is 83-year-old male with a past medical history significant for hypertension hyperlipidemia melanoma recent admission to the hospital with a fever workup did shows evidence of aortic valve endocarditis, patient blood culture positive for Streptococcus viridans patient was advised a 6-week course of Rocephin 2 g daily and a 2-week course of gentamicin for synergy, which the patient completed more than a week ago, patient now presenting to the hospital with worsening kidney function. On today's evaluation that is 09/19/2023, patient did have a low-grade fever of 100.2 last night with the patient is afebrile this morning patient is breathing comfortably and is currently on room air patient noted to be slightly more lethargic per the daughter at the bedside no clear history of any nausea vomiting diarrhea or any other changes were reported patient did respond to the name and also questions. Patient also have developed bradycardia arrhythmia Patient white count is 7.8 and creatinine is 2.17 Objective - Vital Signs Vital signs: Vital Signs Temp 98.5 F 09/19/23 11:26 Pulse 75 09/19/23 11:26 Resp 17 09/19/23 11:26 BP 119/59 09/19/23 11:26 Pulse Ox 97 09/19/23 11:26 FiO2 Intake & Output 09/18/23 09/19/23 09/19/23 18:59 06:59 18:59 Intake Total 118 118 Output Total 1850 Balance 118 -1850 118 Intake: Oral 118 118 Output: Urine 1850 Other: Voiding Method Incontinent Incontinent Incontinent External Catheter External Catheter External Catheter # Bowel Movements 1 - Exam GENERAL DESCRIPTION: An elderly male lying in bed in no distress RESPIRATORY SYSTEM: Unlabored breathing , decreased breath sounds at bases HEART: S1 S2 regular rate and rhythm , ABDOMEN: Soft , no tenderness EXTREMITIES: No edema feet - Labs CBC & Chem 7: 09/19/23 11:27 09/19/23 11:27 Labs: Abnormal Lab Results - Last 24 Hours (Table) 09/19/23 09/19/23 Range/Units 11:27 11:27 RBC 2.65 L (4.30-5.90) m/uL Hgb 7.9 L (13.0-17.5) gm/dL Hct 25.4 L (39.0-53.0) % RDW 18.0 H (11.5-15.5) % BUN 26 H (9-20) mg/dL Creatinine 2.17 H (0.66-1.25) mg/dL Glucose 110 H (74-99) mg/dL Alkaline Phosphatase 131 H (38-126) U/L Albumin 3.0 L (3.5-5.0) g/dL Assessment and Plan (1) Endocarditis Current Visit: No Status: Acute Code(s): I38 - ENDOCARDITIS, VALVE UNSPE CIFIED SNOMED Code(s): 92837857 (2) Positive blood culture Current Visit: No Status: Acute Code(s): R78.81 - BACTEREMIA SNOMED Code(s): 468428374 Plan: 1patient with recent diagnosis of bioprosthetic aortic valve endocarditis blood culture positive for strep viridans and the patient is on Rocephin x 6 weeks and already completed a 2-week course of gentamicin patient not developing nephrotoxicity required admission to the hospital for the patient has been evaluated by nephrology did have some improvement in the creatinine today compared to yesterday and patient making good urine 2-patient has developed bradycardia arrhythmia and possible stroke with a question of possible progression of underlying infection not entirely excluded keeping in mind a low-grade fever blood culture has been repeated I have detail ed discussion with the steaming machine operator for doing a SONG however is recommended the patient to be transferred tertiary care I did spend a significant amount of time with the patient and the family [facility] machine operator as this has been discussed with the admitting physician to make arrangement for transfer for now continue with Rocephin Dictation was produced using M-DAQation software. please excuse any grammatical, word or spelling errors. Time with Patient: Greater than 30
[2023-09-19] MEDS: GABAPENTIN 300 MG CAP PO SCH (21:04)
[2023-09-19] MEDS: APIXABAN 2.5 MG TABLET PO SCH (21:05)
[2023-09-20] MEDS ORDERED: ASPIRIN 81 MG PO SCH (09:00)
[2023-09-20 20:52] LABS: Chol/HDL Ratio 2.23 Ratio; LDL Cholesterol,Calculated 21.3 mg/dL (0.0-131.0)
== END 2023-09-19 22:29 | disposition short-term general hospital (02) | DRG 682 ==
LOC: EC 16:51 → 1SOBS 09-17 00:29 → 3SCARD 09-18 14:39 → OBSVTOIN 09-19 14:29
PROVIDERS: ADMIT Internal Medicine; ATTEND Internal Medicine
DX: N17.0 Acute kidney failure with tubular necrosis (principal); I33.0 Acute and subacute infective endocarditis; I48.92 Unspecified atrial flutter; T82.6XXA Infection and inflammatory reaction due to cardiac valve prosthesis, initial encounter; R78.81 Bacteremia; C88.0 Waldenstrom macroglobulinemia; I48.0 Paroxysmal atrial fibrillation; I10 Essential (primary) hypertension; I34.0 Nonrheumatic mitral (valve) insufficiency; D64.9 Anemia, unspecified; I25.10 Atherosclerotic heart disease of native coronary artery without angina pectoris; N40.0 Benign prostatic hyperplasia without lower urinary tract symptoms; R00.1 Bradycardia, unspecified; E78.5 Hyperlipidemia, unspecified; I44.30 Unspecified atrioventricular block; N10 Acute pyelonephritis; T36.1X5A Adverse effect of cephalosporins and other beta-lactam antibiotics, initial encounter; Y71.2 Prosthetic and other implants, materials and accessory cardiovascular devices associated with adverse incidents; Z95.3 Presence of xenogenic heart valve; Z95.5 Presence of coronary angioplasty implant and graft; Z97.8 Presence of other specified devices; Z87.891 Personal history of nicotine dependence; Z79.899 Other long term (current) drug therapy; Z79.1 Long term (current) use of non-steroidal anti-inflammatories (NSAID); Z79.01 Long term (current) use of anticoagulants; Z91.030 Bee allergy status; Z85.820 Personal history of malignant melanoma of skin; Z87.19 Personal history of other diseases of the digestive system; Z86.19 Personal history of other infectious and parasitic diseases
CPT/HCPCS: 36415; 70450; 76770; 80053; 80061; 80170; 81001; 82728; 83540; 83550; 83605; 83735; 84443; 85025; 87040; 87205; 87324; 93306; 93880; 99285